=== PATIENT | female | born 2000 | race Caucasian/White ===

== ENCOUNTER 2020-01-26 16:39 | Inpatient (IN) | payer BC ==
[~2020-01-26] VITALS: Ht 165.1 cm; Wt 58.0 kg
[2020-01-26] MEDS ORDERED: HYDROmorphone 2 MG/ML VIAL IVP ONE (19:30)
[2020-01-26] MEDS ORDERED: IV NORMAL SALINE 1000ML BAG 1,000 ML IV ONE (19:30)
[2020-01-26] MEDS ORDERED: diphenhydrAMINE 50 MG/ML VIAL IVP ONE ×2 (19:30→21:45)
[2020-01-26] MEDS ORDERED: ONDANSETRON PF 4 MG/2 ML VIAL. IVP ONE ×2 (19:30→21:45)
--- NOTE | 2020-01-26 19:48 | RAD ---
CHEST AP ONLY History: Sepsis Comparison: None. Findings: Single view of the chest is submitted. There is left upper extremity PICC with the tip in the region of the mid aspect of the superior vena cava. No pneumothorax, pleural fluid, or infiltrate is identified. Heart size is within normal limits. Impression: 1. No convincing acute radiographic abnormality is identified. Electronically signed by: Costa Wylie MD (01/26/2020 7:45 PM) [facility]
--- NOTE | 2020-01-26 20:00 | PHYS DOC ---
Past Medical History Past Medical History: Asthma, Migraines Additional Past Medical Histor: VASCULAR BLEEDING DISORDER,SUPERIOR MESENTARIC ARTERY SYNDROME,POSTERIOR OR Past Surgical History: Other Additional Past Surgical Histo: SMALL BOWEL RESECTION,PICC LINE PLACEMENT,GJ FEEDING TUBE Smoking Status: Never Smoker Alcohol Use: None General Adult EDM: Chief Complaint: FEVER HPI: HPI: Patient is a 20-year-old female with a complicated past medical history who presents to the emergency room for admission. Patient is currently on TPN and IV antibiotics through a PICC line. She was admitted at the end of December where she was started on antibiotics at [facility]. She sees 1 of our GI physicians who told her to come here to be admitted as her infection is not improving on antibiotics. She does not take anything by mouth. She has been having nausea and vomiting. She continues to have fevers. Patient has a hi story of mesenteric ischemia as well as various bowel dysfunctions that she has had for the last 6 years. She is complaining of chronic diffuse abdominal pain. Review of Systems: Review of Systems: General: Reports fever, chills, sweats, fatigue Eyes: Denies drainage, blurred vision, eye redness HENT: Denies rhinorrhea, sore throat, earache Respiratory: Denies cough, shortness of breath, wheezing Cardiac: Denies edema, palpitations, chest pain GI: Reports abdominal pain, Nausea, vomiting MSK: Denies back pain, neck pain Skin: Denies rash, jaundice Neuro: Denies headache, dizziness Psychiatric: Denies SI/HI Heart Score: Risk Factors: Risk Factors: DM, Current or recent (<one month) smoker, HTN, HLP, family history of CAD, obesity. Risk Scores: Score 0 - 3: 2.5% MACE over next 6 weeks - Discharge Home Score 4 - 6: 20.3% MACE over next 6 weeks - Admit for Clinical Observation Score 7 - 10: 72.7% MACE over next 6 weeks - Early Invasive Strategies Current Medications: Current Medications Medications (Trade) Dose Ordered Sig/Aleida Start Time Stop Time Status Last Admin Dose Admin Diphenhydramine HCl (Benadryl) 25 mg 1X ONCE 01/26/20 19:30 01/26/20 19:31 DC 01/26/20 19:45 25 MG Hydromorphone HCl (Dilaudid) 2 mg 1X ONCE 01/26/20 19:30 01/26/20 19:31 DC 01/26/20 19:49 2 MG Ondansetron HCl (Zofran) 4 mg 1X ONCE 01/26/20 19:30 01/26/20 19:31 DC 01/26/20 19:43 4 MG Sodium Chloride 1,000 ml @ 1,000 mls/hr 1X ONCE 01/26/20 19:30 01/26/20 20:29 01/26/20 19:46 1,000 MLS/HR Allergies: Allergies: Allergies Coded Allergies Type Severity Reaction Last Updated Verified Penicillins Allergy Severe rash 01/26/20 Yes amitriptyline Allergy Severe shock 01/26/20 Yes ceftriaxone Allergy Severe rash 01/26/20 Yes eletriptan Allergy Severe migraines 01/26/20 Yes fat emulsions Allergy Severe anaphylaxis 01/26/20 Yes fish oil Allergy Severe anaphylaxis 01/26/20 Yes medium chain triglycerides Allergy Severe anaphylaxis 01/26/20 Yes meropenem Allergy Severe face swelling 01/26/20 Yes morphine Allergy Severe unknown 01/26/20 Yes olive oil Allergy Severe anaphylaxis 01/26/20 Yes rizatriptan Allergy Severe migraines 01/26/20 Yes soybean oil Allergy Severe anaphylaxis 01/26/20 Yes sumatriptan Allergy Severe migraines 01/26/20 Yes topiramate Allergy Severe shock 01/26/20 Yes trimethobenzamide Allergy Severe face swelling 01/26/20 Yes prochlorperazine Allergy Intermediate 01/26/20 Yes sodium ferric gluconate complex Allergy Intermediate 01/26/20 Yes sucrose Allergy Intermediate 01/26/20 Yes cyproheptadine Adverse Reaction Intermediate n/v 01/26/20 Yes erythromycin base Adverse Reaction Intermediate n/v 01/26/20 Yes gabapentin Adverse Reaction Intermediate n/v 01/26/20 Yes metoclopramide Adverse Reaction Intermediate n/v 01/26/20 Yes promethazine Adverse Reaction Intermediate n/v 01/26/20 Yes Physical Exam: PE: General: Awake, alert, NAD. Well Nourished, well hydrated. Cooperative HEENT: Atraumatic, EOMI, PERRL, airway patent, moist oral mucosa Neck: Supple, trachea midline Respiratory: CTA bilaterally, normal effort, no wheezing/crackles CV: Tachycardic, no murmur, cap refill <2 GI: Soft, nondistended, diffusely tender, no masses, G-tube in place MSK: No obvious deformities Skin: Warm, dry, intact Neuro: A&O x3, speech NL, sensory and motor grossly intact, no focal deficits Psych: Normal affect, normal mood, not suicidal or homicidal Current Patient Data: Vital Signs: Vital Signs Date Time Temp Pulse Resp B/P (MAP) Pulse Ox O2 Delivery O2 Flow Rate FiO2 01/26/20 18:37 99.5 122 16 127/94 (105) 99 Room Air 99.5 EKG: EKG: [] Radiology/Procedures: Radiology/Procedures: [] Course & Med Decision Making: Course & Med Decision Making Pertinent Labs and Imaging studies reviewed. (See chart for details) Patient is 20-year-old female presents to the emergency room with fever, abdominal pain. She has a known bacteremia and that is being treated with antibiotics through PICC line. Patient states that she was told to come here for admission as her infection is not improving. Patient will be given fluids and pain medicine here in the emergency room. Sepsis work-up was ordered including blood cultures and lactic. Patient will be admitted for GI evaluation. Dragon Disclaimer: Dragon Disclaimer: This electronic medical record was generated, in whole or in part, using a voice recognition dictation system. Departure Departure Impression: Primary Impression: Bacteremia Additional Impressions: Abdominal pain On total parenteral nutrition Disposition: ADMITTED INPATIENT Condition: STABLE Referrals: ROXANE KERN MD (PCP) LIN MONSON MD Jan 26, 2020 20:00
[2020-01-26 20:34] LABS: BILIRUBIN,URINE NEGATIVE (NEG); CLARITY,URINE CLEAR; COLOR,URINE YELLOW; NITRITE,URINE NEGATIVE (NEG); PROTEIN,URINE NEGATIVE (NEG-TRACE); UROBILINOGEN,URINE 0.2 mg/dL (0.2 mg/dL)
[2020-01-26 20:34] LABS: BASO % 1 % (0-3); EOS # 0.2 x10^3/uL (0.0-0.7); EOS % 5 % (0-3); HEMATOCRIT 27.7 % (36.0-47.0); HEMOGLOBIN 9.3 g/dL (12.0-15.5); LYMPH # 1.4 x10^3/uL (1.0-4.8); LYMPH % 31 % (24-48); MEAN CORPUSCULAR HEMOGLOBIN 29 pg (25-35); MEAN CORPUSCULAR HGB CONC 34 g/dL (31-37); MEAN CORPUSCULAR VOLUME 85 fL (79-100); MONO # 0.4 x10^3/uL (0.0-1.1); MONO % 8 % (0-9); NEUT # 2.5 x10^3/uL (1.8-7.7); NEUT % 55 % (31-73); PLATELET COUNT 212 x10^3/uL (140-400); RED BLOOD COUNT 3.27 x10^6/uL (3.50-5.40); RED CELL DISTRIBUTION WIDTH 14.6 % (11.5-14.5); WHITE BLOOD COUNT 4.6 x10^3/uL (4.0-11.0)
[2020-01-26 20:43] LABS: BACTERIA,URINE FEW /HPF (0-FEW); RBC,URINE 0 /HPF (0-2)
[2020-01-26 20:47] LABS: CALCIUM 8.8 mg/dL (8.5-10.1); CREATININE 0.8 mg/dL (0.6-1.0); GFR 91.4; POTASSIUM 4.1 mmol/L (3.5-5.1)
[2020-01-26 20:53] LABS: ALBUMIN 3.5 g/dL (3.4-5.0); ALBUMIN/GLOBULIN RATIO 0.9 (1.0-1.7); TOTAL BILIRUBIN 0.2 mg/dL (0.2-1.0); TOTAL PROTEIN 7.6 g/dL (6.4-8.2)
[2020-01-26 22:35] VITALS: BP 141/89
[2020-01-27] MEDS ORDERED: diphenhydrAMINE 50 MG/ML VIAL IVP PRN (00:30)
[2020-01-27] MEDS ORDERED: ALBUTEROL SULFATE 2.5 MG/3 ML NEBU. NEB PRN (00:30)
[2020-01-27] MEDS ORDERED: ACETAMINOPHEN 650 MG SUPP.RECT. PR PRN (00:30)
[2020-01-27] MEDS: IV DEXTROSE 5 %-0.45 % NACL 1,000 ML IV SCH ×2 (00:30→12:02)
[2020-01-27] MEDS: ONDANSETRON PF 4 MG/2 ML VIAL. IV PRN ×3 (00:49→12:01)
[2020-01-27] MEDS: diphenhydrAMINE 50 MG/ML VIAL IVP PRN ×3 (00:49→14:24)
[2020-01-27 03:10] VITALS: BP 94/54
[2020-01-27 07:00] VITALS: BP 115/60
[2020-01-27] MEDS ORDERED: SENN8.6T11 PO (07:15)
[2020-01-27] MEDS ORDERED: CEFE100B IV (07:17)
[2020-01-27] MEDS ORDERED: DAPT350V IV (07:18)
[2020-01-27] MEDS ORDERED: ACET325T21 PO (07:22)
[2020-01-27] MEDS ORDERED: DOCU100C28 PO (07:22)
[2020-01-27] MEDS ORDERED: DIPH25TA64 IVP (07:39)
[2020-01-27] MEDS ORDERED: SENN1TAB99 PO (07:39)
[2020-01-27] MEDS ORDERED: CETI10TA74 PO (07:39)
[2020-01-27] MEDS ORDERED: DIVA500T2 PO (07:39)
[2020-01-27] MEDS ORDERED: ALBU2.5V5 NEB (07:39)
[2020-01-27] MEDS ORDERED: DULO60CA6 PO (07:39)
[2020-01-27] MEDS ORDERED: HYDR4TAB IVP (07:44)
[2020-01-27] MEDS ORDERED: HYDR4TAB PO (07:44)
[2020-01-27] MEDS ORDERED: FENT1PAT19 TP (07:44)
[2020-01-27] MEDS ORDERED: LEVO25TA55 PO (07:46)
[2020-01-27] MEDS ORDERED: MEDR150V3 IM (07:51)
[2020-01-27] MEDS ORDERED: OLAN10TA3 PO (07:57)
[2020-01-27] MEDS ORDERED: PANT40TA77 PO (07:57)
[2020-01-27] MEDS ORDERED: FREM225S SQ (07:57)
[2020-01-27] MEDS ORDERED: LORA0.5T96 PO (07:57)
[2020-01-27] MEDS ORDERED: ONDA8TAB9 PO (07:57)
[2020-01-27] MEDS: HYDROmorphone 2 MG/ML VIAL IV PRN ×3 (08:07→15:09)
[2020-01-27] MEDS ORDERED: CEFEPIME HCL IV Push 1 GM VIAL. IVP SCH (09:00)
--- NOTE | 2020-01-27 09:08 | PDOC2 ---
GI CONSULT Date of Service: DATE: 01/27/20 TIME: 09:07 Reason For Consult: bacteremia HPI: HPI: 20 y/o female who sees Dr. Briggs. H/o SMA syndrome (says workup/diagnosis through [facility] and referred to Dr. Quintanilla once she "aged out"). S/p duodenal jejunostomy, SB endoscopy, takedown of ligament of treitz, and GJ tube placement @ [facility] by Dr. Quintanilla in 08/2019. Tube replaced on 01/14/20. Per discussion w/ Dr. Briggs yesterday, has been on antibiotics and TPN w/ fever, CT @ [facility] yesterday (for abd pain, n/v, diarrhea, h/o bacteremia on atbx per PICC) indicates GJ tube infection - needs admission and possible removal. Also discussed w/ Dr. Briggs this morning after I saw her - pt's mother called him today - hopeful for tube removal and DC today. She is alone in her room and not forthcoming with history this morning. Has fever (103 at home), abdominal pain (all over, maybe worst around tube), vomiting ("bile and blood"), and dark brown-red drainage from GJ tube. She "is allowed" to eat a couple bites of food sometimes - sometimes has vomiting, somet imes not - sometimes immediately after eating, sometimes later. Uses GJ tube for drainage - does not use J tube for nutrition due to increase in abdominal pain after use. Reports some constipation improved w/ docusate - last stooled yesterday. Stable weight. H/o GERD on PPI. Three EGDs @ [facility] this year (two in September and one in Dec) - all for hematemesis - all unrevealing for upper GI source, but blood noted in oral cavity once in September and chart lists h/o epistaxis. Records indicate previously normal bronchoscopy and evaluation through [facility]. Chronic anemia - last Hgb @ [facility] on 01/24 was 8. ?h/o SB AVMs per [facility] workup. Bleeding scan and SBS negative @ [facility] in Dec. Abd US for elevated LFTs showed hydropic GB, no cholelithiasis, and normal bile ducts. Contrast study through J tube showed no distal obstruction. Colonoscopy reportedly normal ~2 years ago @ [facility]. Tells me has been on IV atbx for "three infections in my blood" x 1.5 weeks (summary list shows Daptomycin and Cefepime). Has recurrence of symptoms whenever atbx stopped. Takes Dilaudid and Fentanyl patch for pain at home. Mild tachycardia here, Tmax 99.5. Nurse reports pt said vomited three times overnight - unwitnessed. PMH: PMH: per HPI and POTS, Ehler-Danlos, migraines (gets BOTOX), seizure, hypothyroidism, fungemia, pancytopenia, anxiety, depression Social History: Smoke: No ALCOHOL: none Drugs: None ROS: GEN: +fever HEENT: Denies blurred vision, sore throat CV: Denies chest pain RESP: Denies shortness of air, cough GI: Per HPI : Denies hematuria, dysuria ENDO: Denies weight changes NEURO: Denies confusion, dizziness MSK: Denies weakness, joint pain/swelling SKIN: Denies jaundice, pruritus Vitals: Vitals: Vital Signs Date Time Temp Pulse Resp B/P (MAP) Pulse Ox O2 Delivery O2 Flow Rate FiO2 01/27/20 08:07 16 Room Air 01/27/20 07:00 97.7 79 115/60 (78) 99 97.7 Labs: Labs: Laboratory Tests Test 01/26/20 20:15 01/26/20 20:21 Urine Collection Type Unknown Urine Color Yellow Urine Clarity Clear Urine pH 7.0 (<5.0-8.0) Urine Specific [place] 1.015 (1.000-1.030) Urine Protein Negative mg/dL (NEG-TRACE) Urine Glucose (UA) Negative mg/dL (NEG) Urine Ketones (Stick) Negative mg/dL (NEG) Urine Blood Negative (NEG) Urine Nitrite Negative (NEG) Urine Bilirubin Negative (NEG) Urine Urobilinogen Dipstick 0.2 mg/dL (0.2 mg/dL) Urine Leukocyte Esterase Negative (NEG) Urine RBC 0 /HPF (0-2) Urine WBC 1-4 /HPF (0-4) Urine Squamous Epithelial Cells Mod /LPF Urine Bacteria Few /HPF (0-FEW) Urine Mucus Slight /LPF White Blood Count 4.6 x10^3/uL (4.0-11.0) Red Blood Count 3.27 x10^6/uL (3.50-5.40) Hemoglobin 9.3 g/dL (12.0-15.5) Hematocrit 27.7 % (36.0-47.0) Mean Corpuscular Volume 85 fL (79-100) Mean Corpuscular Hemoglobin 29 pg (25-35) Mean Corpuscular Hemoglobin Concent 34 g/dL (31-37) Red Cell Distribution Width 14.6 % (11.5-14.5) Platelet Count 212 x10^3/uL (140-400) Neutrophils (%) (Auto) 55 % (31-73) Lymphocytes (%) (Auto) 31 % (24-48) Monocytes (%) (Auto) 8 % (0-9) Eosinophils (%) (Auto) 5 % (0-3) Basophils (%) (Auto) 1 % (0-3) Neutrophils # (Auto) 2.5 x10^3/uL (1.8-7.7) Lymphocytes # (Auto) 1.4 x10^3/uL (1.0-4.8) Monocytes # (Auto) 0.4 x10^3/uL (0.0-1.1) Eosinophils # (Auto) 0.2 x10^3/uL (0.0-0.7) Basophils # (Auto) 0.0 x10^3/uL (0.0-0.2) Sodium Level 138 mmol/L (136-145) Potassium Level 4.1 mmol/L (3.5-5.1) Chloride Level 104 mmol/L (98-107) Carbon Dioxide Level 26 mmol/L (21-32) Anion Gap 8 (6-14) Blood Urea Nitrogen 14 mg/dL (7-20) Creatinine 0.8 mg/dL (0.6-1.0) Estimated GFR (Cockcroft-Gault) 91.4 BUN/Creatinine Ratio 18 (6-20) Glucose Level 82 mg/dL (70-99) Lactic Acid Level 1.2 mmol/L (0.4-2.0) Calcium Level 8.8 mg/dL (8.5-10.1) Total Bilirubin 0.2 mg/dL (0.2-1.0) Aspartate Amino Transf (AST/SGOT) 17 U/L (15-37) Alanine Aminotransferase (ALT/SGPT) 13 U/L (14-59) Alkaline Phosphatase 66 U/L (46-116) Total Protein 7.6 g/dL (6.4-8.2) Albumin 3.5 g/dL (3.4-5.0) Albumin/Globulin Ratio 0.9 (1.0-1.7) Allergies: Coded Allergies: Penicillins (Verified Allergy, Severe, rash, 01/26/20) amitriptyline (Verified Allergy, Severe, shock, 01/26/20) ceftriaxone (Verified Allergy, Severe, rash, 01/26/20) eletriptan (Verified Allergy, Severe, migraines, 01/26/20) fat emulsions (Verified Allergy, Severe, anaphylaxis, 01/26/20) fish oil (Verified Allergy, Severe, anaphylaxis, 01/26/20) medium chain triglycerides (Verified Allergy, Severe, anaphylaxis, 01/26/20) meropenem (Verified Allergy, Severe, face swelling, 01/26/20) morphine (Verified Allergy, Severe, unknown, 01/26/20) olive oil (Verified Allergy, Severe, anaphylaxis, 01/26/20) rizatriptan (Verified Allergy, Severe, migraines, 01/26/20) soybean oil (Verified Allergy, Severe, anaphylaxis, 01/26/20) sumatriptan (Verified Allergy, Severe, migraines, 01/26/20) topiramate (Verified Allergy, Severe, shock, 01/26/20) trimethobenzamide (Verified Allergy, Severe, face swelling, 01/26/20) prochlorperazine (Verified Allergy, Intermediate, 01/26/20) sodium ferric gluconate complex (Verified Allergy, Intermediate, 01/26/20) sucrose (Verified Allergy, Intermediate, 01/26/20) pineapple (Verified Allergy, Unknown, 01/27/20) cyproheptadine (Verified Adverse Reaction, Intermediate, n/v, 01/26/20) erythromycin base (Verified Adverse Reaction, Intermediate, n/v, 01/26/20) gabapentin (Verified Adverse Reaction, Intermediate, n/v, 01/26/20) metoclopramide (Verified Adverse Reaction, Intermediate, n/v, 01/26/20) promethazine (Verified Adverse Reaction, Intermediate, n/v, 01/26/20) Medications: Current Medications Medications (Trade) Dose Ordered Sig/Aleida Route PRN Reason Start Time Stop Time Status Last Admin Dose Admin Hydromorphone HCl (Dilaudid) 2 mg 1X ONCE IVP 01/26/20 19:30 01/26/20 19:31 DC 01/26/20 19:49 Ondansetron HCl (Zofran) 4 mg 1X ONCE IVP 01/26/20 19:30 01/26/20 19:31 DC 01/26/20 19:43 Sodium Chloride 1,000 ml @ 1,000 mls/hr 1X ONCE IV 01/26/20 19:30 01/26/20 20:29 DC 01/26/20 19:46 Diphenhydramine HCl (Benadryl) 25 mg 1X ONCE IVP 01/26/20 19:30 01/26/20 19:31 DC 01/26/20 19:45 Ondansetron HCl (Zofran) 4 mg 1X ONCE IVP 01/26/20 21:45 01/26/20 21:46 DC 01/26/20 21:41 Diphenhydramine HCl (Benadryl) 25 mg 1X ONCE IVP 01/26/20 21:45 01/26/20 21:46 DC 01/26/20 21:41 Dextrose/Sodium Chloride 1,000 ml @ 100 mls/hr Q10H IV 01/27/20 00:30 01/27/20 00:30 Ondansetron HCl (Zofran) 4 mg PRN Q4HRS PRN IV NAUSEA/VOMITING 01/27/20 00:30 01/27/20 08:07 Hydromorphone HCl (Dilaudid) 1 mg PRN Q2HRS PRN IV SEVERE PAIN 7-10 01/27/20 00:30 01/27/20 08:07 Diphenhydramine HCl (Benadryl) 25 mg PRN Q6HRS PRN IVP ITCHING 01/27/20 00:30 01/27/20 08:07 Cefepime HCl (Maxipime) 1 gm Q12HR IVP 01/27/20 09:00 01/27/20 08:22 Micafungin Sodium 100 mg/Dextrose 100 ml @ 100 mls/hr Q24H IV 01/27/20 09:30 01/27/20 08:23 Imaging: Imaging: CXR 01/25 Impression: 1. No convincing acute radiographic abnormality is identified. PE: GEN: NAD HEENT: Atraumatic, PERRL LUNGS: CTAB HEART: RRR ABD: GJ tube left mid abdomen w/ dark brown-red contents, tender diffusely though worst in lower abdomen - suprapubic/LLQ/around tube - some firmness EXTREMITY: No edema SKIN: No rashes, no jaundice NEURO/PSYCH: A & O 3, flat A/P: A/P: H/o SMA syndrome s/p duodenal jejunostomy w/ GJ tube on TPN H/o bacteremia, fever - abnormal CT @ [facility] yesterday: "indwelling gastrojejunostomy tube is well-positioned, there is mild soft tissue fullness and thickening of the abdominal wall along the gastrostomy tract which may indicate localized inflammation and cellulitis which is increased since previous though no loculated fluid collection or abscess is seen" Chronic anemia - normal bleeding scan and SBS recently Chronic abd pain, recurrent vomiting - normal EGD x 3 (09/2019, 12/2019) - blood in oral cavity H/o GERD CRC screen - reportedly [facility] ~[facility] -- Per discussion w/ Dr. Briggs yesterday - ideally would have removal of GJ tube - previous imaging @ [facility]. D/w Dr. Briones who will see here here - ask for surgery opinion. Update given to Dr. Briggs - pt's mother in contact w/ him. ?ID - on Micafungin and Cefepime here. Okay to resume TPN, will add PPI. ?check G tube w/ contrast study Has Dilaudid and Ativan ordered. LIZETH LUDWIG Jan 27, 2020 09:08
[2020-01-27] MEDS ORDERED: MICAFUNGIN 100 MG in IV DEXTROSE 5% 100ML 100 ML IV SCH (09:30)
[2020-01-27] MEDS ORDERED: TPN PER PHARMACY MC PRN (10:00)
--- NOTE | 2020-01-27 10:07 | PDOC1 ---
History and Physical Date of Admission Date of Admission DATE: 01/27/20 TIME: 10:06 Identification/Chief Complaint Chief Complaint SEEN IN ER WITH BACTEREMIA, 20-year-old female with a complicated past medical history who presented to the emergency room for admission. currently on TPN and IV antibiotics through a PICC line. She was admitted at the end of December where she was started on antibiotics at [facility]. She sees GI physicians who told her to come here to be admitted as her infection is not improving on antibiotics. She does not take anything by mouth.// has been having nausea and vomiting. ,continues to have fevers. has a history of mesenteric ischemia as well as various bowel dysfunctions that she has had for the last 6 years Past Medical History Past Medical History Past Medical History Past Medical History: Asthma, Migraines Additional Past Medical Histor: VASCULAR BLEEDING DISORDER,SUPERIOR MESENTARIC ARTERY SYNDROME,POSTERIOR OR Past Surgical History: Other Additional Past Surgical Histo: SMALL BOWEL RESECTION,PICC LINE PLACEMENT,GJ FEEDING TUBE Smoking Status: Never Smoker Alcohol Use: None FHX HTN ENT: No pertinent hx Family History Family History: Hypertension Social History Smoke: No ALCOHOL: none Drugs: None Current Problem List Problem List Problems Medical Problems: (1) Abdominal pain Status: Acute (2) Bacteremia Status: Acute (3) On total parenteral nutrition Status: Acute Current Medications Current Medications Current Medications Hydromorphone HCl (Dilaudid) 2 mg 1X ONCE IVP Last administered on 01/26/20at 19:49; Start 01/26/20 at 19:30; Stop 01/26/20 at 19:31; Status DC Ondansetron HCl (Zofran) 4 mg 1X ONCE IVP Last administered on 01/26/20at 19:43; Start 01/26/20 at 19:30; Stop 01/26/20 at 19:31; Status DC Sodium Chloride 1,000 ml @ 1,000 mls/hr 1X ONCE IV Last administered on 01/26/20at 19:46; Start 01/26/20 at 19:30; Stop 01/26/20 at 20:29; Status DC Diphenhydramine HCl (Benadryl) 25 mg 1X ONCE IVP Last administered on 01/26/20at 19:45; Start 01/26/20 at 19:30; Stop 01/26/20 at 19:31; Status DC Ondansetron HCl (Zofran) 4 mg 1X ONCE IVP Last administered on 01/26/20at 21:41; Start 01/26/20 at 21:45; Stop 01/26/20 at 21:46; Status DC Diphenhydramine HCl (Benadryl) 25 mg 1X ONCE IVP Last administered on 01/26/20a t 21:41; Start 01/26/20 at 21:45; Stop 01/26/20 at 21:46; Status DC Dextrose/Sodium Chloride 1,000 ml @ 100 mls/hr Q10H IV Last administered on 01/27/20at 00:30; Start 01/27/20 at 00:30 Ondansetron HCl (Zofran) 4 mg PRN Q4HRS PRN IV NAUSEA/VOMITING Last administered on 01/27/20at 08:07; Start 01/27/20 at 00:30 Acetaminophen (Tylenol Supp) 650 mg PRN Q4HRS PRN NH TEMP OVER 100.4F OR MILD PAIN; Start 01/27/20 at 00:30 Albuterol Sulfate (Ventolin Neb Soln) 2.5 mg PRN Q4HRS PRN NEB SHORTNESS OF BREATH; Start 01/27/20 at 00:30 Lorazepam (Ativan Inj) 1 mg PRN Q4HRS PRN IV ANXIETY / AGITATION; Start 01/27/20 at 00:30 Hydromorphone HCl (Dilaudid) 1 mg PRN Q2HRS PRN IV SEVERE PAIN 7-10 Last administered on 01/27/20at 08:07; Start 01/27/20 at 00:30 Diphenhydramine HCl (Benadryl) 25 mg PRN Q8HRS PRN IVP itchiness; Start 01/27/20 at 00:30 Diphenhydramine HCl (Benadryl) 25 mg PRN Q6HRS PRN IVP ITCHING Last administered on 01/27/20at 08:07; Start 01/27/20 at 00:30 Cefepime HCl (Maxipime) 1 gm Q12HR IVP Last administered on 01/27/20at 08:22; Start 01/27/20 at 09:00 Micafungin Sodium 100 mg/Dextrose 100 ml @ 100 mls/hr Q24H IV Last administer ed on 01/27/20at 08:23; Start 01/27/20 at 09:30 Info (Tpn Per Pharmacy) 1 each PRN DAILY PRN MC SEE COMMENTS; Start 01/27/20 at 10:00 Active Scripts Active Reported Ajovy (Fremanezumab-Vfrm) 225 Mg/1.5 Ml Syringe 225 Mg SQ PRN DAILY PRN Zofran (Ondansetron Hcl) 8 Mg Tablet 8 Mg PO PRN Q4HRS PRN Pantoprazole Sodium (Pantoprazole Sodium) 40 Mg Tablet.dr 40 Mg PO DAILYAC Zyprexa (Olanzapine) 10 Mg Tablet 1 Tab PO QHS Ativan (Lorazepam) 0.5 Mg Tablet 0.5 Mg PO PRN Q6HRS PRN Medroxyprogesterone Acetate 150 Mg/1 Ml Vial 150 Mg IM EVERY 3 PRN Synthroid (Levothyroxine Sodium) 25 Mcg Tablet 1 Tab PO DAILY08 Hydromorphone Hcl 4 Mg Tablet 4 Mg IVP PRN Q4HRS PRN Hydromorphone Hcl 4 Mg Tablet 4 Mg PO PRN Q6HRS PRN FENTANYL 75mcg/hr (Fentanyl) 1 Each Patch.td72 1 Patch TP Q3DAYS Cymbalta (Duloxetine Hcl) 60 Mg Capsule. 1 Cap PO DAILY Senna-Docusate Sodium Tablet (Sennosides/Docusate Sodium) 1 Each Tablet 1 Tab PO HS PRN 20 Days Depakote (Divalproex Sodium) 500 Mg Tablet. 250 Tab PO BID Benadryl Allergy (Diphenhydramine Hcl) 25 Mg Tablet 50 Mg IVP PRN Q4HRS Zyrtec (Cetirizine Hcl) 10 Mg Tablet 10 Mg PO DAILY PRN Albuterol Sulfate Neb Soln (Albuterol Sulfate) 2.5 Mg/3 Ml Vial.neb 2.5 Mg NEB PRN Q6HRS PRN Acetaminophen 325 Mg Tablet 2 Tab PO PRN Q4-6HRS PRN 24 Days Docusate Sodium 100 Mg Capsule 2 Cap PO BID PRN 15 Days Daptomycin 350 Mg Vial 500 Mg IV DAILY Cefepime HCl 100 Gm Bulkbaginj 100 Gm IV BID Senna Laxative (Sennosides) 8.6 Mg Tablet 8.6 Mg PO QHS Allergies Allergies: Coded Allergies: Penicillins (Verified Allergy, Severe, rash, 01/26/20) amitriptyline (Verified Allergy, Severe, shock, 01/26/20) ceftriaxone (Verified Allergy, Severe, rash, 01/26/20) eletriptan (Verified Allergy, Severe, migraines, 01/26/20) fat emulsions (Verified Allergy, Severe, anaphylaxis, 01/26/20) fish oil (Verified Allergy, Severe, anaphylaxis, 01/26/20) medium chain triglycerides (Verified Allergy, Severe, anaphylaxis, 01/26/20) meropenem (Verified Allergy, Severe, face swelling, 01/26/20) morphine (Verified Allergy, Severe, unknown, 01/26/20) olive oil (Verified Allergy, Severe, anaphylaxis, 01/26/20) rizatriptan (Verified Allergy, Severe, migraines, 01/26/20) soybean oil (Verified Allergy, Severe, anaphylaxis, 01/26/20) sumatriptan (Verified Allergy, Severe, migraines, 01/26/20) topiramate (Verified Allergy, Severe, shock, 01/26/20) trimethobenzamide (Verified Allergy, Severe, face swelling, 01/26/20) prochlorperazine (Verified Allergy, Intermediate, 01/26/20) sodium ferric gluconate complex (Verified Allergy, Intermediate, 01/26/20) sucrose (Verified Allergy, Intermediate, 01/26/20) pineapple (Verified Allergy, Unknown, 01/27/20) cyproheptadine (Verified Adverse Reaction, Intermediate, n/v, 01/26/20) erythromycin base (Verified Adverse Reaction, Intermediate, n/v, 01/26/20) gabapentin (Verified Adverse Reaction, Intermediate, n/v, 01/26/20) metoclopramide (Verified Adverse Reaction, Intermediate, n/v, 01/26/20) promethazine (Verified Adverse Reaction, Intermediate, n/v, 01/26/20) ROS Review of System Review of Systems: General: Reports fever, chills, sweats, fatigue Eyes: Denies drainage, blurred vision, eye redness HENT: Denies rhinorrhea, sore throat, earache Respiratory: Denies cough, shortness of breath, wheezing Cardiac: Denies edema, palpitations, chest pain GI: Reports abdominal pain, Nausea, vomiting MSK: Denies back pain, neck pain Skin: Denies rash, jaundice Neuro: Denies headache, dizziness 14 PT ROS OTHERWISE NEG Physical Exam Physical Exam General: Awake, alert, NAD. Well Nourished, well hydrated. Cooperative HEENT: Atraumatic, EOMI, PERRL, airway patent, moist oral mucosa Neck: Supple, trachea midline Respiratory: CTA bilaterally, normal effort, no wheezing/crackles CV: Tachycardic, no murmur, cap refill <2 GI: Soft, nondistended, diffusely tender, no masses, G-tube in place MSK: No obvious deformities Skin: Warm, dry, intact Neuro: A&O x3, speech NL, sensory and motor grossly intact, no focal deficits Psych: Normal affect, normal mood, General: Alert, Oriented X3, Cooperative HEENT: Atraumatic Breasts: Not examined Abdomen: Soft Rectal Exam: not examined PELVIC: Examination not indicated Extremities: No cyanosis Neuro: Normal speech, Sensation intact, Cranial nerves 3-12 NL Psych/Mental Status: Mental status NL, Mood NL Vitals Vitals Vital Signs Date Time Temp Pulse Resp B/P (MAP) Pulse Ox O2 Delivery O2 Flow Rate FiO2 01/27/20 08:07 16 Room Air 01/27/20 07:00 97.7 79 115/60 (78) 99 97.7 Labs Labs Laboratory Tests Test 01/26/20 20:15 01/26/20 20:21 Urine Collection Type Unknown Urine Color Yellow Urine Clarity Clear Urine pH 7.0 (<5.0-8.0) Urine Specific [place] 1.015 (1.000-1.030) Urine Protein Negative mg/dL (NEG-TRACE) Urine Glucose (UA) Negative mg/dL (NEG) Urine Ketones (Stick) Negative mg/dL (NEG) Urine Blood Negative (NEG) Urine Nitrite Negative (NEG) Urine Bilirubin Negative (NEG) Urine Urobilinogen Dipstick 0.2 mg/dL (0.2 mg/dL) Urine Leukocyte Esterase Negative (NEG) Urine RBC 0 /HPF (0-2) Urine WBC 1-4 /HPF (0-4) Urine Squamous Epithelial Cells Mod /LPF Urine Bacteria Few /HPF (0-FEW) Urine Mucus Slight /LPF White Blood Count 4.6 x10^3/uL (4.0-11.0) Red Blood Count 3.27 x10^6/uL (3.50-5.40) Hemoglobin 9.3 g/dL (12.0-15.5) Hematocrit 27.7 % (36.0-47.0) Mean Corpuscular Volume 85 fL (79-100) Mean Corpuscular Hemoglobin 29 pg (25-35) Mean Corpuscular Hemoglobin Concent 34 g/dL (31-37) Red Cell Distribution Width 14.6 % (11.5-14.5) Platelet Count 212 x10^3/uL (140-400) Neutrophils (%) (Auto) 55 % (31-73) Lymphocytes (%) (Auto) 31 % (24-48) Monocytes (%) (Auto) 8 % (0-9) Eosinophils (%) (Auto) 5 % (0-3) Basophils (%) (Auto) 1 % (0-3) Neutrophils # (Auto) 2.5 x10^3/uL (1.8-7.7) Lymphocytes # (Auto) 1.4 x10^3/uL (1.0-4.8) Monocytes # (Auto) 0.4 x10^3/uL (0.0-1.1) Eosinophils # (Auto) 0.2 x10^3/uL (0.0-0.7) Basophils # (Auto) 0.0 x10^3/uL (0.0-0.2) Sodium Level 138 mmol/L (136-145) Potassium Level 4.1 mmol/L (3.5-5.1) Chloride Level 104 mmol/L (98-107) Carbon Dioxide Level 26 mmol/L (21-32) Anion Gap 8 (6-14) Blood Urea Nitrogen 14 mg/dL (7-20) Creatinine 0.8 mg/dL (0.6-1.0) Estimated GFR (Cockcroft-Gault) 91.4 BUN/Creatinine Ratio 18 (6-20) Glucose Level 82 mg/dL (70-99) Lactic Acid Level 1.2 mmol/L (0.4-2.0) Calcium Level 8.8 mg/dL (8.5-10.1) Total Bilirubin 0.2 mg/dL (0.2-1.0) Aspartate Amino Transf (AST/SGOT) 17 U/L (15-37) Alanine Aminotransferase (ALT/SGPT) 13 U/L (14-59) Alkaline Phosphatase 66 U/L (46-116) Total Protein 7.6 g/dL (6.4-8.2) Albumin 3.5 g/dL (3.4-5.0) Albumin/Globulin Ratio 0.9 (1.0-1.7) Laboratory Tests Test 01/26/20 20:15 01/26/20 20:21 Urine Collection Type Unknown Urine Color Yellow Urine Clarity Clear Urine pH 7.0 (<5.0-8.0) Urine Specific [place] 1.015 (1.000-1.030) Urine Protein Negative mg/dL (NEG-TRACE) Urine Glucose (UA) Negative mg/dL (NEG) Urine Ketones (Stick) Negative mg/dL (NEG) Urine Blood Negative (NEG) Urine Nitrite Negative (NEG) Urine Bilirubin Negative (NEG) Urine Urobilinogen Dipstick 0.2 mg/dL (0.2 mg/dL) Urine Leukocyte Esterase Negative (NEG) Urine RBC 0 /HPF (0-2) Urine WBC 1-4 /HPF (0-4) Urine Squamous Epithelial Cells Mod /LPF Urine Bacteria Few /HPF (0-FEW) Urine Mucus Slight /LPF White Blood Count 4.6 x10^3/uL (4.0-11.0) Red Blood Count 3.27 x10^6/uL (3.50-5.40) Hemoglobin 9.3 g/dL (12.0-15.5) Hematocrit 27.7 % (36.0-47.0) Mean Corpuscular Volume 85 fL (79-100) Mean Corpuscular Hemoglobin 29 pg (25-35) Mean Corpuscular Hemoglobin Concent 34 g/dL (31-37) Red Cell Distribution Width 14.6 % (11.5-14.5) Platelet Count 212 x10^3/uL (140-400) Neutrophils (%) (Auto) 55 % (31-73) Lymphocytes (%) (Auto) 31 % (24-48) Monocytes (%) (Auto) 8 % (0-9) Eosinophils (%) (Auto) 5 % (0-3) Basophils (%) (Auto) 1 % (0-3) Neutrophils # (Auto) 2.5 x10^3/uL (1.8-7.7) Lymphocytes # (Auto) 1.4 x10^3/uL (1.0-4.8) Monocytes # (Auto) 0.4 x10^3/uL (0.0-1.1) Eosinophils # (Auto) 0.2 x10^3/uL (0.0-0.7) Basophils # (Auto) 0.0 x10^3/uL (0.0-0.2) Sodium Level 138 mmol/L (136-145) Potassium Level 4.1 mmol/L (3.5-5.1) Chloride Level 104 mmol/L (98-107) Carbon Dioxide Level 26 mmol/L (21-32) Anion Gap 8 (6-14) Blood Urea Nitrogen 14 mg/dL (7-20) Creatinine 0.8 mg/dL (0.6-1.0) Estimated GFR (Cockcroft-Gault) 91.4 BUN/Creatinine Ratio 18 (6-20) Glucose Level 82 mg/dL (70-99) Lactic Acid Level 1.2 mmol/L (0.4-2.0) Calcium Level 8.8 mg/dL (8.5-10.1) Total Bilirubin 0.2 mg/dL (0.2-1.0) Aspartate Amino Transf (AST/SGOT) 17 U/L (15-37) Alanine Aminotransferase (ALT/SGPT) 13 U/L (14-59) Alkaline Phosphatase 66 U/L (46-116) Total Protein 7.6 g/dL (6.4-8.2) Albumin 3.5 g/dL (3.4-5.0) Albumin/Globulin Ratio 0.9 (1.0-1.7) Images Images History: Sepsis Comparison: None. Findings: Single view of the chest is submitted. There is left upper extremity PICC with the tip in the region of the mid aspect of the superior vena cava. No pneumothorax, pleural fluid, or infiltrate is identified. Heart size is within normal limits. Impression: 1. No convincing acute radiographic abnormality is identified. Electronically signed by: Esme Sandy MD (01/26/2020 7:45 PM) [facility] DICTATED and SIGNED BY: ESME SANDY MD VTE Prophylaxis Ordered VTE Prophylaxis Devices: Yes VTE Pharmacological Prophylaxi: Yes Assessment/Plan Assessment/Plan impression 1. bacteremia 2. sepsis 3. HX SMALL BOWEL RESECTION,PICC LINE PLACEMENT, 4. GJ FEEDING TUBE 5. NORMOCYTIC ANEMIA plan admit emperic iv antibiotics ID consult GI CONSULT consideration for removal of GJ tube w/ infection - previous imaging @ [facility] IV CEFIPIME, MICAFUNGIN. d/w mother in room Justifications for Admission Other Justification SALLIE HOWARD MD Jan 27, 2020 10:07
[2020-01-27 11:00] VITALS: BP 109/64
--- NOTE | 2020-01-27 12:29 | NUR ---
SS following for discharge planning. SS reviewed pt chart and discussed with pt RN. Pt is from home with family and is currently on room air. Pt had [facility], ; fax [phone]. Pt has IV infusion services at home through [facility], ; fax [phone]. SS received notification from [facility] that pt was on IV Micafungin 100 mg Q24, IV Cefepime 1G Q12, and IV Daptomycin 500mg Q24, and TPN at home. [facility] to fax documentation of dosages to unit. Pt will need new scripts for IV abx and TPN prior to discharge. Pt's mother requesting discharge to home today. SS will continue to follow for discharge planning.
--- NOTE | 2020-01-27 14:31 | PDOC2 ---
CONSULT Date of Consult Date of Consult DATE: 01/27/20 TIME: 14:26 Reason for Consult Reason for Consult: GJ infection Referring Physician Referring Physician: Dr. Briones and Dr. Briggs Identification/Chief Complaint Chief Complaint recurrent infections Source Source: Caregiver, Chart review, Patient History of Present Illness Reason for Visit: 20 yo F with bowel dysfunction. Has had recurrent issues with infection at GJ tube site. Pt, pt's family and GI requests removal. She has not been using tubes secondary to pain. Past Medical History Cardiovascular: Other (ehlose danlos) GI: Other (bowel dysfunction, Gi bleed, SMA syndrome) Infectious disease: Other (recurrent infections) ENT: No pertinent hx Past Surgical History Past Surgical History: Other (SMA surgery with placement of GJ tube.) Family History Family History: No Significant, Hypertension Social History No ALCOHOL: none Drugs: None Current Problem List Problem List Problems Medical Problems: (1) Abdominal pain Status: Acute (2) Bacteremia Status: Acute (3) On total parenteral nutrition Status: Acute Current Medications Current Medications Current Medications Hydromorphone HCl (Dilaudid) 2 mg 1X ONCE IVP Last administered on 01/26/20at 1 9:49; Start 01/26/20 at 19:30; Stop 01/26/20 at 19:31; Status DC Ondansetron HCl (Zofran) 4 mg 1X ONCE IVP Last administered on 01/26/20at 19:43; Start 01/26/20 at 19:30; Stop 01/26/20 at 19:31; Status DC Sodium Chloride 1,000 ml @ 1,000 mls/hr 1X ONCE IV Last administered on 01/26/20at 19:46; Start 01/26/20 at 19:30; Stop 01/26/20 at 20:29; Status DC Diphenhydramine HCl (Benadryl) 25 mg 1X ONCE IVP Last administered on 01/26/20at 19:45; Start 01/26/20 at 19:30; Stop 01/26/20 at 19:31; Status DC Ondansetron HCl (Zofran) 4 mg 1X ONCE IVP Last administered on 01/26/20at 21:41; Start 01/26/20 at 21:45; Stop 01/26/20 at 21:46; Status DC Diphenhydramine HCl (Benadryl) 25 mg 1X ONCE IVP Last administered on 01/26/20at 21:41; Start 01/26/20 at 21:45; Stop 01/26/20 at 21:46; Status DC Dextrose/Sodium Chloride 1,000 ml @ 100 mls/hr Q10H IV Last administered on 01/27/20at 12:02; Start 01/27/20 at 00:30 Ondansetron HCl (Zofran) 4 mg PRN Q4HRS PRN IV NAUSEA/VOMITING Last administered on 01/27/20at 12:01; Start 01/27/20 at 00:30 Acetaminophen (Tylenol Supp) 650 mg PRN Q4HRS PRN [place] TEMP OVER 100.4F OR MILD PAIN; Start 01/27/20 at 00:30 Albuterol Sulfate (Ventolin Neb Soln) 2.5 mg PRN Q4HRS PRN NEB SHORTNESS OF BREATH; Start 01/27/20 at 00:30 Lorazepam (Ativan Inj) 1 mg PRN Q4HRS PRN IV ANXIETY / AGITATION; Start 01/27/20 at 00:30 Hydromorphone HCl (Dilaudid) 1 mg PRN Q2HRS PRN IV SEVERE PAIN 7-10 Last administered on 01/27/20at 11:22; Start 01/27/20 at 00:30 Diphenhydramine HCl (Benadryl) 25 mg PRN Q8HRS PRN IVP itchiness; Start 01/27/20 at 00:30 Diphenhydramine HCl (Benadryl) 25 mg PRN Q6HRS PRN IVP ITCHING Last administered on 01/27/20at 14:24; Start 01/27/20 at 00:30 Cefepime HCl (Maxipime) 1 gm Q12HR IVP Last administered on 01/27/20at 08:22; Start 01/27/20 at 09:00 Micafungin Sodium 100 mg/Dextrose 100 ml @ 100 mls/hr Q24H IV Last administered on 01/27/20at 08:23; Start 01/27/20 at 09:30 Info (Tpn Per Pharmacy) 1 each PRN DAILY PRN [facility] SEE COMMENTS; Start 01/27/20 at 10:00 Pantoprazole Sodium (PROTONIX VIAL for IV PUSH) 40 mg DAILYAC IVP ; Start 01/28/20 at 07:30 Active Scripts Active Reported Ajovy (Fremanezumab-Vfrm) 225 Mg/1.5 Ml Syringe 225 Mg SQ PRN DAILY PRN Zofran (Ondansetron Hcl) 8 Mg Tablet 8 Mg PO PRN Q4HRS PRN Pantoprazole Sodium (Pantoprazole Sodium) 40 Mg Tablet. 40 Mg PO DAILYAC Zyprexa (Olanzapine) 10 Mg Tablet 1 Tab PO QHS Ativan (Lorazepam) 0.5 Mg Tablet 0.5 Mg PO PRN Q6HRS PRN Medroxyprogesterone Acetate 150 Mg/1 Ml Vial 150 Mg IM EVERY 3 PRN Synthroid (Levothyroxine Sodium) 25 Mcg Tablet 1 Tab PO DAILY08 Hydromorphone Hcl 4 Mg Tablet 4 Mg IVP PRN Q4HRS PRN Hydromorphone Hcl 4 Mg Tablet 4 Mg PO PRN Q6HRS PRN FENTANYL 75mcg/hr (Fentanyl) 1 Each Patch.td72 1 Patch TP Q3DAYS Cymbalta (Duloxetine Hcl) 60 Mg Capsule. 1 Cap PO DAILY Senna-Docusate Sodium Tablet (Sennosides/Docusate Sodium) 1 Each Tablet 1 Tab PO HS PRN 20 Days Depakote (Divalproex Sodium) 500 Mg Tablet. 250 Tab PO BID Benadryl Allergy (Diphenhydramine Hcl) 25 Mg Tablet 50 Mg IVP PRN Q4HRS Zyrtec (Cetirizine Hcl) 10 Mg Tablet 10 Mg PO DAILY PRN Albuterol Sulfate Neb Soln (Albuterol Sulfate) 2.5 Mg/3 Ml Vial.neb 2.5 Mg NEB PRN Q6HRS PRN Acetaminophen 325 Mg Tablet 2 Tab PO PRN Q4-6HRS PRN 24 Days Docusate Sodium 100 Mg Capsule 2 Cap PO BID PRN 15 Days Daptomycin 350 Mg Vial 500 Mg IV DAILY Cefepime HCl 100 Gm Bulkbaginj 100 Gm IV BID Senna Laxative (Sennosides) 8.6 Mg Tablet 8.6 Mg PO QHS Allergies Allergies: Coded Allergies: Penicillins (Verified Allergy, Severe, rash, 01/26/20) amitriptyline (Verified Allergy, Severe, shock, 01/26/20) ceftriaxone (Verified Allergy, Severe, rash, 01/26/20) eletriptan (Verified Allergy, Severe, migraines, 01/26/20) fat emulsions (Verified Allergy, Severe, anaphylaxis, 01/26/20) fish oil (Verified Allergy, Severe, anaphylaxis, 01/26/20) medium chain triglycerides (Verified Allergy, Severe, anaphylaxis, 01/26/20) meropenem (Verified Allergy, Severe, face swelling, 01/26/20) morphine (Verified Allergy, Severe, unknown, 01/26/20) olive oil (Verified Allergy, Severe, anaphylaxis, 01/26/20) rizatriptan (Verified Allergy, Severe, migraines, 01/26/20) soybean oil (Verified Allergy, Severe, anaphylaxis, 01/26/20) sumatriptan (Verified Allergy, Severe, migraines, 01/26/20) topiramate (Verified Allergy, Severe, shock, 01/26/20) trimethobenzamide (Verified Allergy, Severe, face swelling, 01/26/20) prochlorperazine (Verified Allergy, Intermediate, 01/26/20) sodium ferric gluconate complex (Verified Allergy, Intermediate, 01/26/20) sucrose (Verified Allergy, Intermediate, 01/26/20) pineapple (Verified Allergy, Unknown, 01/27/20) cyproheptadine (Verified Adverse Reaction, Intermediate, n/v, 01/26/20) erythromycin base (Verified Adverse Reaction, Intermediate, n/v, 01/26/20) gabapentin (Verified Adverse Reaction, Intermediate, n/v, 01/26/20) metoclopramide (Verified Adverse Reaction, Intermediate, n/v, 01/26/20) promethazine (Verified Adverse Reaction, Intermediate, n/v, 01/26/20) ROS General: YES: Malaise Gastrointestinal: Yes Nausea, Yes Abdominal Pain Physical Exam General: Alert, Oriented X3, Cooperative, No acute distress HEENT: Atraumatic Lungs: Normal air movement Abdomen: Soft, Other (GJ tube was removed without difficulty after discussing with pt and pt's mother.) Extremities: No clubbing, No cyanosis Skin: No rashes, No breakdown Neuro: Normal speech, Sensation intact Psych/Mental Status: Mental status NL, Mood NL Vitals VITALS Vital Signs Date Time Temp Pulse Resp B/P (MAP) Pulse Ox O2 Delivery O2 Flow Rate FiO2 01/27/20 11:00 98.5 85 20 109/64 (79) 98 Room Air 98.5 Labs Labs Laboratory Tests Test 01/26/20 20:15 01/26/20 20:21 01/27/20 12:20 Urine Collection Type Unknown Urine Color Yellow Urine Clarity Clear Urine pH 7.0 (<5.0-8.0) Urine Specific [place] 1.015 (1.000-1.030) Urine Protein Negative mg/dL (NEG-TRACE) Urine Glucose (UA) Negative mg/dL (NEG) Urine Ketones (Stick) Negative mg/dL (NEG) Urine Blood Negative (NEG) Urine Nitrite Negative (NEG) Urine Bilirubin Negative (NEG) Urine Urobilinogen Dipstick 0.2 mg/dL (0.2 mg/dL) Urine Leukocyte Esterase Negative (NEG) Urine RBC 0 /HPF (0-2) Urine WBC 1-4 /HPF (0-4) Urine Squamous Epithelial Cells Mod /LPF Urine Bacteria Few /HPF (0-FEW) Urine Mucus Slight /LPF White Blood Count 4.6 x10^3/uL (4.0-11.0) Red Blood Count 3.27 x10^6/uL (3.50-5.40) Hemoglobin 9.3 g/dL (12.0-15.5) Hematocrit 27.7 % (36.0-47.0) Mean Corpuscular Volume 85 fL (79-100) Mean Corpuscular Hemoglobin 29 pg (25-35) Mean Corpuscular Hemoglobin Concent 34 g/dL (31-37) Red Cell Distribution Width 14.6 % (11.5-14.5) Platelet Count 212 x10^3/uL (140-400) Neutrophils (%) (Auto) 55 % (31-73) Lymphocytes (%) (Auto) 31 % (24-48) Monocytes (%) (Auto) 8 % (0-9) Eosinophils (%) (Auto) 5 % (0-3) Basophils (%) (Auto) 1 % (0-3) Neutrophils # (Auto) 2.5 x10^3/uL (1.8-7.7) Lymphocytes # (Auto) 1.4 x10^3/uL (1.0-4.8) Monocytes # (Auto) 0.4 x10^3/uL (0.0-1.1) Eosinophils # (Auto) 0.2 x10^3/uL (0.0-0.7) Basophils # (Auto) 0.0 x10^3/uL (0.0-0.2) Sodium Level 138 mmol/L (136-145) Potassium Level 4.1 mmol/L (3.5-5.1) Chloride Level 104 mmol/L (98-107) Carbon Dioxide Level 26 mmol/L (21-32) Anion Gap 8 (6-14) Blood Urea Nitrogen 14 mg/dL (7-20) Creatinine 0.8 mg/dL (0.6-1.0) Estimated GFR (Cockcroft-Gault) 91.4 BUN/Creatinine Ratio 18 (6-20) Glucose Level 82 mg/dL (70-99) Lactic Acid Level 1.2 mmol/L (0.4-2.0) Calcium Level 8.8 mg/dL (8.5-10.1) Total Bilirubin 0.2 mg/dL (0.2-1.0) Aspartate Amino Transf (AST/SGOT) 17 U/L (15-37) Alanine Aminotransferase (ALT/SGPT) 13 U/L (14-59) Alkaline Phosphatase 66 U/L (46-116) Total Protein 7.6 g/dL (6.4-8.2) Albumin 3.5 g/dL (3.4-5.0) Albumin/Globulin Ratio 0.9 (1.0-1.7) SARS-CoV-2 Antigen (Rapid) Negative (NEGATIVE) Laboratory Tests Test 01/26/20 20:15 01/26/20 20:21 01/27/20 12:20 Urine Collection Type Unknown Urine Color Yellow Urine Clarity Clear Urine pH 7.0 (<5.0-8.0) Urine Specific [place] 1.015 (1.000-1.030) Urine Protein Negative mg/dL (NEG-TRACE) Urine Glucose (UA) Negative mg/dL (NEG) Urine Ketones (Stick) Negative mg/dL (NEG) Urine Blood Negative (NEG) Urine Nitrite Negative (NEG) Urine Bilirubin Negative (NEG) Urine Urobilinogen Dipstick 0.2 mg/dL (0.2 mg/dL) Urine Leukocyte Esterase Negative (NEG) Urine RBC 0 /HPF (0-2) Urine WBC 1-4 /HPF (0-4) Urine Squamous Epithelial Cells Mod /LPF Urine Bacteria Few /HPF (0-FEW) Urine Mucus Slight /LPF White Blood Count 4.6 x10^3/uL (4.0-11.0) Red Blood Count 3.27 x10^6/uL (3.50-5.40) Hemoglobin 9.3 g/dL (12.0-15.5) Hematocrit 27.7 % (36.0-47.0) Mean Corpuscular Volume 85 fL (79-100) Mean Corpuscular Hemoglobin 29 pg (25-35) Mean Corpuscular Hemoglobin Concent 34 g/dL (31-37) Red Cell Distribution Width 14.6 % (11.5-14.5) Platelet Count 212 x10^3/uL (140-400) Neutrophils (%) (Auto) 55 % (31-73) Lymphocytes (%) (Auto) 31 % (24-48) Monocytes (%) (Auto) 8 % (0-9) Eosinophils (%) (Auto) 5 % (0-3) Basophils (%) (Auto) 1 % (0-3) Neutrophils # (Auto) 2.5 x10^3/uL (1.8-7.7) Lymphocytes # (Auto) 1.4 x10^3/uL (1.0-4.8) Monocytes # (Auto) 0.4 x10^3/uL (0.0-1.1) Eosinophils # (Auto) 0.2 x10^3/uL (0.0-0.7) Basophils # (Auto) 0.0 x10^3/uL (0.0-0.2) Sodium Level 138 mmol/L (136-145) Potassium Level 4.1 mmol/L (3.5-5.1) Chloride Level 104 mmol/L (98-107) Carbon Dioxide Level 26 mmol/L (21-32) Anion Gap 8 (6-14) Blood Urea Nitrogen 14 mg/dL (7-20) Creatinine 0.8 mg/dL (0.6-1.0) Estimated GFR (Cockcroft-Gault) 91.4 BUN/Creatinine Ratio 18 (6-20) Glucose Level 82 mg/dL (70-99) Lactic Acid Level 1.2 mmol/L (0.4-2.0) Calcium Level 8.8 mg/dL (8.5-10.1) Total Bilirubin 0.2 mg/dL (0.2-1.0) Aspartate Amino Transf (AST/SGOT) 17 U/L (15-37) Alanine Aminotransferase (ALT/SGPT) 13 U/L (14-59) Alkaline Phosphatase 66 U/L (46-116) Total Protein 7.6 g/dL (6.4-8.2) Albumin 3.5 g/dL (3.4-5.0) Albumin/Globulin Ratio 0.9 (1.0-1.7) SARS-CoV-2 Antigen (Rapid) Negative (NEGATIVE) Assessment/Plan Assessment/Plan GJ tube dysfunction tube removed without difficulty at bedside. Encouraged f/u PRN OK to D/c. Thanks for consult! ELIAZAR EUGENE MD Jan 27, 2020 14:31
--- NOTE | 2020-01-27 14:34 | PDOC3 ---
Discharge Summary Date of Admission: Jan 26, 2020 Date of Discharge: Jan 27, 2020 Follow-Up: 3-5 days Admitting Diagnosis comment: DISCHARGE DX Assessment/Plan impression 1. bacteremia 2. sepsis 3. HX SMALL BOWEL RESECTION,PICC LINE PLACEMENT, 4. GJ FEEDING TUBE 5. NORMOCYTIC ANEMIA plan admit emperic iv antibiotics ID consult GI CONSULT consideration for removal of GJ tube w/ infection - previous imaging @ [facility] IV CEFIPIME, MICAFUNGIN. GJ tube dysfunction tube removed without difficulty at bedside. BY DR MELENDEZ Encouraged f/u PRN OK to D/c. PER SURGERY D/W RN d/w mother in room Identification/Chief Complaint Chief Complaint SEEN IN ER WITH BACTEREMIA, 20-year-old female with a complicated past medical history who presented to the emergency room for admission. currently on TPN and IV antibiotics through a PICC line. She was admitted at the end of December where she was started on antibiotics at [facility]. She sees GI physicians who told her to come here to be admitted as her infecti on is not improving on antibiotics. She does not take anything by mouth.// has been having nausea and vomiting. ,continues to have fevers. has a history of mesenteric ischemia as well as various bowel dysfunctions that she has had for the last 6 years Past Medical History Past Medical History Past Medical History Past Medical History: Asthma, Migraines Additional Past Medical Histor: VASCULAR BLEEDING DISORDER,SUPERIOR MESENTARIC ARTERY SYNDROME,POSTERIOR OR Past Surgical History: Other Additional Past Surgical Histo: SMALL BOWEL RESECTION,PICC LINE PLACEMENT,GJ FEEDING TUBE Smoking Status: Never Smoker Alcohol Use: None FHX HTN ENT: No pertinent hx Family History Family History: Hypertension Social History Smoke: No ALCOHOL: none Drugs: None Current Problem List Problem List Problems Medical Problems: (1) Abdominal pain Status: Acute (2) Bacteremia Status: Acute (3) On total parenteral nutrition Status: Acute FINAL DIAGNOSIS Problems Medical Problems: (1) Abdominal pain Status: Acute (2) Bacteremia Status: Acute (3) On total parenteral nutrition Status: Acute Brief Hospital Course Ms. Kinsey is a 20 old [sex] who presented with [ BACTEREMIA] CONDITION AT DISCHARGE: Improved Discharge Medications Current Medications Hydromorphone HCl (Dilaudid) 2 mg 1X ONCE IVP Last administered on 10/6/20at 19:49; Start 01/26/20 at 19:30; Stop 01/26/20 at 19:31; Status DC Ondansetron HCl (Zofran) 4 mg 1X ONCE IVP Last administered on 01/26/20at 19:43; Start 01/26/20 at 19:30; Stop 01/26/20 at 19:31; Status DC Sodium Chloride 1,000 ml @ 1,000 mls/hr 1X ONCE IV Last administered on 01/26/20at 19:46; Start 01/26/20 at 19:30; Stop 01/26/20 at 20:29; Status DC Diphenhydramine HCl (Benadryl) 25 mg 1X ONCE IVP Last administered on 01/26/20at 19:45; Start 01/26/20 at 19:30; Stop 01/26/20 at 19:31; Status DC Ondansetron HCl (Zofran) 4 mg 1X ONCE IVP Last administered on 01/26/20at 21:41; Start 01/26/20 at 21:45; Stop 01/26/20 at 21:46; Status DC Diphenhydramine HCl (Benadryl) 25 mg 1X ONCE IVP Last administered on 01/26/20at 21:41; Start 01/26/20 at 21:45; Stop 01/26/20 at 21:46; Status DC Dextrose/Sodium Chloride 1,000 ml @ 100 mls/hr Q10H IV Last administered on 01/27/20at 12:02; Start 01/27/20 at 00:30 Ondansetron HCl (Zofran) 4 mg PRN Q4HRS PRN IV NAUSEA/VOMITING Last administ ered on 01/27/20at 12:01; Start 01/27/20 at 00:30 Acetaminophen (Tylenol Supp) 650 mg PRN Q4HRS PRN [place] TEMP OVER 100.4F OR MILD PAIN; Start 01/27/20 at 00:30 Albuterol Sulfate (Ventolin Neb Soln) 2.5 mg PRN Q4HRS PRN NEB SHORTNESS OF BREATH; Start 01/27/20 at 00:30 Lorazepam (Ativan Inj) 1 mg PRN Q4HRS PRN IV ANXIETY / AGITATION; Start 01/27/20 at 00:30 Hydromorphone HCl (Dilaudid) 1 mg PRN Q2HRS PRN IV SEVERE PAIN 7-10 Last administered on 01/27/20at 11:22; Start 01/27/20 at 00:30 Diphenhydramine HCl (Benadryl) 25 mg PRN Q8HRS PRN IVP itchiness; Start 01/27/20 at 00:30 Diphenhydramine HCl (Benadryl) 25 mg PRN Q6HRS PRN IVP ITCHING Last administered on 01/27/20at 14:24; Start 01/27/20 at 00:30 Cefepime HCl (Maxipime) 1 gm Q12HR IVP Last administered on 01/27/20at 08:22; Start 01/27/20 at 09:00 Micafungin Sodium 100 mg/Dextrose 100 ml @ 100 mls/hr Q24H IV Last administered on 01/27/20at 08:23; Start 01/27/20 at 09:30 Info (Tpn Per Pharmacy) 1 each PRN DAILY PRN MC SEE COMMENTS; Start 01/27/20 at 10:00 Pantoprazole Sodium (PROTONIX VIAL for IV PUSH) 40 mg DAILYAC IVP ; Start 01/28/20 at 07:30 Active Scripts Active Reported Ajovy (Fremanezumab-Vfrm) 225 Mg/1.5 Ml Syringe 225 Mg SQ PRN DAILY PRN Zofran (Ondansetron Hcl) 8 Mg Tablet 8 Mg PO PRN Q4HRS PRN Pantoprazole Sodium (Pantoprazole Sodium) 40 Mg Tablet.dr 40 Mg PO DAILYAC Zyprexa (Olanzapine) 10 Mg Tablet 1 Tab PO QHS Ativan (Lorazepam) 0.5 Mg Tablet 0.5 Mg PO PRN Q6HRS PRN Medroxyprogesterone Acetate 150 Mg/1 Ml Vial 150 Mg IM EVERY 3 PRN Synthroid (Levothyroxine Sodium) 25 Mcg Tablet 1 Tab PO DAILY08 Hydromorphone Hcl 4 Mg Tablet 4 Mg IVP PRN Q4HRS PRN Hydromorphone Hcl 4 Mg Tablet 4 Mg PO PRN Q6HRS PRN FENTANYL 75mcg/hr (Fentanyl) 1 Each Patch.td72 1 Patch TP Q3DAYS Cymbalta (Duloxetine Hcl) 60 Mg Capsule. 1 Cap PO DAILY Senna-Docusate Sodium Tablet (Sennosides/Docusate Sodium) 1 Each Tablet 1 Tab PO HS PRN 20 Days Depakote (Divalproex Sodium) 500 Mg Tablet. 250 Tab PO BID Benadryl Allergy (Diphenhydramine Hcl) 25 Mg Tablet 50 Mg IVP PRN Q4HRS Zyrtec (Cetirizine Hcl) 10 Mg Tablet 10 Mg PO DAILY PRN Albuterol Sulfate Neb Soln (Albuterol Sulfate) 2.5 Mg/3 Ml Vial.neb 2.5 Mg NEB PRN Q6HRS PRN Acetaminophen 325 Mg Tablet 2 Tab PO PRN Q4-6HRS PRN 24 Days Docusate Sodium 100 Mg Capsule 2 Cap PO BID PRN 15 Days Daptomycin 350 Mg Vial 500 Mg IV DAILY Cefepime HCl 100 Gm Bulkbaginj 100 Gm IV BID Senna Laxative (Sennosides) 8.6 Mg Tablet 8.6 Mg PO QHS Vital Signs Vital Signs Date Time Temp Pulse Resp B/P (MAP) Pulse Ox O2 Delivery O2 Flow Rate FiO2 01/27/20 11:00 98.5 85 20 109/64 (79) 98 Room Air 98.5 Labs Laboratory Tests Test 01/26/20 20:15 01/26/20 20:21 01/27/20 12:20 Urine Collection Type Unknown Urine Color Yellow Urine Clarity Clear Urine pH 7.0 (<5.0-8.0) Urine Specific [place] 1.015 (1.000-1.030) Urine Protein Negative mg/dL (NEG-TRACE) Urine Glucose (UA) Negative mg/dL (NEG) Urine Ketones (Stick) Negative mg/dL (NEG) Urine Blood Negative (NEG) Urine Nitrite Negative (NEG) Urine Bilirubin Negative (NEG) Urine Urobilinogen Dipstick 0.2 mg/dL (0.2 mg/dL) Urine Leukocyte Esterase Negative (NEG) Urine RBC 0 /HPF (0-2) Urine WBC 1-4 /HPF (0-4) Urine Squamous Epithelial Cells Mod /LPF Urine Bacteria Few /HPF (0-FEW) Urine Mucus Slight /LPF White Blood Count 4.6 x10^3/uL (4.0-11.0) Red Blood Count 3.27 x10^6/uL (3.50-5.40) Hemoglobin 9.3 g/dL (12.0-15.5) Hematocrit 27.7 % (36.0-47.0) Mean Corpuscular Volume 85 fL (79-100) Mean Corpuscular Hemoglobin 29 pg (25-35) Mean Corpuscular Hemoglobin Concent 34 g/dL (31-37) Red Cell Distribution Width 14.6 % (11.5-14.5) Platelet Count 212 x10^3/uL (140-400) Neutrophils (%) (Auto) 55 % (31-73) Lymphocytes (%) (Auto) 31 % (24-48) Monocytes (%) (Auto) 8 % (0-9) Eosinophils (%) (Auto) 5 % (0-3) Basophils (%) (Auto) 1 % (0-3) Neutrophils # (Auto) 2.5 x10^3/uL (1.8-7.7) Lymphocytes # (Auto) 1.4 x10^3/uL (1.0-4.8) Monocytes # (Auto) 0.4 x10^3/uL (0.0-1.1) Eosinophils # (Auto) 0.2 x10^3/uL (0.0-0.7) Basophils # (Auto) 0.0 x10^3/uL (0.0-0.2) Sodium Level 138 mmol/L (136-145) Potassium Level 4.1 mmol/L (3.5-5.1) Chloride Level 104 mmol/L (98-107) Carbon Dioxide Level 26 mmol/L (21-32) Anion Gap 8 (6-14) Blood Urea Nitrogen 14 mg/dL (7-20) Creatinine 0.8 mg/dL (0.6-1.0) Estimated GFR (Cockcroft-Gault) 91.4 BUN/Creatinine Ratio 18 (6-20) Glucose Level 82 mg/dL (70-99) Lactic Acid Level 1.2 mmol/L (0.4-2.0) Calcium Level 8.8 mg/dL (8.5-10.1) Total Bilirubin 0.2 mg/dL (0.2-1.0) Aspartate Amino Transf (AST/SGOT) 17 U/L (15-37) Alanine Aminotransferase (ALT/SGPT) 13 U/L (14-59) Alkaline Phosphatase 66 U/L (46-116) Total Protein 7.6 g/dL (6.4-8.2) Albumin 3.5 g/dL (3.4-5.0) Albumin/Globulin Ratio 0.9 (1.0-1.7) SARS-CoV-2 Antigen (Rapid) Negative (NEGATIVE) Laboratory Tests Test 01/26/20 20:15 01/26/20 20:21 01/27/20 12:20 Urine Collection Type Unknown Urine Color Yellow Urine Clarity Clear Urine pH 7.0 (<5.0-8.0) Urine Specific [place] 1.015 (1.000-1.030) Urine Protein Negative mg/dL (NEG-TRACE) Urine Glucose (UA) Negative mg/dL (NEG) Urine Ketones (Stick) Negative mg/dL (NEG) Urine Blood Negative (NEG) Urine Nitrite Negative (NEG) Urine Bilirubin Negative (NEG) Urine Urobilinogen Dipstick 0.2 mg/dL (0.2 mg/dL) Urine Leukocyte Esterase Negative (NEG) Urine RBC 0 /HPF (0-2) Urine WBC 1-4 /HPF (0-4) Urine Squamous Epithelial Cells Mod /LPF Urine Bacteria Few /HPF (0-FEW) Urine Mucus Slight /LPF White Blood Count 4.6 x10^3/uL (4.0-11.0) Red Blood Count 3.27 x10^6/uL (3.50-5.40) Hemoglobin 9.3 g/dL (12.0-15.5) Hematocrit 27.7 % (36.0-47.0) Mean Corpuscular Volume 85 fL (79-100) Mean Corpuscular Hemoglobin 29 pg (25-35) Mean Corpuscular Hemoglobin Concent 34 g/dL (31-37) Red Cell Distribution Width 14.6 % (11.5-14.5) Platelet Count 212 x10^3/uL (140-400) Neutrophils (%) (Auto) 55 % (31-73) Lymphocytes (%) (Auto) 31 % (24-48) Monocytes (%) (Auto) 8 % (0-9) Eosinophils (%) (Auto) 5 % (0-3) Basophils (%) (Auto) 1 % (0-3) Neutrophils # (Auto) 2.5 x10^3/uL (1.8-7.7) Lymphocytes # (Auto) 1.4 x10^3/uL (1.0-4.8) Monocytes # (Auto) 0.4 x10^3/uL (0.0-1.1) Eosinophils # (Auto) 0.2 x10^3/uL (0.0-0.7) Basophils # (Auto) 0.0 x10^3/uL (0.0-0.2) Sodium Level 138 mmol/L (136-145) Potassium Level 4.1 mmol/L (3.5-5.1) Chloride Level 104 mmol/L (98-107) Carbon Dioxide Level 26 mmol/L (21-32) Anion Gap 8 (6-14) Blood Urea Nitrogen 14 mg/dL (7-20) Creatinine 0.8 mg/dL (0.6-1.0) Estimated GFR (Cockcroft-Gault) 91.4 BUN/Creatinine Ratio 18 (6-20) Glucose Level 82 mg/dL (70-99) Lactic Acid Level 1.2 mmol/L (0.4-2.0) Calcium Level 8.8 mg/dL (8.5-10.1) Total Bilirubin 0.2 mg/dL (0.2-1.0) Aspartate Amino Transf (AST/SGOT) 17 U/L (15-37) Alanine Aminotransferase (ALT/SGPT) 13 U/L (14-59) Alkaline Phosphatase 66 U/L (46-116) Total Protein 7.6 g/dL (6.4-8.2) Albumin 3.5 g/dL (3.4-5.0) Albumin/Globulin Ratio 0.9 (1.0-1.7) SARS-CoV-2 Antigen (Rapid) Negative (NEGATIVE) Allergies Allergies Coded Allergies Type Severity Reaction Last Updated Verified Penicillins Allergy Severe rash 01/26/20 Yes amitriptyline Allergy Severe shock 01/26/20 Yes ceftriaxone Allergy Severe rash 01/26/20 Yes eletriptan Allergy Severe migraines 01/26/20 Yes fat emulsions Allergy Severe anaphylaxis 01/26/20 Yes fish oil Allergy Severe anaphylaxis 01/26/20 Yes medium chain triglycerides Allergy Severe anaphylaxis 01/26/20 Yes meropenem Allergy Severe face swelling 01/26/20 Yes morphine Allergy Severe unknown 01/26/20 Yes olive oil Allergy Severe anaphylaxis 01/26/20 Yes rizatriptan Allergy Severe migraines 01/26/20 Yes soybean oil Allergy Severe anaphylaxis 01/26/20 Yes sumatriptan Allergy Severe migraines 01/26/20 Yes topiramate Allergy Severe shock 01/26/20 Yes trimethobenzamide Allergy Severe face swelling 01/26/20 Yes prochlorperazine Allergy Intermediate 01/26/20 Yes sodium ferric gluconate complex Allergy Intermediate 01/26/20 Yes sucrose Allergy Intermediate 01/26/20 Yes pineapple Allergy Unknown 01/27/20 Yes cyproheptadine Adverse Reaction Intermediate n/v 01/26/20 Yes erythromycin base Adverse Reaction Intermediate n/v 01/26/20 Yes gabapentin Adverse Reaction Intermediate n/v 01/26/20 Yes metoclopramide Adverse Reaction Intermediate n/v 01/26/20 Yes promethazine Adverse Reaction Intermediate n/v 01/26/20 Yes Disposition/Orders: D/C to Home Justicifation of Admission Dx: Justifications for Admission: Justification of Admission Dx: No Comments: SALLIE POLLACK MD Jan 27, 2020 14:34
--- NOTE | 2020-01-27 16:05 | NUR ---
SS following up with discharge planning. Pt's RN spoke with [facility] and gave verbal orders over the phone to resume all home medications provided by [facility]. [facility] reported no new orders needed since pt was not in the hospital for more than 24 hours. Discharge order on the chart.
--- NOTE | 2020-01-27 16:14 | NUR ---
Discharge instructions given to patient regarding follow up appointments. Education given over dressing, medications, and nausea/vomiting. Verbal orders to resume antibiotics and TPN called to [facility]. Their home health agency notified of discharge. Patient and mother verbalizes understanding.
[2020-01-28] MEDS ORDERED: PANTOPRAZOLE IV PUSH 40 MG VIAL. IVP SCH (07:30)
== END 2020-01-27 16:20 | disposition home or self-care (01) | DRG 872 ==
LOC: ER 16:39 → 2 SOUTH 21:45
PROVIDERS: ADMIT Internal Medicine; ATTEND Internal Medicine
DX: A41.9 Sepsis, unspecified organism (principal); G43.909 Migraine, unspecified, not intractable, without status migrainosus; J45.909 Unspecified asthma, uncomplicated; D64.9 Anemia, unspecified; E03.9 Hypothyroidism, unspecified; F41.9 Anxiety disorder, unspecified; F32.9 Major depressive disorder, single episode, unspecified; K21.9 Gastro-esophageal reflux disease without esophagitis; K94.20 Gastrostomy complication, unspecified; Y83.8 Other surgical procedures as the cause of abnormal reaction of the patient, or of later complication, without mention of misadventure at the time of the procedure; Z88.0 Allergy status to penicillin; Z88.2 Allergy status to sulfonamides; Z82.49 Family history of ischemic heart disease and other diseases of the circulatory system; Z91.018 Allergy to other foods; Z88.8 Allergy status to other drugs, medicaments and biological substances; Z91.048 Other nonmedicinal substance allergy status
CPT/HCPCS: 36415; 71045; 80053; 81001; 83605; 85025; 86140; 87040; 87426; J0692; J1170; J1200; J2248; J2405; J7030; J7042; J7060; G0378; U0003-CS

== ENCOUNTER 2020-07-24 01:20 | Observation (INO) | payer BC ==
[~2020-07-24] VITALS: Ht 165.1 cm; Wt 62.1 kg
[~2020-07-24 01:20] MED LIST: ACET325T21 PO; ALBU2.5V5 NEB; CEFE100B IV; CETI10TA74 PO; DAPT350V IV; DIPH25TA64 IVP; DIVA500T2 PO; DOCU100C28 PO; DULO60CA6 PO; FENT1PAT19 TP; FREM225S SQ; HYDR4TAB IVP; HYDR4TAB PO; LEVO25TA55 PO; LEVO500T8 PO; LORA0.5T96 PO; MEDR150V3 IM; NALO12.52 PO; OLAN10TA3 PO; ONDA8TAB9 PO; PANT40TA77 PO; SENN1TAB99 PO; SENN8.6T11 PO; SODI20VI2 IV; Tpn Per Pharmacy MC
[2020-07-24 02:15] LABS: BASO % 1 % (0-3); EOS # 0.2 x10^3/uL (0.0-0.7); EOS % 4 % (0-3); HEMATOCRIT 24.9 % (36.0-47.0); HEMOGLOBIN 8.2 g/dL (12.0-15.5); LYMPH # 1.7 x10^3/uL (1.0-4.8); LYMPH % 34 % (24-48); MEAN CORPUSCULAR HEMOGLOBIN 27 pg (25-35); MEAN CORPUSCULAR HGB CONC 33 g/dL (31-37); MEAN CORPUSCULAR VOLUME 82 fL (79-100); MONO # 0.7 x10^3/uL (0.0-1.1); MONO % 14 % (0-9); NEUT # 2.4 x10^3/uL (1.8-7.7); NEUT % 48 % (31-73); PLATELET COUNT 270 x10^3/uL (140-400); RED BLOOD COUNT 3.05 x10^6/uL (3.50-5.40); RED CELL DISTRIBUTION WIDTH 15.3 % (11.5-14.5); WHITE BLOOD COUNT 5.1 x10^3/uL (4.0-11.0)
[2020-07-24] MEDS ORDERED: IV NORMAL SALINE 1000ML BAG 1,000 ML IV ONE (02:15)
--- NOTE | 2020-07-24 02:16 | PHYS DOC ---
Past Medical History Past Medical History: Asthma, DVT, Migraines, Pneumonia Additional Past Medical Histor: VASCULAR BLEEDING DISORDER,SUPERIOR MESENTARIC ARTERY SYNDROME,POSTERIOR OR Past Surgical History: Other Additional Past Surgical Histo: SMALL BOWEL RESECTION,PICC LINE PLACEMENT,GJ FEEDING TUBE Smoking Status: Never Smoker Alcohol Use: None General Adult EDM: Chief Complaint: PAIN CONTROL HPI: HPI: Patient is a 20 year old female with complex medical history presents for evaluation of intractable pain. Patient has chronic abdominal pain-- which is currently present and in typical location. Patient complaints of new pain in chest that radiates around axilla to her left back. Patient was recently discharged with diagnosis of pneumonia and pleurisy. Patient states pleurisy pain was right chest-- current chest pain is new. Has been taking dilaudid 4mg q 5 hours with no relief of pain. Father states blood cultures positive for fungus--- has been on IV antifungal medications x 2-3 days. States she has chronic nausea and vomiting. Denies any urinary or stool issues. Father with patient at bedside. Patient with occasional moaning and crying out due to pain. Review of Systems: Review of Systems: Review of systems: Constitutional symptoms- No fever, no chills. Eyes- No Discharge, No Visual Loss Respiratory symptoms- No shortness of breath, No wheezing, No Dyspnea on Exertion Cardiovascular Systems; positive chest pain, No Palpitations, No syncope Gastrointestinal symptoms: Positive abdominal pain, positive nausea, positive vomiting no diarrhea. Genitourinary symptoms: No dysuria. Musculoskeletal symptoms: Positive back pain No extremity pain. NEUROLOGICAL Symptoms: No headache, no generalized weakness; No focal Weakness Heart Score: C/O Chest Pain: Yes HEART Score for Chest Pain: HEART Score for Chest Pain Response (Comments) Value History Slighlty/Non-Suspicious 0 ECG Normal 0 Age < 45 0 Risk Factors No Risk Factors 0 Troponin < Normal Limit 0 Total 0 Risk Factors: Risk Factors: DM, Current or recent (<one month) smoker, HTN, HLP, family history of CAD, obesity. Risk Scores: Score 0 - 3: 2.5% MACE over next 6 weeks - Discharge Home Score 4 - 6: 20.3% MACE over next 6 weeks - Admit for Clinical Observation Score 7 - 10: 72.7% MACE over next 6 weeks - Early Invasive Strategies Allergies: Allergies: Allergies Coded Allergies Type Severity Reaction Last Updated Verified Penicillins Allergy Severe rash 01/26/20 Yes amitriptyline Allergy Severe shock 01/26/20 Yes ceftriaxone Allergy Severe rash 01/26/20 Yes eletriptan Allergy Severe migraines 01/26/20 Yes fat emulsions Allergy Severe anaphylaxis 01/26/20 Yes fish oil Allergy Severe anaphylaxis 01/26/20 Yes medium chain triglycerides Allergy Severe anaphylaxis 01/26/20 Yes meropenem Allergy Severe face swelling 01/26/20 Yes morphine Allergy Severe unknown 01/26/20 Yes olive oil Allergy Severe anaphylaxis 01/26/20 Yes rizatriptan Allergy Severe migraines 01/26/20 Yes soybean oil Allergy Severe anaphylaxis 01/26/20 Yes sumatriptan Allergy Severe migraines 01/26/20 Yes topiramate Allergy Severe shock 01/26/20 Yes trimethobenzamide Allergy Severe face swelling 07/14/20 Yes pineapple Allergy Intermediate 06/30/20 Yes prochlorperazine Allergy Intermediate 01/26/20 Yes sodium ferric gluconate complex Allergy Intermediate 01/26/20 Yes sucrose Allergy Intermediate 01/26/20 Yes cyproheptadine Adverse Reaction Intermediate n/v 01/26/20 Yes erythromycin base Adverse Reaction Intermediate n/v 01/26/20 Yes gabapentin Adverse Reaction Intermediate n/v 01/26/20 Yes metoclopramide Adverse Reaction Intermediate n/v 01/26/20 Yes promethazine Adverse Reaction Intermediate n/v 01/26/20 Yes Physical Exam: PE: General: alert, mild acute distress. Skin: warm, dry and intact. Head:: Normocephalic, atraumatic. Neck: Trachea midline. Eyes: EOMI, Normal conjunctiva, No drainage CARDIOVASCULAR: Tachycardia RESPIRATORY: No respiratory distress Back: Full range of motion. MUSCULOSKELETAL: Full range of motion of bilateral upper and lower extremities. GASTROINTESTINAL: Abdomen soft NEUROLOGICAL: Alert and noted to person, place and time. No neurological defic its observed Psychiatric: Cooperative. Normal judgment Current Patient Data: Vital Signs: Vital Signs Date Time Temp Pulse Resp B/P (MAP) Pulse Ox O2 Delivery O2 Flow Rate FiO2 07/24/20 01:30 97.4 101 20 115/67 (83) 99 Room Air 97.4 EKG: EKG: EKG performed at 0248 heart rate [address] elevations no ST depressions no acute OH [] Radiology/Procedures: Radiology/Procedures: [] Impression: XR CHEST 1V History: Reason: pain / Spl. Instructions: / History: Comparison: June 27, 2020 Findings: Decreased right basilar consolidations. No pleural effusion. No pneumothorax. Stable right chest wall port. Unchanged heart size. Impression: 1. Decreased right basilar consolidations. Electronically signed by: Deni Berrios DO (07/24/2020 3:02 AM) [facility] Course & Med Decision Making: Course & Med Decision Making Pertinent Labs and Imaging studies reviewed. (See chart for details) [] Dragon Disclaimer: Dragon Disclaimer: This electronic medical record was generated, in whole or in part, using a voice recognition dictation system. Departure Departure Impression: Primary Impression: Intractable pain Disposition: ADMITTED INPT THIS HOSP Admitting Physician: HIMEz Condition: STABLE Referrals: ROXANE KERN MD (PCP) RUTH CARTER DO Jul 24, 2020 02:16
[2020-07-24 02:24] LABS: CALCIUM 8.3 mg/dL (8.5-10.1); GFR 70.7; POTASSIUM 3.5 mmol/L (3.5-5.1)
[2020-07-24 02:30] LABS: ALBUMIN 2.7 g/dL (3.4-5.0); ALBUMIN/GLOBULIN RATIO 0.6 (1.0-1.7); TOTAL BILIRUBIN 0.3 mg/dL (0.2-1.0); TOTAL PROTEIN 7.2 g/dL (6.4-8.2)
[2020-07-24] MEDS ORDERED: ONDANSETRON PF 4 MG/2 ML VIAL. IV PRN (02:30)
[2020-07-24] MEDS ORDERED: HYDROmorphone 2 MG/ML VIAL IVP ONE (02:30)
--- NOTE | 2020-07-24 03:05 | RAD ---
XR CHEST 1V History: Reason: pain / Spl. Instructions: / History: Comparison: June 27, 2020 Findings: Decreased right basilar consolidations. No pleural effusion. No pneumothorax. Stable right chest wall port. Unchanged heart size. Impression: 1. Decreased right basilar consolidations. Electronically signed by: Deni Berrios DO (07/24/2020 3:02 AM) [facility]
[2020-07-24 03:20] VITALS: BP 121/78
--- NOTE | 2020-07-24 03:35 | EKG ---
[facility] [address] [place] [address] Test Date: 2020-07-24 Test Time: 02:48:43 Pat Name: JIN ABBOTT Department: Room: Gender: F Calender Operator: : [id number] Requested By: RUTH CARTER Order Number: [id number] Reading MD: Measurements Intervals Moore Rate: 98 P: 45 NH: 124 QRS: 45 QRSD: 80 T: 31 QT: 378 QTc: 485 Interpretive Statements SINUS RHYTHM T ABNORMALITY IN ANTEROSEPTAL LEADS PROLONGED QT ABNORMAL ECG RI6.02 No previous ECG available for comparison
--- NOTE | 2020-07-24 05:31 | NUR ---
RN called to room regarding patient throwing up blood. Emesis with bright red blood present in bathroom. RN measured amount of blood in emesis, 275cc measured. MD notified of blood emesis. Received order to consult GI. RN will continue to monitor.
[2020-07-24 05:33] LABS: BILIRUBIN,URINE NEGATIVE (NEG); CLARITY,URINE CLEAR; COLOR,URINE AMBER; NITRITE,URINE NEGATIVE (NEG); PROTEIN,URINE 30 mg/dL (NEG-TRACE)
[2020-07-24 05:44] LABS: RBC,URINE TNTC /HPF (0-2)
[2020-07-24 05:45] LABS: BACTERIA,URINE FEW /HPF (0-FEW)
[2020-07-24] MEDS: HYDROmorphone 2 MG/ML VIAL IVP SCH ×4 (06:16→18:15)
[2020-07-24 07:18] VITALS: BP 88/49
[2020-07-24] MEDS ORDERED: LORazepam 0.5 MG TABLET PO PRN (08:30)
[2020-07-24] MEDS ORDERED: ACETAMINOPHEN 325 MG TABLET. PO PRN (08:30)
[2020-07-24] MEDS ORDERED: ALBUTEROL SULFATE 2.5 MG/3 ML NEBU. NEB PRN (08:30)
[2020-07-24] MEDS ORDERED: HYDROmorphone 4 MG TABLET PO PRN (08:30)
[2020-07-24] MEDS ORDERED: SENNOSIDES/DOCUSATE 8.6/50MG TABLET. PO PRN (08:30)
[2020-07-24] MEDS ORDERED: DOCUSATE SODIUM 100 MG CAPSULE. PO PRN (08:30)
[2020-07-24] MEDS ORDERED: CETIRIZINE HCL 10 MG TABLET. PO PRN (08:30)
--- NOTE | 2020-07-24 08:43 | PDOC1 ---
History and Physical Date of Admission Date of Admission DATE: 07/24/20 TIME: 08:39 Source Source: Chart review, Patient History of Present Illness History of Present Illness Paras is a 20-year-old female with long standing history of chronic illness and GI problems. 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 Briggs and Dr. Magallanes. she complains of hematemesis and nausea and pain, I reviewed her med list, and discussed trying to take less Benadryl, Past Medical History Past Medical History ian danlos, SMA syndrome, chronic abd pain Cardiovascular: Other GI: Other Infectious disease: Other Past Surgical History Past Surgical History: Other Family History Family History: No Significant, Hypertension Social History Smoke: No ALCOHOL: none Drugs: None Current Problem List Problem List Problems Medical Problems: (1) Intractable pain Status: Acute Current Medications Current Medications Current Medications Sodium Chloride 1,000 ml @ 1,000 mls/hr 1X ONCE IV Last administered on 07/24/20at 02:20; Start 07/24/20 at 02:15; Stop 07/24/20 at 03:14; Status DC Ondansetron HCl (Zofran) 4 mg PRN Q8HRS PRN IV NAUSEA/VOMITING Last administered on 07/24/20at 03:40; Start 07/24/20 at 02:30; Stop 07/25/20 at 02:29 Hydromorphone HCl (Dilaudid) 1 mg Q4HRS W/A IVP Last administered on 07/24/20at 06:16; Start 07/24/20 at 06:00 Hydromorphone HCl (Dilaudid) 1 mg 1X ONCE IVP Last administered on 07/24/20at 02:32; Start 07/24/20 at 02:30; Stop 07/24/20 at 02:31; Status DC Active Scripts Active Movantik (Naloxegol Oxalate) 12.5 Mg Tablet 12.5 Mg PO DAILY 30 Days [Tpn Per Pharmacy] 1 EACH Each 1 Each MC PRN DAILY PRN Reported Tpn Electrolytes Ii Iv Soln (Sodium/K+/Mag/Ca/Chlor/Acetate) 20 Ml Vial 20 Ml IV CONT PRN Ajovy (Fremanezumab-Vfrm) 225 Mg/1.5 Ml Syringe 225 Mg SQ PRN PRN Zofran (Ondansetron Hcl) 8 Mg Tablet 8 Mg PO PRN Q4HRS PRN Pantoprazole Sodium (Pantoprazole Sodium) 40 Mg Tablet. 40 Mg PO DAILYAC Zyprexa (Olanzapine) 10 Mg Tablet 1 Tab PO QHS Ativan (Lorazepam) 0.5 Mg Tablet 0.5 Mg PO PRN Q6HRS PRN Medroxyprogesterone Acetate 150 Mg/1 Ml Vial 150 Mg IM EVERY 3 PRN Synthroid (Levothyroxine Sodium) 25 Mcg Tablet 1 Tab PO DAILY08 Hydromorphone Hcl 4 Mg Tablet 4 Mg PO PRN Q6HRS PRN FENTANYL 75mcg/hr (Fentanyl) 1 Each Patch.td72 1 Patch TP Q3DAYS Cymbalta (Duloxetine Hcl) 60 Mg Capsule. 1 Cap PO BID Senna-Docusate Sodium Tablet (Sennosides/Docusate Sodium) 1 Each Tablet 1 Tab PO HS PRN 20 Days Depakote (Divalproex Sodium) 500 Mg Tablet. 250 Mg PO BID Benadryl Allergy (Diphenhydramine Hcl) 25 Mg Tablet 50 Mg IVP PRN Q4HRS Zyrtec (Cetirizine Hcl) 10 Mg Tablet 10 Mg PO DAILY PRN Albuterol Sulfate Neb Soln (Albuterol Sulfate) 2.5 Mg/3 Ml Vial.neb 2.5 Mg NEB PRN Q6HRS PRN Acetaminophen 325 Mg Tablet 2 Tab PO PRN Q4-6HRS PRN 24 Days Docusate Sodium 100 Mg Capsule 2 Cap PO BID PRN 15 Days Senna Laxative (Sennosides) 8.6 Mg Tablet 8.6 Mg PO QHS Allergies Allergies: Coded Allergies: Penicillins (Verified Allergy, Severe, rash, 01/26/20) amitriptyline (Verified Allergy, Severe, shock, 01/26/20) ceftriaxone (Verified Allergy, Severe, rash, 01/26/20) eletriptan (Verified Allergy, Severe, migraines, 01/26/20) fat emulsions (Verified Allergy, Severe, anaphylaxis, 01/26/20) fish oil (Verified Allergy, Severe, anaphylaxis, 01/26/20) medium chain triglycerides (Verified Allergy, Severe, anaphylaxis, 01/26/20) meropenem (Verified Allergy, Severe, face swelling, 01/26/20) morphine (Verified Allergy, Severe, unknown, 01/26/20) olive oil (Verified Allergy, Severe, anaphylaxis, 01/26/20) rizatriptan (Verified Allergy, Severe, migraines, 01/26/20) soybean oil (Verified Allergy, Severe, anaphylaxis, 01/26/20) sumatriptan (Verified Allergy, Severe, migraines, 01/26/20) topiramate (Verified Allergy, Severe, shock, 01/26/20) trimethobenzamide (Verified Allergy, Severe, face swelling, 07/14/20) Patient has tolerated diphenhydramine on previous admissions pineapple (Verified Allergy, Intermediate, 06/30/20) prochlorperazine (Verified Allergy, Intermediate, 01/26/20) sodium ferric gluconate complex (Verified Allergy, Intermediate, 01/26/20) sucrose (Verified Allergy, Intermediate, 01/26/20) cyproheptadine (Verified Adverse Reaction, Intermediate, n/v, 01/26/20) erythromycin base (Verified Adverse Reaction, Intermediate, n/v, 01/26/20) gabapentin (Verified Adverse Reaction, Intermediate, n/v, 01/26/20) metoclopramide (Verified Adverse Reaction, Intermediate, n/v, 01/26/20) promethazine (Verified Adverse Reaction, Intermediate, n/v, 01/26/20) ROS General: YES: Chills, Fatigue, Malaise PSYCHOLOGICAL ROS: YES: Irritablity, Sleep disturbances Eyes: No Blurry vision, No Decreased vision, No Double vision, No Dry eyes, No Excessive tearing, No Eye Pain, No Itchy Eyes, No Loss of vision, No Photophobia, No Scotomata, No Uses contacts, No Uses glasses, No Other HEENT: YES: Heacaches Respiratory: No: Cough, Hemoptysis, Orthopnea, Pleuritic Pain, Shortness of breath, SOB with excertion, Sputum Changes, Stridor, Tachypnea, Wheezing, Other Cardiovascular: No Chest Pain, No Palpitations, No Orthopnea, No Paroxysmal Noc. Dyspnea, No Edema, No Lt Headedness, No Other Gastrointestinal: Yes Nausea, Yes Abdominal Pain Musculoskeletal: Yes Joint Pain, Yes Joint Stiffness Neurological: Yes Gait Disturbance, Yes Headaches Skin: Yes Dry Skin, Yes Pruritus, Yes Skin Lesion Changes Physical Exam Physical Exam very pale General: Alert, Oriented X3, Cooperative, mild distress HEENT: Atraumatic, PERRLA, EOMI Lungs: Clear to auscultation Heart: S1S2, no gallops, no murmurs Abdomen: Normal bowel sounds Extremities: No clubbing, No edema, Normal pulses Skin: No breakdown, No significant lesion Neuro: Normal speech, Normal tone, Sensation intact Psych/Mental Status: Mental status NL, Mood NL Vitals Vitals Vital Signs Date Time Temp Pulse Resp B/P (MAP) Pulse Ox O2 Delivery O2 Flow Rate FiO2 07/24/20 07:18 98.3 95 18 88/49 (62) 97 Room Air 98.3 Labs Labs Laboratory Tests Test 07/24/20 01:35 07/24/20 05:15 07/24/20 06:30 White Blood Count 5.1 x10^3/uL (4.0-11.0) Red Blood Count 3.05 x10^6/uL (3.50-5.40) Hemoglobin 8.2 g/dL (12.0-15.5) Hematocrit 24.9 % (36.0-47.0) Mean Corpuscular Volume 82 fL (79-100) Mean Corpuscular Hemoglobin 27 pg (25-35) Mean Corpuscular Hemoglobin Concent 33 g/dL (31-37) Red Cell Distribution Width 15.3 % (11.5-14.5) Platelet Count 270 x10^3/uL (140-400) Neutrophils (%) (Auto) 48 % (31-73) Lymphocytes (%) (Auto) 34 % (24-48) Monocytes (%) (Auto) 14 % (0-9) Eosinophils (%) (Auto) 4 % (0-3) Basophils (%) (Auto) 1 % (0-3) Neutrophils # (Auto) 2.4 x10^3/uL (1.8-7.7) Lymphocytes # (Auto) 1.7 x10^3/uL (1.0-4.8) Monocytes # (Auto) 0.7 x10^3/uL (0.0-1.1) Eosinophils # (Auto) 0.2 x10^3/uL (0.0-0.7) Basophils # (Auto) 0.0 x10^3/uL (0.0-0.2) Sodium Level 140 mmol/L (136-145) Potassium Level 3.5 mmol/L (3.5-5.1) Chloride Level 104 mmol/L (98-107) Carbon Dioxide Level 24 mmol/L (21-32) Anion Gap 12 (6-14) Blood Urea Nitrogen 16 mg/dL (7-20) Creatinine 1.0 mg/dL (0.6-1.0) Estimated GFR (Cockcroft-Gault) 70.7 BUN/Creatinine Ratio 16 (6-20) Glucose Level 88 mg/dL (70-99) Calcium Level 8.3 mg/dL (8.5-10.1) Total Bilirubin 0.3 mg/dL (0.2-1.0) Aspartate Amino Transf (AST/SGOT) 14 U/L (15-37) Alanine Aminotransferase (ALT/SGPT) 21 U/L (14-59) Alkaline Phosphatase 83 U/L (46-116) Total Protein 7.2 g/dL (6.4-8.2) Albumin 2.7 g/dL (3.4-5.0) Albumin/Globulin Ratio 0.6 (1.0-1.7) Lipase 66 U/L (73-393) Urine Collection Type Unknown Urine Color [place] Urine Clarity Clear Urine pH 6.0 (<5.0-8.0) Urine Specific [place] 1.025 (1.000-1.030) Urine Protein 30 mg/dL (NEG-TRACE) Urine Glucose (UA) Negative mg/dL (NEG) Urine Ketones (Stick) Negative mg/dL (NEG) Urine Blood Large (NEG) Urine Nitrite Negative (NEG) Urine Bilirubin Negative (NEG) Urine Urobilinogen Dipstick 1.0 mg/dL (0.2 mg/dL) Urine Leukocyte Esterase Moderate (NEG) Urine RBC Tntc /HPF (0-2) Urine WBC 5-10 /HPF (0-4) Urine Squamous Epithelial Cells Many /LPF Urine Bacteria Few /HPF (0-FEW) Urine Mucus Mod /LPF Troponin I Quantitative < 0.017 ng/mL (0.000-0.055) Laboratory Tests Test 07/24/20 01:35 07/24/20 05:15 07/24/20 06:30 White Blood Count 5.1 x10^3/uL (4.0-11.0) Red Blood Count 3.05 x10^6/uL (3.50-5.40) Hemoglobin 8.2 g/dL (12.0-15.5) Hematocrit 24.9 % (36.0-47.0) Mean Corpuscular Volume 82 fL (79-100) Mean Corpuscular Hemoglobin 27 pg (25-35) Mean Corpuscular Hemoglobin Concent 33 g/dL (31-37) Red Cell Distribution Width 15.3 % (11.5-14.5) Platelet Count 270 x10^3/uL (140-400) Neutrophils (%) (Auto) 48 % (31-73) Lymphocytes (%) (Auto) 34 % (24-48) Monocytes (%) (Auto) 14 % (0-9) Eosinophils (%) (Auto) 4 % (0-3) Basophils (%) (Auto) 1 % (0-3) Neutrophils # (Auto) 2.4 x10^3/uL (1.8-7.7) Lymphocytes # (Auto) 1.7 x10^3/uL (1.0-4.8) Monocytes # (Auto) 0.7 x10^3/uL (0.0-1.1) Eosinophils # (Auto) 0.2 x10^3/uL (0.0-0.7) Basophils # (Auto) 0.0 x10^3/uL (0.0-0.2) Sodium Level 140 mmol/L (136-145) Potassium Level 3.5 mmol/L (3.5-5.1) Chloride Level 104 mmol/L (98-107) Carbon Dioxide Level 24 mmol/L (21-32) Anion Gap 12 (6-14) Blood Urea Nitrogen 16 mg/dL (7-20) Creatinine 1.0 mg/dL (0.6-1.0) Estimated GFR (Cockcroft-Gault) 70.7 BUN/Creatinine Ratio 16 (6-20) Glucose Level 88 mg/dL (70-99) Calcium Level 8.3 mg/dL (8.5-10.1) Total Bilirubin 0.3 mg/dL (0.2-1.0) Aspartate Amino Transf (AST/SGOT) 14 U/L (15-37) Alanine Aminotransferase (ALT/SGPT) 21 U/L (14-59) Alkaline Phosphatase 83 U/L (46-116) Total Protein 7.2 g/dL (6.4-8.2) Albumin 2.7 g/dL (3.4-5.0) Albumin/Globulin Ratio 0.6 (1.0-1.7) Lipase 66 U/L (73-393) Urine Collection Type Unknown Urine Color [place] Urine Clarity Clear Urine pH 6.0 (<5.0-8.0) Urine Specific [place] 1.025 (1.000-1.030) Urine Protein 30 mg/dL (NEG-TRACE) Urine Glucose (UA) Negative mg/dL (NEG) Urine Ketones (Stick) Negative mg/dL (NEG) Urine Blood Large (NEG) Urine Nitrite Negative (NEG) Urine Bilirubin Negative (NEG) Urine Urobilinogen Dipstick 1.0 mg/dL (0.2 mg/dL) Urine Leukocyte Esterase Moderate (NEG) Urine RBC Tntc /HPF (0-2) Urine WBC 5-10 /HPF (0-4) Urine Squamous Epithelial Cells Many /LPF Urine Bacteria Few /HPF (0-FEW) Urine Mucus Mod /LPF Troponin I Quantitative < 0.017 ng/mL (0.000-0.055) VTE Prophylaxis Ordered VTE Prophylaxis Devices: No VTE Pharmacological Prophylaxi: Yes Assessment/Plan Assessment/Plan FUNGEMIA from 3/3 bottles from blood culture from 07/21/20 fever at home, possible SIRS, not here, acute on chronic abdominal pain 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 prior J tube was removed, nausea and vomiting and diffuse abdominal pain, anemia, of chronic disease, severe malnutrition, serum albumin 2.7 Justifications for Admission Other Justification ANDRES HI MD Jul 24, 2020 08:43
--- NOTE | 2020-07-24 08:58 | PDOC ---
Infectious Disease Note Vital Sign Vital Signs Vital Signs Date Time Temp Pulse Resp B/P (MAP) Pulse Ox O2 Delivery O2 Flow Rate FiO2 07/24/20 07:18 98.3 95 18 88/49 (62) 97 Room Air 98.3 Labs Lab Laboratory Tests Test 07/24/20 01:35 07/24/20 05:15 07/24/20 06:30 White Blood Count 5.1 x10^3/uL (4.0-11.0) Red Blood Count 3.05 x10^6/uL (3.50-5.40) Hemoglobin 8.2 g/dL (12.0-15.5) Hematocrit 24.9 % (36.0-47.0) Mean Corpuscular Volume 82 fL (79-100) Mean Corpuscular Hemoglobin 27 pg (25-35) Mean Corpuscular Hemoglobin Concent 33 g/dL (31-37) Red Cell Distribution Width 15.3 % (11.5-14.5) Platelet Count 270 x10^3/uL (140-400) Neutrophils (%) (Auto) 48 % (31-73) Lymphocytes (%) (Auto) 34 % (24-48) Monocytes (%) (Auto) 14 % (0-9) Eosinophils (%) (Auto) 4 % (0-3) Basophils (%) (Auto) 1 % (0-3) Neutrophils # (Auto) 2.4 x10^3/uL (1.8-7.7) Lymphocytes # (Auto) 1.7 x10^3/uL (1.0-4.8) Monocytes # (Auto) 0.7 x10^3/uL (0.0-1.1) Eosinophils # (Auto) 0.2 x10^3/uL (0.0-0.7) Basophils # (Auto) 0.0 x10^3/uL (0.0-0.2) Sodium Level 140 mmol/L (136-145) Potassium Level 3.5 mmol/L (3.5-5.1) Chloride Level 104 mmol/L (98-107) Carbon Dioxide Level 24 mmol/L (21-32) Anion Gap 12 (6-14) Blood Urea Nitrogen 16 mg/dL (7-20) Creatinine 1.0 mg/dL (0.6-1.0) Estimated GFR (Cockcroft-Gault) 70.7 BUN/Creatinine Ratio 16 (6-20) Glucose Level 88 mg/dL (70-99) Calcium Level 8.3 mg/dL (8.5-10.1) Total Bilirubin 0.3 mg/dL (0.2-1.0) Aspartate Amino Transf (AST/SGOT) 14 U/L (15-37) Alanine Aminotransferase (ALT/SGPT) 21 U/L (14-59) Alkaline Phosphatase 83 U/L (46-116) Total Protein 7.2 g/dL (6.4-8.2) Albumin 2.7 g/dL (3.4-5.0) Albumin/Globulin Ratio 0.6 (1.0-1.7) Lipase 66 U/L (73-393) Urine Collection Type Unknown Urine Color [place] Urine Clarity Clear Urine pH 6.0 (<5.0-8.0) Urine Specific [place] 1.025 (1.000-1.030) Urine Protein 30 mg/dL (NEG-TRACE) Urine Glucose (UA) Negative mg/dL (NEG) Urine Ketones (Stick) Negative mg/dL (NEG) Urine Blood Large (NEG) Urine Nitrite Negative (NEG) Urine Bilirubin Negative (NEG) Urine Urobilinogen Dipstick 1.0 mg/dL (0.2 mg/dL) Urine Leukocyte Esterase Moderate (NEG) Urine RBC Tntc /HPF (0-2) Urine WBC 5-10 /HPF (0-4) Urine Squamous Epithelial Cells Many /LPF Urine Bacteria Few /HPF (0-FEW) Urine Mucus Mod /LPF Troponin I Quantitative < 0.017 ng/mL (0.000-0.055) Objective Assessment pt seen, consult dictated Plan Plan of Care // GILSON TEJEDA MD Jul 24, 2020 08:58
[2020-07-24] MEDS ORDERED: MICAFUNGIN 100 MG in IV DEXTROSE 5% 100ML 100 ML IV SCH (09:00)
[2020-07-24] MEDS ORDERED: LEVOTHYROXINE 25 MCG TABLET. PO SCH (09:00)
[2020-07-24] MEDS ORDERED: ONDANSETRON ODT 4 MG TAB.RAPDIS. PO PRN (09:00)
[2020-07-24] MEDS ORDERED: fentaNYL 75MCG/HR PATCH 1 PATCH PATCH.TD72 TD SCH ×2 (09:00→17:00)
[2020-07-24] MEDS ORDERED: ONDANSETRON PF 4 MG/2 ML VIAL. IVP PRN ×2 (09:00→17:30)
[2020-07-24] MEDS ORDERED: TPN PER PHARMACY MC PRN (09:00)
[2020-07-24] MEDS ORDERED: DIVALPROEX DELAYED RELEASE 500 MG TABLET.DR. PO SCH (09:00)
--- NOTE | 2020-07-24 10:25 | NUR ---
Patient called nursing station to notify she had thrown up blood. RN went to room, patient stated blood was in the basin that was in the bathroom. Throw up was bright red with signs of clotting measured 100mls. Patient stated that it had been in there for atleast a couple hours, forgot to let staff know. notified.
[2020-07-24 10:44] VITALS: BP 105/64
[2020-07-24] MEDS: diphenhydrAMINE 50 MG/ML VIAL IV PRN ×2 (11:28→16:13)
[2020-07-24] MEDS ORDERED: PANTOPRAZOLE 40 MG TABLET.DR. PO SCH (11:30)
--- NOTE | 2020-07-24 11:41 | NUR ---
Pharmacy TPN Dosing Note S: JIN ABBOTT is a 20 year old F Currently receiving Central Continuous TPN started B:Pertinent PMH: SMALL BOWEL RESECTION Height: 5 feet, 5 inches Weight: 62.1 kg Current diet: TPN LABS: Sodium: 140 Potassium: 3.5 Chloride: 104 Calcium: 8.3 Corrected Calcium: 9.34 Magnesium: CO2: SCr: 1.0 Glucose: 88 Albumin: 2.7 AST: 14 ALT: 21 TPN FORMULA: TPN TYPE: Central Continuous AMINO ACIDS: 76 gm DEXTROSE: 120 gm LIPIDS: 0 gm SODIUM CHLORIDE: 40 mEq SODIUM ACETATE: 42.5 mEq SODIUM PHOSPHATE: mmol POTASSIUM CHLORIDE: 50 mEq POTASSIUM ACETATE: mEq POTASSIUM PHOSPHATE: mmol MAGNESIUM: 15 mEq CALCIUM: 12.5 mEq INSULIN: units MULTIPLE VITAMIN: 5 ml TRACE ELEMENTS: 1 ml(s) TPN PLAN: CONT TPN PREVIOUS ADMISSION , NO LIPID/ ALLERGY TO FAT EMULSION. LAB W/ PHOSPHATE, MAG LEVEL IN AM. R: Continue TPN AT 50ML/HR Will monitor electrolytes, glucose, and tolerance to TPN. ELIN FLEMING [facility], 07/24/20 1149
--- NOTE | 2020-07-24 13:08 | PDOC2 ---
CONSULT Date of Consult Date of Consult DATE: 07/24/20 TIME: 12:50 History of Present Illness Reason for Visit: 20-year-old just discharged a few days ago but was readmitted due to blood cultures positive for fungus. Attempted outpatient management was not successful and she was admitted for treatment and management. This is a 20-year-old female who was admitted due to positive blood cultures drawn here before discharge several days ago. They showed fungemia. She has felt poorly even after discharge 2 days ago and her mother was very suspicious she may have a blood infection again since she has had them before. She states that sometimes they are not associated with fever and will get missed if cultures are not performed. As detailed below she has a complex medical history with prior GI surgeries for SMA syndrome. However the thing that stands out to me is a pulmonary lesion, recurrent bright red blood either hemoptysis or spi tting out of blood rather than hematemesis, and now a fungal infection. Extensive evaluations in the past from a GI perspective have not found a GI source for this bleeding and this makes sense since bright red blood from the GI tract in the absence of a Ling-Gr tear or esophageal lesion would be unusual. she follows w/ Dr. Briggs and who we have seen a couple times at [facility]. H/o SMA syndrome (workup/diagnosis through [facility] and Dr. Quintanilla). S/p duodenal jejunostomy, SB endoscopy, takedown of ligament of treitz, and GJ tube placement @ [facility] by Dr. Quintanilla in 08/2019, tube replaced on 12/2019, removed 01/2020 (@ [facility] w/ concern for infection). In 2019, three EGDs @ [facility] (two in September and one in Dec) - all for hematemesis - all unrevealing for upper GI source, but blood noted in oral cavity once in September and chart lists h/o epistaxis. EGD 06/29/20 w/ Dr. Briones at [facility] for hematemesis and anemia showed normal esophagus, normal stomach (difficult to distend), duodenostomy - no blood or lesions. CT that day unrevealing for retroperitoneal bleed. Records indicate previously normal bronchoscopy and evaluation through [facility]. Chronic anemia. ?h/o SB AVMs per [facility] workup. Bleeding scan and SBS negative @ [facility] in 12/2019. Previous abd US for elevated LFTs showed hydropic GB, no cholelithiasis, and normal bile ducts. Colonoscopy reportedly normal ~2 years ago @ [facility]. REcently admitted w/ SOA and abnormal chest imaging (pneumonia/PE) - anti- coagulation not recommended - repeat imaging recommended w/ pulm as outpt, also saw heme/onc while inpt. This time to ER w/ bleeding and pain. Vomiting red blood at home x 5 days - last occurred this morning - not witnessed by staff. On pantoprazole QD, h/o GERD. Chronic lower abd pain - worse x 5 days. Does not feel constipated, stools daily, takes Colace and Senna PRN. Last stooled last night. No hematochezia or melena. Eats an egg and toast before bed, usually throws it up the next morning. Stable weight on TPN. Recently on Levaquin for pneumonia, then on doxycycline for skin infection at past IV site per PCP. Feels better today. Past Medical History Cardiovascular: Other GI: Other Infectious disease: Other Past Surgical History Past Surgical History: Other Family History Family History: No Significant, Hypertension Social History No ALCOHOL: none Drugs: None Current Problem List Problem List Problems Medical Problems: (1) Intractable pain Status: Acute Current Medications Current Medications Current Medications Sodium Chloride 1,000 ml @ 1,000 mls/hr 1X ONCE IV Last administered on 07/24/20at 02:20; Start 07/24/20 at 02:15; Stop 07/24/20 at 03:14; Status DC Ondansetron HCl (Zofran) 4 mg PRN Q8HRS PRN IV NAUSEA/VOMITING Last administered on 07/24/20at 03:40; Start 07/24/20 at 02:30; Stop 07/25/20 at 02:29 Hydromorphone HCl (Dilaudid) 1 mg Q4HRS W/A IVP Last administered on 07/24/20at 10:35; Start 07/24/20 at 06:00 Hydromorphone HCl (Dilaudid) 1 mg 1X ONCE IVP Last administered on 07/24/20at 02:32; Start 07/24/20 at 02:30; Stop 07/24/20 at 02:31; Status DC Acetaminophen (Tylenol) 650 mg PRN Q8HRS PRN PO pain or fever; Start 07/24/20 at 08:30 Albuterol Sulfate (Ventolin Neb Soln) 2.5 mg PRN Q6HRS PRN NEB SHORTNESS OF BREATH; Start 07/24/20 at 08:30 Cetirizine HCl (ZyrTEC) 10 mg PRN DAILY PRN PO ALLERGIES; Start 07/24/20 at 08:30 Divalproex Sodium (Depakote) 250 mg BID PO Last administered on 07/24/20at 10:33; Start 07/24/20 at 09:00 Docusate Sodium (Colace) 200 mg PRN BID PRN PO CONSTIPATION; Start 07/24/20 at 08:30 Fentanyl (Duragesic 75mcg/ Hr Patch) 1 patch Q3DAYS TD ; Start 07/24/20 at 09:00; Stop 07/24/20 at 10:41; Status Cancel Hydromorphone HCl (Dilaudid) 4 mg PRN Q6HRS PRN PO SEVERE PAIN; Start 07/24/20 at 08:30 Levothyroxine Sodium (Synthroid) 25 mcg DAILY08 PO Last administered on 07/24/20at 10:32; Start 07/24/20 at 09:00 Lorazepam (Ativan) 0.5 mg PRN Q6HRS PRN PO ANXIETY / AGITATION; Start 07/24/20 at 08:30 Pantoprazole Sodium (Protonix) 40 mg DAILYAC PO Last administered on 07/24/20at 10:32; Start 07/24/20 at 11:30 Sennosides (Senna) 8.6 mg QHS PO ; Start 07/24/20 at 21:00 Senna/Docusate Sodium (Senna Plus) 1 tab PRN QHS PRN PO CONSTIPATION; Start 07/24/20 at 08:30 Diphenhydramine HCl (Benadryl) 50 mg PRN Q4HRS PRN IV ITCHING Last administered on 07/24/20at 11:28; Start 07/24/20 at 09:00 Micafungin Sodium 100 mg/Dextrose 100 ml @ 100 mls/hr Q24H IV Last administered on 07/24/20at 10:32; Start 07/24/20 at 09:00 Ondansetron HCl (Zofran) 8 mg PRN Q8HRS PRN IVP NAUSEA/VOMITING; Start 07/24/20 at 09:00 Ondansetron HCl (Zofran Odt) 8 mg PRN Q8HRS PRN PO NAUSEA/VOMITING; Start 07/24/20 at 09:00 Info (Tpn Per Pharmacy) 1 each PRN DAILY PRN MC SEE COMMENTS Last administered on 07/24/20at 11:39; Start 07/24/20 at 09:00 Fentanyl (Duragesic 75mcg/ Hr Patch) 1 patch Q3DAYS TD ; Start 07/24/20 at 17:00 Sodium Chloride 40 meq/Sodium Acetate 42.5 meq/ Potassium Chloride 50 meq/ Magnesium Sulfate 15 meq/Calcium Gluconate 12.5 meq/Multivitamins 5 ml/Zinc/Copper/ Manganese/ Selenium 1 ml/ Total Parenteral Nutrition/Amino Acids/Dextrose 1,200 ml @ 50 mls/hr TPN CONT IV ; Start 07/24/20 at 22:00; Stop 07/25/20 at 21:59 Sodium Chloride 40 meq/Sodium Acetate 42.5 meq/ Potassium Chloride 50 meq/ Magnesium Sulfate 15 meq/Calcium Gluconate 12.5 meq/Multivitamins 5 ml/Zinc/Copper/ Manganese/ Selenium 1 ml/ Total Parenteral Nutrition/Amino Acids/Dextrose 1,200 ml @ 50 mls/hr TPN CONT IV ; Start 07/24/20 at 22:00; Stop 07/25/20 at 21:59; Status Cancel Active Scripts Active Movantik (Naloxegol Oxalate) 12.5 Mg Tablet 12.5 Mg PO DAILY 30 Days [Tpn Per Pharmacy] 1 EACH Each 1 Each MC PRN DAILY PRN Reported Tpn Electrolytes Ii Iv Soln (Sodium/K+/Mag/Ca/Chlor/Acetate) 20 Ml Vial 20 Ml IV CONT PRN Ajovy (Fremanezumab-Vfrm) 225 Mg/1.5 Ml Syringe 225 Mg SQ PRN PRN Zofran (Ondansetron Hcl) 8 Mg Tablet 8 Mg PO PRN Q4HRS PRN Pantoprazole Sodium (Pantoprazole Sodium) 40 Mg Tablet.dr 40 Mg PO DAILYAC Zyprexa (Olanzapine) 10 Mg Tablet 1 Tab PO QHS Ativan (Lorazepam) 0.5 Mg Tablet 0.5 Mg PO PRN Q6HRS PRN Medroxyprogesterone Acetate 150 Mg/1 Ml Vial 150 Mg IM EVERY 3 PRN Synthroid (Levothyroxine Sodium) 25 Mcg Tablet 1 Tab PO DAILY08 Hydromorphone Hcl 4 Mg Tablet 4 Mg PO PRN Q6HRS PRN FENTANYL 75mcg/hr (Fentanyl) 1 Each Patch.td72 1 Patch TP Q3DAYS Cymbalta (Duloxetine Hcl) 60 Mg Capsule. 1 Cap PO BID Senna-Docusate Sodium Tablet (Sennosides/Docusate Sodium) 1 Each Tablet 1 Tab PO HS PRN 20 Days Depakote (Divalproex Sodium) 500 Mg Tablet. 250 Mg PO BID Benadryl Allergy (Diphenhydramine Hcl) 25 Mg Tablet 50 Mg IVP PRN Q4HRS Zyrtec (Cetirizine Hcl) 10 Mg Tablet 10 Mg PO DAILY PRN Albuterol Sulfate Neb Soln (Albuterol Sulfate) 2.5 Mg/3 Ml Vial.neb 2.5 Mg NEB PRN Q6HRS PRN Acetaminophen 325 Mg Tablet 2 Tab PO PRN Q4-6HRS PRN 24 Days Docusate Sodium 100 Mg Capsule 2 Cap PO BID PRN 15 Days Senna Laxative (Sennosides) 8.6 Mg Tablet 8.6 Mg PO QHS Allergies Allergies: Coded Allergies: Penicillins (Verified Allergy, Severe, rash, 01/26/20) amitriptyline (Verified Allergy, Severe, shock, 01/26/20) ceftriaxone (Verified Allergy, Severe, rash, 01/26/20) eletriptan (Verified Allergy, Severe, migraines, 01/26/20) fat emulsions (Verified Allergy, Severe, anaphylaxis, 01/26/20) fish oil (Verified Allergy, Severe, anaphylaxis, 01/26/20) medium chain triglycerides (Verified Allergy, Severe, anaphylaxis, 01/26/20) meropenem (Verified Allergy, Severe, face swelling, 01/26/20) morphine (Verified Allergy, Severe, unknown, 01/26/20) olive oil (Verified Allergy, Severe, anaphylaxis, 01/26/20) rizatriptan (Verified Allergy, Severe, migraines, 01/26/20) soybean oil (Verified Allergy, Severe, anaphylaxis, 01/26/20) sumatriptan (Verified Allergy, Severe, migraines, 01/26/20) topiramate (Verified Allergy, Severe, shock, 01/26/20) trimethobenzamide (Verified Allergy, Severe, face swelling, 07/14/20) Patient has tolerated diphenhydramine on previous admissions pineapple (Verified Allergy, Intermediate, 06/30/20) prochlorperazine (Verified Allergy, Intermediate, 01/26/20) sodium ferric gluconate complex (Verified Allergy, Intermediate, 01/26/20) sucrose (Verified Allergy, Intermediate, 01/26/20) cyproheptadine (Verified Adverse Reaction, Intermediate, n/v, 01/26/20) erythromycin base (Verified Adverse Reaction, Intermediate, n/v, 01/26/20) gabapentin (Verified Adverse Reaction, Intermediate, n/v, 01/26/20) metoclopramide (Verified Adverse Reaction, Intermediate, n/v, 01/26/20) promethazine (Verified Adverse Reaction, Intermediate, n/v, 01/26/20) Physical Exam General: Alert, Oriented X3, Cooperative HEENT: Atraumatic, PERRLA Lungs: Clear to auscultation Heart: Regular rate, Normal S1, Normal S2 Abdomen: Normal bowel sounds, Soft, No hepatosplenomegaly Extremities: No clubbing Skin: No rashes Psych/Mental Status: Mental status NL Vitals VITALS Vital Signs Date Time Temp Pulse Resp B/P (MAP) Pulse Ox O2 Delivery O2 Flow Rate FiO2 07/24/20 11:05 Room Air 07/24/20 10:44 98.2 104 18 105/64 (78) 97 98.2 Labs Labs Laboratory Tests Test 07/24/20 01:35 07/24/20 05:15 07/24/20 06:30 07/24/20 11:45 White Blood Count 5.1 x10^3/uL (4.0-11.0) Red Blood Count 3.05 x10^6/uL (3.50-5.40) Hemoglobin 8.2 g/dL (12.0-15.5) Hematocrit 24.9 % (36.0-47.0) Mean Corpuscular Volume 82 fL (79-100) Mean Corpuscular Hemoglobin 27 pg (25-35) Mean Corpuscular Hemoglobin Concent 33 g/dL (31-37) Red Cell Distribution Width 15.3 % (11.5-14.5) Platelet Count 270 x10^3/uL (140-400) Neutrophils (%) (Auto) 48 % (31-73) Lymphocytes (%) (Auto) 34 % (24-48) Monocytes (%) (Auto) 14 % (0-9) Eosinophils (%) (Auto) 4 % (0-3) Basophils (%) (Auto) 1 % (0-3) Neutrophils # (Auto) 2.4 x10^3/uL (1.8-7.7) Lymphocytes # (Auto) 1.7 x10^3/uL (1.0-4.8) Monocytes # (Auto) 0.7 x10^3/uL (0.0-1.1) Eosinophils # (Auto) 0.2 x10^3/uL (0.0-0.7) Basophils # (Auto) 0.0 x10^3/uL (0.0-0.2) Sodium Level 140 mmol/L (136-145) Potassium Level 3.5 mmol/L (3.5-5.1) Chloride Level 104 mmol/L (98-107) Carbon Dioxide Level 24 mmol/L (21-32) Anion Gap 12 (6-14) Blood Urea Nitrogen 16 mg/dL (7-20) Creatinine 1.0 mg/dL (0.6-1.0) Estimated GFR (Cockcroft-Gault) 70.7 BUN/Creatinine Ratio 16 (6-20) Glucose Level 88 mg/dL (70-99) Calcium Level 8.3 mg/dL (8.5-10.1) Total Bilirubin 0.3 mg/dL (0.2-1.0) Aspartate Amino Transf (AST/SGOT) 14 U/L (15-37) Alanine Aminotransferase (ALT/SGPT) 21 U/L (14-59) Alkaline Phosphatase 83 U/L (46-116) Total Protein 7.2 g/dL (6.4-8.2) Albumin 2.7 g/dL (3.4-5.0) Albumin/Globulin Ratio 0.6 (1.0-1.7) Lipase 66 U/L (73-393) Urine Collection Type Unknown Urine Color [place] Urine Clarity Clear Urine pH 6.0 (<5.0-8.0) Urine Specific [place] 1.025 (1.000-1.030) Urine Protein 30 mg/dL (NEG-TRACE) Urine Glucose (UA) Negative mg/dL (NEG) Urine Ketones (Stick) Negative mg/dL (NEG) Urine Blood Large (NEG) Urine Nitrite Negative (NEG) Urine Bilirubin Negative (NEG) Urine Urobilinogen Dipstick 1.0 mg/dL (0.2 mg/dL) Urine Leukocyte Esterase Moderate (NEG) Urine RBC Tntc /HPF (0-2) Urine WBC 5-10 /HPF (0-4) Urine Squamous Epithelial Cells Many /LPF Urine Bacteria Few /HPF (0-FEW) Urine Mucus Mod /LPF Troponin I Quantitative < 0.017 ng/mL (0.000-0.055) < 0.017 ng/mL (0.000-0.055) Laboratory Tests Test 07/24/20 01:35 07/24/20 05:15 07/24/20 06:30 07/24/20 11:45 White Blood Count 5.1 x10^3/uL (4.0-11.0) Red Blood Count 3.05 x10^6/uL (3.50-5.40) Hemoglobin 8.2 g/dL (12.0-15.5) Hematocrit 24.9 % (36.0-47.0) Mean Corpuscular Volume 82 fL (79-100) Mean Corpuscular Hemoglobin 27 pg (25-35) Mean Corpuscular Hemoglobin Concent 33 g/dL (31-37) Red Cell Distribution Width 15.3 % (11.5-14.5) Platelet Count 270 x10^3/uL (140-400) Neutrophils (%) (Auto) 48 % (31-73) Lymphocytes (%) (Auto) 34 % (24-48) Monocytes (%) (Auto) 14 % (0-9) Eosinophils (%) (Auto) 4 % (0-3) Basophils (%) (Auto) 1 % (0-3) Neutrophils # (Auto) 2.4 x10^3/uL (1.8-7.7) Lymphocytes # (Auto) 1.7 x10^3/uL (1.0-4.8) Monocytes # (Auto) 0.7 x10^3/uL (0.0-1.1) Eosinophils # (Auto) 0.2 x10^3/uL (0.0-0.7) Basophils # (Auto) 0.0 x10^3/uL (0.0-0.2) Sodium Level 140 mmol/L (136-145) Potassium Level 3.5 mmol/L (3.5-5.1) Chloride Level 104 mmol/L (98-107) Carbon Dioxide Level 24 mmol/L (21-32) Anion Gap 12 (6-14) Blood Urea Nitrogen 16 mg/dL (7-20) Creatinine 1.0 mg/dL (0.6-1.0) Estimated GFR (Cockcroft-Gault) 70.7 BUN/Creatinine Ratio 16 (6-20) Glucose Level 88 mg/dL (70-99) Calcium Level 8.3 mg/dL (8.5-10.1) Total Bilirubin 0.3 mg/dL (0.2-1.0) Aspartate Amino Transf (AST/SGOT) 14 U/L (15-37) Alanine Aminotransferase (ALT/SGPT) 21 U/L (14-59) Alkaline Phosphatase 83 U/L (46-116) Total Protein 7.2 g/dL (6.4-8.2) Albumin 2.7 g/dL (3.4-5.0) Albumin/Globulin Ratio 0.6 (1.0-1.7) Lipase 66 U/L (73-393) Urine Collection Type Unknown Urine Color [place] Urine Clarity Clear Urine pH 6.0 (<5.0-8.0) Urine Specific [place] 1.025 (1.000-1.030) Urine Protein 30 mg/dL (NEG-TRACE) Urine Glucose (UA) Negative mg/dL (NEG) Urine Ketones (Stick) Negative mg/dL (NEG) Urine Blood Large (NEG) Urine Nitrite Negative (NEG) Urine Bilirubin Negative (NEG) Urine Urobilinogen Dipstick 1.0 mg/dL (0.2 mg/dL) Urine Leukocyte Esterase Moderate (NEG) Urine RBC Tntc /HPF (0-2) Urine WBC 5-10 /HPF (0-4) Urine Squamous Epithelial Cells Many /LPF Urine Bacteria Few /HPF (0-FEW) Urine Mucus Mod /LPF Troponin I Quantitative < 0.017 ng/mL (0.000-0.055) < 0.017 ng/mL (0.000-0.055) Images Images CTA of the abdomen and pelvis compared to similar exam dated July 182020 for median arcuate ligament syndrome. TECHNIQUE: Contiguous axial CT images are obtained through the abdomen and pelvis in the arterial phase during inspiration. Sagittal, oblique and coronal MIPS are evaluated along with 3-D volume rendered images of the vasculature. Nonvascular findings: Right lower lobe peripheral area of masslike consolidation is likely sequela of prior pulmonary infection. Gallbladder is fluid distended but free of any segment or signs of acute cholecystitis. Liver, spleen, pancreas, bilateral adrenal glands, and bilateral kidneys are normal. No free or loculated fluid collections are seen within the abdomen or pelvis. Urinary bladder is fluid distended and grossly unremarkable. Pelvic organs are grossly unremarkable. No suspicious adenopathy is seen in any distribution. No suspicious osteolytic blastic or lytic bone lesions are evident. Vascular findings: Aorta is patent and nonaneurysmal. Celiac artery, superior gastric artery, inferior mesenteric artery, and bilateral renal arteries are also widely patent with no atherosclerosis. No mesenteric aneurysms. Iliac arteries are patent and normal in appearance as well. When compared to the expiratory images from the CTA dated July 18, 2020, there is no change in the overall patency of the celiac artery between inspiration and expiration. IMPRESSION: 1. Persistent masslike area of consolidation the right lower lobe likely sequelae of prior infection. 2. Distended gallbladder without CT evidence of acute cholecystitis. 3. No CT evidence of respiratory phase dependent celiac artery compression to suggest median arcuate ligament syndrome. Assessment/Plan Assessment/Plan Fungemia. Will defer to infectious disease but there are several clues that I can glean from her recent imaging and history. The recurrent bright red blood that she either spits out of her mouth or comes from some source is likely sinus, oral pharyngeal or pulmonary. Very unlikely to be GI tract. When you combine this with a persistent lesion in the lung seen on recent CT scan, this is suspicious nonetheless. She has a IV port that is been in place since February. At that time she had a J-tube but apparently was infected and had to be removed. I do not have all of those details available today. Unfortunately this IV port may be seeded with the fungus as well. Complex GI history with prior SMA syndrome requiring surgical intervention. She has had J-tubes and now a port for nutritional support. She has persistent nausea and malnutrition. Plan: No further GI tests are recommended at this time. We will defer to infectious disease regarding treatment and also evaluation of potential source for both her fungemia and the recurrent hemoptysis/spitting out of blood. This may include pulmonary or ENT evaluation Patient and her mother are frustrated but are very reasonable. I listened to their concerns and reviewed my thoughts with them LINCOLN CARDOSO MD Jul 24, 2020 13:08
[2020-07-24 14:52] VITALS: BP 101/63
[2020-07-24] MEDS ORDERED: MICA100V4 IV (18:17)
--- NOTE | 2020-07-24 18:20 | SNU/HH DC ---
DISCHARGE WITH HOME HEALTH DISCHARGE INFORMATION: Discharge Date: Jul 24, 2020 Final Diagnosis: Problems Medical Problems: (1) Intractable pain Status: Acute Condition on Discharge: Stable CODE STATUS: Code Status: Full HOME HEALTH: Face to Face: I certify this patient is under my care and that I, or a nurse practitioner or physician's educational assistant working with me, had a face to face encounter that meets the physician face to face encounter requirements with this patient on []. Medical Complications: Other (Gastroparesis, Fungemia) Senior Care For: Assess & Educate Safety, IV Infusion Therapy, Medication Management RN For Eval/Treatment: Yes Pt Meets Homebound Status: Extreme weakness w/ amb., Fatigue w/ amb., Limited distance walking POST DISCHARGE ORDERS: Activity Instructions for Disc: Activity as tolerated Weight Bearing Status after Di: As tolerated DIET AFTER DISCHARGE: Regular CHECKS AFTER DISCHARGE: Checks after discharge: Check your Temp as needed FOLLOW-UP: PCP to follow Home Health: Dr. Chester Savage Follow up with: Dr. Chester Savage DC TO SNF LABS: CBC, CMP Additional Instructions: TPN: TPN TYPE: Central Continuous AMINO ACIDS: 76 gm DEXTROSE: 120 gm LIPIDS: - gm SODIUM CHLORIDE: 40 mEq SODIUM ACETATE: 42.5 mEq SODIUM PHOSPHATE: - mmol POTASSIUM CHLORIDE: 50 mEq POTASSIUM ACETATE: - mEq POTASSIUM PHOSPHATE: - mmol MAGNESIUM: 15 mEq CALCIUM: 12.5 mEq INSULIN: - units MULTIPLE VITAMIN: 5 ml TRACE ELEMENTS: 1 ml ml(s) Can change to home formula when taking PO. TPN 120 g dextrose , 76 g AA providing 712 kcal, 76 g protein ( ~40% est kcal needs, ~ 117% est protein needs) TREATMENT/EQUIPMENT ORDERS: Adaptive Equipment Issued: None Infusion Equipment, home use: PortaCath CERTIFICATION STATEMENT: Certification Statement: Certification Statement: Based on the above finding, I certify that this patient is confined to the home and needs intermittent care home care, physical therapy and/or speech therapy, or continues to need occupational therapy.~ This patient is under my care, and I have initiated the establishment of the plan of care.~ This patient will be followed by myself or a community physician who will periodically review the plan of care. Home Meds Active Scripts Micafungin Sodium (Micafungin) 100 Mg Vial, 100 MG IV DAILY for Fungemia for 14 Days, #14 EACH Prov:TAJ LEONARD MD 07/24/20 Naloxegol Oxalate (Movantik) 12.5 Mg Tablet, 12.5 MG PO DAILY for Opioid induced constipation for 30 Days, #30 TAB 11 Refills Prov:TAJ LEONARD MD 07/21/20 [Tpn Per Pharmacy] 1 EACH EACH No Conflict Check, 1 EACH MC PRN DAILY PRN for SEE COMMENTS Prov:TAJ LEONARD MD 07/21/20 Reported Medications Sodium/K+/Mag/Ca/Chlor/Acetate (TPN ELECTROLYTES II IV SOLN) 20 Ml Vial, 20 ML IV CONT PRN for IF UNABLE TO TAKE PO, EACH 07/15/20 Fremanezumab-Vfrm (Ajovy) 225 Mg/1.5 Ml Syringe, 225 MG SQ PRN PRN for HEADACHE, SYR 01/27/20 Ondansetron Hcl (ZOFRAN) 8 Mg Tablet, 8 MG PO PRN Q4HRS PRN for INDIGESTION, TAB 01/27/20 Pantoprazole Sodium (PANTOPRAZOLE SODIUM ) 40 Mg Tablet.dr, 40 MG PO DAILYAC for GERD, TAB 01/27/20 Olanzapine (ZYPREXA) 10 Mg Tablet, 1 TAB PO QHS for DEPRESSION, #30 TAB 2 Refills 01/27/20 Lorazepam (ATIVAN) 0.5 Mg Tablet, 0.5 MG PO PRN Q6HRS PRN for ANXIETY / AGITATION, TAB 01/27/20 Medroxyprogesterone Acetate (MEDROXYPROGESTERONE ACETATE) 150 Mg/1 Ml Vial, 150 MG IM EVERY 3 PRN for SEE COMMENTS, EACH 01/27/20 Levothyroxine Sodium (SYNTHROID) 25 Mcg Tablet, 1 TAB PO DAILY08 for replacement, #30 TAB 5 Refills 01/27/20 Hydromorphone Hcl (HYDROMORPHONE HCL) 4 Mg Tablet, 4 MG PO PRN Q6HRS PRN for PAIN, TAB 01/27/20 Fentanyl (FENTANYL 75mcg/hr) 1 Each Patch.td72, 1 PATCH TP Q3DAYS for pain, #10 PATCH 01/27/20 Duloxetine Hcl (CYMBALTA) 60 Mg Capsule.dr, 1 CAP PO BID for depression, #90 CAP 3 Refills 01/27/20 Sennosides/Docusate Sodium (Senna-Docusate Sodium Tablet) 1 Each Tablet, 1 TAB PO HS PRN for CONSTIPATION for 20 Days, #20 TAB 0 Refills 01/27/20 Divalproex Sodium (DEPAKOTE) 500 Mg Tablet.dr, 250 MG PO BID for anxiety, #60 TAB 2 Refills 01/27/20 Diphenhydramine Hcl (BENADRYL ALLERGY) 25 Mg Tablet, 50 MG IVP PRN Q4HRS for allergies, TAB 01/27/20 Cetirizine Hcl (ZYRTEC) 10 Mg Tablet, 10 MG PO DAILY PRN for ALLERGIES, TAB 01/27/20 Albuterol Sulfate (ALBUTEROL SULFATE NEB SOLN) 2.5 Mg/3 Ml Vial.neb, 2.5 MG NEB PRN Q6HRS PRN for SHORTNESS OF BREATH, EACH 0 Refills 01/27/20 Acetaminophen (ACETAMINOPHEN) 325 Mg Tablet, 2 TAB PO PRN Q4-6HRS PRN for pain or fever for 24 Days, #100 TAB 0 Refills 01/27/20 Docusate Sodium (DOCUSATE SODIUM) 100 Mg Capsule, 2 CAP PO BID PRN for CONSTIPATION for 15 Days, #60 CAP 0 Refills 01/27/20 Sennosides (SENNA LAXATIVE) 8.6 Mg Tablet, 8.6 MG PO QHS for constipation, TAB 01/27/20 Discontinued Reported Medications Hydromorphone Hcl (HYDROMORPHONE HCL) 4 Mg Tablet, 4 MG IVP PRN Q4HRS PRN for PAIN, TAB 01/27/20 TAJ LEONARD MD Jul 24, 2020 18:20
--- NOTE | 2020-07-24 20:19 | NUR ---
Received orders for discharge to home with home health. RN reviewed discharge instructions with patient and mother. As RN went to de-access the patient's niki cath, both the patient and mother were very adamant that the niki cath access stay in place stating "I came in the ER with it accessed and it needs to stay in." RN placed call to MD and explained to MD that both the patient and mother state that the niki cath never gets de-accessed and she came in to the ER last night with it already accessed and couldn't understand why I was taking it out. Received order from MD to leave niki cath accessed. Patient belongings including clothing, shoes, cell phone, cell phone cutter machine, purse, and home medications returned to patient. Patient placed in wheelchair with mother at side and taken to car. Patient discharged from hospital at 2014.
[2020-07-24] MEDS ORDERED: SENNOSIDES 8.6 MG TABLET PO SCH (21:00)
[2020-07-24] MEDS ORDERED: TOTAL PARENTERAL NUTRITION IV SCH ×2 (22:00)
[2020-07-24] MEDS ORDERED: AMINO ACID IV SCH ×2 (22:00)
[2020-07-24] MEDS ORDERED: DEXTROSE 70% IV SCH ×2 (22:00)
[2020-07-24] MEDS ORDERED: [UNRECOGNIZED DRUG - OTHER] IV SCH ×2 (22:00)
--- NOTE | 2020-07-24 22:16 | CONS ---
DATE OF CONSULTATION: 07/24/2020 REQUESTING PHYSICIAN: Dr. Galicia. REASON FOR CONSULTATION: Fungemia. HISTORY OF PRESENT ILLNESS: This is a 20-year-old female, who has complex medical history, SMA syndrome, multiple surgeries done, chronic pain syndrome, and nausea and vomiting, who does have Port-A-Cath in place. Last admission, she was here and was discharged, looks like on . Blood culture turned positive with fungemia. Her GI doctor, Dr. Briggs, called me outpatient and I recommended to start micafungin and offered that I can see her in the office The patient meanwhile ended up in the hospital with nausea, vomiting and abdominal pain. The patient says she has had fever at home also. The patient is comfortable right now. Blood culture is done. The last blood culture positive is from 07/21/2020, which has yeast in it; identification of the yeast is pending. 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 The patient has had surgery done, had a J-tube or a GJ tube malfunction, removal, replacement and now eventually removal. SOCIAL HISTORY: Negative for smoking, alcohol or illicit drug use. ALLERGIES: SHE IS LISTED ALLERGIC TO PENICILLIN, CEFTRIAXONE, ERYTHROMYCIN. REVIEW OF SYSTEMS: As per HPI, all other systems reviewed are negative. PHYSICAL EXAMINATION: GENERAL: Alert, oriented female, not in distress. VITAL SIGNS: Stable. The patient is afebrile. HEENT: Both pupils are round and reacting. No conjunctival lesion. No lesion in the mouth. NECK: Supple. No JVP, no lymphadenopathy. LUNGS: Clear. HEART: S1, S2, regular. ABDOMEN: Soft, nontender. No organomegaly. EXTREMITIES: No edema or cyanosis. SKIN: Unremarkable. Does have Port-A-Cath in the right upper chest, which is not showing any obvious signs of infection. NEUROLOGICAL: The patient is alert, awake, appropriate. No focal neurologic deficit. LABORATORY DATA: White count is 5.1, platelets are normal. BUN and creatinine are normal. Her liver functions are normal. Blood culture, 3/3 bottles positive with yeast from 07/21/2020. IMPRESSION: 1. Fungemia from indwelling catheter, the central venous line, and is the most likely reason. 2. Superior mesenteric artery syndrome. 3. Chronic pain syndrome. 4. Chronic nausea and vomiting. 5. Ian-Danlos syndrome. RECOMMENDATIONS: Micafungin. I did discuss with her our recommendation is to remove the Port-A-Cath. She is not happy about that. Since today is Saturday, we are not going to be able to do it anyway. I want her to think about it and discuss with her parents and decide. Recurrence rate would be very high and complications would be very high if not done. This was discussed with her. Thank you very much, Dr. Galicia, for giving me the opportunity to participate in this patient's care. GILSON TEJEDA MD DR: GUADALUPE/darshan JOB#: [id number] / [id number]
== END 2020-07-24 20:15 | disposition home or self-care (01) ==
LOC: ER 01:20 → INTOOBSV 02:38 → OBSVTOIN 02:38 → 4 NORTH 02:38
PROVIDERS: ADMIT Family Medicine; ATTEND Family Medicine
DX: R10.30 Lower abdominal pain, unspecified (principal); B49 Unspecified mycosis; D63.8 Anemia in other chronic diseases classified elsewhere; E46 Unspecified protein-calorie malnutrition; G40.909 Epilepsy, unspecified, not intractable, without status epilepticus; J18.9 Pneumonia, unspecified organism; J45.909 Unspecified asthma, uncomplicated; K55.1 Chronic vascular disorders of intestine; G89.4 Chronic pain syndrome; K82.8 Other specified diseases of gallbladder; L08.9 Local infection of the skin and subcutaneous tissue, unspecified; K92.0 Hematemesis; K21.9 Gastro-esophageal reflux disease without esophagitis; Q79.60 Ehlers-Danlos syndrome, unspecified; G12.9 Spinal muscular atrophy, unspecified; G43.909 Migraine, unspecified, not intractable, without status migrainosus; Z86.718 Personal history of other venous thrombosis and embolism; Z98.890 Other specified postprocedural states
CPT/HCPCS: 36415; 71045; 80053; 81001; 83690; 84484; 85025; 87040; 87086; 87205; 93005; 96361; 96365; 96375; 96376; 99285; G0378; G0379; J1170; J1200; J2248; J2405; J7030; J7060; 96374

== ENCOUNTER 2020-08-02 08:13 | Outpatient (CLI) | payer BC ==
[~2020-08-02] VITALS: Ht 165.1 cm; Wt 59.0 kg
[~2020-08-02 08:13] MED LIST changes: +MICA100V4 IV
[2020-08-02] MEDS ORDERED: LIDOCAINE 2%/EPI 1:100,000 20 ML VIAL. ONE (08:47)
[2020-08-02 09:44] LABS: BASO % 1 % (0-3); EOS # 0.1 x10^3/uL (0.0-0.7); EOS % 2 % (0-3); HEMATOCRIT 26.7 % (36.0-47.0); HEMOGLOBIN 8.8 g/dL (12.0-15.5); LYMPH # 2.1 x10^3/uL (1.0-4.8); LYMPH % 33 % (24-48); MEAN CORPUSCULAR HEMOGLOBIN 26 pg (25-35); MEAN CORPUSCULAR HGB CONC 33 g/dL (31-37); MEAN CORPUSCULAR VOLUME 80 fL (79-100); MONO # 0.5 x10^3/uL (0.0-1.1); MONO % 8 % (0-9); NEUT # 3.7 x10^3/uL (1.8-7.7); NEUT % 57 % (31-73); PLATELET COUNT 522 x10^3/uL (140-400); RED BLOOD COUNT 3.35 x10^6/uL (3.50-5.40); RED CELL DISTRIBUTION WIDTH 15.4 % (11.5-14.5); WHITE BLOOD COUNT 6.4 x10^3/uL (4.0-11.0)
[2020-08-02] MEDS ORDERED: ORPH100T PO (09:48)
[2020-08-02 09:50] LABS: CALCIUM 8.4 mg/dL (8.5-10.1); GFR 70.7; POTASSIUM 4.1 mmol/L (3.5-5.1)
[2020-08-02] MEDS ORDERED: BOTOX INJ (09:52)
[2020-08-02 09:53] VITALS: BP 113/72
[2020-08-02 09:57] LABS: ALBUMIN 3.1 g/dL (3.4-5.0); ALBUMIN/GLOBULIN RATIO 0.7 (1.0-1.7); PROTHROMBIN TIME PATIENT 14.1 SEC (11.7-14.0); TOTAL BILIRUBIN 0.2 mg/dL (0.2-1.0); TOTAL PROTEIN 7.7 g/dL (6.4-8.2)
[2020-08-02] MEDS ORDERED: MIDAZOLAM HCL/PF 5 MG/5 ML VIAL. ONE (10:49)
[2020-08-02] MEDS ORDERED: fentaNYL PF VIAL 100 MCG/2 ML VIAL ONE (10:50)
[2020-08-02] MEDS ORDERED: IODIXANOL 320 MG/ML 50ML VIAL. ONE (11:29)
[2020-08-02] MEDS ORDERED: LIDOCAINE WITH 8.4% SOD BICARB 3 ML DISP.SYRIN. ONE ×2 (11:40→11:41)
[2020-08-02] MEDS: LIDOCAINE 2%/EPI 1:100,000 20 ML VIAL. IJ ONE (11:58)
[2020-08-02] MEDS: IODIXANOL 320 MG/ML 50ML VIAL. IV ONE (11:58)
[2020-08-02] MEDS: LIDOCAINE WITH 8.4% SOD BICARB 3 ML DISP.SYRIN. INJ ONE (11:58)
[2020-08-02 11:59] VITALS: BP 106/50
[2020-08-02] MEDS: MIDAZOLAM HCL/PF 5 MG/5 ML VIAL. IV ONE (11:59)
[2020-08-02] MEDS: fentaNYL PF VIAL 100 MCG/2 ML VIAL IV ONE (11:59)
[2020-08-02 12:05] VITALS: BP 86/50
[2020-08-02 12:40] VITALS: BP 166/73
[2020-08-02 12:50] VITALS: BP 95/41
--- NOTE | 2020-08-03 14:08 | RAD ---
08/03/2020 12:02 PM Removal of right internal jugular port placement of left upper shotty PICC line Indication: 1. Port infection 2. Multiple IV medications including TPN Discussion: The procedure was explained in its entirety to the patient or the patients designated pharmaceutical sales representative by a member of the treatment team, including a discussion of the risks, benefits and commonly accepted alternatives to the procedure, as well as the expected consequences of no therapy whatsoever. Discussion of the risks included, but was not limited to, those that are most frequent and those that are rare but possibly severe or life-threatening, as well as the possibility of unforeseen complications. All elements of maximal sterile barrier technique including the use of a cap, mask, sterile gown, sterile gloves, large sterile sheet, appropriate hand hygiene, and 2% chlorhexidine for cutaneous antisepsis (or acceptable alternative antiseptic per current guidelines) were followed for this procedure. The right neck and chest were prepped and draped using sterile barrier technique. 1% lidocaine was administered overlying the port reservoir. A small incision was made in the reservoir and catheter removed intact. This was confirmed under fluoroscopy. The wound was closed in layers using 4-0 Vicryl suture. The left upper extremity had been prepped and draped using sterile barrier technique as described above. Real-time ultrasound demonstrated a patent left basilic vein which was prepped and draped in usual sterile fashion. 1% lidocaine used for local anesthesia. Using real-time ultrasound guidance the access needle percutaneously punctured the selected right basilic vein. Reference ultrasound images were saved to the medical record. A guidewire was advanced through the needle to the cavoatrial junction, and a peel-away sheath placed. The catheter was cut to length and inserted through the peel-away sheath such that its tip is at the cavoatrial junction. The wire and sheath were removed, and the catheter secured in place, and a sterile dressing was applied. Catheter was found to flush and aspirate normally. No immediate complications are identified. FLUORO TIME: 3.4 minutes DOSE AREA PRODUCT: 5 Gycm2 The procedures performed under conscious sedation including continuous cardiopulmonary monitoring via dedicated sedation nurse. Tvie-cv-[id number] sedation time: 59 minutes Impression: 1. Removal of right internal jugular port 2. Placement of left upper extremity PICC line
== END 2020-08-02 13:04 | disposition home or self-care (01) ==
LOC: INTRAD 08:13
PROVIDERS: ATTEND Surgery
DX: Z45.2 Encounter for adjustment and management of vascular access device (principal); J45.909 Unspecified asthma, uncomplicated; K21.9 Gastro-esophageal reflux disease without esophagitis; E03.9 Hypothyroidism, unspecified; F41.9 Anxiety disorder, unspecified; F32.9 Major depressive disorder, single episode, unspecified; Z79.899 Other long term (current) drug therapy; Z98.890 Other specified postprocedural states; Z88.0 Allergy status to penicillin; Z88.1 Allergy status to other antibiotic agents; Z88.2 Allergy status to sulfonamides; Z88.8 Allergy status to other drugs, medicaments and biological substances; Z20.822 Contact with and (suspected) exposure to COVID-19
CPT/HCPCS: 36415; 36573; 36590; 80053; 84702; 85025; 85610; 87070; 87426; 99152; 99153; C1751; C1769; C1892; C9803; J2250; J3010; J3490; Q9967; U0003; U0005; 77001

== ENCOUNTER → 2021-06-12 | Day surgery (SDC) | payer BC ==
[~2021-06-12] VITALS: Ht 167.6 cm; Wt 66.0 kg
[~2021-06-12] MED LIST changes: +ALBUMIN HUMAN 5% 500 ML IV ONE; +BOTOX INJ; +DULO30CA2 PO; -DULO60CA6 PO; +DULO60CA7 PO; +FENT1PAT21 TP; +IOHEXOL 300 MG/ML 100ML VIAL. ONE; +IOHEXOL 300 MG/ML 50 ML VIAL. IV ONE; +IV RINGERS,LACTATED 1000ML 1,000 ML IV SCH; -LEVO500T8 PO; +LEVO500T9 PO; +MIRT-8 PO; +ONDA4TAB7 IVP; -ONDA8TAB9 PO; +ONDA8TAB9 SL; +ORPH100T PO; +PANT40VI IV; +PHENYLEPHRINE 10 MG/ML VIAL. ONE; +PROAIR RESPICL90 MCG IH; +SENN1TAB62 PO; +SUCCINYLCHOLINE 200 MG/10 ML VIAL. ONE; +botox SQ; +diphenhydramine IV; +fentaNYL PF VIAL 100 MCG/2 ML VIAL IVP PRN
--- NOTE | 2021-06-12 15:45 | PDOC4 ---
PROCEDURE Procedure EGD/clips, ERCP Indication: UGI bleeding, cause obscure. Meds: GETA per anesthesia. Findings: E--Normal G--Since I last scoped, now has gastroenterostomy off antrum. Rest of stomach normal. Some friability and slow "ooze" from anterior margin of the stoma w/o mando ulceration; placed 2 clips. D--afognak duodenum with anastomosis in bulb, otherwise normal into jejunum save the gastrojejunostomy. Changed 'scope for duodenoscope. Papilla small but otherwise normal. PD entered and distally appeared normal. Deep CBD cannulation; normal cholangiogram to above bifurcation. Rico. well. IMP: S/P gastroenterostomy with apparent bleeding site at margin of stoma, clipped. Normal ERCP REC: Resume home meds, diet as before. F/u with Dr. Briggs. REUBEN HADDAD MD Jun 12, 2021 15:45
--- NOTE | 2021-06-12 16:08 | RAD ---
EXAM: ERCP. HISTORY: Small bowel bleed. COMPARISON: CT angiogram dated 07/19/2020. FINDINGS: 9 fluoroscopic images were obtained during an ERCP. The images demonstrate contrast opacifi cation of the biliary tree. The downstream common bile duct and small bowel are not opacified. There is no filling defect within the visualized biliary ducts. The total fluoroscopy time is 1 minute and 59 seconds. IMPRESSION: ERCP demonstrating contrast passed patient of the biliary tree. The downstream common rob e duct and ampulla are not well opacified or evaluation. There is no filling defect within the remain daniela of the biliary tree. Electronically signed by: Catalina Rizo MD (06/12/2021 4:05 PM) [id number]
[2021-06-12 16:20] VITALS: BP 118/64
== END | disposition home or self-care (01) ==
LOC: SURG 13:50
PROVIDERS: ATTEND Internal Medicine Gastroenterology
DX: K92.2 Gastrointestinal hemorrhage, unspecified (principal); K31.89 Other diseases of stomach and duodenum; J45.909 Unspecified asthma, uncomplicated; K21.9 Gastro-esophageal reflux disease without esophagitis; E03.9 Hypothyroidism, unspecified; F41.9 Anxiety disorder, unspecified; F32.9 Major depressive disorder, single episode, unspecified; Z79.899 Other long term (current) drug therapy; Z90.49 Acquired absence of other specified parts of digestive tract; Z98.890 Other specified postprocedural states; Z88.0 Allergy status to penicillin; Z88.1 Allergy status to other antibiotic agents; Z88.6 Allergy status to analgesic agent; Z88.8 Allergy status to other drugs, medicaments and biological substances
CPT/HCPCS: 43255; 43260; 74330; 81025; C1769; J0330; J2370; P9045; Q9967

== ENCOUNTER 2021-06-13 15:48 | Inpatient (IN) | payer BC ==
[~2021-06-13] VITALS: Ht 165.1 cm; Wt 50.8 kg
[~2021-06-13 15:48] MED LIST changes: -ALBUMIN HUMAN 5% 500 ML IV ONE; -DULO30CA2 PO; -FENT1PAT21 TP; -IOHEXOL 300 MG/ML 100ML VIAL. ONE; -IOHEXOL 300 MG/ML 50 ML VIAL. IV ONE; -IV RINGERS,LACTATED 1000ML 1,000 ML IV SCH; -MIRT-8 PO; -PANT40VI IV; -PHENYLEPHRINE 10 MG/ML VIAL. ONE; -PROAIR RESPICL90 MCG IH; -SENN1TAB62 PO; -SUCCINYLCHOLINE 200 MG/10 ML VIAL. ONE; -botox SQ; -diphenhydramine IV; -fentaNYL PF VIAL 100 MCG/2 ML VIAL IVP PRN
[2021-06-13] MEDS ORDERED: diphenhydrAMINE 50 MG/ML VIAL IVP ONE (17:00)
[2021-06-13] MEDS ORDERED: HYDROmorphone 2 MG/ML INJ. IVP ONE (17:00)
[2021-06-13] MEDS ORDERED: ONDANSETRON PF 4 MG/2 ML VIAL. IVP ONE (17:00)
--- NOTE | 2021-06-13 17:06 | PHYS DOC ---
Past Medical History Past Medical History: Asthma, DVT, Migraines, Pneumonia Additional Past Medical Histor: VASCULAR BLEEDING DISORDER,SUPERIOR MESENTARIC ARTERY SYNDROME,POSTERIOR OR (JSOE HERBERT) Past Surgical History: Other Additional Past Surgical Histo: SMALL BOWEL RESECTION,PICC LINE PLACEMENT,GJ FEEDING TUBE (JOSE HERBERT) Smoking Status: Never Smoker Alcohol Use: None (JOSE HERBERT) General Adult EDM: Chief Complaint: GI PROBLEM HPI: HPI: Patient is a 21 year old female with past medical history significant for many abdominal surgeries and prior blood transfusions who presents with reported anemia. Patient was seen at [facility] GI specialist yesterday for an EGD where a slow bleed was clipped. Home health today reports that her hemoglobin was 5.0. Patient was presented to me by SOLIS Chang who works in the gastroenterology office prior to patient arrival. Patient reports associated nausea and abdominal pain, both of which are chronic in nature. (JOSE HERBERT) Review of Systems: Review of Systems: ROS negative or noncontributory except as mentioned in HPI. (JOSE HERBERT) Heart Score: C/O Chest Pain: No (JOSE HERBERT) Current Medications: Current Medications Medications (Trade) Dose Ordered Sig/Aleida Route PRN Reason Start Time Stop Time Status Last Admin Dose Admin Hydromorphone HCl (Dilaudid) 1 mg 1X ONCE IVP 06/13/21 17:00 06/13/21 17:01 DC 06/13/21 17:20 Ondansetron HCl (Zofran) 4 mg 1X ONCE IVP 06/13/21 17:00 06/13/21 17:01 DC 06/13/21 17:21 Diphenhydramine HCl (Benadryl) 25 mg 1X ONCE IVP 06/13/21 17:00 06/13/21 17:01 DC 06/13/21 17:21 (JOSE HERBERT) Allergies: Allergies: Allergies Coded Allergies Type Severity Reaction Last Updated Verified Penicillins Allergy Severe rash 06/12/21 Yes amitriptyline Allergy Severe shock 06/12/21 Yes ceftriaxone Allergy Severe rash 06/12/21 Yes eletriptan Allergy Severe migraines 06/12/21 Yes fat emulsions Allergy Severe anaphylaxis 06/12/21 Yes fish oil Allergy Severe anaphylaxis 06/12/21 Yes medium chain triglycerides Allergy Severe anaphylaxis 06/12/21 Yes meropenem Allergy Severe face swelling 06/12/21 Yes morphine Allergy Severe unknown 06/12/21 Yes olive oil Allergy Severe anaphylaxis 06/12/21 Yes rizatriptan Allergy Severe migraines 06/12/21 Yes soybean oil Allergy Severe anaphylaxis 06/12/21 Yes sumatriptan Allergy Severe migraines 06/12/21 Yes topiramate Allergy Severe shock 06/12/21 Yes trimethobenzamide Allergy Severe face swelling 06/12/21 Yes pineapple Allergy Intermediate 06/12/21 Yes prochlorperazine Allergy Intermediate 06/12/21 Yes sodium ferric gluconate complex Allergy Intermediate 06/12/21 Yes sucrose Allergy Intermediate 06/12/21 Yes cyproheptadine Adverse Reaction Intermediate n/v 06/12/21 Yes erythromycin base Adverse Reaction Intermediate n/v 06/12/21 Yes gabapentin Adverse Reaction Intermediate n/v 06/12/21 Yes metoclopramide Adverse Reaction Intermediate n/v 06/12/21 Yes promethazine Adverse Reaction Intermediate n/v 06/12/21 Yes (JOSE HERBERT) Physical Exam: PE: Constitutional: Thin, chronically ill-appearing, no acute distress. HENT: Normocephalic, atraumatic, bilateral external ears normal, nose normal. Eyes: EOMI, conjunctival pallor, no discharge. Neck: Normal range of motion, no stridor. Skin: Palmar pallor, nailbed pallor appreciated. Skin otherwise warm, dry, no erythema, no rash. Extremities: No tenderness, no cyanosis, no clubbing, ROM intact, no edema. Neurologic: Alert and oriented x4, no focal deficits noted. (JOSE HERBERT) Current Patient Data: Labs: Laboratory Tests Test 06/13/21 16:02 06/13/21 17:07 06/13/21 18:45 Urine Collection Type Unknown Urine Color Yellow Urine Clarity Clear Urine pH 7.5 (<5.0-8.0) Urine Specific Preemption 1.010 (1.000-1.030) Urine Protein Negative mg/dL (NEG-TRACE) Urine Glucose (UA) Negative mg/dL (NEG) Urine Ketones (Stick) Negative mg/dL (NEG) Urine Blood Negative (NEG) Urine Nitrite Negative (NEG) Urine Bilirubin Negative (NEG) Urine Urobilinogen Dipstick 1.0 mg/dL (0.2 mg/dL) Urine Leukocyte Esterase Negative (NEG) Urine RBC 0 /HPF (0-2) Urine WBC Occ /HPF (0-4) Urine Squamous Epithelial Cells Few /LPF Urine Bacteria Few /HPF (0-FEW) White Blood Count 2.4 x10^3/uL (4.0-11.0) Red Blood Count 1.83 x10^6/uL (3.50-5.40) Hemoglobin 4.9 g/dL (12.0-15.5) Hematocrit 14.8 % (36.0-47.0) Mean Corpuscular Volume 81 fL (79-100) Mean Corpuscular Hemoglobin 27 pg (25-35) Mean Corpuscular Hemoglobin Concent 33 g/dL (31-37) Red Cell Distribution Width 18.3 % (11.5-14.5) Platelet Count 235 x10^3/uL (140-400) Neutrophils (%) (Auto) 41 % (31-73) Lymphocytes (%) (Auto) 49 % (24-48) Monocytes (%) (Auto) 7 % (0-9) Eosinophils (%) (Auto) 2 % (0-3) Basophils (%) (Auto) 1 % (0-3) Neutrophils # (Auto) 1.0 x10^3/uL (1.8-7.7) Lymphocytes # (Auto) 1.2 x10^3/uL (1.0-4.8) Monocytes # (Auto) 0.2 x10^3/uL (0.0-1.1) Eosinophils # (Auto) 0.0 x10^3/uL (0.0-0.7) Basophils # (Auto) 0.0 x10^3/uL (0.0-0.2) Sodium Level 138 mmol/L (136-145) Potassium Level 3.8 mmol/L (3.5-5.1) Chloride Level 106 mmol/L (98-107) Carbon Dioxide Level 26 mmol/L (21-32) Anion Gap 6 (6-14) Blood Urea Nitrogen 6 mg/dL (7-20) Creatinine 0.7 mg/dL (0.6-1.0) Estimated GFR (Cockcroft-Gault) 105.6 BUN/Creatinine Ratio 9 (6-20) Glucose Level 88 mg/dL (70-99) Calcium Level 7.5 mg/dL (8.5-10.1) Total Bilirubin 0.3 mg/dL (0.2-1.0) Aspartate Amino Transf (AST/SGOT) 234 U/L (15-37) Alanine Aminotransferase (ALT/SGPT) 167 U/L (14-59) Alkaline Phosphatase 581 U/L (46-116) Total Protein 5.0 g/dL (6.4-8.2) Albumin 2.3 g/dL (3.4-5.0) Albumin/Globulin Ratio 0.9 (1.0-1.7) SARS-CoV-2 Antigen (Rapid) Negative (NEGATIVE) Vital Signs: Vital Signs Date Time Temp Pulse Resp B/P (MAP) Pulse Ox O2 Delivery O2 Flow Rate FiO2 06/13/21 19:32 98.7 105 16 91/60 98.7 06/13/21 19:27 101 96/54 (68) 99 Room Air 06/13/21 19:15 99.0 103 16 99/54 99.0 06/13/21 19:13 101 99/54 (69) 99 Room Air 06/13/21 18:57 102 96/54 (68) 99 Room Air 06/13/21 18:44 101 91/50 (64) 99 Room Air 06/13/21 17:57 100 100/56 (71) 99 Room Air 06/13/21 17:20 16 97 Room Air 06/13/21 16:21 98.6 100 16 99/58 (72) 100 Room Air 98.6 (JOSE HERBERT) Course & Med Decision Making: Course & Med Decision Making Pertinent Labs and Imaging studies reviewed. (See chart for details) Patient is a 21-year-old chronically ill female who presents to the emergency department for reported hemoglobin of 5.0. Patient is recommended to have blood transfusion and be admitted for further evaluation of possible GI bleeding. ESTEFANY Chang with gastroenterology service requests patient be admitted to hospitalist service for severe anemia and bleeding scan to be performed. Patient gladly accepted by Dr. Pedro, hospitalist, for admission. Blood transfusion initiated prior to transportation to the floor. (JOSE HERBERT) Eriberto Disclaimer: Eriberto Disclaimer: This electronic medical record was generated, in whole or in part, using a voice recognition dictation system. (JOSE HERBERT) Departure Departure Impression: Primary Impression: Severe anemia Additional Impression: GI bleeding Qualified Codes: K92.2 - Gastrointestinal hemorrhage, unspecified Disposition: ADMITTED INPATIENT Admitting Physician: MARCI Nuñez) (JOSE HERBERT) Condition: GUARDED Referrals: ANGELES ABRRIGA MD (PCP) Attending Signature Attending Signature I have reviewed the PA/WOOL HAT FORMING MACHINE TENDER's note and plan of care. I was available for consultation as needed during the patient's visit in the emergency department. I agree with the clinical impression, plan, and disposition. (REUBEN BHAKTA DO) JOSE HERBERT Jun 13, 2021 17:06 REUBEN BHAKTA DO Jun 14, 2021 09:20
[2021-06-13 17:17] LABS: BASO % 1 % (0-3); EOS % 2 % (0-3); HEMATOCRIT 14.8 % (36.0-47.0); LYMPH # 1.2 x10^3/uL (1.0-4.8); LYMPH % 49 % (24-48); MEAN CORPUSCULAR HEMOGLOBIN 27 pg (25-35); MEAN CORPUSCULAR HGB CONC 33 g/dL (31-37); MEAN CORPUSCULAR VOLUME 81 fL (79-100); MONO # 0.2 x10^3/uL (0.0-1.1); MONO % 7 % (0-9); NEUT % 41 % (31-73); PLATELET COUNT 235 x10^3/uL (140-400); RED BLOOD COUNT 1.83 x10^6/uL (3.50-5.40); RED CELL DISTRIBUTION WIDTH 18.3 % (11.5-14.5); WHITE BLOOD COUNT 2.4 x10^3/uL (4.0-11.0)
--- NOTE | 2021-06-13 17:17 | PDOC2 ---
GI CONSULT Date of Service: DATE: 06/13/21 TIME: 16:51 Reason For Consult: GI bleeding, anemia HPI: HPI: 21 y/o female who we've seen in the past, follows w/ Dr. Briggs - discussed earlier today with him. Sent to ER for Hgb 5 per home health check yesterday. Vomiting dark red blood daily - a chronic issue but worse (more frequent/more volume) along w/ worsening chronic/diffuse abdominal pain for a few weeks. Has required frequent blood transfusions recently. EGD/ERCP by Dr. Briones as outpt yesterday for UGI bleeding: normal esophagus, gastroenterostomy w/ apparently bleeding site (some friability and slow ooze without mando ulceration) at margin of stoma (clipped), normal ERCP. No change in bleeding, etc. since procedure. H/o SMA syndrome, Ian-Danlos, nutcracker anatomy. S/p duodenal jejunostomy, SB endoscopy, GJ tube placement 08/2019 (Dr. Quintanilla, [facility]). Tube removed 01/2020. S/p laparotomy w/ ELENA, cholecystectomy, appendectomy, ?and GJ tube (pt and father say not) 09/2020. On TPN, takes a little PO (not much). Past iron infusions - not recently w/ frequent blood transfusions. H/o GERD and OIC on pantoprazole QD and Movantik PRN. Normal stool today. Many past EGDs. Colonoscopy reportedly normal @ [facility] in 2019. ?h/o SB AVMs there. Records reviewed in past - suggest [facility] eval included normal bronchoscopy. Has also been to and it has been recommended to seek another opinion at [facility], [facility], or [facility] - pt/parents hesitant to pursue. Past specialist consults include: GI, surgery, ID, IR, hematology, rheumatology, pain management. Says hospitalized @ [facility] x 2 recently for COVID and sepsis (?also bleeding/anemia). Was on cefepime, daptomycin, and steroids. For pain and nausea, on Zofran, Benadryl, Dilaudid, and Fentanyl patch. Supportive father present today. PMH: PMH: see HPI POTS, hypothyroidism, migraines, seizure, fungemia, pancytopenia, anxiety, depre ssion FH: Family History: No pertinent hx Social History: ALCOHOL: none Drugs: None ROS: GEN: +disoriented HEENT: Denies blurred vision, sore throat CV: +chest pain RESP: +SOA GI: Per HPI : Denies hematuria, dysuria ENDO: Denies weight changes NEURO: Denies confusion, dizziness MSK: +weakness SKIN: Denies jaundice, pruritus Vitals: Vitals: Vital Signs Date Time Temp Pulse Resp B/P (MAP) Pulse Ox O2 Delivery O2 Flow Rate FiO2 06/13/21 16:21 98.6 100 16 99/58 (72) 100 Room Air 98.6 Allergies: Coded Allergies: Penicillins (Verified Allergy, Severe, rash, 06/12/21) amitriptyline (Verified Allergy, Severe, shock, 06/12/21) ceftriaxone (Verified Allergy, Severe, rash, 06/12/21) eletriptan (Verified Allergy, Severe, migraines, 06/12/21) fat emulsions (Verified Allergy, Severe, anaphylaxis, 06/12/21) fish oil (Verified Allergy, Severe, anaphylaxis, 06/12/21) medium chain triglycerides (Verified Allergy, Severe, anaphylaxis, 06/12/21) meropenem (Verified Allergy, Severe, face swelling, 06/12/21) morphine (Verified Allergy, Severe, unknown, 06/12/21) olive oil (Verified Allergy, Severe, anaphylaxis, 06/12/21) rizatriptan (Verified Allergy, Severe, migraines, 06/12/21) soybean oil (Verified Allergy, Severe, anaphylaxis, 06/12/21) sumatriptan (Verified Allergy, Severe, migraines, 06/12/21) topiramate (Verified Allergy, Severe, shock, 06/12/21) trimethobenzamide (Verified Allergy, Severe, face swelling, 06/12/21) Patient has tolerated diphenhydramine on previous admissions pineapple (Verified Allergy, Intermediate, 06/12/21) prochlorperazine (Verified Allergy, Intermediate, 06/12/21) sodium ferric gluconate complex (Verified Allergy, Intermediate, 06/12/21) sucrose (Verified Allergy, Intermediate, 06/12/21) cyproheptadine (Verified Adverse Reaction, Intermediate, n/v, 06/12/21) erythromycin base (Verified Adverse Reaction, Intermediate, n/v, 06/12/21) gabapentin (Verified Adverse Reaction, Intermediate, n/v, 06/12/21) metoclopramide (Verified Adverse Reaction, Intermediate, n/v, 06/12/21) promethazine (Verified Adverse Reaction, Intermediate, n/v, 06/12/21) PE: GEN: NAD HEENT: Atraumatic, PERRL LUNGS: CTAB HEART: borderline tachycardic, port right chest ABD: NABS, S/ND, diffuse mild discomfort EXTREMITY: No edema SKIN: pale NEURO/PSYCH: A & O 3, flat affect A/P: A/P: UGI bleeding - EGD/ERCP yesterday as above w/ clip Chronic anemia - below baseline/requiring transfusions Chronic abd pain, nausea, GERD, constipation, narcotic dependency Multiple abdominal surgeries - now s/p gastroenterostomy H/o COVID -- Chronic issue, extensive past workup. Agree w/ plans for transfusion. Per discussion w/ Dr. Briggs, will proceed w/ bleeding scan - d/w pt and father who are agreeable. Will ask to resume TPN - may have clears tonight. IV PPI. Defer home meds/pain control to hospitalist. LIZETH LUDWIG Jun 13, 2021 17:17
[2021-06-13 17:22] LABS: CALCIUM 7.5 mg/dL (8.5-10.1); CREATININE 0.7 mg/dL (0.6-1.0); GFR 105.6; POTASSIUM 3.8 mmol/L (3.5-5.1)
[2021-06-13 17:28] LABS: ALBUMIN 2.3 g/dL (3.4-5.0); ALBUMIN/GLOBULIN RATIO 0.9 (1.0-1.7); TOTAL BILIRUBIN 0.3 mg/dL (0.2-1.0)
[2021-06-13 17:32] LABS: HEMOGLOBIN 4.9 g/dL (12.0-15.5)
[2021-06-13 18:13] LABS: BILIRUBIN,URINE NEGATIVE (NEG); CLARITY,URINE CLEAR; COLOR,URINE YELLOW; NITRITE,URINE NEGATIVE (NEG); PH,URINE 7.5 (<5.0-8.0); PROTEIN,URINE NEGATIVE (NEG-TRACE)
[2021-06-13 18:33] LABS: BACTERIA,URINE FEW /HPF (0-FEW); RBC,URINE 0 /HPF (0-2); WBC,URINE OCC /HPF (0-4)
[2021-06-13] MEDS ORDERED: DEXAMETHASONE SOD PHOS 4 MG/ML VIAL IVP ONE (18:45)
[2021-06-13 19:15] VITALS: BP 99/54
[2021-06-13 19:32] VITALS: BP 91/60
[2021-06-13 21:15] VITALS: BP 113/59
[2021-06-13] MEDS: HYDROmorphone 2 MG/ML INJ. IVP PRN (21:55)
[2021-06-13] MEDS: ONDANSETRON PF 4 MG/2 ML VIAL. IVP PRN (21:56)
[2021-06-13 23:00] VITALS: BP 113/69
--- NOTE | 2021-06-13 23:28 | HP ---
DATE OF SERVICE: 06/13/2021 ADMIT DATE: 06/13/2021 CHIEF COMPLAINT: Anemia. HISTORY OF PRESENT ILLNESS: The patient is a pleasant 21-year-old female well known to my service. She has chronic anemia. She apparently had an endoscopy today, in which they clipped an AV malformation. Today, she has been having some blood in her emesis. We checked her hemoglobin is 5. I discussed the case with ER physician. We are going to transfuse the patient and consult GI. PAST MEDICAL HISTORY: Mesenteric artery syndrome, chronic vascular bleeding, asthma, DVT, migraines, pneumonia, small bowel resection, PICC line placement, previous J tube has been removed. ALLERGIES: PENICILLIN, AMITRIPTYLINE, CEFTRIAXONE, ERYTHROMYCIN, FISH OIL, GABAPENTIN, MEROPENEM, METOCLOPRAMIDE, MORPHINE, OLIVE OIL, PINEAPPLE, PROMETHAZINE AND MANY OTHERS. PLEASE REFER TO THE CHART. FAMILY HISTORY: Diabetes. SOCIAL HISTORY: She does not drink, smoke or take drugs. MEDICATIONS: Reviewed. Please refer to the MRAD. REVIEW OF SYSTEMS: GENERAL: No history of weight change, weakness or fevers. SKIN: No bruising, hair changes or rashes. EYES: No blurred, double or loss of vision. NOSE AND THROAT: No history of nosebleeds, hoarseness or sore throat. HEART: No history of palpitations, chest pain or shortness of breath on exertion. LUNGS: Denies cough, hemoptysis, wheezing or shortness of breath. GASTROINTESTINAL: Denies changes in appetite, nausea, vomiting, diarrhea or constipation. GENITOURINARY: No history of frequency, urgency, hesitancy or nocturia. NEUROLOGIC: Denies history of numbness, tingling, tremor or weakness. PSYCHIATRIC: No history of panic, anxiety or depression. ENDOCRINE: No history of heat or cold intolerance, polyuria or polydipsia. EXTREMITIES: Denies muscle weakness, joint pain, pain on walking or stiffness. PHYSICAL EXAMINATION: VITALS: Within normal limits and are stable. GENERAL: No apparent distress. Alert and oriented. HEENT: Normal cephalic atraumatic, external auditory canals are patent EYES: Extraocular muscles are intact, pupils are equally round and reactive to light and accommodation MUSCULOSKELETAL: Well developed, well nourished, good range of motion ENDOCRINE: No thyromegaly was palpated LYMPHATICS: No cervical chain or axillary nodes were noted HEMATOPOIETIC: No bruising NECK: Supple, no JVD, no thyromegaly was noted. LUNGS: Clear to auscultation in all lung carpenter without rhonchi or wheezing. HEART: RRR, S1, S2 present. Peripheral pulses intact, no obvious murmurs were noted. ABDOMEN: Soft, nontender. Positive bowel sounds no organomegaly, normal bowel sounds. EXTREMITIES: Without any cyanosis, clubbing, or edema. Pedal pulses intact, Homans sign is negative. NEUROLOGIC: Normal speech, normal tone. A and O x 3, moves all extremities, no obvious focal deficits. PSYCHIATRIC: Normal affect, normal mood. Stable. SKIN: No ulcerations or rashes, good skin turgor, no jaundice. VASCULAR: Good capillary refill, neurovascular bundle appears to be intact. LABORATORY DATA: Hemoglobin is 5. ASSESSMENT AND PLAN: Acute on chronic anemia with severe GI blood loss, suspect recurrent vascular bleed. The patient has been admitted. We will consult GI. IV proton pump inhibitors. Continue home meds. We transfused a couple of units of blood. Deep venous thrombosis prophylaxis. Full code. Trend hemoglobin. MARYAM/JOSE/LORETTA DR: MARYAM/darshan TID: [id number]
[2021-06-13] MEDS ORDERED: PANT40VI IV (23:43)
[2021-06-13] MEDS ORDERED: DULO30CA2 PO (23:43)
[2021-06-13] MEDS ORDERED: FENT1PAT21 TP (23:43)
[2021-06-13 23:45] VITALS: BP 105/66
[2021-06-14] VITALS (7 sets, daily range): BP systolic 94–116; BP diastolic 51–82
[2021-06-14] MEDS ORDERED: SENNOSIDES/DOCUSATE 8.6/50MG TABLET. PO PRN
[2021-06-14] MEDS ORDERED: ACETAMINOPHEN 325 MG TABLET. PO PRN
[2021-06-14] MEDS ORDERED: LORazepam 0.5 MG TABLET PO PRN
[2021-06-14] MEDS ORDERED: SENN1TAB62 PO (00:11)
[2021-06-14] MEDS ORDERED: MIRT-8 PO (00:11)
[2021-06-14] MEDS ORDERED: diphenhydramine IV (00:11)
[2021-06-14] MEDS ORDERED: botox SQ (00:11)
[2021-06-14] MEDS ORDERED: PROAIR RESPICL90 MCG IH (00:14)
[2021-06-14] MEDS ORDERED: ACET325T21 PO (00:14)
[2021-06-14] MEDS ORDERED: ALBUTEROL SULFATE 2.5 MG/3 ML NEBU. NEB PRN (00:45)
[2021-06-14] MEDS: diphenhydrAMINE 50 MG/ML VIAL IV PRN ×3 (02:19→11:44)
[2021-06-14] MEDS: ONDANSETRON ODT 4 MG TAB.RAPDIS. PO PRN ×2 (02:19→06:21)
[2021-06-14] MEDS: HYDROmorphone 2 MG/ML INJ. IVP PRN ×6 (02:19→22:12)
[2021-06-14] MEDS: PANTOPRAZOLE IV PUSH 40 MG VIAL. IVP SCH ×2 (07:23→07:59)
[2021-06-14] MEDS: CETIRIZINE HCL 10 MG TABLET. PO SCH (08:00)
[2021-06-14] MEDS: DIVALPROEX DELAYED RELEASE 250 MG TABLET.DR. PO SCH ×2 (08:00→21:32)
[2021-06-14] MEDS: DULoxetine HCL 30 MG CAPSULE.DR PO SCH (08:00)
[2021-06-14] MEDS: LEVOTHYROXINE 25 MCG TABLET. PO SCH (08:00)
[2021-06-14 08:03] LABS: BASO % 1 % (0-3); EOS % 2 % (0-3); HEMATOCRIT 29.6 % (36.0-47.0); LYMPH # 0.8 x10^3/uL (1.0-4.8); LYMPH % 35 % (24-48); MEAN CORPUSCULAR HEMOGLOBIN 27 pg (25-35); MEAN CORPUSCULAR HGB CONC 33 g/dL (31-37); MEAN CORPUSCULAR VOLUME 81 fL (79-100); MONO % 1 % (0-9); NEUT # 1.4 x10^3/uL (1.8-7.7); NEUT % 61 % (31-73); PLATELET COUNT 311 x10^3/uL (140-400); RED BLOOD COUNT 3.65 x10^6/uL (3.50-5.40); RED CELL DISTRIBUTION WIDTH 17.7 % (11.5-14.5); WHITE BLOOD COUNT 2.3 x10^3/uL (4.0-11.0)
[2021-06-14 08:17] LABS: HEMOGLOBIN 9.7 g/dL (12.0-15.5)
[2021-06-14] MEDS ORDERED: fentaNYL 100MCG/HR PATCH 1 PATCH PATCH TD SCH (09:00)
--- NOTE | 2021-06-14 09:41 | PDOC ---
[employer] PROGRESS NOTE Date of Service DOS: DATE: 06/14/21 TIME: 09:39 Chief Complaint Chief Complaint Acute on chronic anemia with severe GI blood loss, suspect recurrent vascular bleed. The patient has been admitted. We will consult GI. IV proton pump inhibitors. Continue home meds. We transfused a couple of units of blood. Deep venous thrombosis prophylaxis. Full code. Trend hemoglobin. Pain control Nuclear scan for today History of Present Illness History of Present Illness 06/14 Patient evaluated examined at bedside. She was sitting up in bed very upset and crying. Says she is in so much pain that her usual home pain meds are not taking care of it. Reports she also had more bloody emesis last night. Will increase frequency of Dilaudid. One-time dose of fentanyl. Nuclear scan planned for noon today. Continue to monitor hemoglobin. GI following. Vitals/I&O Vitals/I&O: Vital Signs Date Time Temp Pulse Resp B/P (MAP) Pulse Ox O2 Delivery O2 Flow Rate FiO2 06/14/21 08:00 Room Air 06/14/21 07:00 98.2 108 17 116/82 (93) 100 98.2 I & O 06/13/21 06/13/21 06/14/21 15:00 23:00 07:00 Intake Total 420 ml 100 ml Balance 420 ml 100 ml Physical Exam General: Alert, Oriented X3, Cooperative, severe distress Heart: Regular rate Lungs: Clear, Crackles Abdomen: Other (tender throughout) Extremities: No edema, Normal pulses Skin: No significant lesion Labs Labs: Laboratory Tests Test 06/13/21 16:02 06/13/21 17:07 06/13/21 18:45 06/14/21 07:40 Urine Collection Type Unknown Urine Color Yellow Urine Clarity Clear Urine pH 7.5 (<5.0-8.0) Urine Specific [place] 1.010 (1.000-1.030) Urine Protein Negative mg/dL (NEG-TRACE) Urine Glucose (UA) Negative mg/dL (NEG) Urine Ketones (Stick) Negative mg/dL (NEG) Urine Blood Negative (NEG) Urine Nitrite Negative (NEG) Urine Bilirubin Negative (NEG) Urine Urobilinogen Dipstick 1.0 mg/dL (0.2 mg/dL) Urine Leukocyte Esterase Negative (NEG) Urine RBC 0 /HPF (0-2) Urine WBC Occ /HPF (0-4) Urine Squamous Epithelial Cells Few /LPF Urine Bacteria Few /HPF (0-FEW) White Blood Count 2.4 x10^3/uL (4.0-11.0) 2.3 x10^3/uL (4.0-11.0) Red Blood Count 1.83 x10^6/uL (3.50-5.40) 3.65 x10^6/uL (3.50-5.40) Hemoglobin 4.9 g/dL (12.0-15.5) 9.7 g/dL (12.0-15.5) Hematocrit 14.8 % (36.0-47.0) 29.6 % (36.0-47.0) Mean Corpuscular Volume 81 fL (79-100) 81 fL (79-100) Mean Corpuscular Hemoglobin 27 pg (25-35) 27 pg (25-35) Mean Corpuscular Hemoglobin Concent 33 g/dL (31-37) 33 g/dL (31-37) Red Cell Distribution Width 18.3 % (11.5-14.5) 17.7 % (11.5-14.5) Platelet Count 235 x10^3/uL (140-400) 311 x10^3/uL (140-400) Neutrophils (%) (Auto) 41 % (31-73) 61 % (31-73) Lymphocytes (%) (Auto) 49 % (24-48) 35 % (24-48) Monocytes (%) (Auto) 7 % (0-9) 1 % (0-9) Eosinophils (%) (Auto) 2 % (0-3) 2 % (0-3) Basophils (%) (Auto) 1 % (0-3) 1 % (0-3) Neutrophils # (Auto) 1.0 x10^3/uL (1.8-7.7) 1.4 x10^3/uL (1.8-7.7) Lymphocytes # (Auto) 1.2 x10^3/uL (1.0-4.8) 0.8 x10^3/uL (1.0-4.8) Monocytes # (Auto) 0.2 x10^3/uL (0.0-1.1) 0.0 x10^3/uL (0.0-1.1) Eosinophils # (Auto) 0.0 x10^3/uL (0.0-0.7) 0.0 x10^3/uL (0.0-0.7) Basophils # (Auto) 0.0 x10^3/uL (0.0-0.2) 0.0 x10^3/uL (0.0-0.2) Sodium Level 138 mmol/L (136-145) Potassium Level 3.8 mmol/L (3.5-5.1) Chloride Level 106 mmol/L (98-107) Carbon Dioxide Level 26 mmol/L (21-32) Anion Gap 6 (6-14) Blood Urea Nitrogen 6 mg/dL (7-20) Creatinine 0.7 mg/dL (0.6-1.0) Estimated GFR (Cockcroft-Gault) 105.6 BUN/Creatinine Ratio 9 (6-20) Glucose Level 88 mg/dL (70-99) Calcium Level 7.5 mg/dL (8.5-10.1) Total Bilirubin 0.3 mg/dL (0.2-1.0) Aspartate Amino Transf (AST/SGOT) 234 U/L (15-37) Alanine Aminotransferase (ALT/SGPT) 167 U/L (14-59) Alkaline Phosphatase 581 U/L (46-116) Total Protein 5.0 g/dL (6.4-8.2) Albumin 2.3 g/dL (3.4-5.0) Albumin/Globulin Ratio 0.9 (1.0-1.7) Coronavirus (COVID-19)(PCR) Not detected (NOT DETECTD) SARS-CoV-2 Antigen (Rapid) Negative (NEGATIVE) Assessment and Plan Assessmemt and Plan Problems Medical Problems: (1) GI bleeding Status: Acute (2) Severe anemia Status: Acute Comment Review of Relevant I have reviewed the following items shellie (where applicable) has been applied. Medications: Current Medications Medications (Trade) Dose Ordered Sig/Aleida Route PRN Reason Start Time Stop Time Status Last Admin Dose Admin Hydromorphone HCl (Dilaudid) 1 mg 1X ONCE IVP 06/13/21 17:00 06/13/21 17:01 DC 06/13/21 17:20 Ondansetron HCl (Zofran) 4 mg 1X ONCE IVP 06/13/21 17:00 06/13/21 17:01 DC 06/13/21 17:21 Diphenhydramine HCl (Benadryl) 25 mg 1X ONCE IVP 06/13/21 17:00 06/13/21 17:01 DC 06/13/21 17:21 Ondansetron HCl (Zofran) 4 mg PRN Q8HRS PRN IVP NAUSEA/VOMITING 06/13/21 17:15 06/14/21 17:14 06/13/21 21:56 Pantoprazole Sodium (PROTONIX VIAL for IV PUSH) 40 mg DAILY IVP 06/14/21 07:30 06/14/21 07:59 Dexamethasone Sodium Phosphate (Decadron) 8 mg 1X ONCE IVP 06/13/21 18:45 06/13/21 18:46 DC 06/13/21 18:45 Hydromorphone HCl (Dilaudid) 2 mg PRN Q4HRS PRN IVP SEVERE PAIN 06/13/21 19:45 06/14/21 06:22 Cetirizine HCl (ZyrTEC) 10 mg DAILY PO 06/14/21 09:00 06/14/21 08:00 Divalproex Sodium (Depakote) 250 mg BID PO 06/14/21 09:00 06/14/21 08:00 Duloxetine HCl (Cymbalta) 90 mg DAILY PO 06/14/21 09:00 06/14/21 08:00 Fentanyl (Duragesic 100mcg/Hr Patch) 1 patch Q3DAYS TD 06/14/21 09:00 06/14/21 08:00 Levothyroxine Sodium (Synthroid) 25 mcg DAILY08 PO 06/14/21 08:00 06/14/21 08:00 Ondansetron HCl (Zofran Odt) 8 mg PRN Q4HRS PRN PO NAUSEA/VOMITING 06/14/21 00:45 06/14/21 06:21 Diphenhydramine HCl (Benadryl) 25 mg PRN Q4HRS PRN IV ITCHING 06/14/21 00:45 06/14/21 06:22 Justifications for Admission Other Justification TAJ SMITH MD Jun 14, 2021 09:41
[2021-06-14] MEDS ORDERED: fentaNYL PF VIAL 100 MCG/2 ML VIAL IVP ONE (09:45)
[2021-06-14] MEDS ORDERED: HYDROmorphone 2 MG/ML INJ. IVP PRN (09:45)
--- NOTE | 2021-06-14 09:53 | PDOC ---
G I PROGRESS NOTE Subjective Reticent as usual. Says vomited blood last night. Has not been down to nuclear medicine yet. Physical Exam Lungs clear anteriorly. RRR Abdomen soft--winces with exam. Review of Relevant I have reviewed the following items shellie (where applicable) has been applied. Labs Laboratory Tests Test 06/13/21 16:02 06/13/21 17:07 06/13/21 18:45 06/14/21 07:40 Urine Collection Type Unknown Urine Color Yellow Urine Clarity Clear Urine pH 7.5 (<5.0-8.0) Urine Specific [place] 1.010 (1.000-1.030) Urine Protein Negative mg/dL (NEG-TRACE) Urine Glucose (UA) Negative mg/dL (NEG) Urine Ketones (Stick) Negative mg/dL (NEG) Urine Blood Negative (NEG) Urine Nitrite Negative (NEG) Urine Bilirubin Negative (NEG) Urine Urobilinogen Dipstick 1.0 mg/dL (0.2 mg/dL) Urine Leukocyte Esterase Negative (NEG) Urine RBC 0 /HPF (0-2) Urine WBC Occ /HPF (0-4) Urine Squamous Epithelial Cells Few /LPF Urine Bacteria Few /HPF (0-FEW) White Blood Count 2.4 x10^3/uL (4.0-11.0) 2.3 x10^3/uL (4.0-11.0) Red Blood Count 1.83 x10^6/uL (3.50-5.40) 3.65 x10^6/uL (3.50-5.40) Hemoglobin 4.9 g/dL (12.0-15.5) 9.7 g/dL (12.0-15.5) Hematocrit 14.8 % (36.0-47.0) 29.6 % (36.0-47.0) Mean Corpuscular Volume 81 fL (79-100) 81 fL (79-100) Mean Corpuscular Hemoglobin 27 pg (25-35) 27 pg (25-35) Mean Corpuscular Hemoglobin Concent 33 g/dL (31-37) 33 g/dL (31-37) Red Cell Distribution Width 18.3 % (11.5-14.5) 17.7 % (11.5-14.5) Platelet Count 235 x10^3/uL (140-400) 311 x10^3/uL (140-400) Neutrophils (%) (Auto) 41 % (31-73) 61 % (31-73) Lymphocytes (%) (Auto) 49 % (24-48) 35 % (24-48) Monocytes (%) (Auto) 7 % (0-9) 1 % (0-9) Eosinophils (%) (Auto) 2 % (0-3) 2 % (0-3) Basophils (%) (Auto) 1 % (0-3) 1 % (0-3) Neutrophils # (Auto) 1.0 x10^3/uL (1.8-7.7) 1.4 x10^3/uL (1.8-7.7) Lymphocytes # (Auto) 1.2 x10^3/uL (1.0-4.8) 0.8 x10^3/uL (1.0-4.8) Monocytes # (Auto) 0.2 x10^3/uL (0.0-1.1) 0.0 x10^3/uL (0.0-1.1) Eosinophils # (Auto) 0.0 x10^3/uL (0.0-0.7) 0.0 x10^3/uL (0.0-0.7) Basophils # (Auto) 0.0 x10^3/uL (0.0-0.2) 0.0 x10^3/uL (0.0-0.2) Sodium Level 138 mmol/L (136-145) Potassium Level 3.8 mmol/L (3.5-5.1) Chloride Level 106 mmol/L (98-107) Carbon Dioxide Level 26 mmol/L (21-32) Anion Gap 6 (6-14) Blood Urea Nitrogen 6 mg/dL (7-20) Creatinine 0.7 mg/dL (0.6-1.0) Estimated GFR (Cockcroft-Gault) 105.6 BUN/Creatinine Ratio 9 (6-20) Glucose Level 88 mg/dL (70-99) Calcium Level 7.5 mg/dL (8.5-10.1) Total Bilirubin 0.3 mg/dL (0.2-1.0) Aspartate Amino Transf (AST/SGOT) 234 U/L (15-37) Alanine Aminotransferase (ALT/SGPT) 167 U/L (14-59) Alkaline Phosphatase 581 U/L (46-116) Total Protein 5.0 g/dL (6.4-8.2) Albumin 2.3 g/dL (3.4-5.0) Albumin/Globulin Ratio 0.9 (1.0-1.7) Coronavirus (COVID-19)(PCR) Not detected (NOT DETECTD) SARS-CoV-2 Antigen (Rapid) Negative (NEGATIVE) Laboratory Tests Test 06/13/21 16:02 06/13/21 17:07 06/13/21 18:45 06/14/21 07:40 Urine Collection Type Unknown Urine Color Yellow Urine Clarity Clear Urine pH 7.5 (<5.0-8.0) Urine Specific [place] 1.010 (1.000-1.030) Urine Protein Negative mg/dL (NEG-TRACE) Urine Glucose (UA) Negative mg/dL (NEG) Urine Ketones (Stick) Negative mg/dL (NEG) Urine Blood Negative (NEG) Urine Nitrite Negative (NEG) Urine Bilirubin Negative (NEG) Urine Urobilinogen Dipstick 1.0 mg/dL (0.2 mg/dL) Urine Leukocyte Esterase Negative (NEG) Urine RBC 0 /HPF (0-2) Urine WBC Occ /HPF (0-4) Urine Squamous Epithelial Cells Few /LPF Urine Bacteria Few /HPF (0-FEW) White Blood Count 2.4 x10^3/uL (4.0-11.0) 2.3 x10^3/uL (4.0-11.0) Red Blood Count 1.83 x10^6/uL (3.50-5.40) 3.65 x10^6/uL (3.50-5.40) Hemoglobin 4.9 g/dL (12.0-15.5) 9.7 g/dL (12.0-15.5) Hematocrit 14.8 % (36.0-47.0) 29.6 % (36.0-47.0) Mean Corpuscular Volume 81 fL (79-100) 81 fL (79-100) Mean Corpuscular Hemoglobin 27 pg (25-35) 27 pg (25-35) Mean Corpuscular Hemoglobin Concent 33 g/dL (31-37) 33 g/dL (31-37) Red Cell Distribution Width 18.3 % (11.5-14.5) 17.7 % (11.5-14.5) Platelet Count 235 x10^3/uL (140-400) 311 x10^3/uL (140-400) Neutrophils (%) (Auto) 41 % (31-73) 61 % (31-73) Lymphocytes (%) (Auto) 49 % (24-48) 35 % (24-48) Monocytes (%) (Auto) 7 % (0-9) 1 % (0-9) Eosinophils (%) (Auto) 2 % (0-3) 2 % (0-3) Basophils (%) (Auto) 1 % (0-3) 1 % (0-3) Neutrophils # (Auto) 1.0 x10^3/uL (1.8-7.7) 1.4 x10^3/uL (1.8-7.7) Lymphocytes # (Auto) 1.2 x10^3/uL (1.0-4.8) 0.8 x10^3/uL (1.0-4.8) Monocytes # (Auto) 0.2 x10^3/uL (0.0-1.1) 0.0 x10^3/uL (0.0-1.1) Eosinophils # (Auto) 0.0 x10^3/uL (0.0-0.7) 0.0 x10^3/uL (0.0-0.7) Basophils # (Auto) 0.0 x10^3/uL (0.0-0.2) 0.0 x10^3/uL (0.0-0.2) Sodium Level 138 mmol/L (136-145) Potassium Level 3.8 mmol/L (3.5-5.1) Chloride Level 106 mmol/L (98-107) Carbon Dioxide Level 26 mmol/L (21-32) Anion Gap 6 (6-14) Blood Urea Nitrogen 6 mg/dL (7-20) Creatinine 0.7 mg/dL (0.6-1.0) Estimated GFR (Cockcroft-Gault) 105.6 BUN/Creatinine Ratio 9 (6-20) Glucose Level 88 mg/dL (70-99) Calcium Level 7.5 mg/dL (8.5-10.1) Total Bilirubin 0.3 mg/dL (0.2-1.0) Aspartate Amino Transf (AST/SGOT) 234 U/L (15-37) Alanine Aminotransferase (ALT/SGPT) 167 U/L (14-59) Alkaline Phosphatase 581 U/L (46-116) Total Protein 5.0 g/dL (6.4-8.2) Albumin 2.3 g/dL (3.4-5.0) Albumin/Globulin Ratio 0.9 (1.0-1.7) Coronavirus (COVID-19)(PCR) Not detected (NOT DETECTD) SARS-CoV-2 Antigen (Rapid) Negative (NEGATIVE) Note LFT's--have been blamed on TPN in the past. Vitals/I & O Vital Sign - Last 24 Hours 06/13/21 06/13/21 06/13/21 06/13/21 16:21 17:20 17:57 18:44 Temp 98.6 98.6 Pulse 100 100 101 Resp 16 16 B/P (MAP) 99/58 (72) 100/56 (71) 91/50 (64) Pulse Ox 100 97 99 99 O2 Delivery Room Air Room Air Room Air Room Air 06/13/21 06/13/21 06/13/21 06/13/21 18:57 19:13 19:15 19:27 Temp 99.0 99.0 Pulse 102 101 103 101 Resp 16 B/P (MAP) 96/54 (68) 99/54 (69) 99/54 96/54 (68) Pulse Ox 99 99 99 O2 Delivery Room Air Room Air Room Air 06/13/21 06/13/21 06/13/21 06/13/21 19:32 20:27 21:15 21:15 Temp 98.7 98.6 98.6 98.7 98.6 98.6 Pulse 105 100 108 108 Resp 16 18 18 B/P (MAP) 91/60 99/56 (70) 113/59 (77) 113/59 (77) Pulse Ox 99 96 96 O2 Delivery Room Air Room Air Room Air 06/13/21 06/13/21 06/13/21 06/13/21 21:53 22:00 23:00 23:45 Temp 98.3 99.2 98.3 99.2 Pulse 94 94 Resp 18 18 B/P (MAP) 113/69 (84) 105/66 (79) Pulse Ox 96 98 99 O2 Delivery Room Air Room Air Room Air 06/14/21 06/14/21 06/14/21 06/14/21 01:28 03:50 07:00 07:24 Temp 98.8 98.4 98.2 98.8 98.4 98.2 Pulse 95 86 108 Resp 18 18 17 B/P (MAP) 106/66 (79) 103/63 (76) 116/82 (93) Pulse Ox 97 97 100 O2 Delivery Room Air Room Air Room Air Room Air 06/14/21 06/14/21 08:00 08:00 O2 Delivery Room Air Room Air Intake and Output 06/13/21 06/13/21 06/14/21 15:00 23:00 07:00 Intake Total 420 ml 100 ml Balance 420 ml 100 ml Problem List Problems Medical Problems: (1) GI bleeding Status: Acute (2) Severe anemia Status: Acute Assessment Continued anemia and historical hematemesis though no one has seen meaningful blood on EGD's even soon after her complaints. Cause of anemia remains unclear. Has had negative colonoscopy in the past. Elevated LFT's; suspect some metabolic issue. Plan of Care Note Continue as now. Monitor hemoglobin. Await nuclear scan. Justicifation of Admission Dx: Justifications for Admission: Justification of Admission Dx: REUBEN Phillips MD Jun 14, 2021 09:53
[2021-06-14] MEDS: ONDANSETRON PF 4 MG/2 ML VIAL. IVP PRN (10:14)
[2021-06-14] MEDS: TPN PER PHARMACY MC PRN (12:03)
--- NOTE | 2021-06-14 12:15 | NUR ---
Pharmacy TPN Dosing Note S: JIN ABBOTT is a 21 year old F Currently receiving Central Continuous TPN started 06/14/21 B:Pertinent PMH: On chronic TPN as outpatient. Height: 5 feet, 5 inches Weight: 50.8 kg Current diet: Clear liquid diet LABS: Sodium: 138 Potassium: 3.8 Chloride: 106 Calcium: 7.5 Corrected Calcium: 8.86 Magnesium: CO2: 26 SCr: 0.7 Glucose: 88 Albumin: 2.3 AST: 234 ALT: 167 TPN FORMULA: TPN TYPE: Central Continuous AMINO ACIDS: 76 gm DEXTROSE: 320 gm SODIUM CHLORIDE: 148 mEq SODIUM ACETATE: 20 mEq POTASSIUM CHLORIDE: 29 mEq POTASSIUM PHOSPHATE: 21 mmol MAGNESIUM: 16 mEq CALCIUM: 10 mEq MULTIPLE VITAMIN: 10 ml TRACE ELEMENTS: 1ml ml(s) TPN PLAN: Continue TPN formula patient was receiving as outpatient. Formula faxed from [facility]. [phone]. All electrolytes WNL. CMP, Mag and Phos ordered for AM. No lipids as patient is allergic. R: Continue TPN Will monitor electrolytes, glucose, and tolerance to TPN. Pb Dubois [facility], 06/14/21 [id number]
[2021-06-14] MEDS ORDERED: HEPARIN for NUC MED 500 UNIT/5 ML DISP.SYRIN. IV ONE (12:30)
--- NOTE | 2021-06-14 14:03 | NUR ---
SW following. Discussed with RN, pt from home with family, room air, clear liquid diet. Pt does home TPN with [facility] and home health through [facility]. COVID-19 negative. GI following. SW will continue to follow.
--- NOTE | 2021-06-14 15:21 | RAD ---
Targeted blood cell scan 06/14/2021 INDICATION: Severe anemia. History of possible gastrointestinal hemorrhage. COMPARISON STUDY: CT angiography of the abdomen and pelvis July 19, 2020. Discussion: Imaging over the abdomen was performed following the administration of the patient's own red blood c ells labeled with 25 mCi of technetium 99. No abnormal cannulation of radiotracer suggestive of activ e gastrointestinal hemorrhage is identified. IMPRESSION: No scintigraphic evidence of active gastrointestinal hemorrhage Electronically signed by: Karl Morales MD (06/14/2021 3:19 PM) [id number]
[2021-06-14] MEDS: diphenhydrAMINE 50 MG/ML VIAL IVP SCH ×2 (16:19→19:56)
[2021-06-14] MEDS: ONDANSETRON PF 4 MG/2 ML VIAL. IVP SCH ×2 (16:19→20:17)
[2021-06-14] MEDS ORDERED: MIRTAZAPINE 15 MG TABLET PO SCH (21:00)
[2021-06-14] MEDS ORDERED: [UNRECOGNIZED DRUG - OTHER] IV SCH (22:00)
[2021-06-14] MEDS ORDERED: AMINO ACID IV SCH (22:00)
[2021-06-14] MEDS ORDERED: TOTAL PARENTERAL NUTRITION IV SCH (22:00)
[2021-06-14] MEDS ORDERED: DEXTROSE 70% IV SCH (22:00)
[2021-06-15] MEDS: diphenhydrAMINE 50 MG/ML VIAL IVP SCH ×4 (00:10→12:24)
[2021-06-15] MEDS: ONDANSETRON PF 4 MG/2 ML VIAL. IVP SCH ×4 (00:10→12:24)
[2021-06-15] MEDS: HYDROmorphone 2 MG/ML INJ. IVP PRN ×7 (00:16→12:46)
--- NOTE | 2021-06-15 01:49 | NUR ---
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 Patient was sitting up in bed crying with emesis basin in front of her. Large amount of bright red blood observed in emesis basin. Patients IV meds given. Will continue to monitor closely.
[2021-06-15 03:32] VITALS: BP 110/69
[2021-06-15 04:40] LABS: HEMATOCRIT 28.9 % (36.0-47.0); HEMOGLOBIN 9.5 g/dL (12.0-15.5); RED BLOOD COUNT 3.57 x10^6/uL (3.50-5.40); RED CELL DISTRIBUTION WIDTH 17.9 % (11.5-14.5); WHITE BLOOD COUNT 3.2 x10^3/uL (4.0-11.0)
[2021-06-15 04:59] LABS: ALBUMIN 2.7 g/dL (3.4-5.0); ALBUMIN/GLOBULIN RATIO 0.8 (1.0-1.7); CALCIUM 8.2 mg/dL (8.5-10.1); CREATININE 0.8 mg/dL (0.6-1.0); GFR 90.5; MAGNESIUM 2.4 mg/dL (1.8-2.4); PHOSPHORUS 5.6 mg/dL (2.6-4.7); POTASSIUM 3.7 mmol/L (3.5-5.1); TOTAL BILIRUBIN 0.5 mg/dL (0.2-1.0); TOTAL PROTEIN 5.9 g/dL (6.4-8.2)
[2021-06-15 07:00] VITALS: BP 105/66
[2021-06-15] MEDS: LEVOTHYROXINE 25 MCG TABLET. PO SCH (07:57)
[2021-06-15] MEDS: PANTOPRAZOLE IV PUSH 40 MG VIAL. IVP SCH (07:57)
[2021-06-15] MEDS: DIVALPROEX DELAYED RELEASE 250 MG TABLET.DR. PO SCH (07:58)
[2021-06-15] MEDS: CETIRIZINE HCL 10 MG TABLET. PO SCH (07:58)
[2021-06-15] MEDS: DULoxetine HCL 30 MG CAPSULE.DR PO SCH (07:58)
[2021-06-15 10:53] VITALS: BP 103/61
[2021-06-15] MEDS: TPN PER PHARMACY MC PRN (12:14)
--- NOTE | 2021-06-15 12:47 | SNU/HH DC ---
DISCHARGE WITH HOME HEALTH DISCHARGE INFORMATION: Discharge Date: Jun 15, 2021 Final Diagnosis: Problems Medical Problems: (1) GI bleeding Status: Acute (2) Severe anemia Status: Acute Condition on Discharge: Stable CODE STATUS: Code Status: Full HOME HEALTH: Face to Face: I certify this patient is under my care and that I, or a nurse practitioner or physician's banking assistant working with me, had a face to face encounter that meets the physician face to face encounter requirements with this patient on []. RN For Eval/Treatment: Yes Physical Therapy For: Evalulation/Treatment Occupational Therapy For: Evaluation/Treatment Pt Meets Homebound Status: Poor coordination w/ amb., Extreme weakness w/ amb., Limited distance walking POST DISCHARGE ORDERS: Activity Instructions for Disc: Activity as tolerated Weight Bearing Status after Di: As tolerated DIET AFTER DISCHARGE: Regular CHECKS AFTER DISCHARGE: Checks after discharge: Check your Temp as needed FOLLOW-UP: DC TO SNF LABS: CBC, CMP Additional Instructions: Resume home TPN TREATMENT/EQUIPMENT ORDERS: Adaptive Equipment Issued: None CERTIFICATION STATEMENT: Certification Statement: Certification Statement: Based on the above finding, I certify that this patient is confined to the home and needs intermittent mcfp care, physical therapy and/or speech therapy, or continues to need occupational therapy.~ This patient is under my care, and I have initiated the establishment of the plan of care.~ This patient will be followed by myself or a community physician who will periodically review the plan of care. 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 06/14/21 Mirtazapine (MIRTAZAPINE) 30 Mg Tablet, 1 TAB PO QHS for sleep, #30 TAB 1 Refill 06/14/21 [diphenhydramine] No Conflict Check, 50 MG IV Q4HRS 06/14/21 Pantoprazole Sodium (PROTONIX IV) 40 Mg Vial, 40 MG IV DAILY for gerd, EACH 06/13/21 Fentanyl (FENTANYL 100mcg/hr) 1 Each Patch.td72, 1 PATCH TP Q3DAYS for pain, #10 PATCH 06/13/21 Duloxetine Hcl (CYMBALTA) 30 Mg Capsule.dr, 90 MG PO DAILY for depression, #30 CAP 5 Refills 06/13/21 Ondansetron Hcl (ZOFRAN) 8 Mg Tablet, 8 MG SL PRN Q4HRS PRN for NAUSEA, TAB 01/27/20 Lorazepam (ATIVAN) 0.5 Mg Tablet, 0.5 MG PO QIDPRN PRN for ANXIETY / AGITATION, TAB 01/27/20 Levothyroxine Sodium (SYNTHROID) 25 Mcg Tablet, 1 TAB PO DAILY08 for replacement, #30 TAB 5 Refills 01/27/20 Hydromorphone Hcl (HYDROMORPHONE HCL) 4 Mg Tablet, 4 MG PO PRN Q4HRS PRN for PAIN, TAB 01/27/20 Divalproex Sodium (DEPAKOTE) 500 Mg Tablet.dr, 250 MG PO BID for anxiety, #60 TAB 2 Refills 01/27/20 Cetirizine Hcl (ZYRTEC) 10 Mg Tablet, 10 MG PO DAILY for allergies, TAB 01/27/20 Discontinued Reported Medications [Botox] No Conflict Check, 200 INJ UD 08/02/20 Ondansetron Hcl (ZOFRAN) 4 Mg Tablet, 4 MG IVP Q4HRS for , TAB 04/20/21 Orphenadrine Citrate (ORPHENADRINE CITRATE) 100 Mg Tablet.er, 100 MG PO BID for MUSCLE SPASMS, TAB.SR 08/02/20 Medroxyprogesterone Acetate (MEDROXYPROGESTERONE ACETATE) 150 Mg/1 Ml Vial, 150 MG IM EVERY 3 PRN for SEE COMMENTS, EACH 01/27/20 Duloxetine Hcl (CYMBALTA) 60 Mg Capsule.dr, 1 CAP PO BID for depression, #90 CAP 3 Refills 01/27/20 Sennosides/Docusate Sodium (Senna-Docusate Sodium Tablet) 1 Each Tablet, 1 TAB PO HS PRN for CONSTIPATION for 20 Days, #20 TAB 0 Refills 01/27/20 Diphenhydramine Hcl (BENADRYL ALLERGY) 25 Mg Tablet, 50 MG IVP PRN Q4HRS for allergies, TAB 01/27/20 Albuterol Sulfate (ALBUTEROL SULFATE NEB SOLN) 2.5 Mg/3 Ml Vial.neb, 2.5 MG NEB PRN Q6HRS PRN for SHORTNESS OF BREATH, EACH 0 Refills 01/27/20 TAJ SMITH MD Jun 15, 2021 12:47
--- NOTE | 2021-06-15 12:49 | PDOC3 ---
[facility]-Discharge Summary Date of Admission: Date of Admission: Jun 13, 2021 Date of Discharge: Date of Discharge: Jun 15, 2021 Admission Diagnosis: Problems: (1) Severe anemia (2) GI bleeding Consults: Consults: GI Hospital Course: Hospital Course: Chief Complaint Acute on chronic anemia with severe GI blood loss, suspect recurrent vascular bleed. The patient has been admitted. We will consult GI. IV proton pump inhibitors. Continue home meds. We transfused a couple of units of blood. Deep venous thrombosis prophylaxis. Full code. Trend hemoglobin. Pain control Nuclear scan for today History of Present Illness History of Present Illness 06/14 Patient evaluated examined at bedside. She was sitting up in bed very upset and crying. Says she is in so much pain that her usual home pain meds are not taking care of it. Reports she also had more bloody emesis last night. Will increase frequency of Dilaudid. One-time dose of fentanyl. Nuclear scan planned for noon today. Continue to monitor hemoglobin. GI following. 06/15 Eval examined at bedside. No evidence of bleeding on nuclear scan. Pain improved. Okay to discharge home today. GI follow-up outpatient. Discussed with bedside RN. Greater than 30 minutes spent in discharge Disposition: Disposition/Orders: D/C to Home Activity: Activity: Resume previous activity Diet: Diet: Regular Medications: Home Meds Reported Medications Albuterol Sulfate (Proair Respiclick) 90 Mcg Aer.pow.ba, 2 PUFF IH PRN Q6HRS PRN for shortness of breath, #1 INHALER 0 Refills 06/14/21 Acetaminophen (ACETAMINOPHEN) 325 Mg Tablet, 2 TAB PO PRN Q4HRS PRN for pain or fever for 30 Days, #30 TAB 0 Refills 06/14/21 Sennosides/Docusate Sodium (SENNA PLUS TABLET) 1 Each Tablet, 1 TAB PO PRN DAILY PRN for CONSTIPATION for 20 Days, TAB 0 Refills 06/14/21 [botox] No Conflict Check, 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 06/14/21 Mirtazapine (MIRTAZAPINE) 30 Mg Tablet, 1 TAB PO QHS for sleep, #30 TAB 1 Refill 06/14/21 [diphenhydramine] No Conflict Check, 50 MG IV Q4HRS 06/14/21 Pantoprazole Sodium (PROTONIX IV) 40 Mg Vial, 40 MG IV DAILY for gerd, EACH 06/13/21 Fentanyl (FENTANYL 100mcg/hr) 1 Each Patch.td72, 1 PATCH TP Q3DAYS for pain, #10 PATCH 06/13/21 Duloxetine Hcl (CYMBALTA) 30 Mg Capsule.dr, 90 MG PO DAILY for depression, #30 CAP 5 Refills 06/13/21 Ondansetron Hcl (ZOFRAN) 8 Mg Tablet, 8 MG SL PRN Q4HRS PRN for NAUSEA, TAB 01/27/20 Lorazepam (ATIVAN) 0.5 Mg Tablet, 0.5 MG PO QIDPRN PRN for ANXIETY / AGITATION, TAB 01/27/20 Levothyroxine Sodium (SYNTHROID) 25 Mcg Tablet, 1 TAB PO DAILY08 for replacement, #30 TAB 5 Refills 01/27/20 Hydromorphone Hcl (HYDROMORPHONE HCL) 4 Mg Tablet, 4 MG PO PRN Q4HRS PRN for PAIN, TAB 01/27/20 Divalproex Sodium (DEPAKOTE) 500 Mg Tablet.dr, 250 MG PO BID for anxiety, #60 TAB 2 Refills 01/27/20 Cetirizine Hcl (ZYRTEC) 10 Mg Tablet, 10 MG PO DAILY for allergies, TAB 01/27/20 Discontinued Reported Medications [Botox] No Conflict Check, 200 INJ UD 08/02/20 Ondansetron Hcl (ZOFRAN) 4 Mg Tablet, 4 MG IVP Q4HRS for , TAB 04/20/21 Orphenadrine Citrate (ORPHENADRINE CITRATE) 100 Mg Tablet.er, 100 MG PO BID for MUSCLE SPASMS, TAB.SR 08/02/20 Medroxyprogesterone Acetate (MEDROXYPROGESTERONE ACETATE) 150 Mg/1 Ml Vial, 150 MG IM EVERY 3 PRN for SEE COMMENTS, EACH 01/27/20 Duloxetine Hcl (CYMBALTA) 60 Mg Capsule.dr, 1 CAP PO BID for depression, #90 CAP 3 Refills 01/27/20 Sennosides/Docusate Sodium (Senna-Docusate Sodium Tablet) 1 Each Tablet, 1 TAB PO HS PRN for CONSTIPATION for 20 Days, #20 TAB 0 Refills 01/27/20 Diphenhydramine Hcl (BENADRYL ALLERGY) 25 Mg Tablet, 50 MG IVP PRN Q4HRS for allergies, TAB 01/27/20 Albuterol Sulfate (ALBUTEROL SULFATE NEB SOLN) 2.5 Mg/3 Ml Vial.neb, 2.5 MG NEB PRN Q6HRS PRN for SHORTNESS OF BREATH, EACH 0 Refills 01/27/20 Scheduled Cetirizine Hcl (Zyrtec), 10 MG PO DAILY, (Reported) Divalproex Sodium (Depakote), 250 MG PO BID, (Reported) Duloxetine Hcl (Cymbalta), 90 MG PO DAILY, (Reported) Fentanyl (FENTANYL 100mcg/hr), 1 PATCH TP Q3DAYS, (Reported) Levothyroxine Sodium (Synthroid), 1 TAB PO DAILY08, (Reported) Mirtazapine (Mirtazapine), 1 TAB PO QHS, (Reported) Pantoprazole Sodium (Protonix Iv), 40 MG IV DAILY, (Reported) [botox], 200 UNITS SQ [id number], (Reported) [diphenhydramine], 50 MG IV Q4HRS, (Reported) Scheduled PRN Acetaminophen (Acetaminophen), 2 TAB PO PRN Q4HRS PRN for pain or fever, (Reported) Albuterol Sulfate (Proair Respiclick), 2 PUFF IH PRN Q6HRS PRN for shortness of breath, (Reported) Hydromorphone Hcl (Hydromorphone Hcl), 4 MG PO PRN Q4HRS PRN for PAIN, (Reported) Lorazepam (Ativan), 0.5 MG PO QIDPRN PRN for ANXIETY / AGITATION, (Reported) Ondansetron Hcl (Zofran), 8 MG SL PRN Q4HRS PRN for NAUSEA, (Reported) Sennosides/Docusate Sodium (Senna Plus Tablet), 1 TAB PO PRN DAILY PRN for CONSTIPATION, (Reported) Discontinued Medications Albuterol Sulfate (Albuterol Sulfate Neb Soln), 2.5 MG NEB PRN Q6HRS PRN for SH ORTNESS OF BREATH, (Reported) Diphenhydramine Hcl (Benadryl Allergy), 50 MG IVP PRN Q4HRS, (Reported) Duloxetine Hcl (Cymbalta), 1 CAP PO BID, (Reported) Discontinued Reason: Prescription changed Medroxyprogesterone Acetate (Medroxyprogesterone Acetate), 150 MG IM EVERY 3 PRN for SEE COMMENTS, (Reported) Ondansetron Hcl (Zofran), 4 MG IVP Q4HRS, (Reported) Orphenadrine Citrate (Orphenadrine Citrate), 100 MG PO BID, (Reported) Sennosides/Docusate Sodium (Senna-Docusate Sodium Tablet), 1 TAB PO HS PRN for CONSTIPATION, (Reported) [Botox], 200 INJ UD, (Reported) Justicifation of Admission Dx: Justifications for Admission: Justification of Admission Dx: TAJ Garay MD Jun 15, 2021 12:49
--- NOTE | 2021-06-15 13:38 | PDOC ---
Date of Service: DATE: 06/15/21 TIME: 13:35 Subjective: Subjective: Vomited blood overnight but feels better. Supportive father present - wonders if SBCE next step? Objective: Objective: D/w Dr. Spicer. Vital Signs: Vital Signs Date Time Temp Pulse Resp B/P (MAP) Pulse Ox O2 Delivery O2 Flow Rate FiO2 06/15/21 13:22 Room Air 06/15/21 10:53 98.4 98 16 103/61 (75) 100 98.4 Labs: Laboratory Tests Test 06/15/21 03:00 White Blood Count 3.2 x10^3/uL Red Blood Count 3.57 x10^6/uL Hemoglobin 9.5 g/dL Hematocrit 28.9 % Mean Corpuscular Volume 81 fL Mean Corpuscular Hemoglobin 27 pg Mean Corpuscular Hemoglobin Concent 33 g/dL Red Cell Distribution Width 17.9 % Platelet Count 325 x10^3/uL Sodium Level 141 mmol/L Potassium Level 3.7 mmol/L Chloride Level 104 mmol/L Carbon Dioxide Level 29 mmol/L Anion Gap 8 Blood Urea Nitrogen 8 mg/dL Creatinine 0.8 mg/dL Estimated GFR (Cockcroft-Gault) 90.5 BUN/Creatinine Ratio 10 Glucose Level 81 mg/dL Calcium Level 8.2 mg/dL Phosphorus Level 5.6 mg/dL Magnesium Level 2.4 mg/dL Total Bilirubin 0.5 mg/dL Aspartate Amino Transf (AST/SGOT) 209 U/L Alanine Aminotransferase (ALT/SGPT) 222 U/L Alkaline Phosphatase 912 U/L Total Protein 5.9 g/dL Albumin 2.7 g/dL Albumin/Globulin Ratio 0.8 Imaging: PROCEDURE: GI BLEED ADDENDUM ADDENDUM #1 Addendum: Delayed imaging of the abdomen was performed. No abnormal accumulation of radiotracer suggestive of gastrointestinal hemorrhage is identified. Electronically signed by: Karl Amor MD (06/15/2021 9:33 AM) [id number] ORIGINAL REPORT Targeted blood cell scan 06/14/2021 INDICATION: Severe anemia. History of possible gastrointestinal hemorrhage. COMPARISON STUDY: CT angiography of the abdomen and pelvis July 19, 2020. Discussion: Imaging over the abdomen was performed following the administration of the patient's own red blood cells labeled with 25 mCi of technetium 99. No abnormal cannulation of radiotracer suggestive of active gastrointestinal hemorrhage is identified. IMPRESSION: No scintigraphic evidence of active gastrointestinal hemorrhage Electronically signed by: Karl Amor MD (06/14/2021 3:19 PM) [id number] DICTATED AND SIGNED BY: KARL AMOR MD DATE: 06/15/21 0933 CC: LIZETH LUDWIG; CAROLYN BAKER III, DO; ANGELES BARRIGA MD; REUBEN HADDAD MD ~ Targeted blood cell scan 06/14/2021 INDICATION: Severe anemia. History of possible gastrointestinal hemorrhage. COMPARISON STUDY: CT angiography of the abdomen and pelvis July 19, 2020. Discussion: Imaging over the abdomen was performed following the administration of the patient's own red blood cells labeled with 25 mCi of technetium 99. No abnormal cannulation of radiotracer suggestive of active gastrointestinal hemorrhage is identified. IMPRESSION: No scintigraphic evidence of active gastrointestinal hemorrhage PE: GEN: NAD LUNGS: CTAB HEART: RRR ABD: soft, non-distended NEURO/PSYCH: A & O 3 A/P: Recurrent bleeding, chronic anemia -- Bleeding scan and second look negative, Hgb improved/stable. Okay to DC per GI - follow-up in clinic for next steps. Justicifation of Admission Dx: Justifications for Admission: Justification of Admission Dx: No LIZETH LUDWIG Jun 15, 2021 13:38
--- NOTE | 2021-06-15 13:46 | NUR ---
SW following. Discussed with RN, clinicals and discharge orders faxed to [facility]. RN notified.
--- NOTE | 2021-06-15 14:54 | NUR ---
Discharge Note: PT DISCHARGED HOME WITH HOME HEALTH. PT LEFT FACILITY VIA PRIVATE VEHICLE WITH DAD AT 1455. PT STABLE AND ALERT UPON DISCHARGE. PT HAD CENTRAL LINE IN PLACE TO R CHEST THAT SHE DISCHARGED WITH. DRESSING WAS C/D/I, FLUSHED, AND CAPPED PRIOR TO DISCHARGE, NO ISSUES WITH FLUSHING. PT EDUCATED ABOUT DISCHARGE INSTRUCTIONS, DISCHARGE MEDICATIONS, AND FOLLOW-UP INSTRUCTIONS. NO CONCERNS VOICED AT THIS TIME. PT LEFT WITH ALL PERSONAL BELONGINGS PRIOR TO DISCHARGE. JIN ABBOTT Discharge instructions and discharge home medications reviewed with Patient and a copy given. All questions have been answered and understanding verbalized.
[2021-06-15] MEDS ORDERED: TOTAL PARENTERAL NUTRITION IV SCH (22:00)
[2021-06-15] MEDS ORDERED: DEXTROSE 70% IV SCH (22:00)
[2021-06-15] MEDS ORDERED: AMINO ACID IV SCH (22:00)
[2021-06-15] MEDS ORDERED: [UNRECOGNIZED DRUG - OTHER] IV SCH (22:00)
== END 2021-06-15 14:59 | disposition home health service (06) | DRG 377 ==
LOC: ER 15:48 → 5 NORTH 17:09
PROVIDERS: ADMIT Internal Medicine; ATTEND Internal Medicine
PROC: 30233N1 Transfusion of Nonautologous Red Blood Cells into Peripheral Vein, Percutaneous Approach (ICD-10-PCS; principal; 2021-06-13)
DX: K92.2 Gastrointestinal hemorrhage, unspecified (principal); E43 Unspecified severe protein-calorie malnutrition; Q79.60 Ehlers-Danlos syndrome, unspecified; Z68.1 Body mass index [BMI] 19.9 or less, adult; D62 Acute posthemorrhagic anemia; K92.0 Hematemesis; E03.9 Hypothyroidism, unspecified; F32.A Depression, unspecified; F41.9 Anxiety disorder, unspecified; G43.909 Migraine, unspecified, not intractable, without status migrainosus; J45.909 Unspecified asthma, uncomplicated; K21.9 Gastro-esophageal reflux disease without esophagitis; Z20.822 Contact with and (suspected) exposure to COVID-19; Z83.3 Family history of diabetes mellitus; Z86.718 Personal history of other venous thrombosis and embolism; Z87.01 Personal history of pneumonia (recurrent); Z88.1 Allergy status to other antibiotic agents; Z88.0 Allergy status to penicillin; Z88.8 Allergy status to other drugs, medicaments and biological substances; Z91.018 Allergy to other foods; Z90.49 Acquired absence of other specified parts of digestive tract; Z86.16 Personal history of COVID-19
CPT/HCPCS: 36415; 36430; 78278; 80053; 81001; 83735; 84100; 85025; 85027; 86850; 86900; 86901; 86920; 87426; 96374; 96375; A9560; C9113; J0610; J1100; J1170; J1200; J2405; J3010; J3475; J3480; J3490; P9016; U0003; 99285-25; G0378

== ENCOUNTER 2021-06-21 15:32 | Inpatient (IN) | payer BC ==
[~2021-06-21] VITALS: Ht 165.1 cm; Wt 55.5 kg
[~2021-06-21 15:32] MED LIST changes: +DULO30CA2 PO; +FENT1PAT21 TP; +MIRT-8 PO; +PANT40VI IV; +PROAIR RESPICL90 MCG IH; +SENN1TAB62 PO; +botox SQ; +diphenhydramine IV
--- NOTE | 2021-06-21 16:08 | PHYS DOC ---
Past Medical History Past Medical History: Asthma, DVT, Migraines, Pneumonia Additional Past Medical Histor: VASCULAR BLEEDING DISORDER,SUPERIOR MESENTARIC ARTERY SYNDROME,POSTERIOR OR Past Surgical History: Other Additional Past Surgical Histo: SMALL BOWEL RESECTION,PICC LINE PLACEMENT,GJ FEEDING TUBE Smoking Status: Never Smoker Alcohol Use: None Drug Use: None General Adult EDM: Chief Complaint: HEMATEMESIS/VOMITING BLOOD HPI: HPI: Patient is a 21 year old female who presents here with report of vomiting blood, diffuse chest and abdominal pain. She denies shortness of breath. She has had multiple hospitalizations for the same symptoms. She has seen GI multiple times. She has seen specialists at [facility] as well as [facility]. No specific underlying etiology is found. She was admitted within the last week here for the same symptoms. She has a history of a vascular bleeding disorder, chronic abdominal pain, chronic nausea and vomiting and recurrent hematemesis. She was supposed to undergo bleeding scan if first hematemesis symptoms returned. She has been in contact with her GI physician. On her last endoscopy, a small ulcer was found, but no specific other source of bleeding has been specifically pinpointed. She is not taking any anticoagulant medications. She takes scheduled Dilaudid and Benadryl and Zofran at home. She has not had a dose of any of these medications since this morning. She has home health services. On her last hospitalization, her anemia was severe enough that she required blood transfusion. Review of Systems: Review of Systems: Constitutional: Denies fever or chills. Generalized malaise and fatigue. Eyes: Denies change in visual acuity. [] HENT: Denies nasal congestion or sore throat. [] Respiratory: Denies cough or shortness of breath. [] Cardiovascular: Denies chest pain or edema. [] GI: Denies abdominal pain, nausea, vomiting, hematemesis. She reports chronically loose and yellow stools, unchanged. No melena hematochezia reported : Denies urinary symptoms Musculoskeletal: Denies back pain or joint pain. [] Integument: Denies rash. [] Neurologic: Denies headache, focal weakness or sensory changes. Psychiatric: Chronic anxiety and depression secondary to chronic clinical conditions Heart Score: C/O Chest Pain: No Risk Factors: Risk Factors: DM, Current or recent (<one month) smoker, HTN, HLP, family history of CAD, obesity. Risk Scores: Score 0 - 3: 2.5% MACE over next 6 weeks - Discharge Home Score 4 - 6: 20.3% MACE over next 6 weeks - Admit for Clinical Observation Score 7 - 10: 72.7% MACE over next 6 weeks - Early Invasive Strategies Allergies: Allergies: Allergies Coded Allergies Type Severity Reaction Last Updated Verified Penicillins Allergy Severe rash 06/12/21 Yes amitriptyline Allergy Severe shock 06/12/21 Yes ceftriaxone Allergy Severe rash 06/12/21 Yes eletriptan Allergy Severe migraines 06/12/21 Yes fat emulsions Allergy Severe anaphylaxis 06/12/21 Yes fish oil Allergy Severe anaphylaxis 06/12/21 Yes medium chain triglycerides Allergy Severe anaphylaxis 06/12/21 Yes meropenem Allergy Severe face swelling 06/12/21 Yes morphine Allergy Severe unknown 06/12/21 Yes olive oil Allergy Severe anaphylaxis 06/12/21 Yes rizatriptan Allergy Severe migraines 06/12/21 Yes soybean oil Allergy Severe anaphylaxis 06/12/21 Yes sumatriptan Allergy Severe migraines 06/12/21 Yes topiramate Allergy Severe shock 06/12/21 Yes trimethobenzamide Allergy Severe face swelling 06/12/21 Yes pineapple Allergy Intermediate 06/12/21 Yes prochlorperazine Allergy Intermediate 06/12/21 Yes sodium ferric gluconate complex Allergy Intermediate 06/12/21 Yes sucrose Allergy Intermediate 06/12/21 Yes cyproheptadine Adverse Reaction Intermediate n/v 06/12/21 Yes erythromycin base Adverse Reaction Intermediate n/v 06/12/21 Yes gabapentin Adverse Reaction Intermediate n/v 06/12/21 Yes metoclopramide Adverse Reaction Intermediate n/v 06/12/21 Yes promethazine Adverse Reaction Intermediate n/v 06/12/21 Yes Physical Exam: PE: Constitutional: She is frail, chronically ill-appearing, appears uncomfortable HENT: Normocephalic, atraumatic, oropharynx is patent and clear, mucous m embranes tacky Eyes: Conjunctive are pale. No scleral icterus Neck: Achy midline, no meningismus Cardiovascular:Heart rate regular rhythm, +2 dorsalis pedis and +2 radial pulses Lungs & Thorax: Bilateral breath sounds clear to auscultation [] Abdomen: Soft, nondistended, epigastric tenderness, no guarding, no rebound. Skin: Warm, dry, no erythema, no rash. Diffuse pallor. Back: No tenderness, no CVA tenderness. [] Extremities: No tenderness, no cyanosis, no clubbing, ROM intact, no edema. No calf tenderness Neurologic: Alert and oriented X 3, normal motor function, normal sensory function, no focal deficits noted. [] Psychologic: Affect flat and tearful Current Patient Data: Vital Signs: Vital Signs Date Time Temp Pulse Resp B/P (MAP) Pulse Ox O2 Delivery O2 Flow Rate FiO2 06/21/21 15:53 98.8 104 18 96/53 (67) 97 Room Air 98.8 EKG: EKG: [] Radiology/Procedures: Radiology/Procedures: [] Course & Med Decision Making: Course & Med Decision Making Pertinent Labs and Imaging studies reviewed. (See chart for details) IV fluid boluses ordered. IV Zofran, IV Benadryl and IV Dilaudid ordered. The patient had an episode of hematemesis here. I ordered IV Protonix. The patient was unsure if she wanted to be admitted initially, as she does not like being in the hospital and feels more comfortable at home. After deliberation, she has decided she wants to be admitted to the hospital. She will be admitted to Dr. Marie. Gastroenterology will be consulted. She will be kept n.p.o. Dragon Disclaimer: Eriberto Disclaimer: This electronic medical record was generated, in whole or in part, using a voice recognition dictation system. Departure Departure Impression: Primary Impression: Hematemesis Qualified Codes: K92.0 - Hematemesis Additional Impressions: Chronic anemia Chronic abdominal pain Gastrointestinal bleeding Qualified Codes: K92.2 - Gastrointestinal hemorrhage, unspecified Disposition: ADMITTED INPATIENT Admitting Physician: MARCI (Dr. Marie) Condition: GUARDED Referrals: ANGELES BARRIGA MD (PCP) EMERITA VALLADARES DO Jun 21, 2021 16:08
[2021-06-21] MEDS ORDERED: IV NORMAL SALINE 1000ML BAG 1,000 ML IV ONE ×2 (16:15→19:15)
[2021-06-21] MEDS ORDERED: diphenhydrAMINE 50 MG/ML VIAL IVP ONE ×3 (16:30→23:45)
[2021-06-21] MEDS ORDERED: HYDROmorphone 2 MG/ML INJ. IVP ONE ×2 (16:30→19:00)
[2021-06-21] MEDS ORDERED: ONDANSETRON PF 4 MG/2 ML VIAL. IVP ONE ×3 (16:30→23:00)
[2021-06-21 16:32] LABS: BASO % 1 % (0-3); EOS % 0 % (0-3); HEMATOCRIT 21.8 % (36.0-47.0); HEMOGLOBIN 7.3 g/dL (12.0-15.5); LYMPH % 27 % (24-48); MEAN CORPUSCULAR HEMOGLOBIN 26 pg (25-35); MEAN CORPUSCULAR HGB CONC 34 g/dL (31-37); MEAN CORPUSCULAR VOLUME 77 fL (79-100); MONO # 0.3 x10^3/uL (0.0-1.1); MONO % 9 % (0-9); NEUT # 2.3 x10^3/uL (1.8-7.7); NEUT % 64 % (31-73); PLATELET COUNT 228 x10^3/uL (140-400); RED BLOOD COUNT 2.84 x10^6/uL (3.50-5.40); RED CELL DISTRIBUTION WIDTH 17.8 % (11.5-14.5); WHITE BLOOD COUNT 3.7 x10^3/uL (4.0-11.0)
[2021-06-21 16:42] LABS: CALCIUM 7.8 mg/dL (8.5-10.1); POTASSIUM 4.2 mmol/L (3.5-5.1)
[2021-06-21 16:46] LABS: PROTHROMBIN TIME PATIENT 14.8 SEC (11.7-14.0)
[2021-06-21 16:49] LABS: ALBUMIN 2.5 g/dL (3.4-5.0); ALBUMIN/GLOBULIN RATIO 0.7 (1.0-1.7); MAGNESIUM 1.7 mg/dL (1.8-2.4); TOTAL BILIRUBIN 0.4 mg/dL (0.2-1.0); TOTAL PROTEIN 5.9 g/dL (6.4-8.2)
[2021-06-21 16:51] LABS: PREG TEST PT QUAL NEGATIVE (NEG)
[2021-06-21 19:24] LABS: BILIRUBIN,URINE NEGATIVE (NEG); CLARITY,URINE CLEAR; COLOR,URINE YELLOW; NITRITE,URINE NEGATIVE (NEG); PH,URINE 6.5 (<5.0-8.0); PROTEIN,URINE NEGATIVE (NEG-TRACE); UROBILINOGEN,URINE 0.2 mg/dL (0.2 mg/dL)
[2021-06-21 19:25] LABS: BACTERIA,URINE 0 /HPF (0-FEW); RBC,URINE OCC /HPF (0-2); WBC,URINE OCC /HPF (0-4)
[2021-06-21 19:28] LABS: BARBITURATES NEG (NEG); BENZODIAZEPINES NEG (NEG); CANNABINOIDS POS (NEG); COCAINE NEG (NEG); METHADONE NEG (NEG); OPIATES POS (NEG); PHENCYCLIDINE NEG (NEG)
[2021-06-21 19:29] LABS: AMPHETAMINE/METHAMPHETAMINE NEG (NEG)
[2021-06-21] MEDS ORDERED: DICYCLOMINE 20 MG/2 ML VIAL. IM PRN (19:45)
[2021-06-21] MEDS ORDERED: ACETAMINOPHEN 325 MG TABLET. PO PRN (19:45)
[2021-06-21] MEDS ORDERED: diphenhydrAMINE HCL 25 MG CAPSULE PO PRN ×2 (19:45)
[2021-06-21] MEDS ORDERED: ZOLPIDEM 5 MG TABLET. PO PRN (19:45)
[2021-06-21] MEDS ORDERED: SENNOSIDES 8.6 MG TABLET PO PRN (19:45)
[2021-06-21] MEDS ORDERED: DEXTROSE 50% 25 GM / 50ML DISP.SYRIN. IV PRN (19:45)
[2021-06-21] MEDS ORDERED: DOCUSATE SODIUM 100 MG CAPSULE. PO PRN (19:45)
[2021-06-21] MEDS ORDERED: LORazepam 0.5 MG TABLET PO PRN ×2 (19:45→21:30)
[2021-06-21] MEDS ORDERED: PROCHLORPERAZINE 10 MG/2 ML VIAL. IV PRN (19:45)
[2021-06-21] MEDS ORDERED: diphenhydrAMINE 50 MG/ML VIAL IVP PRN (19:45)
--- NOTE | 2021-06-21 19:51 | PDOC1 ---
History and Physical Date of Service: DOS: DATE: 06/21/21 TIME: 19:47 Chief Complaint: Chief Complain: Vomiting blood History of Present Illness: HPI: 21-year-old female who is here to 3 weeks ago who had a nuclear medicine bleeding scan that was done that was essentially normal. Well-known by the GI service comes in with hematemesis, diffuse chest and abdominal pain. Has had multiple hospitalizations for the same symptoms. Still on TPN and eating very minimally. Patient states she had a reported fever 103.5 last night. She has been in contact with her GI physician. On her last endoscopy, a small ulcer was found, but no specific other source of bleeding has been specifically pinpointed Past Medical/Surgical History: PMH/PSH: Past Medical History: Asthma, DVT, Migraines, Pneumonia, VASCULAR BLEEDING DISORDER,SUPERIOR MESENTARIC ARTERY SYNDROME,POSTERIOR OR Past Surgical History: SMALL BOWEL RESECTION,PICC LINE PLACEMENT,GJ FEEDING TUBE Allergies: Allergies: Coded Allergies: Penicillins (Verified Allergy, Severe, rash, 06/12/21) amitriptyline (Verified Allergy, Severe, shock, 06/12/21) ceftriaxone (Verified Allergy, Severe, rash, 06/12/21) eletriptan (Verified Allergy, Severe, migraines, 06/12/21) fat emulsions (Verified Allergy, Severe, anaphylaxis, 06/12/21) fish oil (Verified Allergy, Severe, anaphylaxis, 06/12/21) medium chain triglycerides (Verified Allergy, Severe, anaphylaxis, 06/12/21) meropenem (Verified Allergy, Severe, face swelling, 06/12/21) morphine (Verified Allergy, Severe, unknown, 06/12/21) olive oil (Verified Allergy, Severe, anaphylaxis, 06/12/21) rizatriptan (Verified Allergy, Severe, migraines, 06/12/21) soybean oil (Verified Allergy, Severe, anaphylaxis, 06/12/21) sumatriptan (Verified Allergy, Severe, migraines, 06/12/21) topiramate (Verified Allergy, Severe, shock, 06/12/21) trimethobenzamide (Verified Allergy, Severe, face swelling, 06/12/21) Patient has tolerated diphenhydramine on previous admissions pineapple (Verified Allergy, Intermediate, 06/12/21) prochlorperazine (Verified Allergy, Intermediate, 06/12/21) sodium ferric gluconate complex (Verified Allergy, Intermediate, 06/12/21) sucrose (Verified Allergy, Intermediate, 06/12/21) cyproheptadine (Verified Adverse Reaction, Intermediate, n/v, 06/12/21) erythromycin base (Verified Adverse Reaction, Intermediate, n/v, 06/12/21) gabapentin (Verified Adverse Reaction, Intermediate, n/v, 06/12/21) metoclopramide (Verified Adverse Reaction, Intermediate, n/v, 06/12/21) promethazine (Verified Adverse Reaction, Intermediate, n/v, 06/12/21) Family History: Family History: Reviewed with no relative findings in the chart Social History: Social History: Smoking Status: Never Smoker Alcohol Use: None Current Medications: Current Medications Current Medications Sodium Chloride 1,000 ml @ 1,000 mls/hr 1X ONCE IV Last administered on 06/21/21 17:12; Start 06/21/21 at 16:15; Stop 06/21/21 at 17:14; Status DC Ondansetron HCl (Zofran) 4 mg 1X ONCE IVP Last administered on 06/21/21at 17:10; Start 06/21/21 at 16:30; Stop 06/21/21 at 16:31; Status DC Diphenhydramine HCl (Benadryl) 25 mg 1X ONCE IVP Last administered on 06/21/21at 17:12; Start 06/21/21 at 16:30; Stop 06/21/21 at 16:31; Status DC Hydromorphone HCl (Dilaudid) 2 mg 1X ONCE IVP Last administered on 06/21/21at 17:14; Start 06/21/21 at 16:30; Stop 06/21/21 at 16:31; Status DC Hydromorphone HCl (Dilaudid) 2 mg 1X ONCE IVP Last administered on 06/21/21at 19:14; Start 06/21/21 at 19:00; Stop 06/21/21 at 19:02; Status DC Diphenhydramine HCl (Benadryl) 25 mg 1X ONCE IVP Last administered on 06/21/21at 19:13; Start 06/21/21 at 19:00; Stop 06/21/21 at 19:02; Status DC Ondansetron HCl (Zofran) 4 mg 1X ONCE IVP Last administered on 06/21/21at 19:13; Start 06/21/21 at 19:00; Stop 06/21/21 at 19:02; Status DC Sodium Chloride 1,000 ml @ 1,000 mls/hr 1X ONCE IV Last administered on 06/21/21at 19:14; Start 06/21/21 at 19:15; Stop 06/21/21 at 20:14 Dicyclomine HCl (Bentyl) 10 mg Q6HRS PRN IM NAUSEA/VOMITING; Start 06/21/21 at 19:45; Status UNV Sennosides (Senna) 17.2 mg PRN BID PRN PO CONSTIPATION; Start 06/21/21 at 19:45; Status UNV Docusate Sodium (Colace) 100 mg PRN DAILY PRN PO HARD STOOLS; Start 06/21/21 at 19:45; Status UNV Ondansetron HCl (Zofran) 4 mg PRN Q6HRS PRN IVP NAUSEA/VOMITING, 1st CHOICE; Start 06/21/21 at 19:45; Status UNV Dextrose (Dextrose 50%-Water Syringe) 12.5 gm PRN Q15MIN PRN IV SEE COMMENTS; Start 06/21/21 at 19:45; Status UNV Sodium Chloride 1,000 ml @ 100 mls/hr Q10H IV ; Start 06/21/21 at 19:45; Status UNV Acetaminophen (Tylenol) 650 mg PRN Q4HRS PRN PO TEMP OVER 100.4F OR MILD PAIN; Start 06/21/21 at 19:45; Status UNV Lorazepam (Ativan) 0.5 mg PRN Q6HRS PRN PO ANXIETY / AGITATION; Start 06/21/21 at 19:45; Status UNV Lorazepam (Ativan Inj) 0.25 mg PRN Q4HRS PRN IV ANXIETY / AGITATION; Start 06/21/21 at 19:45; Status UNV Pantoprazole Sodium (PROTONIX VIAL for IV PUSH) 40 mg DAILYAC IVP ; Start 06/22/21 at 07:30; Status UNV Prochlorperazine Edisylate (Compazine) 10 mg PRN Q6HRS PRN IV NAUSEA/VOMITING, 2nd CHOICE; Start 06/21/21 at 19:45; Status UNV Diphenhydramine HCl (Benadryl) 25 mg PRN Q6HRS PRN IVP ITCHING; Start 06/21/21 at 19:45; Status UNV Diphenhydramine HCl (Benadryl) 25 mg PRN Q6HRS PRN PO ITCHING; Start 06/21/21 at 19:45; Status UNV Diphenhydramine HCl (Benadryl) 25 mg PRN QHS PRN PO INSOMNIA, 1st CHOICE; Start 06/21/21 at 19:45; Status UNV Zolpidem Tartrate (Ambien) 2.5 mg PRN QHS PRN PO INSOMNIA, 2nd CHOICE; Start 06/21/21 at 19:45; Status UNV Active Scripts Active Reported Proair Respiclick (Albuterol Sulfate) 90 Mcg Aer.pow.ba 2 Puff IH PRN Q6HRS PRN Acetaminophen 325 Mg Tablet 2 Tab PO PRN Q4HRS PRN 30 Days Senna Plus Tablet (Sennosides/Docusate Sodium) 1 Each Tablet 1 Tab PO PRN DAILY PRN 20 Days [botox] 200 Units SQ [id number] Mirtazapine 30 Mg Tablet 1 Tab PO QHS [diphenhydramine] 50 Mg IV Q4HRS Protonix Iv (Pantoprazole Sodium) 40 Mg Vial 40 Mg IV DAILY FENTANYL 100mcg/hr (Fentanyl) 1 Each Patch.td72 1 Patch TP Q3DAYS Cymbalta (Duloxetine Hcl) 30 Mg Capsule. 90 Mg PO DAILY Zofran (Ondansetron Hcl) 8 Mg Tablet 8 Mg SL PRN Q4HRS PRN Ativan (Lorazepam) 0.5 Mg Tablet 0.5 Mg PO QIDPRN PRN Synthroid (Levothyroxine Sodium) 25 Mcg Tablet 1 Tab PO DAILY08 Hydromorphone Hcl 4 Mg Tablet 4 Mg PO PRN Q4HRS PRN Depakote (Divalproex Sodium) 500 Mg Tablet.dr 250 Mg PO BID Zyrtec (Cetirizine Hcl) 10 Mg Tablet 10 Mg PO DAILY ROS: Review of Systems Review of System REVIEW OF SYSTEMS: GENERAL: Denies weakness SKIN: No bruising, hair changes or rashes. EYES: No blurred, double or loss of vision. NOSE AND THROAT: No history of nosebleeds, hoarseness or sore throat. HEART: No history of palpitations, chest pain or shortness of breath on exertion. LUNGS: Denies cough, hemoptysis, wheezing or shortness of breath. GASTROINTESTINAL: Denies changes in appetite, nausea, vomiting, diarrhea or constipation. GENITOURINARY: No history of frequency, urgency, hesitancy or nocturia. NEUROLOGIC: Denies history of numbness, tingling, or tremor. PSYCHIATRIC: No history of panic, anxiety or depression. ENDOCRINE: No history of heat or cold intolerance, polyuria or polydipsia. EXTREMITIES: Denies joint pain, pain on walking or stiffness. Physical Exam: Vital Signs: Vital Signs Date Time Temp Pulse Resp B/P (MAP) Pulse Ox O2 Delivery O2 Flow Rate FiO2 06/21/21 19:14 16 06/21/21 18:05 102 99/59 (72) 99 Room Air 06/21/21 15:53 98.8 98.8 Physcial Exam: GEN: No apparent distress. Alert and oriented HEENT: Normal cephalic, atraumatic, external auditory canals are patent EYES: Extraocular muscles are intact, pupil are equally round and reactive to light and accommodation MUSCULOSKELETAL: Well developed , well nourished, good range of motion ENDOCRINE: No thyromegaly was palpated LYMPHATICS: No cervical chain or axillary nodes were noted HEMATOPOIETIC: No bruising NECK: Supple, no JVD, no thyromegaly was noted LUNGS: Clear to auscultation in all lung carpenter without rhonchi or wheezing HEART: RRR, S!, S2 present. Peripheral pulses intact, no obvious murmurs noted ABDOMEN: Soft, nontender. Positive bowel sounds, no organomegaly, normal bowel sounds EXTREMITIES: Without clubbing, cyanosis, or edema. Pedal pulses intact. Negative Homans sign NEUROLOGIC: Normal speech and tone. A&O x 3, moves all extremities, no obvious focal deficits PSYCHIATRIC: Normal affect, normal mood. Stable SKIN: No ulcerations or rashes, good skin turgor, no jaundice VASCULAR: Good capillary refill, neurovascular bundle appears to be intact Labs: Labs: Laboratory Tests Test 06/21/21 16:17 06/21/21 19:10 White Blood Count 3.7 x10^3/uL (4.0-11.0) Red Blood Count 2.84 x10^6/uL (3.50-5.40) Hemoglobin 7.3 g/dL (12.0-15.5) Hematocrit 21.8 % (36.0-47.0) Mean Corpuscular Volume 77 fL (79-100) Mean Corpuscular Hemoglobin 26 pg (25-35) Mean Corpuscular Hemoglobin Concent 34 g/dL (31-37) Red Cell Distribution Width 17.8 % (11.5-14.5) Platelet Count 228 x10^3/uL (140-400) Neutrophils (%) (Auto) 64 % (31-73) Lymphocytes (%) (Auto) 27 % (24-48) Monocytes (%) (Auto) 9 % (0-9) Eosinophils (%) (Auto) 0 % (0-3) Basophils (%) (Auto) 1 % (0-3) Neutrophils # (Auto) 2.3 x10^3/uL (1.8-7.7) Lymphocytes # (Auto) 1.0 x10^3/uL (1.0-4.8) Monocytes # (Auto) 0.3 x10^3/uL (0.0-1.1) Eosinophils # (Auto) 0.0 x10^3/uL (0.0-0.7) Basophils # (Auto) 0.0 x10^3/uL (0.0-0.2) Prothrombin Time 14.8 SEC (11.7-14.0) Prothromb Time International Ratio 1.2 (0.8-1.1) Activated Partial Thromboplast Time 29 SEC (24-38) Sodium Level 137 mmol/L (136-145) Potassium Level 4.2 mmol/L (3.5-5.1) Chloride Level 102 mmol/L (98-107) Carbon Dioxide Level 25 mmol/L (21-32) Anion Gap 10 (6-14) Blood Urea Nitrogen 17 mg/dL (7-20) Creatinine 1.0 mg/dL (0.6-1.0) Estimated GFR (Cockcroft-Gault) 70.0 BUN/Creatinine Ratio 17 (6-20) Glucose Level 89 mg/dL (70-99) Lactic Acid Level 1.2 mmol/L (0.4-2.0) Calcium Level 7.8 mg/dL (8.5-10.1) Magnesium Level 1.7 mg/dL (1.8-2.4) Total Bilirubin 0.4 mg/dL (0.2-1.0) Aspartate Amino Transf (AST/SGOT) 20 U/L (15-37) Alanine Aminotransferase (ALT/SGPT) 35 U/L (14-59) Alkaline Phosphatase 295 U/L (46-116) Total Protein 5.9 g/dL (6.4-8.2) Albumin 2.5 g/dL (3.4-5.0) Albumin/Globulin Ratio 0.7 (1.0-1.7) Lipase 60 U/L (73-393) Serum Test, Qualitative Negative (NEG) Urine Collection Type Unknown Urine Color Yellow Urine Clarity Clear Urine pH 6.5 (<5.0-8.0) Urine Specific [place] 1.015 (1.000-1.030) Urine Protein Negative mg/dL (NEG-TRACE) Urine Glucose (UA) Negative mg/dL (NEG) Urine Ketones (Stick) Negative mg/dL (NEG) Urine Blood Large (NEG) Urine Nitrite Negative (NEG) Urine Bilirubin Negative (NEG) Urine Urobilinogen Dipstick 0.2 mg/dL (0.2 mg/dL) Urine Leukocyte Esterase Negative (NEG) Urine RBC Occ /HPF (0-2) Urine WBC Occ /HPF (0-4) Urine Squamous Epithelial Cells Few /LPF Urine Bacteria 0 /HPF (0-FEW) Urine Mucus Slight /LPF Urine Opiates Screen Pos (NEG) Urine Methadone Screen Neg (NEG) Urine Barbiturates Neg (NEG) Urine Phencyclidine Screen Neg (NEG) Urine Amphetamine/Methamphetamine Neg (NEG) Urine Benzodiazepines Screen Neg (NEG) Urine Cocaine Screen Neg (NEG) Urine Cannabinoids Screen Pos (NEG) Urine Ethyl Alcohol Neg (NEG) Laboratory Tests Test 06/21/21 16:17 06/21/21 19:10 White Blood Count 3.7 x10^3/uL (4.0-11.0) Red Blood Count 2.84 x10^6/uL (3.50-5.40) Hemoglobin 7.3 g/dL (12.0-15.5) Hematocrit 21.8 % (36.0-47.0) Mean Corpuscular Volume 77 fL (79-100) Mean Corpuscular Hemoglobin 26 pg (25-35) Mean Corpuscular Hemoglobin Concent 34 g/dL (31-37) Red Cell Distribution Width 17.8 % (11.5-14.5) Platelet Count 228 x10^3/uL (140-400) Neutrophils (%) (Auto) 64 % (31-73) Lymphocytes (%) (Auto) 27 % (24-48) Monocytes (%) (Auto) 9 % (0-9) Eosinophils (%) (Auto) 0 % (0-3) Basophils (%) (Auto) 1 % (0-3) Neutrophils # (Auto) 2.3 x10^3/uL (1.8-7.7) Lymphocytes # (Auto) 1.0 x10^3/uL (1.0-4.8) Monocytes # (Auto) 0.3 x10^3/uL (0.0-1.1) Eosinophils # (Auto) 0.0 x10^3/uL (0.0-0.7) Basophils # (Auto) 0.0 x10^3/uL (0.0-0.2) Prothrombin Time 14.8 SEC (11.7-14.0) Prothromb Time International Ratio 1.2 (0.8-1.1) Activated Partial Thromboplast Time 29 SEC (24-38) Sodium Level 137 mmol/L (136-145) Potassium Level 4.2 mmol/L (3.5-5.1) Chloride Level 102 mmol/L (98-107) Carbon Dioxide Level 25 mmol/L (21-32) Anion Gap 10 (6-14) Blood Urea Nitrogen 17 mg/dL (7-20) Creatinine 1.0 mg/dL (0.6-1.0) Estimated GFR (Cockcroft-Gault) 70.0 BUN/Creatinine Ratio 17 (6-20) Glucose Level 89 mg/dL (70-99) Lactic Acid Level 1.2 mmol/L (0.4-2.0) Calcium Level 7.8 mg/dL (8.5-10.1) Magnesium Level 1.7 mg/dL (1.8-2.4) Total Bilirubin 0.4 mg/dL (0.2-1.0) Aspartate Amino Transf (AST/SGOT) 20 U/L (15-37) Alanine Aminotransferase (ALT/SGPT) 35 U/L (14-59) Alkaline Phosphatase 295 U/L (46-116) Total Protein 5.9 g/dL (6.4-8.2) Albumin 2.5 g/dL (3.4-5.0) Albumin/Globulin Ratio 0.7 (1.0-1.7) Lipase 60 U/L (73-393) Serum Test, Qualitative Negative (NEG) Urine Collection Type Unknown Urine Color Yellow Urine Clarity Clear Urine pH 6.5 (<5.0-8.0) Urine Specific [place] 1.015 (1.000-1.030) Urine Protein Negative mg/dL (NEG-TRACE) Urine Glucose (UA) Negative mg/dL (NEG) Urine Ketones (Stick) Negative mg/dL (NEG) Urine Blood Large (NEG) Urine Nitrite Negative (NEG) Urine Bilirubin Negative (NEG) Urine Urobilinogen Dipstick 0.2 mg/dL (0.2 mg/dL) Urine Leukocyte Esterase Negative (NEG) Urine RBC Occ /HPF (0-2) Urine WBC Occ /HPF (0-4) Urine Squamous Epithelial Cells Few /LPF Urine Bacteria 0 /HPF (0-FEW) Urine Mucus Slight /LPF Urine Opiates Screen Pos (NEG) Urine Methadone Screen Neg (NEG) Urine Barbiturates Neg (NEG) Urine Phencyclidine Screen Neg (NEG) Urine Amphetamine/Methamphetamine Neg (NEG) Urine Benzodiazepines Screen Neg (NEG) Urine Cocaine Screen Neg (NEG) Urine Cannabinoids Screen Pos (NEG) Urine Ethyl Alcohol Neg (NEG) Images: Images PROCEDURE: GI BLEED ADDENDUM ADDENDUM #1 Addendum: Delayed imaging of the abdomen was performed. No abnormal accumulation of radiotracer suggestive of gastrointestinal hemorrhage is identified. Electronically signed by: Karl Amor MD (06/15/2021 9:33 AM) [id number] ORIGINAL REPORT Targeted blood cell scan 06/14/2021 INDICATION: Severe anemia. History of possible gastrointestinal hemorrhage. COMPARISON STUDY: CT angiography of the abdomen and pelvis July 19, 2020. Discussion: Imaging over the abdomen was performed following the administration of the patient's own red blood cells labeled with 25 mCi of technetium 99. No abnormal cannulation of radiotracer suggestive of active gastrointestinal hemorrhage is identified. IMPRESSION: No scintigraphic evidence of active gastrointestinal hemorrhage Electronically signed by: Karl Amor MD (06/14/2021 3:19 PM) [id number] DICTATED AND SIGNED BY: KARL AOMR MD DATE: 06/15/21 0933 CC: LIZETH LUDWIG; CAROLYN BAKER III, DO; ANGELES BARRIGA MD; REUBEN HADDAD MD ~ Targeted blood cell scan 06/14/2021 INDICATION: Severe anemia. History of possible gastrointestinal hemorrhage. COMPARISON STUDY: CT angiography of the abdomen and pelvis July 19, 2020. Discussion: Imaging over the abdomen was performed following the administration of the patient's own red blood cells labeled with 25 mCi of technetium 99. No abnormal cannulation of radiotracer suggestive of active gastrointestinal hemorrhage is identified. IMPRESSION: No scintigraphic evidence of active gastrointestinal hemorrhage Assessment/Plan Assessment/Plan Hematemesis Anemia secondary to acute blood loss, hemoglobin 9.3 1-month ago Cannabinoid positivity Hypomagnesemia Severe protein malnutrition H/o SMA syndrome, Ian-Danlos, nutcracker anatomy. S/p duodenal jejunostomy, SB endoscopy, GJ tube placement 08/2019 (Dr. Quintanilla, [facility]). Tube removed 01/2020. S/p laparotomy w/ ELENA, cholecystectomy, appendectomy, ?and GJ tube (pt and father say not) 09/2020. On TPN, takes a little PO (not much). Past iron infusions H/o GERD and OIC on pantoprazole QD and Movantik PRN Many past EGDs. Colonoscopy reportedly normal @ [facility] in 2019. ?h/o SB AVMs there. Records reviewed in past - suggest [facility] eval included normal bronchoscopy. Has also been to and it has been recommended to seek another opinion at [facility], [facility], or [facility] - pt/parents hesitant to pursue. Admit to hospitalist service for further management GI consult Trend hemoglobin Continue IV fluids PO and IV pain management Dilaudid LIME TRIMMER Contraindicated for DVT prophylaxis Protonix GI prophylaxis Sips of clear liquid diet CODE STATUS full code Discussed with RN and SW Disposition inpatient management as above DPOA: Parents Justifications for Admission Other Justification GI bleed MAYURI DUBON MD Jun 21, 2021 19:51
[2021-06-21] MEDS ORDERED: HYDROmorphone 2 MG/ML INJ. IVP PRN (20:15)
[2021-06-21] MEDS ORDERED: ONDANSETRON PF 4 MG/2 ML VIAL. IVP PRN (20:15)
[2021-06-21 20:16] LABS: % ATYL 6 % (0-0); % BANDS 11 % (0-9); % LYMPHS 36 % (24-48); % METAS 1 % (0-0); % MONOS 2 % (0-10); % SEGS 44 % (35-66)
[2021-06-21 20:21] LABS: PLT ESTIMATE ADEQUATE (ADEQUATE); TOXIC GRANULATION SLIGHT
[2021-06-21 20:22] LABS: POLYCHROMASIA SLIGHT; TEAR DROP CELLS FEW
[2021-06-21] MEDS ORDERED: IV DEXTROSE 5 %-0.45 % NACL 1,000 ML IV ONE (20:30)
[2021-06-21] MEDS: PANTOPRAZOLE IV PUSH 40 MG VIAL. IVP SCH (20:39)
[2021-06-21] MEDS: IV NORMAL SALINE 1000ML BAG 1,000 ML IV SCH ×2 (21:00→22:00)
[2021-06-21] MEDS: MIRTAZAPINE 15 MG TABLET PO SCH (21:00)
[2021-06-21] MEDS: DIVALPROEX DELAYED RELEASE 250 MG TABLET.DR. PO SCH (21:00)
[2021-06-21] MEDS ORDERED: NALOXONE 0.4 MG/ML VIAL. IV PRN (21:30)
[2021-06-21 22:00] VITALS: BP 107/60
[2021-06-21] MEDS: HYDROmorphone 12mg/30ml PCA 30 ML IV PRN (22:36)
[2021-06-21 23:00] VITALS: BP 90/61
[2021-06-21] MEDS ORDERED: ACETAMINOPHEN 650 MG SUPP.RECT. PR PRN (23:00)
[2021-06-22] VITALS (15 sets, daily range): BP systolic 90–113; BP diastolic 43–69
[2021-06-22] MEDS ORDERED: diphenhydrAMINE 50 MG/ML VIAL IVP SCH
[2021-06-22] MEDS: methylPREDNISolone SOD SUCC PF 40 MG/ML VIAL. IV PRN ×2 (00:01→04:01)
[2021-06-22] MEDS: HYDROmorphone 2 MG/ML INJ. IVP PRN ×4 (00:02→07:01)
--- NOTE | 2021-06-22 02:42 | NUR ---
Dr Marie was paged for temp 100.0. On going blood transfusion stopped. No other complaints.
--- NOTE | 2021-06-22 02:52 | NUR ---
Informed Dr Marie of pt's temp. OK to continue and monitor pt.
[2021-06-22] MEDS: diphenhydrAMINE 50 MG/ML VIAL IV PRN ×4 (04:02→20:13)
[2021-06-22] MEDS: ONDANSETRON PF 4 MG/2 ML VIAL. IVP PRN ×4 (04:12→23:12)
[2021-06-22] MEDS: LEVOTHYROXINE 25 MCG TABLET. PO SCH (06:00)
[2021-06-22] MEDS: PANTOPRAZOLE IV PUSH 40 MG VIAL. IVP SCH (06:47)
[2021-06-22] MEDS: IV NORMAL SALINE 1000ML BAG 1,000 ML IV SCH ×3 (07:00→22:04)
--- NOTE | 2021-06-22 07:07 | PDOC ---
[employer] PROGRESS NOTE Date of Service DOS: DATE: 06/22/21 TIME: 07:05 Chief Complaint Chief Complaint Hematemesis - unclear source. GI following Blood culture positive - will check fungal culture off PICC as well. Consult ID. 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 She denies shortness of breath. She has had multiple hospitalizations for the same symptoms. She has seen GI multiple times. She has seen specialists at [facility] as well as [facility]. No specific underlying etiology is found. She was admitted within the last week here for the same symptoms. She has a history of a vascular bleeding disorder, chronic abdominal pain, chronic nausea and vomiting and recurrent hematemesis. She was supposed to undergo bleeding scan if first hematemesis symptoms returned. She has been in contact with her GI physician. On her last endoscopy, a small ulcer was found, but no specific other source of bleeding has been specifically pinpointed. She is not taking any anticoagulant medications. She takes scheduled Dilaudid and Benadryl and Zofran at home. She has not had a dose of any of these medications since this morning. She has home health services. On her last hospitalization, her anemia was severe enough that she required blood transfusion. Still on TPN and eating very minimally. Patient states she had a reported fever 103.5 night prior to admit. She has been in contact with her GI physician. Previously with EGD 06/29/20 w/ Dr. Briones at [facility] for hematemesis and anemia showed normal esophagus, normal stomach (difficult to distend), duodenostomy - no blood or lesions. CT that day unrevealing for retroperitoneal bleed. Had admission and negative bleeding scan 06/13-06/15/202106/22: Blood cultures positive 2 out of 3 bottles gram-positive cocci. She and her father note she has had at least 17 line exchanges previously and had fungemia and bacteremia treated at [facility]. Notes her nausea is severe asking for Benadryl 50 mg every 6 hours and Zofran 8 mg every 4 hours. Vitals/I&O Vitals/I&O: Vital Signs Date Time Temp Pulse Resp B/P (MAP) Pulse Ox O2 Delivery O2 Flow Rate FiO2 06/22/21 07:01 18 98 Nasal Cannula 1.0 06/22/21 06:54 97.7 85 91/55 97.7 I & O 06/21/21 06/21/21 06/22/21 14:59 22:59 06:59 Intake Total 0 ml Output Total 1400 ml Balance -1400 ml Physical Exam Lungs: Clear, Crackles Labs Labs: Laboratory Tests Test 06/21/21 16:17 06/21/21 19:10 06/21/21 22:10 White Blood Count 3.7 x10^3/uL (4.0-11.0) Red Blood Count 2.84 x10^6/uL (3.50-5.40) Hemoglobin 7.3 g/dL (12.0-15.5) 6.0 g/dL (12.0-15.5) Hematocrit 21.8 % (36.0-47.0) Mean Corpuscular Volume 77 fL (79-100) Mean Corpuscular Hemoglobin 26 pg (25-35) Mean Corpuscular Hemoglobin Concent 34 g/dL (31-37) Red Cell Distribution Width 17.8 % (11.5-14.5) Platelet Count 228 x10^3/uL (140-400) Neutrophils (%) (Auto) 64 % (31-73) Lymphocytes (%) (Auto) 27 % (24-48) Monocytes (%) (Auto) 9 % (0-9) Eosinophils (%) (Auto) 0 % (0-3) Basophils (%) (Auto) 1 % (0-3) Neutrophils # (Auto) 2.3 x10^3/uL (1.8-7.7) Lymphocytes # (Auto) 1.0 x10^3/uL (1.0-4.8) Monocytes # (Auto) 0.3 x10^3/uL (0.0-1.1) Eosinophils # (Auto) 0.0 x10^3/uL (0.0-0.7) Basophils # (Auto) 0.0 x10^3/uL (0.0-0.2) Segmented Neutrophils % 44 % (35-66) Band Neutrophils % 11 % (0-9) Lymphocytes % 36 % (24-48) Atypical Lymphocytes % (Manual) 6 % (0-0) Monocytes % 2 % (0-10) Metamyelocytes % 1 % (0-0) Toxic Granulation Slight Platelet Estimate Adequate (ADEQUATE) Polychromasia Slight Tear Drop Cells Few Prothrombin Time 14.8 SEC (11.7-14.0) Prothromb Time International Ratio 1.2 (0.8-1.1) Activated Partial Thromboplast Time 29 SEC (24-38) Sodium Level 137 mmol/L (136-145) Potassium Level 4.2 mmol/L (3.5-5.1) Chloride Level 102 mmol/L (98-107) Carbon Dioxide Level 25 mmol/L (21-32) Anion Gap 10 (6-14) Blood Urea Nitrogen 17 mg/dL (7-20) Creatinine 1.0 mg/dL (0.6-1.0) Estimated GFR (Cockcroft-Gault) 70.0 BUN/Creatinine Ratio 17 (6-20) Glucose Level 89 mg/dL (70-99) Lactic Acid Level 1.2 mmol/L (0.4-2.0) Calcium Level 7.8 mg/dL (8.5-10.1) Magnesium Level 1.7 mg/dL (1.8-2.4) Total Bilirubin 0.4 mg/dL (0.2-1.0) Aspartate Amino Transf (AST/SGOT) 20 U/L (15-37) Alanine Aminotransferase (ALT/SGPT) 35 U/L (14-59) Alkaline Phosphatase 295 U/L (46-116) Total Protein 5.9 g/dL (6.4-8.2) Albumin 2.5 g/dL (3.4-5.0) Albumin/Globulin Ratio 0.7 (1.0-1.7) Lipase 60 U/L (73-393) Serum Test, Qualitative Negative (NEG) Urine Collection Type Unknown Urine Color Yellow Urine Clarity Clear Urine pH 6.5 (<5.0-8.0) Urine Specific [place] 1.015 (1.000-1.030) Urine Protein Negative mg/dL (NEG-TRACE) Urine Glucose (UA) Negative mg/dL (NEG) Urine Ketones (Stick) Negative mg/dL (NEG) Urine Blood Large (NEG) Urine Nitrite Negative (NEG) Urine Bilirubin Negative (NEG) Urine Urobilinogen Dipstick 0.2 mg/dL (0.2 mg/dL) Urine Leukocyte Esterase Negative (NEG) Urine RBC Occ /HPF (0-2) Urine WBC Occ /HPF (0-4) Urine Squamous Epithelial Cells Few /LPF Urine Bacteria 0 /HPF (0-FEW) Urine Mucus Slight /LPF Urine Opiates Screen Pos (NEG) Urine Methadone Screen Neg (NEG) Urine Barbiturates Neg (NEG) Urine Phencyclidine Screen Neg (NEG) Urine Amphetamine/Methamphetamine Neg (NEG) Urine Benzodiazepines Screen Neg (NEG) Urine Cocaine Screen Neg (NEG) Urine Cannabinoids Screen Pos (NEG) Urine Ethyl Alcohol Neg (NEG) Assessment and Plan Assessmemt and Plan Problems Medical Problems: (1) Chronic abdominal pain Status: Acute (2) Chronic anemia Status: Acute (3) Gastrointestinal bleeding Status: Acute (4) Hematemesis Status: Acute Comment Review of Relevant I have reviewed the following items shellie (where applicable) has been applied. Medications: Current Medications Medications (Trade) Dose Ordered Sig/Aleida Route PRN Reason Start Time Stop Time Status Last Admin Dose Admin Sodium Chloride 1,000 ml @ 1,000 mls/hr 1X ONCE IV 06/21/21 16:15 06/21/21 17:14 DC 06/21/21 17:12 Ondansetron HCl (Zofran) 4 mg 1X ONCE IVP 06/21/21 16:30 06/21/21 16:31 DC 06/21/21 17:10 Diphenhydramine HCl (Benadryl) 25 mg 1X ONCE IVP 06/21/21 16:30 06/21/21 16:31 DC 06/21/21 17:12 Hydromorphone HCl (Dilaudid) 2 mg 1X ONCE IVP 06/21/21 16:30 06/21/21 16:31 DC 06/21/21 17:14 Hydromorphone HCl (Dilaudid) 2 mg 1X ONCE IVP 06/21/21 19:00 06/21/21 19:02 DC 06/21/21 19:14 Diphenhydramine HCl (Benadryl) 25 mg 1X ONCE IVP 06/21/21 19:00 06/21/21 19:02 DC 06/21/21 19:13 Ondansetron HCl (Zofran) 4 mg 1X ONCE IVP 06/21/21 19:00 06/21/21 19:02 DC 06/21/21 19:13 Sodium Chloride 1,000 ml @ 1,000 mls/hr 1X ONCE IV 06/21/21 19:15 06/21/21 20:14 DC 06/21/21 19:14 Ondansetron HCl (Zofran) 4 mg PRN Q6HRS PRN IVP NAUSEA/VOMITING, 1st CHOICE 06/21/21 19:45 06/22/21 04:12 Pantoprazole Sodium (PROTONIX VIAL for IV PUSH) 40 mg DAILYAC IVP 06/21/21 20:00 06/22/21 06:47 Dextrose/Sodium Chloride 1,000 ml @ 100 mls/hr 1X ONCE IV 06/21/21 20:30 06/22/21 06:29 DC 06/21/21 22:37 Diphenhydramine HCl (Benadryl) 50 mg PRN Q4HRS PRN IV ITCHING 06/21/21 21:45 06/22/21 04:02 Hydromorphone HCl 30 ml @ 0 mls/hr CONT PRN PRN IV PER PROTOCOL 06/21/21 22:00 06/21/21 22:36 Ondansetron HCl (Zofran) 4 mg 1X ONCE IVP 06/21/21 23:00 06/21/21 23:09 DC 06/21/21 23:06 Acetaminophen (Tylenol Supp) 650 mg PRN Q6HRS PRN MT MILD PAIN / TEMP > 100.3'F 06/21/21 23:00 06/21/21 23:20 Hydromorphone HCl (Dilaudid) 2 mg PRN Q1HR PRN IVP PAIN 06/21/21 23:00 06/22/21 07:01 Methylprednisolone Sodium Succinate (SOLU-Medrol 40MG VIAL) 40 mg 1X PRN IV SEE COMMENTS 06/21/21 23:45 06/22/21 04:01 Diphenhydramine HCl (Benadryl) 50 mg 1X ONCE IVP 06/21/21 23:45 06/21/21 23:46 DC 06/22/21 00:01 Justifications for Admission Other Justification GI bleed TAJ LEONARD MD Jun 22, 2021 07:07
--- NOTE | 2021-06-22 07:42 | EKG ---
[facility] [address] [place] [address] Test Date: 2021-06-21 Test Time: 17:31:49 Pat Name: JIN ABBOTT Department: Room: 200 1 Gender: F [employer] Finishing Hand: Skinny : 2000 Requested By: EMERITA VALLADARES Order Number: [id number] Reading MD: Umang Calderón MD Measurements Intervals [place] Rate: 98 P: 34 [place]: 112 QRS: 28 QRSD: 68 T: 47 QT: 354 QTc: 454 Interpretive Statements SINUS RHYTHM Electronically Signed On 06-26-2021 11:16:58 ORTHOPAEDIC SURGEON by Umang Calderón MD
[2021-06-22] MEDS: DULoxetine HCL 30 MG CAPSULE.DR PO SCH (08:30)
[2021-06-22] MEDS: DIVALPROEX DELAYED RELEASE 250 MG TABLET.DR. PO SCH ×2 (08:30→21:00)
--- NOTE | 2021-06-22 08:48 | PDOC ---
Date of Service: DATE: 06/22/21 TIME: 08:47 Subjective: Subjective: Please see GI consult from 06/13/21 and following progress notes through 06/15 - bleeding scan negative x 2 then, discharged w/ stable Hgb after transfusions, plans to follow-up in clinic to discuss next steps (possible SBCE). Back to ER last night w/ ongoing hematemesis and anemia. Tells me this morning she/family spoke w/ Dr. Briggs who recommended admission for bleeding scan. Chronic pain - asks for same regimen to be ordered as last time. Objective: Objective: D/w Dr. Myles. Vital Signs: Vital Signs Date Time Temp Pulse Resp B/P (MAP) Pulse Ox O2 Delivery O2 Flow Rate FiO2 06/22/21 07:01 18 98 Nasal Cannula 1.0 06/22/21 07:00 97.7 85 91/55 (67) 97.7 Labs: Laboratory Tests Test 06/21/21 16:17 06/21/21 19:10 06/21/21 22:10 06/22/21 08:40 White Blood Count 3.7 x10^3/uL 3.2 x10^3/uL Red Blood Count 2.84 x10^6/uL 3.31 x10^6/uL Hemoglobin 7.3 g/dL 6.0 g/dL 8.8 g/dL Hematocrit 21.8 % 27.6 % Mean Corpuscular Volume 77 fL 83 fL Mean Corpuscular Hemoglobin 26 pg 27 pg Mean Corpuscular Hemoglobin Concent 34 g/dL 32 g/dL Red Cell Distribution Width 17.8 % 17.0 % Platelet Count 228 x10^3/uL 215 x10^3/uL Neutrophils (%) (Auto) 64 % 73 % Lymphocytes (%) (Auto) 27 % 25 % Monocytes (%) (Auto) 9 % 2 % Eosinophils (%) (Auto) 0 % 0 % Basophils (%) (Auto) 1 % 0 % Neutrophils # (Auto) 2.3 x10^3/uL 2.3 x10^3/uL Lymphocytes # (Auto) 1.0 x10^3/uL 0.8 x10^3/uL Monocytes # (Auto) 0.3 x10^3/uL 0.1 x10^3/uL Eosinophils # (Auto) 0.0 x10^3/uL 0.0 x10^3/uL Basophils # (Auto) 0.0 x10^3/uL 0.0 x10^3/uL Segmented Neutrophils % 44 % Band Neutrophils % 11 % Lymphocytes % 36 % Atypical Lymphocytes % (Manual) 6 % Monocytes % 2 % Metamyelocytes % 1 % Toxic Granulation Slight Platelet Estimate Adequate Polychromasia Slight Tear Drop Cells Few Prothrombin Time 14.8 SEC Prothromb Time International Ratio 1.2 Activated Partial Thromboplast Time 29 SEC Sodium Level 137 mmol/L 140 mmol/L Potassium Level 4.2 mmol/L 3.8 mmol/L Chloride Level 102 mmol/L 109 mmol/L Carbon Dioxide Level 25 mmol/L 21 mmol/L Anion Gap 10 10 Blood Urea Nitrogen 17 mg/dL 9 mg/dL Creatinine 1.0 mg/dL 0.6 mg/dL Estimated GFR (Cockcroft-Gault) 70.0 126.2 BUN/Creatinine Ratio 17 Glucose Level 89 mg/dL 122 mg/dL Lactic Acid Level 1.2 mmol/L Calcium Level 7.8 mg/dL 6.9 mg/dL Magnesium Level 1.7 mg/dL 1.7 mg/dL Total Bilirubin 0.4 mg/dL Aspartate Amino Transf (AST/SGOT) 20 U/L Alanine Aminotransferase (ALT/SGPT) 35 U/L Alkaline Phosphatase 295 U/L Total Protein 5.9 g/dL Albumin 2.5 g/dL Albumin/Globulin Ratio 0.7 Lipase 60 U/L Serum Test, Qualitative Negative Urine Collection Type Unknown Urine Color Yellow Urine Clarity Clear Urine pH 6.5 Urine Specific [place] 1.015 Urine Protein Negative mg/dL Urine Glucose (UA) Negative mg/dL Urine Ketones (Stick) Negative mg/dL Urine Blood Large Urine Nitrite Negative Urine Bilirubin Negative Urine Urobilinogen Dipstick 0.2 mg/dL Urine Leukocyte Esterase Negative Urine RBC Occ /HPF Urine WBC Occ /HPF Urine Squamous Epithelial Cells Few /LPF Urine Bacteria 0 /HPF Urine Mucus Slight /LPF Urine Opiates Screen Pos Urine Methadone Screen Neg Urine Barbiturates Neg Urine Phencyclidine Screen Neg Urine Amphetamine/Methamphetamine Neg Urine Benzodiazepines Screen Neg Urine Cocaine Screen Neg Urine Cannabinoids Screen Pos Urine Ethyl Alcohol Neg Phosphorus Level 3.5 mg/dL Imaging: EGD/ERCP 06/12/21 E--Normal G--Since I last scoped, now has gastroenterostomy off antrum. Rest of stomach normal. Some friability and slow "ooze" from anterior margin of the stoma w/o mando ulceration; placed 2 clips. D--[place] duodenum with anastomosis in bulb, otherwise normal into jejunum save the gastrojejunostomy. Changed 'scope for duodenoscope. Papilla small but otherwise normal. PD entered and distally appeared normal. Deep CBD cannulation; normal cholangiogram to above bifurcation. Rico. well. IMP: S/P gastroenterostomy with apparent bleeding site at margin of stoma, clipped. Normal ERCP REC: Resume home meds, diet as before. F/u with Dr. Briggs. Bleeding Scan 06/14- IMPRESSION: No scintigraphic evidence of active gastrointestinal hemorrhage. Addendum: Delayed imaging of the abdomen was performed. No abnormal accumulation of radiotracer suggestive of gastrointestinal hemorrhage is identified. PE: GEN: NAD LUNGS: clear, 1L NC HEART: RRR, port ABD: soft, diffusely tender (stable compared to past) SKIN: pale NEURO/PSYCH: A & O 3, flat A/P: Recurrent bleeding, chronic anemia, chronic abdominal pain - extensive workup per past notes including EGD/ERCP and bleeding scan(s) last week -- Recurrent bleeding - cause unclear. Hgb improved w/ transfusion. Her current concern is pain control. D/w Dr. Briones - can proceed with bleeding scan, will follow-up later w/ results. Justicifation of Admission Dx: Justifications for Admission: Justification of Admission Dx: No LIZETH LUDWIG Jun 22, 2021 08:48
--- NOTE | 2021-06-22 08:50 | NUR ---
SW following. Discussed with RN, pt from home with family, room air, NPO. Pt does home TPN with [facility] and has home health through [facility]. Pt not discharging today. SW will continue to follow.
[2021-06-22 08:53] LABS: BASO % 0 % (0-3); EOS % 0 % (0-3); HEMATOCRIT 27.6 % (36.0-47.0); LYMPH # 0.8 x10^3/uL (1.0-4.8); LYMPH % 25 % (24-48); MEAN CORPUSCULAR HEMOGLOBIN 27 pg (25-35); MEAN CORPUSCULAR HGB CONC 32 g/dL (31-37); MEAN CORPUSCULAR VOLUME 83 fL (79-100); MONO # 0.1 x10^3/uL (0.0-1.1); MONO % 2 % (0-9); NEUT # 2.3 x10^3/uL (1.8-7.7); NEUT % 73 % (31-73); PLATELET COUNT 215 x10^3/uL (140-400); RED BLOOD COUNT 3.31 x10^6/uL (3.50-5.40); WHITE BLOOD COUNT 3.2 x10^3/uL (4.0-11.0)
[2021-06-22 08:55] LABS: HEMOGLOBIN 8.8 g/dL (12.0-15.5)
[2021-06-22] MEDS ORDERED: ALTEPLASE 1MG SYRINGE. INT CAT ONE (09:00)
[2021-06-22 09:21] LABS: CALCIUM 6.9 mg/dL (8.5-10.1); CREATININE 0.6 mg/dL (0.6-1.0); GFR 126.2; MAGNESIUM 1.7 mg/dL (1.8-2.4); PHOSPHORUS 3.5 mg/dL (2.6-4.7); POTASSIUM 3.8 mmol/L (3.5-5.1)
[2021-06-22] MEDS: VALPROIC ACID (AS SODIUM SALT) 250 MG in IV DEXTROSE 5% 50 ML IV SCH ×2 (10:40→22:18)
--- NOTE | 2021-06-22 11:13 | RAD ---
PROCEDURE: GI bleeding nuclear scan Technique: After the intravenous administration of 25 mCi of technetium 99m tagged red blood cells in travenously, images are obtained over the abdomen and pelvis for 1 hour. Indication: GI bleeding. 21 years Female Reason: recurrent hematemesis FINDINGS: There is physiologic blood pool activity with vascular, liver, spleen and bladder activity seen. There is no radiotracer activity seen with appropriate change in shape and movement to suggest GI ble eding IMPRESSION: No scintigraphic evidence of GI bleeding. Electronically signed by: Baron Edouard MD (06/22/2021 11:11 AM) [id number]
[2021-06-22] MEDS: DOXYCYCLINE HYCLATE 100 MG in IV DEXTROSE 5% 100ML 100 ML IV SCH ×2 (12:01→21:14)
[2021-06-22] MEDS: TPN PER PHARMACY MC PRN (13:53)
--- NOTE | 2021-06-22 13:53 | NUR ---
Pharmacy TPN Dosing Note S: JIN ABBOTT R is a 21 year old F Currently receiving Central Cyclic TPN started 06/22/21 B:Pertinent PMH: Height: 5 feet, 5 inches Weight: 55.5 kg Current diet: LABS: Sodium: 140 Potassium: 3.8 Chloride: 109 Calcium: 6.9 Corrected Calcium: 8.10 Magnesium: 1.7 CO2: 21 SCr: 0.6 Glucose: 122 Albumin: 2.5 AST: 20 ALT: 35 TPN FORMULA: TPN TYPE: Central Cyclic AMINO ACIDS: 76 gm DEXTROSE: 320 gm LIPIDS: gm SODIUM CHLORIDE: 148 mEq SODIUM ACETATE: 20 mEq SODIUM PHOSPHATE: mmol POTASSIUM CHLORIDE: 29 mEq POTASSIUM ACETATE: mEq POTASSIUM PHOSPHATE: 21 mmol MAGNESIUM: 16 mEq CALCIUM: 10 mEq INSULIN: units MULTIPLE VITAMIN: 10 ml TRACE ELEMENTS: 1ml ml(s) TPN PLAN: Continue home formula tpn from [facility] R: Begin TPN as directed Will monitor electrolytes, glucose, and tolerance to TPN. MARIAN SORIA, [facility], 06/22/21 [id number]
[2021-06-22] MEDS ORDERED: ONDANSETRON PF 4 MG/2 ML VIAL. IVP PRN (14:00)
[2021-06-22] MEDS: HYDROmorphone 12mg/30ml PCA 30 ML IV PRN (15:37)
[2021-06-22] MEDS ORDERED: ONDANSETRON ODT 4 MG TAB.RAPDIS. PO PRN (17:00)
--- NOTE | 2021-06-22 19:16 | NUR ---
Patient was in bathroom for over an hour on the toilet. This RN checked frequently on patient. Her HR had increased during this time. Visually checked her twice while she was in the bathroom. At shift change, patient pulled the bathroom cord. Went to check on patient. Patient was in front of the toile, as if she had vomited. Blood smears on the seat. Small droplets of blood on one corner of the seat closest to the sink. Upon entering the bathroom patient flushed the toilet. Wash cloth was wet and all the blood on washcloth and toilet seat was bright red blood. This RN asked the patient what was going on she stated " I got off the toilet and felt sick." Informed patient not to flush it next time, in fact we have to measure and see her vomit. So we can inform the doctors, to solve the problem. Skin on bottom of forearms appear to have what appears as scabs, unsure, as this RN didn't get a good look, nor would the patient allow me to turn on the light. Patient wanted assistance from the bathroom to bed. Patient ambulated fine, however her arms were moderately shaking.
[2021-06-22] MEDS: MIRTAZAPINE 15 MG TABLET PO SCH (21:00)
[2021-06-22] MEDS ORDERED: DEXTROSE 70% IV SCH (22:00)
[2021-06-22] MEDS ORDERED: [UNRECOGNIZED DRUG - OTHER] IV SCH (22:00)
[2021-06-22] MEDS ORDERED: TOTAL PARENTERAL NUTRITION IV SCH (22:00)
[2021-06-22] MEDS ORDERED: AMINO ACID IV SCH (22:00)
--- NOTE | 2021-06-22 23:44 | NUR ---
At around 2300, pt called and claimed she's still vomiting blood. Noted 250 cc dark red blood. see v/s. Pt's bleeding scan today was (-) and she'll have one again tomorrow morning. Dr. Alcaraz was paged via [employer]. Will continue to monitor.
[2021-06-23] VITALS (7 sets, daily range): BP systolic 98–158; BP diastolic 52–93
[2021-06-23] MEDS: HYDROmorphone 12mg/30ml PCA 30 ML IV PRN ×3 (00:02→20:58)
--- NOTE | 2021-06-23 00:18 | NUR ---
Dr. Alcaraz notified of pt's hematemesis, vital signs and plan to do another bleeding scan tomorrow: continue to monitor pt.
[2021-06-23] MEDS: diphenhydrAMINE 50 MG/ML VIAL IV PRN ×4 (02:10→21:12)
[2021-06-23] MEDS: IV NORMAL SALINE 1000ML BAG 1,000 ML IV SCH ×4 (03:00→21:10)
[2021-06-23] MEDS: ONDANSETRON PF 4 MG/2 ML VIAL. IVP PRN ×4 (03:14→21:12)
[2021-06-23] MEDS: LEVOTHYROXINE 25 MCG TABLET. PO SCH (06:00)
[2021-06-23 07:00] LABS: CALCIUM 7.3 mg/dL (8.5-10.1); CREATININE 0.8 mg/dL (0.6-1.0); GFR 90.5; MAGNESIUM 1.9 mg/dL (1.8-2.4)
[2021-06-23 07:01] LABS: BASO % 0 % (0-3); EOS % 0 % (0-3); HEMATOCRIT 25.5 % (36.0-47.0); HEMOGLOBIN 8.3 g/dL (12.0-15.5); LYMPH # 0.9 x10^3/uL (1.0-4.8); LYMPH % 23 % (24-48); MEAN CORPUSCULAR HEMOGLOBIN 26 pg (25-35); MEAN CORPUSCULAR HGB CONC 32 g/dL (31-37); MEAN CORPUSCULAR VOLUME 81 fL (79-100); MONO # 0.2 x10^3/uL (0.0-1.1); MONO % 6 % (0-9); NEUT # 2.6 x10^3/uL (1.8-7.7); NEUT % 70 % (31-73); PLATELET COUNT 202 x10^3/uL (140-400); RED BLOOD COUNT 3.14 x10^6/uL (3.50-5.40); RED CELL DISTRIBUTION WIDTH 17.4 % (11.5-14.5); WHITE BLOOD COUNT 3.7 x10^3/uL (4.0-11.0)
[2021-06-23] MEDS: PANTOPRAZOLE IV PUSH 40 MG VIAL. IVP SCH (07:21)
[2021-06-23] MEDS: DIVALPROEX DELAYED RELEASE 250 MG TABLET.DR. PO SCH ×2 (08:10→20:59)
[2021-06-23] MEDS: DULoxetine HCL 30 MG CAPSULE.DR PO SCH (08:10)
[2021-06-23] MEDS: VALPROIC ACID (AS SODIUM SALT) 250 MG in IV DEXTROSE 5% 50 ML IV SCH ×2 (08:33→21:09)
--- NOTE | 2021-06-23 10:18 | PDOC ---
Date of Service: DATE: 06/23/21 TIME: 10:10 Subjective: Subjective: Vomited blood overnight. Stooled also - no blood. Objective: Objective: D/w nurse, reviewed nursing notes: Patient was in bathroom for over an hour on the toilet. This RN checked frequently on patient. Her HR had increased during this time. Visually checked her twice while she was in the bathroom. At shift change, patient pulled the bathroom cord. Went to check on patient. Patient was in front of the toile, as if she had vomited. Blood smears on the seat. Small droplets of blood on one corner of the seat closest to the sink. Upon entering the bathroom patient flushed the toilet. Wash cloth was wet and all the blood on washcloth and toilet seat was bright red blood. This RN asked the patient what was going on she state d " I got off the toilet and felt sick." Informed patient not to flush it next time, in fact we have to measure and see her vomit. So we can inform the doctors, to solve the problem. Skin on bottom of forearms appear to have what appears as scabs, unsure, as this RN didn't get a good look, nor would the patient allow me to turn on the light. Patient wanted assistance from the bathr oom to bed. Patient ambulated fine, however her arms were moderately shaking. At around 2300, pt called and claimed she's still vomiting blood. Noted 250 cc dark red blood. Vital Signs: Vital Signs Date Time Temp Pulse Resp B/P (MAP) Pulse Ox O2 Delivery O2 Flow Rate FiO2 06/23/21 08:00 Room Air 06/23/21 07:00 100.1 118 22 103/54 (70) 98 100.1 06/23/21 00:32 1.0 Labs: Laboratory Tests Test 06/23/21 06:25 White Blood Count 3.7 x10^3/uL Red Blood Count 3.14 x10^6/uL Hemoglobin 8.3 g/dL Hematocrit 25.5 % Mean Corpuscular Volume 81 fL Mean Corpuscular Hemoglobin 26 pg Mean Corpuscular Hemoglobin Concent 32 g/dL Red Cell Distribution Width 17.4 % Platelet Count 202 x10^3/uL Neutrophils (%) (Auto) 70 % Lymphocytes (%) (Auto) 23 % Monocytes (%) (Auto) 6 % Eosinophils (%) (Auto) 0 % Basophils (%) (Auto) 0 % Neutrophils # (Auto) 2.6 x10^3/uL Lymphocytes # (Auto) 0.9 x10^3/uL Monocytes # (Auto) 0.2 x10^3/uL Eosinophils # (Auto) 0.0 x10^3/uL Basophils # (Auto) 0.0 x10^3/uL Sodium Level 137 mmol/L Potassium Level 4.0 mmol/L Chloride Level 103 mmol/L Carbon Dioxide Level 25 mmol/L Anion Gap 9 Blood Urea Nitrogen 11 mg/dL Creatinine 0.8 mg/dL Estimated GFR (Cockcroft-Gault) 90.5 Glucose Level 130 mg/dL Calcium Level 7.3 mg/dL Magnesium Level 1.9 mg/dL Imaging: Bleeding Scan ADDENDUM #1 Delayed imaging are obtained at 24 hours There is accumulation of the radiotracer in the lower abdomen above the urinary bladder level perhaps within the sigmoid colon. The source however is a most likely more proximal. In light of this accumulation, an upper to mid abdomen area of activity thought to be possibly artifactual could represent a proximal small bowel bleed. IMPRESSION: Positive GI bleeding scan confirmed on delayed imaging. The source is probably in the proximal small bowel in the upper to mid abdomen area. PE: GEN: NAD LUNGS: CTAB HEART: tachycardic ABD: soft, mild diffuse tenderness as in past NEURO/PSYCH: A & O 3 A/P: Recurrent bleeding, chronic anemia, chronic abdominal pain - delayed imaging now positive as above GPC bacteremia -- D/w Dr. Briones - recommends SBCE (as discussed in past) - not available as inpt but can arrange as outpt (previously d/w father during last admission) - observe for now from GI standpoint. ID asked to see. Justicifation of Admission Dx: Justifications for Admission: Justification of Admission Dx: Charisse SOLARES-LIZETH DUTTA Jun 23, 2021 10:18
[2021-06-23] MEDS: DOXYCYCLINE HYCLATE 100 MG in IV DEXTROSE 5% 100ML 100 ML IV SCH (10:41)
--- NOTE | 2021-06-23 11:03 | NUR ---
SW following. Discussed with RN, pt from home with family, room air, clear liquid diet. [facility] and [facility] for TPN. GI following. PT not ready for discharge. SW will continue to follow.
[2021-06-23] MEDS: TPN PER PHARMACY MC PRN (12:28)
--- NOTE | 2021-06-23 12:35 | NUR ---
Pharmacy TPN Dosing Note S: JIN ABBOTT R is a 21 year old F Currently receiving Central Cyclic TPN started 06/22/21 B:Pertinent PMH: baggage handler TPN Height: 5 feet, 5 inches Weight: 55.5 kg Current diet: LABS: Sodium: 137 Potassium: 4 Chloride: 103 Calcium: 7.3 Corrected Calcium: 8.50 Magnesium: 1.9 CO2: 25 SCr: 0.8 Glucose: 130 Albumin: 2.5 AST: 20 ALT: 35 TPN FORMULA: TPN TYPE: Central Cyclic AMINO ACIDS: 76 gm DEXTROSE: 320 gm SODIUM CHLORIDE: 148 mEq SODIUM ACETATE: 20 mEq POTASSIUM CHLORIDE: 29 mEq POTASSIUM PHOSPHATE: 21 mmol MAGNESIUM: 16 mEq MULTIPLE VITAMIN: 10 ml TRACE ELEMENTS: 1ml ml(s) TPN PLAN: Calcium removed d/t shortage of calcium at compounding pharmacy. Patient will be given IVPB supplementation of calcium as needed per labs. R: Change TPN per plan and ordered formula Will monitor electrolytes, glucose, and tolerance to TPN. Janessa Rudd [facility], 06/23/21 [id number]
[2021-06-23] MEDS ORDERED: DEXTROSE 70% IV SCH ×2 (12:45→22:00)
[2021-06-23] MEDS ORDERED: AMINO ACID IV SCH ×2 (12:45→22:00)
[2021-06-23] MEDS ORDERED: [UNRECOGNIZED DRUG - OTHER] IV SCH ×2 (12:45→22:00)
[2021-06-23] MEDS ORDERED: TOTAL PARENTERAL NUTRITION IV SCH ×2 (12:45→22:00)
[2021-06-23] MEDS: CEFEPIME HCL IV Push 1 GM VIAL. IVP SCH ×2 (13:42→21:09)
[2021-06-23] MEDS: DAPTOmycin (GENERIC) IVPB 330 MG in IV NORMAL SALINE 50ML 50 ML IV SCH (14:41)
[2021-06-23 17:35] LABS: GASTRIC OB PAT POSITIVE (NEG)
--- NOTE | 2021-06-23 20:35 | CONS ---
DATE OF CONSULTATION: 06/23/2021 REQUESTING PHYSICIAN: Yon Marie MD REASON FOR CONSULTATION: Blood culture positive. HISTORY OF PRESENT ILLNESS: This is a 21-year-old female who is known to us. The patient came in with nausea, vomiting and vomiting blood apparently. The patient had fever. The patient's blood cultures are positive with E. coli and Enterococcus, hence consultation. The patient is on doxycycline right now. Right now, the patient had fever up to 103.5. The patient denies any other complaints or any new complaints other than chronic abdominal pain, chronic nausea, vomiting and chronic vomiting blood. Fever is, of course, new in this admission and it started a day before her admission, she says. PAST MEDICAL HISTORY: Positive for migraines, asthma, small bowel resection, superior mesenteric artery syndrome. The patient has had feeding tubes in the past. The patient is on TPN and has multiple lines change done with the infections. CURRENT MEDICATIONS: Reviewed. ALLERGIES: SHE IS LISTED ALLERGIC TO PENICILLIN, ERYTHROMYCIN, MEROPENEM. MOST OF THEM THAT CAUSING NAUSEA, VOMITING. APPARENTLY, PENICILLIN ANAPHYLAXIS. REVIEW OF SYSTEMS: As in HPI. All other systems reviewed and are negative. PHYSICAL EXAMINATION: GENERAL: Alert, oriented female, not in distress. VITAL SIGNS: Stable. Temperature 99 with a T-max 100.1, pulse 100, respirations 14, blood pressure 103/60. HEENT: NAD. Both pupils are round and reacting. No conjunctival lesion, no lesion in the mouth. NECK: Supple, no JVP, no lymphadenopathy. LUNGS: Clear. HEART: S1, S2, regular. ABDOMEN: Soft, nontender, no organomegaly. EXTREMITIES: No edema, cyanosis. SKIN: Unremarkable. NEUROLOGIC: The patient is alert, awake, and appropriate. No focal neurologic deficit. LABORATORY DATA: White count is 3.7, hemoglobin 8.3, platelets are normal. BUN and creatinine is normal. Urinalysis unremarkable. Her blood culture is positive with E. coli and Enterococcus. IMPRESSION: Blood culture positive line related. I did discuss with the patient and father, who is at the bedside, recommend changing the line. Since she has gone through some line changes, she is going to run out of options. They requested can be tried to save it and we are with the understanding that it may fail and she would have a recurrence of infection and sepsis. They still wanted to try to save. We are going to try to save it, treat through and see how she does. Change doxycycline to daptomycin and cefepime. Supportive care. We will follow the cultures and adjust. Supportive care and again discussed with the patient and the patient's father at the bedside. Thank you very much, Dr. Marie, for giving me opportunity to participate in this patient's care. MAI DR: Faisal TID: [id number]
[2021-06-23] MEDS: MIRTAZAPINE 15 MG TABLET PO SCH (20:59)
--- NOTE | 2021-06-23 23:40 | NUR ---
Pt called out and stated she was vomiting blood. Upon assessment, pt sitting on side of bed with emesis bag with 600mL bright red emesis. Pt tearful, given ice chips and cool washcloth and medication. Will monitor.
[2021-06-24] VITALS (7 sets, daily range): BP systolic 85–102; BP diastolic 48–65
[2021-06-24] MEDS: ONDANSETRON PF 4 MG/2 ML VIAL. IVP PRN ×7 (01:59→22:31)
[2021-06-24] MEDS: diphenhydrAMINE 50 MG/ML VIAL IV PRN ×4 (03:19→22:32)
[2021-06-24] MEDS: HYDROmorphone 12mg/30ml PCA 30 ML IV PRN ×2 (06:24→16:32)
[2021-06-24 06:45] LABS: BASO % 1 % (0-3); EOS # 0.1 x10^3/uL (0.0-0.7); EOS % 2 % (0-3); HEMATOCRIT 22.3 % (36.0-47.0); HEMOGLOBIN 7.2 g/dL (12.0-15.5); LYMPH # 1.1 x10^3/uL (1.0-4.8); LYMPH % 32 % (24-48); MEAN CORPUSCULAR HEMOGLOBIN 26 pg (25-35); MEAN CORPUSCULAR HGB CONC 32 g/dL (31-37); MEAN CORPUSCULAR VOLUME 81 fL (79-100); MONO # 0.3 x10^3/uL (0.0-1.1); MONO % 8 % (0-9); NEUT % 58 % (31-73); PLATELET COUNT 218 x10^3/uL (140-400); RED BLOOD COUNT 2.75 x10^6/uL (3.50-5.40); RED CELL DISTRIBUTION WIDTH 17.4 % (11.5-14.5); WHITE BLOOD COUNT 3.5 x10^3/uL (4.0-11.0)
[2021-06-24 07:03] LABS: CALCIUM 7.1 mg/dL (8.5-10.1); CREATININE 0.6 mg/dL (0.6-1.0); GFR 126.2; MAGNESIUM 1.9 mg/dL (1.8-2.4); PHOSPHORUS 4.5 mg/dL (2.6-4.7); POTASSIUM 4.6 mmol/L (3.5-5.1)
[2021-06-24] MEDS: CEFEPIME HCL IV Push 1 GM VIAL. IVP SCH ×2 (08:23→21:08)
[2021-06-24] MEDS: PANTOPRAZOLE IV PUSH 40 MG VIAL. IVP SCH (08:23)
[2021-06-24] MEDS: IV NORMAL SALINE 1000ML BAG 1,000 ML IV SCH ×3 (08:29→22:00)
[2021-06-24] MEDS: DIVALPROEX DELAYED RELEASE 250 MG TABLET.DR. PO SCH ×2 (08:32→20:54)
[2021-06-24] MEDS: DULoxetine HCL 30 MG CAPSULE.DR PO SCH (08:32)
[2021-06-24] MEDS: VALPROIC ACID (AS SODIUM SALT) 250 MG in IV DEXTROSE 5% 50 ML IV SCH ×2 (08:35→21:07)
[2021-06-24] MEDS: fentaNYL 100MCG/HR PATCH 1 PATCH PATCH TD SCH (08:41)
[2021-06-24] MEDS: TPN PER PHARMACY MC PRN (09:15)
[2021-06-24] MEDS ORDERED: DEXTROSE 70% IV SCH ×2 (09:30→15:45)
[2021-06-24] MEDS ORDERED: [UNRECOGNIZED DRUG - OTHER] IV SCH ×2 (09:30→15:45)
[2021-06-24] MEDS ORDERED: TOTAL PARENTERAL NUTRITION IV SCH ×2 (09:30→15:45)
[2021-06-24] MEDS ORDERED: AMINO ACID IV SCH ×2 (09:30→15:45)
--- NOTE | 2021-06-24 13:53 | PDOC ---
GENERAL General: Patient examined chart reviewed today is hospital day 4 for this young woman with chronic severe GI issues stemming from multiple surgeries for superior mesenteric artery syndrome. She has been TPN dependent for about 18 months she tells me. She follows with Dr. Briggs and Dr. Quintanilla. She was admitted with weakness, malaise, and continued bleeding. Her hemoglobin today is down at 7.2 and she is transfuse to keep her hemoglobin up over 7. She is unaccompanied at bedside. She has no specific complaints. We appreciate GI and ID input. 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 She and her family would like to salvage this line which is why she is on broad-spectrum high-level antibiotics directed by infectious diseases. She denies any bleeding today last episode was last night. All other systems reviewed and negative. Time spent today is 30 minutes with greater than 50% in counseling and coordination of care most of which in discussion with patient regarding care plan and progress. Problems: (1) Cachexia (2) Superior mesenteric artery syndrome (3) On total parenteral nutrition (TPN) (4) Hematemesis (5) Gastrointestinal bleeding (6) Chronic abdominal pain (7) Chronic anemia VITAL SIGNS Vital Signs/I&O: Vital Signs Date Time Temp Pulse Resp B/P (MAP) Pulse Ox O2 Delivery O2 Flow Rate FiO2 06/24/21 10:50 97.8 100 20 99/54 (69) 97 Room Air 97.8 06/23/21 19:00 1.0 I & O 06/23/21 06/23/21 06/24/21 15:00 23:00 07:00 Intake Total 2825 ml 1445.5 ml 230 ml Output Total 1250 ml 1150 ml 1700 ml Balance 1575 ml 295.5 ml -1470 ml Patient is resting comfortably quiet a bit withdrawn but alert and oriented x3 no acute distress HEENT exam is unremarkable for acute abnormality Neck is soft and supple no adenopathy or thyromegaly noted Chest is clear to auscultation. Port dressing is clean dry and intact there is no tenderness or skin changes noted around the port Heart S1-S2 normal regular rate and rhythm no murmurs or gallops are noted Abdomen is scaphoid soft nontender nondistended no masses organomegaly noted Extremity exam is unremarkable for acute abnormality ALLERGIES Allergies: Allergies Coded Allergies Type Severity Reaction Last Updated Verified Penicillins Allergy Severe rash 06/12/21 Yes amitriptyline Allergy Severe shock 06/12/21 Yes ceftriaxone Allergy Severe rash 06/12/21 Yes eletriptan Allergy Severe migraines 06/12/21 Yes fat emulsions Allergy Severe anaphylaxis 06/12/21 Yes fish oil Allergy Severe anaphylaxis 06/12/21 Yes medium chain triglycerides Allergy Severe anaphylaxis 06/12/21 Yes meropenem Allergy Severe face swelling 06/12/21 Yes morphine Allergy Severe unknown 06/12/21 Yes olive oil Allergy Severe anaphylaxis 06/12/21 Yes rizatriptan Allergy Severe migraines 06/12/21 Yes soybean oil Allergy Severe anaphylaxis 06/12/21 Yes sumatriptan Allergy Severe migraines 06/12/21 Yes topiramate Allergy Severe shock 06/12/21 Yes trimethobenzamide Allergy Severe face swelling 06/12/21 Yes pineapple Allergy Intermediate 06/12/21 Yes prochlorperazine Allergy Intermediate 06/12/21 Yes sodium ferric gluconate complex Allergy Intermediate 06/12/21 Yes sucrose Allergy Intermediate 06/12/21 Yes cyproheptadine Adverse Reaction Intermediate n/v 06/12/21 Yes erythromycin base Adverse Reaction Intermediate n/v 06/12/21 Yes gabapentin Adverse Reaction Intermediate n/v 06/12/21 Yes metoclopramide Adverse Reaction Intermediate n/v 06/12/21 Yes promethazine Adverse Reaction Intermediate n/v 06/12/21 Yes MEDS Medications: Current Medications Medications (Trade) Dose Ordered Sig/Aleida Start Time Stop Time Status Last Admin Dose Admin Acetaminophen (Tylenol Supp) 650 mg PRN Q6HRS PRN 06/21/21 23:00 06/21/21 23:20 Acetaminophen (Tylenol) 650 mg PRN Q4HRS PRN 06/21/21 19:45 Alteplase, Recombinant (Cathflo For Central Catheter Clearance) 1 mg 1X ONCE 06/22/21 09:00 06/22/21 09:01 DC 06/22/21 09:10 Cefepime HCl (Maxipime) 1 gm Q12HR 06/23/21 13:30 06/24/21 08:23 Daptomycin 330 mg/ Sodium Chloride 50 ml @ 100 mls/hr Q24H 06/23/21 15:00 06/23/21 14:41 Dextrose (Dextrose 50%-Water Syringe) 12.5 gm PRN Q15MIN PRN 06/21/21 19:45 Dextrose/Sodium Chloride 1,000 ml @ 100 mls/hr 1X ONCE 06/21/21 20:30 06/22/21 06:29 DC 06/21/21 22:37 Dicyclomine HCl (Bentyl) 10 mg Q6HRS PRN 06/21/21 19:45 Diphenhydramine HCl (Benadryl) 50 mg PRN Q6HRS PRN 06/22/21 17:00 06/24/21 09:55 Divalproex Sodium (Depakote) 250 mg BID 06/21/21 21:00 Docusate Sodium (Colace) 100 mg PRN DAILY PRN 06/21/21 19:45 Doxycycline Hyclate 100 mg/ Dextrose 100 ml @ 50 mls/hr Q12HR 06/22/21 10:00 06/23/21 12:46 DC 06/23/21 10:41 Duloxetine HCl (Cymbalta) 90 mg DAILY 06/22/21 09:00 Fentanyl (Duragesic 100mcg/Hr Patch) 1 patch Q3DAYS 06/24/21 09:00 06/24/21 08:41 Hydromorphone HCl (Dilaudid) 2 mg PRN Q1HR PRN 06/21/21 23:00 06/22/21 07:01 Info (Tpn Per Pharmacy) 1 each PRN DAILY PRN 06/22/21 10:45 06/24/21 09:15 Levothyroxine Sodium (Synthroid) 25 mcg DAILY06 06/22/21 06:00 06/23/21 12:06 DC Levothyroxine Sodium 12.5 mcg/ Sodium Chloride 5 ml @ 100 mls/hr Q3D 06/25/21 09:00 Lorazepam (Ativan Inj) 0.25 mg PRN Q4HRS PRN 06/21/21 19:45 06/23/21 23:37 Lorazepam (Ativan) 0.5 mg QIDPRN PRN 06/21/21 21:30 Cancel Methylprednisolone Sodium Succinate (SOLU-Medrol 40MG VIAL) 40 mg 1X PRN 06/21/21 23:45 06/22/21 04:01 Mirtazapine (Remeron) 30 mg QHS 06/21/21 21:00 Naloxone HCl (Narcan) 0.4 mg PRN Q2MIN PRN 06/21/21 21:30 Ondansetron HCl (Zofran Odt) 4 mg PRN Q4HRS PRN 06/22/21 17:00 Ondansetron HCl (Zofran) 8 mg PRN Q4HRS PRN 06/22/21 17:00 06/24/21 10:01 Pantoprazole Sodium (PROTONIX VIAL for IV PUSH) 40 mg DAILYAC 06/21/21 20:00 06/24/21 08:23 Prochlorperazine Edisylate (Compazine) 10 mg PRN Q6HRS PRN 06/21/21 19:45 06/21/21 23:02 DC Sennosides (Senna) 17.2 mg PRN BID PRN 06/21/21 19:45 Sodium Chloride 120 meq/Sodium Acetate 40 meq/ Potassium Chloride 29 meq/ Potassium Phosphate 18 mmol/ Magnesium Sulfate 16 meq/ Multivitamins 10 ml/Zinc/Copper/ Manganese/ Selenium 1 ml/ Total Parenteral Nutrition/Amino Acids/Dextrose 1,800 ml @ 150 mls/hr Q24H 06/24/21 09:30 06/24/21 21:29 Sodium Chloride 148 meq/Sodium Acetate 20 meq/ Potassium Chloride 29 meq/ Potassium Phosphate 21 mmol/ Magnesium Sulfate 16 meq/ Multivitamins 10 ml/Zinc/Copper/ Manganese/ Selenium 1 ml/ Total Parenteral Nutrition/Amino Acids/Dextrose 1,800 ml @ 150 mls/hr Q24H 06/23/21 22:00 06/24/21 09:59 DC 06/23/21 21:04 Sodium Chloride 148 meq/Sodium Acetate 20 meq/ Potassium Chloride 29 meq/ Potassium Phosphate 21 mmol/ Magnesium Sulfate 16 meq/Calcium Gluconate 10 meq/ Multivitamins 10 ml/Zinc/Copper/ Manganese/ Selenium 1 ml/ Total Parenteral Nutrition/Amino Acids/Dextrose 1,800 ml @ 150 mls/hr Q24H 06/22/21 22:00 06/23/21 09:59 DC 06/22/21 22:03 Valproic Acid 250 mg/Dextrose 52.5 ml @ 55 mls/hr Q12HR 06/22/21 09:00 06/24/21 08:35 Zolpidem Tartrate (Ambien) 2.5 mg PRN QHS PRN 06/21/21 19:45 Current Medications Medications (Trade) Dose Ordered Sig/Aleida Route PRN Reason Start Time Stop Time Status Last Admin Dose Admin Fentanyl (Duragesic 100mcg/Hr Patch) 1 patch Q3DAYS TD 06/24/21 09:00 06/24/21 08:41 Daptomycin 330 mg/ Sodium Chloride 50 ml @ 100 mls/hr Q24H IV 06/23/21 15:00 06/23/21 14:41 Sodium Chloride 148 meq/Sodium Acetate 20 meq/ Potassium Chloride 29 meq/ Potassium Phosphate 21 mmol/ Magnesium Sulfate 16 meq/ Multivitamins 10 ml/Zinc/Copper/ Manganese/ Selenium 1 ml/ Total Parenteral Nutrition/Amino Acids/Dextrose 1,800 ml @ 150 mls/hr Q24H IV 06/23/21 22:00 06/24/21 09:59 DC 06/23/21 21:04 LAB Lab: Laboratory Tests Test 06/23/21 14:50 06/24/21 06:30 Gastric Fluid Occult Blood Positive (NEG) White Blood Count 3.5 x10^3/uL (4.0-11.0) L Red Blood Count 2.75 x10^6/uL (3.50-5.40) L Hemoglobin 7.2 g/dL (12.0-15.5) L Hematocrit 22.3 % (36.0-47.0) L Mean Corpuscular Volume 81 fL (79-100) Mean Corpuscular Hemoglobin 26 pg (25-35) Mean Corpuscular Hemoglobin Concent 32 g/dL (31-37) Red Cell Distribution Width 17.4 % (11.5-14.5) H Platelet Count 218 x10^3/uL (140-400) Neutrophils (%) (Auto) 58 % (31-73) Lymphocytes (%) (Auto) 32 % (24-48) Monocytes (%) (Auto) 8 % (0-9) Eosinophils (%) (Auto) 2 % (0-3) Basophils (%) (Auto) 1 % (0-3) Neutrophils # (Auto) 2.0 x10^3/uL (1.8-7.7) Lymphocytes # (Auto) 1.1 x10^3/uL (1.0-4.8) Monocytes # (Auto) 0.3 x10^3/uL (0.0-1.1) Eosinophils # (Auto) 0.1 x10^3/uL (0.0-0.7) Basophils # (Auto) 0.0 x10^3/uL (0.0-0.2) Sodium Level 140 mmol/L (136-145) Potassium Level 4.6 mmol/L (3.5-5.1) Chloride Level 108 mmol/L (98-107) H Carbon Dioxide Level 27 mmol/L (21-32) Anion Gap 5 (6-14) L Blood Urea Nitrogen 11 mg/dL (7-20) Creatinine 0.6 mg/dL (0.6-1.0) Estimated GFR (Cockcroft-Gault) 126.2 Glucose Level 116 mg/dL (70-99) H Calcium Level 7.1 mg/dL (8.5-10.1) L Ionized Calcium 1.15 mmol/L (1.13-1.32) Phosphorus Level 4.5 mg/dL (2.6-4.7) Magnesium Level 1.9 mg/dL (1.8-2.4) Creatine Kinase 11 U/L (26-192) L Laboratory Tests 06/24/21 06:30 Laboratory Tests 06/24/21 06:30 ASSESSMENT & PLAN A&P Plan as noted above This note was created using [employer] and may have omissions and/or errors due to the nature of real-time voice boat designer. Justifications for Admission Other Justification GI bleed Nutrition Consultation Dietary Evaluation: Recommendations by RD: Dietary education by RD, PPN/TPN Comments: rec continue home TPN diet per GI Expected Outcomes/Goals: wt maintainance Interpretation of weight loss: >5% in 1 month Malnutrition Findings: Food and Nutrition Intake (Sev: <50% est energy req 5days Weight Status: Appropriate Problem Qualifiers (1) Hematemesis: Nausea presence: with nausea Qualified Codes: K92.0 - Hematemesis (2) Gastrointestinal bleeding: GI bleed type/associated pathology: unspecified gastrointestinal hemorrhage type Qualified Codes: K92.2 - Gastrointestinal hemorrhage, unspecified VIRGEN RAGLAND MD Jun 24, 2021 13:53
--- NOTE | 2021-06-24 14:02 | PDOC ---
Infectious Disease Note Subjective Subjective Patient is feeling okay no new complaint ROS ROS No nausea vomiting diarrhea low-grade fever yesterday Vital Sign Vital Signs Vital Signs Date Time Temp Pulse Resp B/P (MAP) Pulse Ox O2 Delivery O2 Flow Rate FiO2 06/24/21 10:50 97.8 100 20 99/54 (69) 97 Room Air 97.8 06/23/21 19:00 1.0 Physical Exam PHYSICAL EXAM GENERAL: Alert, oriented female, not in distress. VITAL SIGNS: Stable. Temperature 99 with a T-max 100.1, pulse 100, respirations 14, blood pressure 103/60. HEENT: NAD. Both pupils are round and reacting. No conjunctival lesion, no lesion in the mouth. NECK: Supple, no JVP, no lymphadenopathy. LUNGS: Clear. HEART: S1, S2, regular. ABDOMEN: Soft, nontender, no organomegaly. EXTREMITIES: No edema, cyanosis. SKIN: Unremarkable. NEUROLOGIC: The patient is alert, awake, and appropriate. No focal neurologic deficit. Labs Lab Laboratory Tests Test 06/23/21 14:50 06/24/21 06:30 Gastric Fluid Occult Blood Positive (NEG) White Blood Count 3.5 x10^3/uL (4.0-11.0) Red Blood Count 2.75 x10^6/uL (3.50-5.40) Hemoglobin 7.2 g/dL (12.0-15.5) Hematocrit 22.3 % (36.0-47.0) Mean Corpuscular Volume 81 fL (79-100) Mean Corpuscular Hemoglobin 26 pg (25-35) Mean Corpuscular Hemoglobin Concent 32 g/dL (31-37) Red Cell Distribution Width 17.4 % (11.5-14.5) Platelet Count 218 x10^3/uL (140-400) Neutrophils (%) (Auto) 58 % (31-73) Lymphocytes (%) (Auto) 32 % (24-48) Monocytes (%) (Auto) 8 % (0-9) Eosinophils (%) (Auto) 2 % (0-3) Basophils (%) (Auto) 1 % (0-3) Neutrophils # (Auto) 2.0 x10^3/uL (1.8-7.7) Lymphocytes # (Auto) 1.1 x10^3/uL (1.0-4.8) Monocytes # (Auto) 0.3 x10^3/uL (0.0-1.1) Eosinophils # (Auto) 0.1 x10^3/uL (0.0-0.7) Basophils # (Auto) 0.0 x10^3/uL (0.0-0.2) Sodium Level 140 mmol/L (136-145) Potassium Level 4.6 mmol/L (3.5-5.1) Chloride Level 108 mmol/L (98-107) Carbon Dioxide Level 27 mmol/L (21-32) Anion Gap 5 (6-14) Blood Urea Nitrogen 11 mg/dL (7-20) Creatinine 0.6 mg/dL (0.6-1.0) Estimated GFR (Cockcroft-Gault) 126.2 Glucose Level 116 mg/dL (70-99) Calcium Level 7.1 mg/dL (8.5-10.1) Ionized Calcium 1.15 mmol/L (1.13-1.32) Phosphorus Level 4.5 mg/dL (2.6-4.7) Magnesium Level 1.9 mg/dL (1.8-2.4) Creatine Kinase 11 U/L (26-192) Micro E. coli and Enterococcus pansensitive Objective Assessment IMPRESSION: Blood culture positive line related. I did discuss with the patient and father, who is at the bedside, recommend changing the line. Since she has gone through multiple line changes, she is going to run out of options. They requested can be try to save it and we, with the understanding that it may fail and she would have a recurrence of infection and sepsis. They still wanted to try to save. We are going to try to save it, treat through and see how she does. Plan Plan of Care Supportive care and again discussed Continue cefepime and daptomycin GILSON TEJEDA MD Jun 24, 2021 14:02
[2021-06-24] MEDS: DAPTOmycin (GENERIC) IVPB 330 MG in IV NORMAL SALINE 50ML 50 ML IV SCH (15:44)
[2021-06-24 17:38] LABS: BASO % 1 % (0-3); EOS # 0.1 x10^3/uL (0.0-0.7); EOS % 3 % (0-3); HEMATOCRIT 22.5 % (36.0-47.0); HEMOGLOBIN 7.7 g/dL (12.0-15.5); LYMPH # 1.6 x10^3/uL (1.0-4.8); LYMPH % 36 % (24-48); MEAN CORPUSCULAR HEMOGLOBIN 27 pg (25-35); MEAN CORPUSCULAR HGB CONC 34 g/dL (31-37); MEAN CORPUSCULAR VOLUME 79 fL (79-100); MONO # 0.4 x10^3/uL (0.0-1.1); MONO % 9 % (0-9); NEUT # 2.4 x10^3/uL (1.8-7.7); NEUT % 53 % (31-73); PLATELET COUNT 258 x10^3/uL (140-400); RED BLOOD COUNT 2.86 x10^6/uL (3.50-5.40); RED CELL DISTRIBUTION WIDTH 17.8 % (11.5-14.5); WHITE BLOOD COUNT 4.5 x10^3/uL (4.0-11.0)
--- NOTE | 2021-06-24 19:06 | NUR ---
Nurse's note: The patient had 1 episode of hematemesis this afternoon about 100 cc of bright red blood. She complained of being lightheaded; was assisted to the bed and 2 ice packs given. SBP in the 90S hr 147; HR decreased to 90s-110s after [address] Marie, new order received; will continue to monitor.
[2021-06-24] MEDS: MIRTAZAPINE 15 MG TABLET PO SCH (20:54)
[2021-06-24] MEDS ORDERED: DEXTROSE 70% IV ONE (22:00)
[2021-06-24] MEDS ORDERED: [UNRECOGNIZED DRUG - OTHER] IV ONE (22:00)
[2021-06-24] MEDS ORDERED: TOTAL PARENTERAL NUTRITION IV ONE (22:00)
[2021-06-24] MEDS ORDERED: AMINO ACID IV ONE (22:00)
[2021-06-25] VITALS (10 sets, daily range): BP systolic 98–118; BP diastolic 45–70
[2021-06-25] MEDS: HYDROmorphone 12mg/30ml PCA 30 ML IV PRN ×2 (00:53→22:04)
[2021-06-25 00:54] LABS: HEMOGLOBIN 7.1 g/dL (12.0-15.5); RED BLOOD COUNT 2.69 x10^6/uL (3.50-5.40); RED CELL DISTRIBUTION WIDTH 17.5 % (11.5-14.5); WHITE BLOOD COUNT 4.9 x10^3/uL (4.0-11.0)
[2021-06-25] MEDS: ONDANSETRON PF 4 MG/2 ML VIAL. IVP PRN ×4 (04:12→20:02)
[2021-06-25] MEDS: diphenhydrAMINE 50 MG/ML VIAL IV PRN ×3 (04:39→20:41)
[2021-06-25] MEDS: IV NORMAL SALINE 1000ML BAG 1,000 ML IV SCH ×2 (05:00→08:46)
[2021-06-25 05:39] LABS: BASO % 1 % (0-3); EOS # 0.1 x10^3/uL (0.0-0.7); EOS % 3 % (0-3); HEMATOCRIT 16.1 % (36.0-47.0); LYMPH # 1.1 x10^3/uL (1.0-4.8); LYMPH % 41 % (24-48); MEAN CORPUSCULAR HEMOGLOBIN 27 pg (25-35); MEAN CORPUSCULAR HGB CONC 34 g/dL (31-37); MEAN CORPUSCULAR VOLUME 80 fL (79-100); MONO # 0.2 x10^3/uL (0.0-1.1); MONO % 9 % (0-9); NEUT # 1.2 x10^3/uL (1.8-7.7); NEUT % 46 % (31-73); PLATELET COUNT 217 x10^3/uL (140-400); RED BLOOD COUNT 2.02 x10^6/uL (3.50-5.40); RED CELL DISTRIBUTION WIDTH 17.6 % (11.5-14.5); WHITE BLOOD COUNT 2.7 x10^3/uL (4.0-11.0)
[2021-06-25 05:42] LABS: HEMOGLOBIN 5.5 g/dL (12.0-15.5)
[2021-06-25 05:57] LABS: ALBUMIN 1.4 g/dL (3.4-5.0); ALBUMIN/GLOBULIN RATIO 0.5 (1.0-1.7); CALCIUM 6.7 mg/dL (8.5-10.1); CREATININE 0.6 mg/dL (0.6-1.0); GFR 126.2; POTASSIUM 4.6 mmol/L (3.5-5.1); TOTAL BILIRUBIN 0.1 mg/dL (0.2-1.0); TOTAL PROTEIN 4.1 g/dL (6.4-8.2)
[2021-06-25] MEDS ORDERED: diphenhydrAMINE 50 MG/ML VIAL IVP ONE (06:30)
[2021-06-25] MEDS: PANTOPRAZOLE IV PUSH 40 MG VIAL. IVP SCH (06:46)
[2021-06-25] MEDS: CEFEPIME HCL IV Push 1 GM VIAL. IVP SCH ×2 (08:50→21:53)
[2021-06-25] MEDS: DIVALPROEX DELAYED RELEASE 250 MG TABLET.DR. PO SCH (09:00)
[2021-06-25] MEDS: DULoxetine HCL 30 MG CAPSULE.DR PO SCH (09:00)
[2021-06-25] MEDS: VALPROIC ACID (AS SODIUM SALT) 250 MG in IV DEXTROSE 5% 50 ML IV SCH ×2 (09:16→21:53)
[2021-06-25] MEDS: LEVOTHYROXINE SODIUM IVP SCH (09:17)
[2021-06-25] MEDS: NORMAL SALINE IVP SCH (09:17)
[2021-06-25] MEDS: methylPREDNISolone SOD SUCC PF 40 MG/ML VIAL. IV PRN (10:40)
[2021-06-25] MEDS: HYDROmorphone 2 MG/ML INJ. IVP PRN ×5 (11:09→16:32)
--- NOTE | 2021-06-25 11:59 | PDOC ---
GENERAL General: Patient examined chart reviewed lengthy discussion with patient and her mother at bedside this morning. Unfortunately she had another large episode of hematemesis in the middle of the night with clots and significant bleeding. Hemoglobin this morning is 5.5 she is currently getting transfused and 2 units are ordered. She and her family here very frustrated by her ongoing situation and they continue to search for answers to her ordeal. Mother tells me that her last hematology consult was at [facility] several years back and was unremarkable. There is no bleeding dyscrasia in the family though one cousin does have von Willebrand disease. Patient tells me that when she first had her menses they were very heavy and long she was on control for a couple of years and stopped that at age 16. She has not had a menses since that time despite having a body weight over 130 until recently. She has not had endocrinology assessment for secondary amenorrhea though does agree that her chronic extensive disease may be factoring in. Certainly having more blood loss per month would be a challenge. Mother tells me that she sent her records over to a program in [place] specializing in hereditary hemorrhagic telangiectasias and they did not feel that she met criteria for that disease. We will consult her general surgeon who knows her well Dr. Quintanilla as well as Dr. Briggs. We will ask for hematology consult in the morning and appreciate subspecialty support. Patient has had severe bleeding for quite some time and has needed at least 2 units of blood transfusion weekly. She is not sure how long she will be able to keep up with this arduous schedule. All other systems reviewed and negative. Time spent today is 30 minutes with greater than 50% in counseling and coordination of care most of which in discussion with patient regarding care plan and progress. Problems: (1) Cachexia (2) Superior mesenteric artery syndrome (3) On total parenteral nutrition (TPN) (4) Hematemesis (5) Gastrointestinal bleeding (6) Chronic abdominal pain (7) Chronic anemia VITAL SIGNS Vital Signs/I&O: Vital Signs Date Time Temp Pulse Resp B/P (MAP) Pulse Ox O2 Delivery O2 Flow Rate FiO2 06/25/21 11:09 18 93 Room Air 06/25/21 11:00 97.6 113 99/54 (69) 97.6 I & O 06/24/21 06/24/21 06/25/21 15:00 23:00 07:00 Intake Total 100 ml 100 ml 0 ml Output Total 500 ml 1500 ml 200 ml Balance -400 ml -1400 ml -200 ml In general patient is resting comfortably in bed more interactive this afternoon in no acute distress HEENT exam is unremarkable for acute abnormality Neck is soft and supple no adenopathy or thyromegaly noted Chest is clear to auscultation Heart S1-S2 normal regular rate and rhythm no murmurs or gallops are noted Abdomen scaphoid, soft nontender nondistended no masses organomegaly noted Extremity exam is unremarkable for acute abnormality ALLERGIES Allergies: Allergies Coded Allergies Type Severity Reaction Last Updated Verified Penicillins Allergy Severe rash 06/12/21 Yes amitriptyline Allergy Severe shock 06/12/21 Yes ceftriaxone Allergy Severe rash 06/12/21 Yes eletriptan Allergy Severe migraines 06/12/21 Yes fat emulsions Allergy Severe anaphylaxis 06/12/21 Yes fish oil Allergy Severe anaphylaxis 06/12/21 Yes medium chain triglycerides Allergy Severe anaphylaxis 06/12/21 Yes meropenem Allergy Severe face swelling 06/12/21 Yes morphine Allergy Severe unknown 06/12/21 Yes olive oil Allergy Severe anaphylaxis 06/12/21 Yes rizatriptan Allergy Severe migraines 06/12/21 Yes soybean oil Allergy Severe anaphylaxis 06/12/21 Yes sumatriptan Allergy Severe migraines 06/12/21 Yes topiramate Allergy Severe shock 06/12/21 Yes trimethobenzamide Allergy Severe face swelling 06/12/21 Yes pineapple Allergy Intermediate 06/12/21 Yes prochlorperazine Allergy Intermediate 06/12/21 Yes sodium ferric gluconate complex Allergy Intermediate 06/12/21 Yes sucrose Allergy Intermediate 06/12/21 Yes cyproheptadine Adverse Reaction Intermediate n/v 06/12/21 Yes erythromycin base Adverse Reaction Intermediate n/v 06/12/21 Yes gabapentin Adverse Reaction Intermediate n/v 06/12/21 Yes metoclopramide Adverse Reaction Intermediate n/v 06/12/21 Yes promethazine Adverse Reaction Intermediate n/v 06/12/21 Yes MEDS Medications: Current Medications Medications (Trade) Dose Ordered Sig/Aleida Start Time Stop Time Status Last Admin Dose Admin Acetaminophen (Tylenol Supp) 650 mg PRN Q6HRS PRN 06/21/21 23:00 06/21/21 23:20 Acetaminophen (Tylenol) 650 mg PRN Q4HRS PRN 06/21/21 19:45 Alteplase, Recombinant (Cathflo For Central Catheter Clearance) 1 mg 1X ONCE 06/22/21 09:00 06/22/21 09:01 DC 06/22/21 09:10 Cefepime HCl (Maxipime) 1 gm Q12HR 06/23/21 13:30 06/25/21 08:50 Daptomycin 330 mg/ Sodium Chloride 50 ml @ 100 mls/hr Q24H 06/23/21 15:00 06/24/21 15:44 Dextrose (Dextrose 50%-Water Syringe) 12.5 gm PRN Q15MIN PRN 06/21/21 19:45 Dextrose/Sodium Chloride 1,000 ml @ 100 mls/hr 1X ONCE 06/21/21 20:30 06/22/21 06:29 DC 06/21/21 22:37 Dicyclomine HCl (Bentyl) 10 mg Q6HRS PRN 06/21/21 19:45 Diphenhydramine HCl (Benadryl) 50 mg 1X ONCE 06/25/21 06:30 06/25/21 06:31 DC 06/25/21 10:40 Divalproex Sodium (Depakote) 250 mg BID 06/21/21 21:00 Docusate Sodium (Colace) 100 mg PRN DAILY PRN 06/21/21 19:45 Doxycycline Hyclate 100 mg/ Dextrose 100 ml @ 50 mls/hr Q12HR 06/22/21 10:00 06/23/21 12:46 DC 06/23/21 10:41 Duloxetine HCl (Cymbalta) 90 mg DAILY 06/22/21 09:00 Fentanyl (Duragesic 100mcg/Hr Patch) 1 patch Q3DAYS 06/24/21 09:00 06/24/21 08:41 Hydromorphone HCl (Dilaudid) 2 mg PRN Q1HR PRN 06/21/21 23:00 06/25/21 11:09 Info (Tpn Per Pharmacy) 1 each PRN DAILY PRN 06/22/21 10:45 06/24/21 09:15 Levothyroxine Sodium (Synthroid) 25 mcg DAILY06 06/22/21 06:00 06/23/21 12:06 DC Levothyroxine Sodium 12.5 mcg/ Sodium Chloride 5 ml @ 100 mls/hr Q3D 06/25/21 09:00 06/25/21 09:17 Lorazepam (Ativan Inj) 0.25 mg PRN Q4HRS PRN 06/21/21 19:45 06/25/21 10:12 Lorazepam (Ativan) 0.5 mg QIDPRN PRN 06/21/21 21:30 Cancel Methylprednisolone Sodium Succinate (SOLU-Medrol 40MG VIAL) 40 mg 1X PRN 06/21/21 23:45 06/25/21 10:40 Mirtazapine (Remeron) 30 mg QHS 06/21/21 21:00 Naloxone HCl (Narcan) 0.4 mg PRN Q2MIN PRN 06/21/21 21:30 Ondansetron HCl (Zofran Odt) 4 mg PRN Q4HRS PRN 06/22/21 17:00 Ondansetron HCl (Zofran) 8 mg PRN Q4HRS PRN 06/22/21 17:00 06/25/21 10:41 Pantoprazole Sodium (PROTONIX VIAL for IV PUSH) 40 mg DAILYAC 06/21/21 20:00 06/25/21 06:46 Prochlorperazine Edisylate (Compazine) 10 mg PRN Q6HRS PRN 06/21/21 19:45 06/21/21 23:02 DC Sennosides (Senna) 17.2 mg PRN BID PRN 06/21/21 19:45 Sodium Chloride 120 meq/Sodium Acetate 40 meq/ Potassium Chloride 29 meq/ Potassium Phosphate 18 mmol/ Magnesium Sulfate 16 meq/ Multivitamins 10 ml/Zinc/Copper/ Manganese/ Selenium 1 ml/ Total Parenteral Nutrition/Amino Acids/Dextrose 1,800 ml @ 150 mls/hr Q24H ONCE 06/24/21 22:00 06/25/21 09:59 DC 06/24/21 21:46 Sodium Chloride 148 meq/Sodium Acetate 20 meq/ Potassium Chloride 29 meq/ Potassium Phosphate 21 mmol/ Magnesium Sulfate 16 meq/ Multivitamins 10 ml/Zinc/Copper/ Manganese/ Selenium 1 ml/ Total Parenteral Nutrition/Amino Acids/Dextrose 1,800 ml @ 150 mls/hr Q24H 06/23/21 22:00 06/24/21 09:59 DC 06/23/21 21:04 Sodium Chloride 148 meq/Sodium Acetate 20 meq/ Potassium Chloride 29 meq/ Potassium Phosphate 21 mmol/ Magnesium Sulfate 16 meq/Calcium Gluconate 10 meq/ Multivitamins 10 ml/Zinc/Copper/ Manganese/ Selenium 1 ml/ Total Parenteral Nutrition/Amino Acids/Dextrose 1,800 ml @ 150 mls/hr Q24H 06/22/21 22:00 06/23/21 09:59 DC 06/22/21 22:03 Valproic Acid 250 mg/Dextrose 52.5 ml @ 55 mls/hr Q12HR 06/22/21 09:00 06/25/21 09:16 Zolpidem Tartrate (Ambien) 2.5 mg PRN QHS PRN 06/21/21 19:45 Current Medications Medications (Trade) Dose Ordered Sig/Aleida Route PRN Reason Start Time Stop Time Status Last Admin Dose Admin Levothyroxine Sodium 12.5 mcg/ Sodium Chloride 5 ml @ 100 mls/hr Q3D IVP 06/25/21 09:00 06/25/21 09:17 Sodium Chloride 120 meq/Sodium Acetate 40 meq/ Potassium Chloride 29 meq/ Potassium Phosphate 18 mmol/ Magnesium Sulfate 16 meq/ Multivitamins 10 ml/Zinc/Copper/ Manganese/ Selenium 1 ml/ Total Parenteral Nutrition/Amino Acids/Dextrose 1,800 ml @ 150 mls/hr Q24H ONCE IV 06/24/21 22:00 06/25/21 09:59 DC 06/24/21 21:46 Diphenhydramine HCl (Benadryl) 50 mg 1X ONCE IVP 06/25/21 06:30 06/25/21 06:31 DC 06/25/21 10:40 LAB Lab: Laboratory Tests Test 06/24/21 17:30 06/25/21 00:42 06/25/21 05:25 White Blood Count 4.5 x10^3/uL (4.0-11.0) 4.9 x10^3/uL (4.0-11.0) 2.7 x10^3/uL (4.0-11.0) L Red Blood Count 2.86 x10^6/uL (3.50-5.40) L 2.69 x10^6/uL (3.50-5.40) L 2.02 x10^6/uL (3.50-5.40) L Hemoglobin 7.7 g/dL (12.0-15.5) L 7.1 g/dL (12.0-15.5) L 5.5 g/dL (12.0-15.5) *L Hematocrit 22.5 % (36.0-47.0) L 22.0 % (36.0-47.0) L 16.1 % (36.0-47.0) L Mean Corpuscular Volume 79 fL (79-100) 82 fL (79-100) 80 fL (79-100) Mean Corpuscular Hemoglobin 27 pg (25-35) 26 pg (25-35) 27 pg (25-35) Mean Corpuscular Hemoglobin Concent 34 g/dL (31-37) 32 g/dL (31-37) 34 g/dL (31-37) Red Cell Distribution Width 17.8 % (11.5-14.5) H 17.5 % (11.5-14.5) H 17.6 % (11.5-14.5) H Platelet Count 258 x10^3/uL (140-400) 287 x10^3/uL (140-400) 217 x10^3/uL (140-400) Neutrophils (%) (Auto) 53 % (31-73) 46 % (31-73) Lymphocytes (%) (Auto) 36 % (24-48) 41 % (24-48) Monocytes (%) (Auto) 9 % (0-9) 9 % (0-9) Eosinophils (%) (Auto) 3 % (0-3) 3 % (0-3) Basophils (%) (Auto) 1 % (0-3) 1 % (0-3) Neutrophils # (Auto) 2.4 x10^3/uL (1.8-7.7) 1.2 x10^3/uL (1.8-7.7) L Lymphocytes # (Auto) 1.6 x10^3/uL (1.0-4.8) 1.1 x10^3/uL (1.0-4.8) Monocytes # (Auto) 0.4 x10^3/uL (0.0-1.1) 0.2 x10^3/uL (0.0-1.1) Eosinophils # (Auto) 0.1 x10^3/uL (0.0-0.7) 0.1 x10^3/uL (0.0-0.7) Basophils # (Auto) 0.0 x10^3/uL (0.0-0.2) 0.0 x10^3/uL (0.0-0.2) Sodium Level 140 mmol/L (136-145) Potassium Level 4.6 mmol/L (3.5-5.1) Chloride Level 107 mmol/L (98-107) Carbon Dioxide Level 26 mmol/L (21-32) Anion Gap 7 (6-14) Blood Urea Nitrogen 15 mg/dL (7-20) Creatinine 0.6 mg/dL (0.6-1.0) Estimated GFR (Cockcroft-Gault) 126.2 BUN/Creatinine Ratio 25 (6-20) H Glucose Level 136 mg/dL (70-99) H Calcium Level 6.7 mg/dL (8.5-10.1) L Phosphorus Level 4.4 mg/dL (2.6-4.7) Total Bilirubin 0.1 mg/dL (0.2-1.0) L Aspartate Amino Transferase (AST) 19 U/L (15-37) Alanine Aminotransferase (ALT) 16 U/L (14-59) Alkaline Phosphatase 121 U/L (46-116) H Total Protein 4.1 g/dL (6.4-8.2) L Albumin 1.4 g/dL (3.4-5.0) L Albumin/Globulin Ratio 0.5 (1.0-1.7) L Laboratory Tests 06/24/21 17:30 06/25/21 00:42 06/25/21 05:25 Laboratory Tests 06/25/21 05:25 ASSESSMENT & PLAN A&P Plan as noted above This note was created using [employer] and may have omissions and/or errors due to the nature of real-time voice elementary art teacher. Justifications for Admission Other Justification GI bleed Nutrition Consultation Dietary Evaluation: Recommendations by RD: Dietary education by RD, PPN/TPN Comments: rec continue home TPN diet per GI Expected Outcomes/Goals: wt maintainance Interpretation of weight loss: >5% in 1 month Malnutrition Findings: Food and Nutrition Intake (Sev: <50% est energy req 5days Weight Status: Appropriate Problem Qualifiers (1) Hematemesis: Nausea presence: with nausea Qualified Codes: K92.0 - Hematemesis (2) Gastrointestinal bleeding: GI bleed type/associated pathology: unspecified gastrointestinal hemorrhage type Qualified Codes: K92.2 - Gastrointestinal hemorrhage, unspecified VIRGEN RAGLAND MD Jun 25, 2021 11:59
--- NOTE | 2021-06-25 13:20 | PDOC ---
Date of Service: DATE: 06/25/21 TIME: 13:19 Subjective: Subjective: hematemasis overnight with Hgb 5.5 Objective: Vital Signs: Vital Signs Date Time Temp Pulse Resp B/P (MAP) Pulse Ox O2 Delivery O2 Flow Rate FiO2 06/25/21 12:26 18 93 Room Air 06/25/21 11:54 98.6 113 118/61 98.6 Labs: Laboratory Tests Test 06/24/21 17:30 06/25/21 00:42 06/25/21 05:25 White Blood Count 4.5 x10^3/uL (4.0-11.0) 4.9 x10^3/uL (4.0-11.0) 2.7 x10^3/uL (4.0-11.0) Red Blood Count 2.86 x10^6/uL (3.50-5.40) 2.69 x10^6/uL (3.50-5.40) 2.02 x10^6/uL (3.50-5.40) Hemoglobin 7.7 g/dL (12.0-15.5) 7.1 g/dL (12.0-15.5) 5.5 g/dL (12.0-15.5) Hematocrit 22.5 % (36.0-47.0) 22.0 % (36.0-47.0) 16.1 % (36.0-47.0) Mean Corpuscular Volume 79 fL (79-100) 82 fL (79-100) 80 fL (79-100) Mean Corpuscular Hemoglobin 27 pg (25-35) 26 pg (25-35) 27 pg (25-35) Mean Corpuscular Hemoglobin Concent 34 g/dL (31-37) 32 g/dL (31-37) 34 g/dL (31-37) Red Cell Distribution Width 17.8 % (11.5-14.5) 17.5 % (11.5-14.5) 17.6 % (11.5-14.5) Platelet Count 258 x10^3/uL (140-400) 287 x10^3/uL (140-400) 217 x10^3/uL (140-400) Neutrophils (%) (Auto) 53 % (31-73) 46 % (31-73) Lymphocytes (%) (Auto) 36 % (24-48) 41 % (24-48) Monocytes (%) (Auto) 9 % (0-9) 9 % (0-9) Eosinophils (%) (Auto) 3 % (0-3) 3 % (0-3) Basophils (%) (Auto) 1 % (0-3) 1 % (0-3) Neutrophils # (Auto) 2.4 x10^3/uL (1.8-7.7) 1.2 x10^3/uL (1.8-7.7) Lymphocytes # (Auto) 1.6 x10^3/uL (1.0-4.8) 1.1 x10^3/uL (1.0-4.8) Monocytes # (Auto) 0.4 x10^3/uL (0.0-1.1) 0.2 x10^3/uL (0.0-1.1) Eosinophils # (Auto) 0.1 x10^3/uL (0.0-0.7) 0.1 x10^3/uL (0.0-0.7) Basophils # (Auto) 0.0 x10^3/uL (0.0-0.2) 0.0 x10^3/uL (0.0-0.2) Sodium Level 140 mmol/L (136-145) Potassium Level 4.6 mmol/L (3.5-5.1) Chloride Level 107 mmol/L (98-107) Carbon Dioxide Level 26 mmol/L (21-32) Anion Gap 7 (6-14) Blood Urea Nitrogen 15 mg/dL (7-20) Creatinine 0.6 mg/dL (0.6-1.0) Estimated GFR (Cockcroft-Gault) 126.2 BUN/Creatinine Ratio 25 (6-20) Glucose Level 136 mg/dL (70-99) Calcium Level 6.7 mg/dL (8.5-10.1) Phosphorus Level 4.4 mg/dL (2.6-4.7) Total Bilirubin 0.1 mg/dL (0.2-1.0) Aspartate Amino Transf (AST/SGOT) 19 U/L (15-37) Alanine Aminotransferase (ALT/SGPT) 16 U/L (14-59) Alkaline Phosphatase 121 U/L (46-116) Total Protein 4.1 g/dL (6.4-8.2) Albumin 1.4 g/dL (3.4-5.0) Albumin/Globulin Ratio 0.5 (1.0-1.7) Physical Exam: Physical Exam: GEN: NAD LUNGS: CTAB HEART: tachycardic ABD: soft, mild diffuse tenderness as in past NEURO/PSYCH: A & O 3 Assessment & Plan: Assessment : A/P: Recurrent bleeding, chronic anemia, chronic abdominal pain -positive bleeding scan GPC bacteremia x 3 Plan: Will consult IR for positive bleding scan PRBCs being given Justicifation of Admission Dx: Justifications for Admission: Justification of Admission Dx: No ELIDA JACKSON MD Jun 25, 2021 13:20
--- NOTE | 2021-06-25 14:01 | PDOC ---
Infectious Disease Note Subjective: Subjective Patient had hematemesis overnight with hemoglobin of 5.5 Undergoing blood transfusion Afebrile Discussed with RN Mother at bedside Vital Signs: Vital Signs Vital Signs Date Time Temp Pulse Resp B/P (MAP) Pulse Ox O2 Delivery O2 Flow Rate FiO2 06/25/21 12:26 18 93 Room Air 06/25/21 11:54 98.6 113 118/61 98.6 Physical Exam: PHYSICAL EXAM GENERAL: Alert, oriented female, not in distress. Listening to music. Appears nontoxic HEENT: NAD. Both pupils are round and reacting. No conjunctival lesion, no lesion in the mouth. NECK: Supple, no JVP, no lymphadenopathy. LUNGS: Clear. HEART: S1, S2, regular. ABDOMEN: Soft, nontender, no organomegaly. EXTREMITIES: Trace edema, no cyanosis SKIN: Chronic skin irritation present mainly over both upper extremities from underlying chronic autoimmune disease, open wounds NEUROLOGIC: The patient is alert, awake, and appropriate. No focal neurologic deficit. Port-A-Cath right chest (placed at [facility] April 2021) without complications Medications: Inpatient Meds: Medications reviewed. Labs: Lab Laboratory Tests Test 06/24/21 17:30 06/25/21 00:42 06/25/21 05:25 White Blood Count 4.5 x10^3/uL (4.0-11.0) 4.9 x10^3/uL (4.0-11.0) 2.7 x10^3/uL (4.0-11.0) Red Blood Count 2.86 x10^6/uL (3.50-5.40) 2.69 x10^6/uL (3.50-5.40) 2.02 x10^6/uL (3.50-5.40) Hemoglobin 7.7 g/dL (12.0-15.5) 7.1 g/dL (12.0-15.5) 5.5 g/dL (12.0-15.5) Hematocrit 22.5 % (36.0-47.0) 22.0 % (36.0-47.0) 16.1 % (36.0-47.0) Mean Corpuscular Volume 79 fL (79-100) 82 fL (79-100) 80 fL (79-100) Mean Corpuscular Hemoglobin 27 pg (25-35) 26 pg (25-35) 27 pg (25-35) Mean Corpuscular Hemoglobin Concent 34 g/dL (31-37) 32 g/dL (31-37) 34 g/dL (31-37) Red Cell Distribution Width 17.8 % (11.5-14.5) 17.5 % (11.5-14.5) 17.6 % (11.5-14.5) Platelet Count 258 x10^3/uL (140-400) 287 x10^3/uL (140-400) 217 x10^3/uL (140-400) Neutrophils (%) (Auto) 53 % (31-73) 46 % (31-73) Lymphocytes (%) (Auto) 36 % (24-48) 41 % (24-48) Monocytes (%) (Auto) 9 % (0-9) 9 % (0-9) Eosinophils (%) (Auto) 3 % (0-3) 3 % (0-3) Basophils (%) (Auto) 1 % (0-3) 1 % (0-3) Neutrophils # (Auto) 2.4 x10^3/uL (1.8-7.7) 1.2 x10^3/uL (1.8-7.7) Lymphocytes # (Auto) 1.6 x10^3/uL (1.0-4.8) 1.1 x10^3/uL (1.0-4.8) Monocytes # (Auto) 0.4 x10^3/uL (0.0-1.1) 0.2 x10^3/uL (0.0-1.1) Eosinophils # (Auto) 0.1 x10^3/uL (0.0-0.7) 0.1 x10^3/uL (0.0-0.7) Basophils # (Auto) 0.0 x10^3/uL (0.0-0.2) 0.0 x10^3/uL (0.0-0.2) Sodium Level 140 mmol/L (136-145) Potassium Level 4.6 mmol/L (3.5-5.1) Chloride Level 107 mmol/L (98-107) Carbon Dioxide Level 26 mmol/L (21-32) Anion Gap 7 (6-14) Blood Urea Nitrogen 15 mg/dL (7-20) Creatinine 0.6 mg/dL (0.6-1.0) Estimated GFR (Cockcroft-Gault) 126.2 BUN/Creatinine Ratio 25 (6-20) Glucose Level 136 mg/dL (70-99) Calcium Level 6.7 mg/dL (8.5-10.1) Phosphorus Level 4.4 mg/dL (2.6-4.7) Total Bilirubin 0.1 mg/dL (0.2-1.0) Aspartate Amino Transf (AST/SGOT) 19 U/L (15-37) Alanine Aminotransferase (ALT/SGPT) 16 U/L (14-59) Alkaline Phosphatase 121 U/L (46-116) Total Protein 4.1 g/dL (6.4-8.2) Albumin 1.4 g/dL (3.4-5.0) Albumin/Globulin Ratio 0.5 (1.0-1.7) Objective: Assessment: E. coli and Enterococcus pansensitive bacteremia Blood culture positive line related. Line will need to be removed. Anemia Hematemesis Chronic abdominal pain Recurrent bleeding Multiple CLABSIs ,[facility]ly was at [facility] H/O Noncomplaince Plan: Plan of Care Patient is receiving blood transfusion currently. Continue cefepime and daptomycin Line should be removed ,but patient is refusing for line removal at this time as she has had multiple Port-A-Cath removal, recently at [facility] during last hospitalization. Patient and family have requested to try to save it with the understanding that it may fail and she would have a recurrence of infection and sepsis. They still want to salvage it. Pros and cons discussed at length They verbalized understanding. Continue supportive care Discussed with mother at bedside JILL TEJEDA MD Jun 25, 2021 14:01
[2021-06-25] MEDS: DAPTOmycin (GENERIC) IVPB 330 MG in IV NORMAL SALINE 50ML 50 ML IV SCH (15:09)
--- NOTE | 2021-06-25 19:14 | NUR ---
Nurse's note: The patient had blood transfusion of 1 unit rbc, premedicated prior to procedure. No untoward reactions noted.
[2021-06-25] MEDS: MIRTAZAPINE 15 MG TABLET PO SCH (21:00)
[2021-06-25] MEDS ORDERED: IOHEXOL 300 MG/ML 100ML VIAL. IV ONE (23:30)
[2021-06-25] MEDS ORDERED: CONTRAST GIVEN. MC PRN (23:30)
[2021-06-26] VITALS (15 sets, daily range): BP systolic 96–130; BP diastolic 50–80
[2021-06-26] MEDS: IV NORMAL SALINE 1000ML BAG 1,000 ML IV SCH ×4 (00:16→21:29)
[2021-06-26] MEDS: ONDANSETRON PF 4 MG/2 ML VIAL. IVP PRN ×5 (00:44→21:49)
[2021-06-26] MEDS: diphenhydrAMINE 50 MG/ML VIAL IV PRN ×2 (02:46→18:19)
[2021-06-26 06:12] LABS: BASO % 0 % (0-3); EOS # 0.1 x10^3/uL (0.0-0.7); EOS % 2 % (0-3); HEMATOCRIT 17.1 % (36.0-47.0); LYMPH # 1.7 x10^3/uL (1.0-4.8); LYMPH % 55 % (24-48); MEAN CORPUSCULAR HEMOGLOBIN 27 pg (25-35); MEAN CORPUSCULAR HGB CONC 32 g/dL (31-37); MEAN CORPUSCULAR VOLUME 83 fL (79-100); MONO # 0.2 x10^3/uL (0.0-1.1); MONO % 8 % (0-9); NEUT % 34 % (31-73); PLATELET COUNT 255 x10^3/uL (140-400); RED BLOOD COUNT 2.06 x10^6/uL (3.50-5.40); RED CELL DISTRIBUTION WIDTH 16.4 % (11.5-14.5)
[2021-06-26 06:16] LABS: HEMOGLOBIN 5.5 g/dL (12.0-15.5)
[2021-06-26] MEDS: PANTOPRAZOLE IV PUSH 40 MG VIAL. IVP SCH (06:24)
--- NOTE | 2021-06-26 06:27 | RAD ---
EXAMINATION: CTA abdomen and pelvis with IV contrast. INDICATION:21 years, Female, anemia and hematemesis. TECHNIQUE: Axial CTA images of the abdomen and pelvis were obtained. MIP Coronal and sagittal reforma tted performed. COMPARISON: 07/19/2020. Exposure: One or more of the following individualized dose reduction techniques were utilized for thi s examination: 1. Automated exposure control 2. Adjustment of the mA and/or kV according to patient size 3. Use of iterative reconstruction technique. FINDINGS: LOWER CHEST: Few right lower lobe nodular opacities ABDOMEN/PELVIS: No contrast extravasation in the bowel on single arterial phase exam to suggest active bleeding. Plac ement of endoscopic clips and suture line in the gastric body. No bowel dilation. Appendectomy change s. Normal caliber abdominal aorta. Mesenteric arteries and portal veins are patent. Patent bilateral renal arteries. Liver, spleen, pancreas, adrenal glands and kidneys are unremarkable. Cholecystectomy. No biliary chelsy arvind dilation. No lymphadenopathy. No pneumoperitoneum or ascites. Underdistended urinary bladder whic h limits evaluation. Unremarkable uterus. No suspicious pelvic masses. MUSCULOSKELETAL STRUCTURES: No acute osseous process. IMPRESSION: 1. No contrast extravasation on single arterial phase exam to suggest active GI bleeding. 2. Few right lower lobe nodular opacities, may relate to infectious/inflammatory process. Electronically signed by: Eli Whalen MD (06/26/2021 6:24 AM) [id number]
[2021-06-26 06:31] LABS: ALBUMIN 1.7 g/dL (3.4-5.0); ALBUMIN/GLOBULIN RATIO 0.7 (1.0-1.7); CALCIUM 7.1 mg/dL (8.5-10.1); CREATININE 0.7 mg/dL (0.6-1.0); GFR 105.6; POTASSIUM 3.9 mmol/L (3.5-5.1); TOTAL BILIRUBIN 0.1 mg/dL (0.2-1.0); TOTAL PROTEIN 4.2 g/dL (6.4-8.2)
[2021-06-26] MEDS ORDERED: diphenhydrAMINE 50 MG/ML VIAL IVP PRN (06:45)
[2021-06-26] MEDS: HYDROmorphone 12mg/30ml PCA 30 ML IV PRN ×2 (08:25→18:22)
[2021-06-26] MEDS: VALPROIC ACID (AS SODIUM SALT) 250 MG in IV DEXTROSE 5% 50 ML IV SCH ×2 (08:41→20:23)
[2021-06-26] MEDS: DULoxetine HCL 30 MG CAPSULE.DR PO SCH (09:00)
[2021-06-26] MEDS: methylPREDNISolone SOD SUCC PF 40 MG/ML VIAL. IV PRN (09:46)
--- NOTE | 2021-06-26 10:00 | NUR ---
Premedicated prior to blood transfusion with solumedrol and benadryl.
--- NOTE | 2021-06-26 10:29 | NUR ---
[facility] following. Discussed with RN, pt from home with family, getting blood today. Pt not ready for discharge at this time. [facility] will continue to follow. Addendum: 06/26/21 at 1437 by JAS NAVARRETE [facility] transfer initiated. Addendum: 06/26/21 at 1602 by JAS NAVARRETE [facility] denied due to capacity but advised [facility] could try again tomorrow. CHAVA and Charlene BONILLA APRN) notified. MAY notified Dr. Spicer. [facility] will continue to follow.
[2021-06-26] MEDS ORDERED: TOTAL PARENTERAL NUTRITION IV ONE ×2 (11:00→22:00)
[2021-06-26] MEDS ORDERED: AMINO ACID IV ONE ×2 (11:00→22:00)
[2021-06-26] MEDS ORDERED: DEXTROSE 70% IV ONE ×2 (11:00→22:00)
[2021-06-26] MEDS ORDERED: [UNRECOGNIZED DRUG - OTHER] IV ONE ×2 (11:00→22:00)
[2021-06-26] MEDS: TPN PER PHARMACY MC PRN (11:02)
--- NOTE | 2021-06-26 11:02 | NUR ---
Pharmacy TPN Dosing Note S: JIN ABBOTT R is a 21 year old F Currently receiving Central Cyclic TPN started 06/22/21 B:Pertinent PMH: chronic TPN Height: 5 feet, 5 inches Weight: 55.5 kg Current diet: CLD LABS: Sodium: 143 Potassium: 3.9 Chloride: 111 Calcium: 7.1 Corrected Calcium: 8.94 Magnesium: 1.9 CO2: 25 SCr: 0.7 Glucose: 111 Albumin: 1.7 AST: 19 ALT: 15 TPN FORMULA: TPN TYPE: Central Cyclic AMINO ACIDS: 76 gm DEXTROSE: 320 gm LIPIDS: 0 gm SODIUM CHLORIDE: 120 mEq SODIUM ACETATE: 40 mEq POTASSIUM ACETATE: 29 mEq POTASSIUM PHOSPHATE: 18 mmol MAGNESIUM: 16 mEq MULTIPLE VITAMIN: 10 ml TRACE ELEMENTS: 1ml TPN PLAN: -Adj KCl to KAC. Otherwise continue same TPN. -BMP, mag, phos tomorrow. R: Continue cyclic TPN with above formula. Will monitor electrolytes, glucose, and tolerance to TPN. EMERITA CHAMPAGNE [facility], 06/26/21 [id number]
--- NOTE | 2021-06-26 11:11 | PDOC ---
Date of Service: DATE: 06/26/21 TIME: 11:00 Subjective: Subjective: More bleeding overnight. Objective: Objective: Events over weekend reviewed - more bleeding, CTA neg, pt says unable to tolerate contrast for enterography. D/w nurse - reports of more bleeding overnight, emesis bag remains in restroom. Transfusion ordered for today, asking for Benadryl but seems drowsy. PMH and extensive past GI workup/surgical history per GI consult note 06/13/21, also recent EGD/ERCP. Have discussed SBCE as next step. Vital Signs: Vital Signs Date Time Temp Pulse Resp B/P (MAP) Pulse Ox O2 Delivery O2 Flow Rate FiO2 06/26/21 10:10 97.8 97 16 114/65 97.8 06/26/21 08:25 Room Air 06/26/21 07:00 92 06/25/21 22:34 1.0 Labs: Laboratory Tests Test 06/25/21 16:21 06/26/21 06:00 Hemoglobin 8.7 g/dL 5.5 g/dL White Blood Count 3.0 x10^3/uL Red Blood Count 2.06 x10^6/uL Hematocrit 17.1 % Mean Corpuscular Volume 83 fL Mean Corpuscular Hemoglobin 27 pg Mean Corpuscular Hemoglobin Concent 32 g/dL Red Cell Distribution Width 16.4 % Platelet Count 255 x10^3/uL Neutrophils (%) (Auto) 34 % Lymphocytes (%) (Auto) 55 % Monocytes (%) (Auto) 8 % Eosinophils (%) (Auto) 2 % Basophils (%) (Auto) 0 % Neutrophils # (Auto) 1.0 x10^3/uL Lymphocytes # (Auto) 1.7 x10^3/uL Monocytes # (Auto) 0.2 x10^3/uL Eosinophils # (Auto) 0.1 x10^3/uL Basophils # (Auto) 0.0 x10^3/uL Sodium Level 143 mmol/L Potassium Level 3.9 mmol/L Chloride Level 111 mmol/L Carbon Dioxide Level 25 mmol/L Anion Gap 7 Blood Urea Nitrogen 7 mg/dL Creatinine 0.7 mg/dL Estimated GFR (Cockcroft-Gault) 105.6 BUN/Creatinine Ratio 10 Glucose Level 111 mg/dL Calcium Level 7.1 mg/dL Total Bilirubin 0.1 mg/dL Aspartate Amino Transf (AST/SGOT) 19 U/L Alanine Aminotransferase (ALT/SGPT) 15 U/L Alkaline Phosphatase 109 U/L Total Protein 4.2 g/dL Albumin 1.7 g/dL Albumin/Globulin Ratio 0.7 BLOOD CULTURE Final GRAM POSITIVE COCCI FINAL ID= ENTEROCOCCUS FAECALIS AND GRAM NEGATIVE RODS FINAL ID= ESCHERICHIA COLI Imaging: CTA A/P IMPRESSION: 1. No contrast extravasation on single arterial phase exam to suggest active GI bleeding. 2. Few right lower lobe nodular opacities, may relate to infectious/inflammatory process. PE: GEN: NAD LUNGS: CTAB HEART: RRR ABD: soft, stable chronic tenderness NEURO/PSYCH: A & O 3, drowsy A/P: Recurrent hematemesis, chronic anemia requiring transfusions E coli bacteremia Chronic pain -- Bleeding - unclear source - difficult situation, not sure what else to offer as inpatient - transfusions ongoing. Justicifation of Admission Dx: Justifications for Admission: Justification of Admission Dx: No BECK-LIZETH DUTTA Jun 26, 2021 11:11
--- NOTE | 2021-06-26 12:14 | NUR ---
Transferred to room #521 by bed. Father at bedside. Pt upset and crying. Pt thought she would go home today.
--- NOTE | 2021-06-26 13:14 | NUR ---
Pt arrived on unit at approx 1225 by bed. Pt accompanied by father. Pt crying, rates pain at 9/10 in the abdomen. On dilaudid ECONOMIC DEVELOPMENT SPECIALIST. Blood transfusing. Pt's father requesting to speak with doctor in regards to pain medication regimen. Dr. Spicer pagedoe. Will await call back. Addendum: 06/26/21 at 1837 by LITTLE BOLAÑOS RN Add to previous: This RN spoke with Dr. Spicer by telephone in regards to pt's current pain medication regimen. Dr. Spicer stated he would talk to pharmacy and potentially add orders for a basal rate on pt's ECONOMIC DEVELOPMENT SPECIALIST. Will await these orders. Father updated of situation.
--- NOTE | 2021-06-26 13:38 | NUR ---
IV fluids nonadministered by this RN. New bag hanging upon transfer.
--- NOTE | 2021-06-26 13:40 | PDOC ---
Infectious Disease Note Subjective: Subjective Patient c/o nausea and vomiting, hematemesis ,hemoglobin again at 5.5 s/p blood transfusion yesterday and hemoglobin went up to 8.7 but is back down to 5.5 this morning Receiving blood transfusion No other complaints Afebrile Discussed with RN at bedside Discussed with father at bedside Vital Signs: Vital Signs Vital Signs Date Time Temp Pulse Resp B/P (MAP) Pulse Ox O2 Delivery O2 Flow Rate FiO2 06/26/21 13:21 98.0 121 16 123/58 98.0 06/26/21 11:00 95 Room Air 06/25/21 22:34 1.0 Physical Exam: PHYSICAL EXAM GENERAL: Alert, oriented female, not in distress. Listening to music. Appears nontoxic HEENT: NAD. Both pupils are round and reacting. No conjunctival lesion, no lesion in the mouth. NECK: Supple, no JVP, no lymphadenopathy. LUNGS: Clear. HEART: S1, S2, regular. ABDOMEN: Soft, nontender, no organomegaly. EXTREMITIES: Trace edema, no cyanosis SKIN: Chronic skin irritation present mainly over both upper extremities from underlying chronic autoimmune disease, open wounds NEUROLOGIC: The patient is alert, awake, and appropriate. No focal neurologic deficit. Port-A-Cath right chest (placed at [facility] April 2021) without complications Medications: Inpatient Meds: Medications reviewed. Labs: Lab Laboratory Tests Test 06/25/21 16:21 06/26/21 06:00 Hemoglobin 8.7 g/dL (12.0-15.5) 5.5 g/dL (12.0-15.5) White Blood Count 3.0 x10^3/uL (4.0-11.0) Red Blood Count 2.06 x10^6/uL (3.50-5.40) Hematocrit 17.1 % (36.0-47.0) Mean Corpuscular Volume 83 fL (79-100) Mean Corpuscular Hemoglobin 27 pg (25-35) Mean Corpuscular Hemoglobin Concent 32 g/dL (31-37) Red Cell Distribution Width 16.4 % (11.5-14.5) Platelet Count 255 x10^3/uL (140-400) Neutrophils (%) (Auto) 34 % (31-73) Lymphocytes (%) (Auto) 55 % (24-48) Monocytes (%) (Auto) 8 % (0-9) Eosinophils (%) (Auto) 2 % (0-3) Basophils (%) (Auto) 0 % (0-3) Neutrophils # (Auto) 1.0 x10^3/uL (1.8-7.7) Lymphocytes # (Auto) 1.7 x10^3/uL (1.0-4.8) Monocytes # (Auto) 0.2 x10^3/uL (0.0-1.1) Eosinophils # (Auto) 0.1 x10^3/uL (0.0-0.7) Basophils # (Auto) 0.0 x10^3/uL (0.0-0.2) Sodium Level 143 mmol/L (136-145) Potassium Level 3.9 mmol/L (3.5-5.1) Chloride Level 111 mmol/L (98-107) Carbon Dioxide Level 25 mmol/L (21-32) Anion Gap 7 (6-14) Blood Urea Nitrogen 7 mg/dL (7-20) Creatinine 0.7 mg/dL (0.6-1.0) Estimated GFR (Cockcroft-Gault) 105.6 BUN/Creatinine Ratio 10 (6-20) Glucose Level 111 mg/dL (70-99) Calcium Level 7.1 mg/dL (8.5-10.1) Total Bilirubin 0.1 mg/dL (0.2-1.0) Aspartate Amino Transf (AST/SGOT) 19 U/L (15-37) Alanine Aminotransferase (ALT/SGPT) 15 U/L (14-59) Alkaline Phosphatase 109 U/L (46-116) Total Protein 4.2 g/dL (6.4-8.2) Albumin 1.7 g/dL (3.4-5.0) Albumin/Globulin Ratio 0.7 (1.0-1.7) Objective: Assessment: E. coli and Enterococcus pansensitive bacteremia 3/2 Blood culture positive line related. Line will need to be removed. Patient and father at bedside are absolutely refusing again Anemia status post blood transfusion Nausea vomiting and hematemesis Chronic abdominal pain Recurrent bleeding Multiple CLABSIs ,recently was at [facility] H/O Noncomplaince Plan: Plan of Care Continue cefepime and daptomycin Monitor CK Line should be removed ,but patient is refusing for line removal at this time as she has had multiple Port-A-Cath removal due to CLABSIs in the past, recently at [facility] during last hospitalization. They are also concerned about losing potential IV access Patient and father have requested to try to save it with the understanding that it may fail and she would have a recurrence of infection and sepsis. Pros and cons discussed at length They verbalized understanding. Continue supportive care D/W father at bedside D/W JILL MEDEIROS MD Jun 26, 2021 13:40
[2021-06-26] MEDS: CEFEPIME HCL IV Push 1 GM VIAL. IVP SCH ×2 (13:54→20:25)
--- NOTE | 2021-06-26 14:08 | NUR ---
Pt reports to this RN episode of vomiting blood, episode not witnessed. This RN visualized bright red blood in toilet with clots.
[2021-06-26] MEDS: DAPTOmycin (GENERIC) IVPB 330 MG in IV NORMAL SALINE 50ML 50 ML IV SCH (15:33)
--- NOTE | 2021-06-26 16:12 | PDOC ---
[employer]GRESS NOTE Date of Service DOS: DATE: 06/26/21 TIME: 16:09 Chief Complaint Chief Complaint Hematemesis - unclear source. GI following Blood culture positive - will check fungal culture off PICC as well. Consult ID. 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 She denies shortness of breath. She has had multiple hospitalizations for the same symptoms. She has seen GI multiple times. She has seen specialists at [facility] as well as [facility]. No specific underlying etiology is found. She was admitted within the last week here for the same symptoms. She has a history of a vascular bleeding disorder, chronic abdominal pain, chronic nausea and vomiting and recurrent hematemesis. She was supposed to undergo bleeding scan if first hematemesis symptoms returned. She has been in contact with her GI physician. On her last endoscopy, a small ulcer was found, but no specific other source of bleeding has been specifically pinpointed. She is not taking any anticoagulant medications. She takes scheduled Dilaudid and Benadryl and Zofran at home. She has not had a dose of any of these medications since this morning. She has home health services. On her last hospitalization, her anemia was severe enough that she required blood transfusion. Still on TPN and eating very minimally. Patient states she had a reported fever 103.5 night prior to admit. She has been in contact with her GI physician. Previously with EGD 06/29/20 w/ Dr. Briones at [facility] for hematemesis and anemia showed normal esophagus, normal stomach (difficult to distend), duodenostomy - no blood or lesions. CT that day unrevealing for retroperitoneal bleed. Had admission and negative bleeding scan 06/13-06/15/202106/22: Blood cultures positive 2 out of 3 bottles gram-positive cocci. She and her father note she has had at least 17 line exchanges previously and had fungemia and bacteremia treated at [facility]. Notes her nausea is severe asking for Benadryl 50 mg every 6 hours and Zofran 8 mg every 4 hours. 06/26 Patient evaluated examined at bedside. Resting in bed very distanced in terms of not wanting to talk about her condition and given the history I cannot blame her. Discussed with GI here hoping for transfer to the [facility]; I discussed with their nurse practitioner on the phone 2 times and they eventually denied her due to bed capacity. Needs facility with capabilities of small bowel endoscopy. Discussed with bedside RN Vitals/I&O Vitals/I&O: Vital Signs Date Time Temp Pulse Resp B/P (MAP) Pulse Ox O2 Delivery O2 Flow Rate FiO2 06/26/21 14:00 97.7 117 20 125/58 (80) 97 Room Air 97.7 06/25/21 22:34 1.0 I & O 06/25/21 06/25/21 06/26/21 15:00 23:00 07:00 Intake Total 450 ml 172.5 ml 1000 ml Output Total 350 ml 1000 ml 300 ml Balance 100 ml -827.5 ml 700 ml Physical Exam Physical Exam: GENERAL: Alert, oriented female, not in distress. Listening to music. Appears nontoxic HEENT: NAD. Both pupils are round and reacting. No conjunctival lesion, no lesion in the mouth. NECK: Supple, no JVP, no lymphadenopathy. LUNGS: Clear. HEART: S1, S2, regular. ABDOMEN: Soft, nontender, no organomegaly. EXTREMITIES: Trace edema, no cyanosis SKIN: Chronic skin irritation present mainly over both upper extremities from un derlying chronic autoimmune disease, open wounds NEUROLOGIC: The patient is alert, awake, and appropriate. No focal neurologic deficit. Port-A-Cath right chest (placed at [facility] April 2021) without complications Lungs: Clear, Crackles Labs Labs: Laboratory Tests Test 06/25/21 16:21 06/26/21 06:00 Hemoglobin 8.7 g/dL (12.0-15.5) 5.5 g/dL (12.0-15.5) White Blood Count 3.0 x10^3/uL (4.0-11.0) Red Blood Count 2.06 x10^6/uL (3.50-5.40) Hematocrit 17.1 % (36.0-47.0) Mean Corpuscular Volume 83 fL (79-100) Mean Corpuscular Hemoglobin 27 pg (25-35) Mean Corpuscular Hemoglobin Concent 32 g/dL (31-37) Red Cell Distribution Width 16.4 % (11.5-14.5) Platelet Count 255 x10^3/uL (140-400) Neutrophils (%) (Auto) 34 % (31-73) Lymphocytes (%) (Auto) 55 % (24-48) Monocytes (%) (Auto) 8 % (0-9) Eosinophils (%) (Auto) 2 % (0-3) Basophils (%) (Auto) 0 % (0-3) Neutrophils # (Auto) 1.0 x10^3/uL (1.8-7.7) Lymphocytes # (Auto) 1.7 x10^3/uL (1.0-4.8) Monocytes # (Auto) 0.2 x10^3/uL (0.0-1.1) Eosinophils # (Auto) 0.1 x10^3/uL (0.0-0.7) Basophils # (Auto) 0.0 x10^3/uL (0.0-0.2) Sodium Level 143 mmol/L (136-145) Potassium Level 3.9 mmol/L (3.5-5.1) Chloride Level 111 mmol/L (98-107) Carbon Dioxide Level 25 mmol/L (21-32) Anion Gap 7 (6-14) Blood Urea Nitrogen 7 mg/dL (7-20) Creatinine 0.7 mg/dL (0.6-1.0) Estimated GFR (Cockcroft-Gault) 105.6 BUN/Creatinine Ratio 10 (6-20) Glucose Level 111 mg/dL (70-99) Calcium Level 7.1 mg/dL (8.5-10.1) Total Bilirubin 0.1 mg/dL (0.2-1.0) Aspartate Amino Transf (AST/SGOT) 19 U/L (15-37) Alanine Aminotransferase (ALT/SGPT) 15 U/L (14-59) Alkaline Phosphatase 109 U/L (46-116) Total Protein 4.2 g/dL (6.4-8.2) Albumin 1.7 g/dL (3.4-5.0) Albumin/Globulin Ratio 0.7 (1.0-1.7) Assessment and Plan Assessmemt and Plan Problems Medical Problems: (1) Chronic abdominal pain Status: Acute (2) Chronic anemia Status: Acute (3) Gastrointestinal bleeding Status: Acute (4) Hematemesis Status: Acute Comment Review of Relevant I have reviewed the following items shellie (where applicable) has been applied. Medications: Current Medications Medications (Trade) Dose Ordered Sig/Aleida Route PRN Reason Start Time Stop Time Status Last Admin Dose Admin Iohexol (Omnipaque 300 Mg/ml) 90 ml 1X ONCE IV 06/25/21 23:30 06/25/21 23:31 DC 06/25/21 23:30 Info (Tpn Per Pharmacy) 1 each PRN DAILY PRN MC SEE COMMENTS 06/26/21 05:45 06/26/21 11:02 Diphenhydramine HCl (Benadryl) 50 mg 1X PRN IVP COMMENT 06/26/21 06:45 06/26/21 09:47 Justifications for Admission Other Justification GI bleed TAJ SMITH MD Jun 26, 2021 16:12
[2021-06-26] MEDS: SENNOSIDES/DOCUSATE 8.6/50MG TABLET. PO SCH (20:26)
[2021-06-26] MEDS: MIRTAZAPINE 15 MG TABLET PO SCH (20:26)
--- NOTE | 2021-06-26 21:23 | NUR ---
Patient refuses to wear telemonitor
[2021-06-26] MEDS ORDERED: HALOPERIDOL LACTATE 5 MG/ML VIAL. IVP PRN (23:00)
[2021-06-27] MEDS: diphenhydrAMINE 50 MG/ML VIAL IV PRN ×2 (00:20→13:18)
[2021-06-27] MEDS: PANTOPRAZOLE IV PUSH 40 MG VIAL. IVP SCH (04:38)
[2021-06-27] MEDS: IV NORMAL SALINE 1000ML BAG 1,000 ML IV SCH ×2 (04:38→17:57)
[2021-06-27 06:55] LABS: HEMATOCRIT 22.8 % (36.0-47.0); HEMOGLOBIN 7.7 g/dL (12.0-15.5)
[2021-06-27 07:16] LABS: CALCIUM 7.7 mg/dL (8.5-10.1); CREATININE 0.6 mg/dL (0.6-1.0); GFR 126.2; MAGNESIUM 2.2 mg/dL (1.8-2.4); PHOSPHORUS 4.7 mg/dL (2.6-4.7); POTASSIUM 3.9 mmol/L (3.5-5.1)
[2021-06-27] MEDS: DULoxetine HCL 30 MG CAPSULE.DR PO SCH (09:00)
[2021-06-27] MEDS: SENNOSIDES/DOCUSATE 8.6/50MG TABLET. PO SCH ×2 (09:00→21:00)
--- NOTE | 2021-06-27 09:49 | PDOC ---
Date of Service: DATE: 06/27/21 TIME: 09:42 Objective: Objective: D/w nurse who received in report from warehouse shift supervisor that pt was found in restroom "messing with" blood transfusion bag, blood noted in toilet. Reviewed meds - ?received Haldol Vital Signs: Vital Signs Date Time Temp Pulse Resp B/P (MAP) Pulse Ox O2 Delivery O2 Flow Rate FiO2 06/26/21 23:32 98.5 74 18 120/72 98.5 06/26/21 23:16 99 Room Air Labs: Laboratory Tests Test 06/27/21 06:00 Hemoglobin 7.7 g/dL Hematocrit 22.8 % Mean Corpuscular Hemoglobin Concent 34 g/dL Sodium Level 143 mmol/L Potassium Level 3.9 mmol/L Chloride Level 109 mmol/L Carbon Dioxide Level 28 mmol/L Anion Gap 6 Blood Urea Nitrogen 9 mg/dL Creatinine 0.6 mg/dL Estimated GFR (Cockcroft-Gault) 126.2 Glucose Level 71 mg/dL Calcium Level 7.7 mg/dL Phosphorus Level 4.7 mg/dL Magnesium Level 2.2 mg/dL PE: GEN: NAD, alone in room NEURO/PSYCH: sleeping - did not awaken A/P: Recurrent hematemesis, chronic anemia requiring transfusions E coli bacteremia w/ port-a-cath - ID recommends line removal, pt declines Chronic pain, narcotic dependent and on TPN -- Time spent yesterday - trying for transfer to for [facility] endoscopy - no beds yesterday - have discussed with Dr. Briggs, social work, hospitalist, nursing, pt, and her father - pt somewhat reluctant (but did not decline) due to extensive workup in past w/ ongoing/chronic issues, father more hopeful. Will return later w/ Dr. Briones. Update from - denied [facility] transfer x 2 - no available beds. Transfer center says they d/w GI there who recommended outpt SB endoscopy regardless of transfer or not. Justicifation of Admission Dx: Justifications for Admission: Justification of Admission Dx: No BECK-LIZETH DUTTA Jun 27, 2021 09:49
[2021-06-27] MEDS: CEFEPIME HCL IV Push 1 GM VIAL. IVP SCH ×2 (09:56→21:13)
--- NOTE | 2021-06-27 09:56 | NUR ---
[facility] following. Discussed with Dr. Galicia, initiated inpatient transfer to again this morning. Awaiting acceptance decision. [facility] will continue to follow. Addendum: 06/27/21 at 1133 by JAS NAVARRETE is at capacity. Transfer team did speak with GI department - they advised they would not do the small bowel endoscopy as an inpatient, instead the patient needs to schedule with the GI physician she follows with to do this as an outpatient. Charlene (GI MANAGER POST) and Dr. Galicia notified.
[2021-06-27] MEDS: VALPROIC ACID (AS SODIUM SALT) 250 MG in IV DEXTROSE 5% 50 ML IV SCH ×2 (09:57→21:13)
[2021-06-27 11:00] VITALS: BP 118/68
[2021-06-27] MEDS: TPN PER PHARMACY MC PRN ×2 (11:58→12:04)
--- NOTE | 2021-06-27 12:02 | NUR ---
Pharmacy TPN Dosing Note S: JIN ABBOTT is a 21 year old F Currently receiving Central Cyclic TPN started 06/22/21 B:Pertinent PMH: chronic TPN Height: 5 feet, 5 inches Weight: 55.5 kg Current diet: CLD LABS: Sodium: 143 Potassium: 3.9 Chloride: 109 Calcium: 7.7 Corrected Calcium: 9.54 Magnesium: 2.2 CO2: 28 SCr: 0.6 Glucose: 71 Albumin: 1.7 AST: 19 ALT: 15 TPN FORMULA: TPN TYPE: Central Cyclic AMINO ACIDS: 76 gm DEXTROSE: 320 gm SODIUM CHLORIDE: 120 mEq SODIUM ACETATE: 50 mEq POTASSIUM ACETATE: 29 mEq POTASSIUM PHOSPHATE: 10 mmol MAGNESIUM: 16 mEq MULTIPLE VITAMIN: 10 ml TRACE ELEMENTS: 1ml ml(s) TPN PLAN: Kphos reduced to 10 mmol d/t lab at upper limit of normal K acetate increased to 50 to account for loss of K+ from Kphos. R: Change TPN per plan and ordered formula Will monitor electrolytes, glucose, and tolerance to TPN. Janessa Rudd RPH, 06/27/21 1203 Addendum: 06/27/21 at 1205 by Janessa Rudd RPH PHA Error made in note sodium acetate should say 40mEq and potassium acetate should also say 40 mEq
--- NOTE | 2021-06-27 12:26 | PDOC ---
Infectious Disease Note Subjective: Subjective Patient c/o nausea and vomiting, hematemesis , D/W RN who received in report from hourly shift manager that pt was found in restroom "messing with" blood transfusion bag, blood noted in toilet. received Haldol Afebrile Vital Signs: Vital Signs Vital Signs Date Time Temp Pulse Resp B/P (MAP) Pulse Ox O2 Delivery O2 Flow Rate FiO2 06/27/21 11:00 98.3 114 18 118/68 (85) 98 Room Air 98.3 Physical Exam: PHYSICAL EXAM GENERAL: Alert, oriented female, not in distress. Appears nontoxic, comfortable in no acute distress HEENT: NAD. Both pupils are round and reacting. No conjunctival lesion, no lesion in the mouth. NECK: Supple, no JVP, no lymphadenopathy. LUNGS: Clear. HEART: S1, S2, regular. ABDOMEN: Soft, nontender, no organomegaly. EXTREMITIES: Trace edema, no cyanosis SKIN: Chronic skin irritation present mainly over both upper extremities from underlying chronic autoimmune disease, open wounds NEUROLOGIC: The patient is alert, awake, and appropriate. No focal neurologic deficit. Port-A-Cath right chest (placed at [facility] April 2021) without complications Medications: Inpatient Meds: Medications reviewed. Labs: Lab Laboratory Tests Test 06/27/21 06:00 Hemoglobin 7.7 g/dL (12.0-15.5) Hematocrit 22.8 % (36.0-47.0) Mean Corpuscular Hemoglobin Concent 34 g/dL (31-37) Sodium Level 143 mmol/L (136-145) Potassium Level 3.9 mmol/L (3.5-5.1) Chloride Level 109 mmol/L (98-107) Carbon Dioxide Level 28 mmol/L (21-32) Anion Gap 6 (6-14) Blood Urea Nitrogen 9 mg/dL (7-20) Creatinine 0.6 mg/dL (0.6-1.0) Estimated GFR (Cockcroft-Gault) 126.2 Glucose Level 71 mg/dL (70-99) Calcium Level 7.7 mg/dL (8.5-10.1) Phosphorus Level 4.7 mg/dL (2.6-4.7) Magnesium Level 2.2 mg/dL (1.8-2.4) Objective: Assessment: E. coli and Enterococcus pansensitive bacteremia 3/2 Blood culture positive line related. Line will need to be removed. Patient and father at bedside are absolutely refusing again Anemia status post blood transfusions Leucopenia has had it before in the past at [facility] Nausea vomiting and hematemesis Chronic abdominal pain Recurrent bleeding Multiple CLABSIs ,recently was at [facility] H/O Noncomplaince Plan: Plan of Care Continue cefepime and daptomycin Repeat BC neg from 06/26 Monitor CK Line should be removed ,but patient is refusing for line removal at this time as she has had multiple Port-A-Cath removal due to CLABSIs in the past, recently last one was at [facility] during her recent hospitalization. They are also concerned about losing potential IV access Patient and father have requested to try to save it with the understanding that it may fail and she could have a recurrence of infection ,sepsis and other infection related complications Port-A-Cath maintenance, Continue supportive care D/W father at bedside D/W JILL MEDEIROS MD Jun 27, 2021 12:26
--- NOTE | 2021-06-27 13:42 | PDOC ---
[employer] PROGRESS NOTE Date of Service DOS: DATE: 06/27/21 TIME: 13:39 Chief Complaint Chief Complaint Hematemesis . GI following Blood culture positive - will check fungal culture off PICC as well. Consult ID. 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 She denies shortness of breath. She has had multiple hospitalizations for the same symptoms. She has seen GI multiple times. She has seen specialists at [facility] as well as [facility]. No specific underlying etiology is found. She was admitted within the last week here for the same symptoms. She has a history of a vascular bleeding disorder, chronic abdominal pain, chronic nausea and vomiting and recurrent hematemesis. She was supposed to undergo bleeding scan if first hematemesis symptoms returned. She has been in contact with her GI physician. On her last endoscopy, a small ulcer was found, but no specific other source of bleeding has been specifically pinpointed. She is not taking any anticoagulant medications. She takes scheduled Dilaudid and Benadryl and Zofran at home. She has not had a dose of any of these medications since this morning. She has home health services. On her last hospitalization, her anemia was severe enough that she required blood transfusion. Still on TPN and eating very minimally. Patient states she had a reported fever 103.5 night prior to admit. She has been in contact with her GI physician. Previously with EGD 06/29/20 w/ Dr. Briones at [facility] for hematemesis and anemia showed normal esophagus, normal stomach (difficult to distend), duodenostomy - no blood or lesions. CT that day unrevealing for retroperitoneal bleed. Had admission and negative bleeding scan 06/13-06/15/202106/22: Blood cultures positive 2 out of 3 bottles gram-positive cocci. She and her father note she has had at least 17 line exchanges previously and had fungemia and bacteremia treated at [facility]. Notes her nausea is severe asking for Benadryl 50 mg every 6 hours and Zofran 8 mg every 4 hours. 06/26 Patient evaluated examined at bedside. Resting in bed very distanced in terms of not wanting to talk about her condition and given the history I cannot blame her. Discussed with GI here hoping for transfer to the [facility]; I discussed with their nurse practitioner on the phone 2 times and they eventually denied her due to bed capacity. Needs facility with capabilities of small bowel endoscopy. Discussed with bedside RN Vitals/I&O Vitals/I&O: Vital Signs Date Time Temp Pulse Resp B/P (MAP) Pulse Ox O2 Delivery O2 Flow Rate FiO2 06/27/21 11:00 98.3 114 18 118/68 (85) 98 Room Air 98.3 I & O 06/26/21 06/26/21 06/27/21 15:00 23:00 07:00 Intake Total 300 ml 785 ml 240 ml Balance 300 ml 785 ml 240 ml Physical Exam Physical Exam: GENERAL: Alert, oriented female, not in distress. Listening to music. Appears nontoxic HEENT: NAD. Both pupils are round and reacting. No conjunctival lesion, no lesion in the mouth. NECK: Supple, no JVP, no lymphadenopathy. LUNGS: Clear. HEART: S1, S2, regular. ABDOMEN: Soft, nontender, no organomegaly. EXTREMITIES: Trace edema, no cyanosis SKIN: Chronic skin irritation present mainly over both upper extremities from underlying chronic autoimmune disease, open wounds NEUROLOGIC: The patient is alert, awake, and appropriate. No focal neurologic deficit. Port-A-Cath right chest (placed at [facility] April 2021) without complications Lungs: Clear, Crackles Labs Labs: Laboratory Tests Test 06/27/21 06:00 Hemoglobin 7.7 g/dL (12.0-15.5) Hematocrit 22.8 % (36.0-47.0) Mean Corpuscular Hemoglobin Concent 34 g/dL (31-37) Sodium Level 143 mmol/L (136-145) Potassium Level 3.9 mmol/L (3.5-5.1) Chloride Level 109 mmol/L (98-107) Carbon Dioxide Level 28 mmol/L (21-32) Anion Gap 6 (6-14) Blood Urea Nitrogen 9 mg/dL (7-20) Creatinine 0.6 mg/dL (0.6-1.0) Estimated GFR (Cockcroft-Gault) 126.2 Glucose Level 71 mg/dL (70-99) Calcium Level 7.7 mg/dL (8.5-10.1) Phosphorus Level 4.7 mg/dL (2.6-4.7) Magnesium Level 2.2 mg/dL (1.8-2.4) Assessment and Plan Assessmemt and Plan Problems Medical Problems: (1) Chronic abdominal pain Status: Acute (2) Chronic anemia Status: Acute (3) Gastrointestinal bleeding Status: Acute (4) Hematemesis Status: Acute Comment Review of Relevant I have reviewed the following items shellie (where applicable) has been applied. Medications: Current Medications Medications (Trade) Dose Ordered Sig/Aleida Route PRN Reason Start Time Stop Time Status Last Admin Dose Admin Sodium Chloride 120 meq/Sodium Acetate 40 meq/ Potassium Acetate 29 meq/Potassium Phosphate 18 mmol/ Magnesium Sulfate 16 meq/ Multivitamins 10 ml/Zinc/Copper/ Manganese/ Selenium 1 ml/ Total Parenteral Nutrition/Amino Acids/Dextrose 1,800 ml @ 150 mls/hr Q24H ONCE IV 06/26/21 22:00 06/27/21 09:59 DC 06/26/21 21:29 Haloperidol Lactate (Haldol Inj) 5 mg PRN Q4HRS PRN IVP AGITATION 06/26/21 23:00 06/27/21 00:20 Justifications for Admission Other Justification GI bleed ANDRES HI MD Jun 27, 2021 13:42
[2021-06-27] MEDS: HYDROmorphone 2 MG/ML INJ. IVP PRN ×3 (14:00→22:04)
[2021-06-27] MEDS ORDERED: HYDROmorphone 2 MG/ML INJ. IVP ONE (14:30)
[2021-06-27 15:00] VITALS: BP 107/60
[2021-06-27] MEDS: DAPTOmycin (GENERIC) IVPB 330 MG in IV NORMAL SALINE 50ML 50 ML IV SCH (15:38)
--- NOTE | 2021-06-27 16:35 | PDOC2 ---
CONSULT Date of Consult Date of Consult DATE: 06/27/21 TIME: 16:32 Reason for Consult Reason for Consult: hemetemesis Referring Physician Referring Physician: Dr. Galicia Identification/Chief Complaint Chief Complaint hemetemesis Source Source: Chart review, Patient History of Present Illness Reason for Visit: 21 yo F with long standing issues with GI dysmotility and remains on TPN. Pt with multiple previous episodes of hemetemesis, but without obvious etiology, despite multiple previous evaluations. Currently pt is comfortable. Past Medical History Cardiovascular: Other GI: Other Infectious disease: Other Past Surgical History Past Surgical History: Cholecystectomy, Other Family History Family History: No Significant, Hypertension Social History ALCOHOL: none Drugs: None Current Problem List Problem List Problems Medical Problems: (1) Chronic abdominal pain Status: Acute (2) Chronic anemia Status: Acute (3) Gastrointestinal bleeding Status: Acute (4) Hematemesis Status: Acute Current Medications Current Medications Current Medications Sodium Chloride 1,000 ml @ 1,000 mls/hr 1X ONCE IV Last administered on 06/21/21 17:12; Start 06/21/21 at 16:15; Stop 06/21/21 at 17:14; Status DC Ondansetron HCl (Zofran) 4 mg 1X ONCE IVP Last administered on 06/21/21at 17:10; Start 06/21/21 at 16:30; Stop 06/21/21 at 16:31; Status DC Diphenhydramine HCl (Benadryl) 25 mg 1X ONCE IVP Last administered on 06/21/21at 17:12; Start 06/21/21 at 16:30; Stop 06/21/21 at 16:31; Status DC Hydromorphone HCl (Dilaudid) 2 mg 1X ONCE IVP Last administered on 06/21/21at 17:14; Start 06/21/21 at 16:30; Stop 06/21/21 at 16:31; Status DC Hydromorphone HCl (Dilaudid) 2 mg 1X ONCE IVP Last administered on 06/21/21at 19:14; Start 06/21/21 at 19:00; Stop 06/21/21 at 19:02; Status DC Diphenhydramine HCl (Benadryl) 25 mg 1X ONCE IVP Last administered on 06/21/21at 19:13; Start 06/21/21 at 19:00; Stop 06/21/21 at 19:02; Status DC Ondansetron HCl (Zofran) 4 mg 1X ONCE IVP Last administered on 06/21/21at 19:13; Start 06/21/21 at 19:00; Stop 06/21/21 at 19:02; Status DC Sodium Chloride 1,000 ml @ 1,000 mls/hr 1X ONCE IV Last administered on 06/21/21at 19:14; Start 06/21/21 at 19:15; Stop 06/21/21 at 20:14; Status DC Dicyclomine HCl (Bentyl) 10 mg Q6HRS PRN IM NAUSEA/VOMITING Last administered on 06/27/21at 13:22; Start 06/21/21 at 19:45 Sennosides (Senna) 17.2 mg PRN BID PRN PO CONSTIPATION; Start 06/21/21 at 19:45 Docusate Sodium (Colace) 100 mg PRN DAILY PRN PO HARD STOOLS; Start 06/21/21 at 19:45 Ondansetron HCl (Zofran) 4 mg PRN Q6HRS PRN IVP NAUSEA/VOMITING, 1st CHOICE Last administered on 06/22/21at 11:08; Start 06/21/21 at 19:45; Stop 06/22/21 at 14:02; Status DC Dextrose (Dextrose 50%-Water Syringe) 12.5 gm PRN Q15MIN PRN IV SEE COMMENTS; Start 06/21/21 at 19:45 Sodium Chloride 1,000 ml @ 100 mls/hr Q10H IV Last administered on 06/27/21at 04:38; Start 06/21/21 at 21:00 Acetaminophen (Tylenol) 650 mg PRN Q4HRS PRN PO TEMP OVER 100.4F OR MILD PAIN; Start 06/21/21 at 19:45 Lorazepam (Ativan) 0.5 mg PRN Q6HRS PRN PO ANXIETY / AGITATION; Start 06/21/21 at 19:45 Lorazepam (Ativan Inj) 0.25 mg PRN Q4HRS PRN IV ANXIETY / AGITATION Last administered on 06/27/21at 03:11; Start 06/21/21 at 19:45 Pantoprazole Sodium (PROTONIX VIAL for IV PUSH) 40 mg DAILYAC IVP Last administered on 06/27/21at 04:38; Start 06/21/21 at 20:00 Prochlorperazine Edisylate (Compazine) 10 mg PRN Q6HRS PRN IV NAUSEA/VOMITING, 2nd CHOICE; Start 06/21/21 at 19:45; Stop 06/21/21 at 23:02; Status DC Diphenhydramine HCl (Benadryl) 25 mg PRN Q6HRS PRN IVP ITCHING; Start 06/21/21 at 19:45; Status Cancel Diphenhydramine HCl (Benadryl) 25 mg PRN Q6HRS PRN PO ITCHING; Start 06/21/21 at 19:45; Stop 06/22/21 at 17:03; Status DC Diphenhydramine HCl (Benadryl) 25 mg PRN QHS PRN PO INSOMNIA, 1st CHOICE; Start 06/21/21 at 19:45; Stop 06/22/21 at 17:03; Status DC Zolpidem Tartrate (Ambien) 2.5 mg PRN QHS PRN PO INSOMNIA, 2nd CHOICE; Start 06/21/21 at 19:45 Ondansetron HCl (Zofran) 4 mg PRN Q8HRS PRN IVP NAUSEA/VOMITING; Start 06/21/21 at 20:15; Stop 06/21/21 at 21:46; Status DC Hydromorphone HCl (Dilaudid) 2 mg PRN Q2HRS PRN IVP PAIN; Start 06/21/21 at 20:15; Stop 06/21/21 at 21:41; Status DC Diphenhydramine HCl (Benadryl) 25 mg Q6HRS IVP ; Start 06/22/21 at 00:00; Status Cancel Dextrose/Sodium Chloride 1,000 ml @ 100 mls/hr 1X ONCE IV Last administered on 06/21/21at 22:37; Start 06/21/21 at 20:30; Stop 06/22/21 at 06:29; Status DC Divalproex Sodium (Depakote) 250 mg BID PO ; Start 06/21/21 at 21:00; Stop 06/25/21 at 21:29; Status DC Duloxetine HCl (Cymbalta) 90 mg DAILY PO ; Start 06/22/21 at 09:00 Fentanyl (Duragesic 100mcg/Hr Patch) 1 patch Q3DAYS TD Last administered on 06/24/21at 08:41; Start 06/24/21 at 09:00 Hydromorphone HCl (Dilaudid) 4 mg PRN Q4HRS PRN PO PAIN; Start 06/21/21 at 21:30 Levothyroxine Sodium (Synthroid) 25 mcg DAILY06 PO ; Start 06/22/21 at 06:00; Stop 06/23/21 at 12:06; Status DC Lorazepam (Ativan) 0.5 mg QIDPRN PRN PO ANXIETY / AGITATION; Start 06/21/21 at 21:30; Status Cancel Mirtazapine (Remeron) 30 mg QHS PO ; Start 06/21/21 at 21:00 Diphenhydramine HCl (Benadryl) 50 mg PRN Q4HRS PRN IV ITCHING Last administered on 06/22/21at 14:07; Start 06/21/21 at 21:45; Stop 06/22/21 at 17:03; Status DC Naloxone HCl (Narcan) 0.4 mg PRN Q2MIN PRN IV SEE INSTRUCTIONS; Start 06/21/21 at 21:30 Sodium Chloride 1,000 ml @ 25 mls/hr Q24H IV Last administered on 06/26/21at 21:29; Start 06/21/21 at 22:00 Hydromorphone HCl 30 ml @ 0 mls/hr CONT PRN PRN IV PER PROTOCOL Last administered on 06/26/21 18:22; Start 06/21/21 at 22:00; Stop 06/27/21 at 13:38; Status DC Ondansetron HCl (Zofran) 4 mg 1X ONCE IVP Last administered on 06/21/21at 23:06; Start 06/21/21 at 23:00; Stop 06/21/21 at 23:09; Status DC Acetaminophen (Tylenol Supp) 650 mg PRN Q6HRS PRN [place] MILD PAIN / TEMP > 100.3'F Last administered on 06/21/21at 23:20; Start 06/21/21 at 23:00 Hydromorphone HCl (Dilaudid) 2 mg PRN Q1HR PRN IVP PAIN Last administered on 3/6/22at 16:32; Start 06/21/21 at 23:00; Stop 06/26/21 at 06:42; Status DC Methylprednisolone Sodium Succinate (SOLU-Medrol 40MG VIAL) 40 mg 1X PRN IV SEE COMMENTS Last administered on 06/26/21at 09:46; Start 06/21/21 at 23:45 Diphenhydramine HCl (Benadryl) 50 mg 1X ONCE IVP Last administered on 06/22/21at 00:01; Start 06/21/21 at 23:45; Stop 06/21/21 at 23:46; Status DC Valproic Acid 250 mg/Dextrose 52.5 ml @ 55 mls/hr Q12HR IV Last administered on 06/27/21 09:57; Start 06/22/21 at 09:00 Levothyroxine Sodium 12.5 mcg/ Sodium Chloride 5 ml @ 100 mls/hr Q3D IVP Last administered on 06/25/21at 09:17; Start 06/25/21 at 09:00 Alteplase, Recombinant (Cathflo For Central Catheter Clearance) 1 mg 1X ONCE INT CAT Last administered on 06/22/21at 09:10; Start 06/22/21 at 09:00; Stop 06/22/21 at 09:01; Status DC Doxycycline Hyclate 100 mg/ Dextrose 100 ml @ 50 mls/hr Q12HR IV Last administered on 06/23/21at 10:41; Start 06/22/21 at 10:00; Stop 06/23/21 at 12:46; Status DC Info (Tpn Per Pharmacy) 1 each PRN DAILY PRN MC SEE COMMENTS Last administered on 06/24/21at 09:15; Start 06/22/21 at 10:45; Stop 06/25/21 at 11:54; Status DC Sodium Chloride 148 meq/Sodium Acetate 20 meq/ Potassium Chloride 29 meq/ Potassium Phosphate 21 mmol/ Magnesium Sulfate 16 meq/Calcium Gluconate 10 meq/ Multivitamins 10 ml/Zinc/Copper/ Manganese/ Selenium 1 ml/ Total Parenteral Nutrition/Amino Acids/Dextrose 1,800 ml @ 150 mls/hr Q24H IV Last administered on 06/22/21at 22:03; Start 06/22/21 at 22:00; Stop 06/23/21 at 09:59; Status DC Ondansetron HCl (Zofran) 4 mg PRN Q4HRS PRN IVP NAUSEA/VOMITING, 1st CHOICE Last administered on 06/22/21at 15:07; Start 06/22/21 at 14:00; Stop 06/22/21 at 17:03; Status DC Diphenhydramine HCl (Benadryl) 50 mg PRN Q6HRS PRN IV ITCHING Last administered on 06/27/21at 13:18; Start 06/22/21 at 17:00 Ondansetron HCl (Zofran) 8 mg PRN Q4HRS PRN IVP NAUSEA/VOMITING, 1st CHOICE Last administered on 06/26/21at 21:49; Start 06/22/21 at 17:00 Ondansetron HCl (Zofran Odt) 4 mg PRN Q4HRS PRN PO NAUSEA; Start 06/22/21 at 17:00 Sodium Chloride 148 meq/Sodium Acetate 20 meq/ Potassium Chloride 29 meq/ Potassium Phosphate 21 mmol/ Magnesium Sulfate 16 meq/ Multivitamins 10 ml/Zinc/Copper/ Manganese/ Selenium 1 ml/ Total Parenteral Nutrition/Amino Acids/Dextrose 1,800 ml @ 150 mls/hr Q24H IV ; Start 06/23/21 at 12:45; Stop 06/23/21 at 14:28; Status DC Daptomycin 330 mg/ Sodium Chloride 50 ml @ 100 mls/hr Q24H IV Last administered on 06/27/21at 15:38; Start 06/23/21 at 15:00 Cefepime HCl (Maxipime) 1 gm Q12HR IVP Last administered on 06/27/21at 09:56; Start 06/23/21 at 13:30 Sodium Chloride 148 meq/Sodium Acetate 20 meq/ Potassium Chloride 29 meq/ Potassium Phosphate 21 mmol/ Magnesium Sulfate 16 meq/ Multivitamins 10 ml/Zinc/Copper/ Manganese/ Selenium 1 ml/ Total Parenteral Nutrition/Amino Acids/Dextrose 1,800 ml @ 150 mls/hr Q24H IV Last administered on 06/23/21at 21:04; Start 06/23/21 at 22:00; Stop 06/24/21 at 09:59; Status DC Sodium Chloride 120 meq/Sodium Acetate 40 meq/ Potassium Chloride 29 meq/ Potassium Phosphate 18 mmol/ Magnesium Sulfate 16 meq/ Multivitamins 10 ml/Zin c/Copper/ Manganese/ Selenium 1 ml/ Total Parenteral Nutrition/Amino Acids/Dextrose 1,800 ml @ 150 mls/hr Q24H IV ; Start 06/24/21 at 09:30; Stop 06/24/21 at 21:29; Status DC Sodium Chloride 120 meq/Sodium Acetate 40 meq/ Potassium Chloride 29 meq/ Potassium Phosphate 18 mmol/ Magnesium Sulfate 16 meq/ Multivitamins 10 ml/Zinc/Copper/ Manganese/ Selenium 1 ml/ Total Parenteral Nutrition/Amino Acids/Dextrose 1,800 ml @ 150 mls/hr Q24H IV ; Start 06/24/21 at 15:45; Stop 06/24/21 at 21:38; Status DC Sodium Chloride 120 meq/Sodium Acetate 40 meq/ Potassium Chloride 29 meq/ Potassium Phosphate 18 mmol/ Magnesium Sulfate 16 meq/ Multivitamins 10 ml/Zinc/Copper/ Manganese/ Selenium 1 ml/ Total Parenteral Nutrition/Amino Acids/Dextrose 1,800 ml @ 150 mls/hr Q24H ONCE IV Last administered on 06/24/21at 21:46; Start 06/24/21 at 22:00; Stop 06/25/21 at 09:59; Status DC Diphenhydramine HCl (Benadryl) 50 mg 1X ONCE IVP Last administered on 06/25/21at 10:40; Start 06/25/21 at 06:30; Stop 06/25/21 at 06:31; Status DC Iohexol (Omnipaque 300 Mg/ml) 90 ml 1X ONCE IV Last administered on 06/25/21at 23:30; Start 06/25/21 at 23:30; Stop 06/25/21 at 23:31; Status DC Info (CONTRAST GIVEN -- Rx MONITORING) 1 each PRN DAILY PRN MC SEE COMMENTS; Start 06/25/21 at 23:30; Stop 06/27/21 at 23:29 Info (Tpn Per Pharmacy) 1 each PRN DAILY PRN MC SEE COMMENTS Last administered on 06/27/21at 12:04; Start 06/26/21 at 05:45 Diphenhydramine HCl (Benadryl) 50 mg 1X PRN IVP COMMENT Last administered on 06/26/21at 09:47; Start 06/26/21 at 06:45 Sodium Chloride 120 meq/Sodium Acetate 40 meq/ Potassium Acetate 29 meq/Potassium Phosphate 18 mmol/ Magnesium Sulfate 16 meq/ Multivitamins 10 ml/Zinc/Copper/ Manganese/ Selenium 1 ml/ Total Parenteral Nutrition/Amino Acids/Dextrose 1,800 ml @ 150 mls/hr Q24H ONCE IV ; Start 06/26/21 at 11:00; Stop 06/26/21 at 11:46; Status DC Sodium Chloride 120 meq/Sodium Acetate 40 meq/ Potassium Acetate 29 meq/Potassium Phosphate 18 mmol/ Magnesium Sulfate 16 meq/ Multivitamins 10 ml/Zinc/Copper/ Manganese/ Selenium 1 ml/ Total Parenteral Nutrition/Amino Acids/Dextrose 1,800 ml @ 150 mls/hr Q24H ONCE IV Last administered on 06/26/21at 21:29; Start 06/26/21 at 22:00; Stop 06/27/21 at 09:59; Status DC Senna/Docusate Sodium (Senna Plus) 1 tab BID PO ; Start 06/26/21 at 21:00 Haloperidol Lactate (Haldol Inj) 5 mg PRN Q4HRS PRN IVP AGITATION Last administered on 06/27/21at 00:20; Start 06/26/21 at 23:00 Sodium Chloride 120 meq/Sodium Acetate 40 meq/ Potassium Acetate 40 meq/Potassium Phosphate 10 mmol/ Magnesium Sulfate 16 meq/ Multivitamins 10 ml/Zinc/Copper/ Manganese/ Selenium 1 ml/ Total Parenteral Nutrition/Amino Acids/Dextrose 1,800 ml @ 150 mls/hr Q24H IV ; Start 06/27/21 at 22:00; Stop 06/28/21 at 09:59 Hydromorphone HCl (Dilaudid) 2 mg PRN Q2HR PRN IVP PAIN Last administered on 06/27/21at 14:00; Start 06/27/21 at 13:45 Hydromorphone HCl (Dilaudid) 2 mg 1X ONCE IVP Last administered on 06/27/21at 15:02; Start 06/27/21 at 14:30; Stop 06/27/21 at 14:34; Status DC Active Scripts Active Reported Proair Respiclick (Albuterol Sulfate) 90 Mcg Aer.pow.ba 2 Puff IH PRN Q6HRS PRN Acetaminophen 325 Mg Tablet 2 Tab PO PRN Q4HRS PRN 30 Days Senna Plus Tablet (Sennosides/Docusate Sodium) 1 Each Tablet 1 Tab PO PRN DAILY PRN 20 Days [botox] 200 Units SQ [id number] Mirtazapine 30 Mg Tablet 1 Tab PO QHS [diphenhydramine] 50 Mg IV Q4HRS Protonix Iv (Pantoprazole Sodium) 40 Mg Vial 40 Mg IV DAILY FENTANYL 100mcg/hr (Fentanyl) 1 Each Patch.td72 1 Patch TP Q3DAYS Cymbalta (Duloxetine Hcl) 30 Mg Capsule.dr 90 Mg PO DAILY Zofran (Ondansetron Hcl) 8 Mg Tablet 8 Mg SL PRN Q4HRS PRN Ativan (Lorazepam) 0.5 Mg Tablet 0.5 Mg PO QIDPRN PRN Synthroid (Levothyroxine Sodium) 25 Mcg Tablet 1 Tab PO DAILY08 Hydromorphone Hcl 4 Mg Tablet 4 Mg PO PRN Q4HRS PRN Depakote (Divalproex Sodium) 500 Mg Tablet.dr 250 Mg PO BID Zyrtec (Cetirizine Hcl) 10 Mg Tablet 10 Mg PO DAILY Allergies Allergies: Coded Allergies: Penicillins (Verified Allergy, Severe, rash, 06/12/21) amitriptyline (Verified Allergy, Severe, shock, 06/12/21) ceftriaxone (Verified Allergy, Severe, rash, 06/12/21) eletriptan (Verified Allergy, Severe, migraines, 06/12/21) fat emulsions (Verified Allergy, Severe, anaphylaxis, 06/12/21) fish oil (Verified Allergy, Severe, anaphylaxis, 06/12/21) medium chain triglycerides (Verified Allergy, Severe, anaphylaxis, 06/12/21) meropenem (Verified Allergy, Severe, face swelling, 06/12/21) morphine (Verified Allergy, Severe, unknown, 06/12/21) olive oil (Verified Allergy, Severe, anaphylaxis, 06/12/21) rizatriptan (Verified Allergy, Severe, migraines, 06/12/21) soybean oil (Verified Allergy, Severe, anaphylaxis, 06/12/21) sumatriptan (Verified Allergy, Severe, migraines, 06/12/21) topiramate (Verified Allergy, Severe, shock, 06/12/21) trimethobenzamide (Verified Allergy, Severe, face swelling, 06/12/21) Patient has tolerated diphenhydramine on previous admissions pineapple (Verified Allergy, Intermediate, 06/12/21) prochlorperazine (Verified Allergy, Intermediate, 06/12/21) sodium ferric gluconate complex (Verified Allergy, Intermediate, 06/12/21) sucrose (Verified Allergy, Intermediate, 06/12/21) cyproheptadine (Verified Adverse Reaction, Intermediate, n/v, 06/12/21) erythromycin base (Verified Adverse Reaction, Intermediate, n/v, 06/12/21) gabapentin (Verified Adverse Reaction, Intermediate, n/v, 06/12/21) metoclopramide (Verified Adverse Reaction, Intermediate, n/v, 06/12/21) promethazine (Verified Adverse Reaction, Intermediate, n/v, 06/12/21) ROS Gastrointestinal: Yes Nausea, Yes Vomiting, Yes Abdominal Pain, Yes Hematochezia Physical Exam General: Alert, Oriented X3, Cooperative, No acute distress HEENT: Atraumatic Lungs: Normal air movement Abdomen: Soft, No tenderness Extremities: No clubbing, No cyanosis Skin: No rashes, No breakdown Neuro: Normal speech, Sensation intact Psych/Mental Status: Mental status NL, Mood NL Vitals VITALS Vital Signs Date Time Temp Pulse Resp B/P (MAP) Pulse Ox O2 Delivery O2 Flow Rate FiO2 06/27/21 15:02 Room Air 06/27/21 15:02 98 06/27/21 15:00 98.5 118 18 107/60 (76) 98.5 Labs Labs Laboratory Tests Test 06/26/21 06:00 06/27/21 06:00 White Blood Count 3.0 x10^3/uL (4.0-11.0) Red Blood Count 2.06 x10^6/uL (3.50-5.40) Hemoglobin 5.5 g/dL (12.0-15.5) 7.7 g/dL (12.0-15.5) Hematocrit 17.1 % (36.0-47.0) 22.8 % (36.0-47.0) Mean Corpuscular Volume 83 fL (79-100) Mean Corpuscular Hemoglobin 27 pg (25-35) Mean Corpuscular Hemoglobin Concent 32 g/dL (31-37) 34 g/dL (31-37) Red Cell Distribution Width 16.4 % (11.5-14.5) Platelet Count 255 x10^3/uL (140-400) Neutrophils (%) (Auto) 34 % (31-73) Lymphocytes (%) (Auto) 55 % (24-48) Monocytes (%) (Auto) 8 % (0-9) Eosinophils (%) (Auto) 2 % (0-3) Basophils (%) (Auto) 0 % (0-3) Neutrophils # (Auto) 1.0 x10^3/uL (1.8-7.7) Lymphocytes # (Auto) 1.7 x10^3/uL (1.0-4.8) Monocytes # (Auto) 0.2 x10^3/uL (0.0-1.1) Eosinophils # (Auto) 0.1 x10^3/uL (0.0-0.7) Basophils # (Auto) 0.0 x10^3/uL (0.0-0.2) Sodium Level 143 mmol/L (136-145) 143 mmol/L (136-145) Potassium Level 3.9 mmol/L (3.5-5.1) 3.9 mmol/L (3.5-5.1) Chloride Level 111 mmol/L (98-107) 109 mmol/L (98-107) Carbon Dioxide Level 25 mmol/L (21-32) 28 mmol/L (21-32) Anion Gap 7 (6-14) 6 (6-14) Blood Urea Nitrogen 7 mg/dL (7-20) 9 mg/dL (7-20) Creatinine 0.7 mg/dL (0.6-1.0) 0.6 mg/dL (0.6-1.0) Estimated GFR (Cockcroft-Gault) 105.6 126.2 BUN/Creatinine Ratio 10 (6-20) Glucose Level 111 mg/dL (70-99) 71 mg/dL (70-99) Calcium Level 7.1 mg/dL (8.5-10.1) 7.7 mg/dL (8.5-10.1) Total Bilirubin 0.1 mg/dL (0.2-1.0) Aspartate Amino Transf (AST/SGOT) 19 U/L (15-37) Alanine Aminotransferase (ALT/SGPT) 15 U/L (14-59) Alkaline Phosphatase 109 U/L (46-116) Total Protein 4.2 g/dL (6.4-8.2) Albumin 1.7 g/dL (3.4-5.0) Albumin/Globulin Ratio 0.7 (1.0-1.7) Phosphorus Level 4.7 mg/dL (2.6-4.7) Magnesium Level 2.2 mg/dL (1.8-2.4) Laboratory Tests Test 06/27/21 06:00 Hemoglobin 7.7 g/dL (12.0-15.5) Hematocrit 22.8 % (36.0-47.0) Mean Corpuscular Hemoglobin Concent 34 g/dL (31-37) Sodium Level 143 mmol/L (136-145) Potassium Level 3.9 mmol/L (3.5-5.1) Chloride Level 109 mmol/L (98-107) Carbon Dioxide Level 28 mmol/L (21-32) Anion Gap 6 (6-14) Blood Urea Nitrogen 9 mg/dL (7-20) Creatinine 0.6 mg/dL (0.6-1.0) Estimated GFR (Cockcroft-Gault) 126.2 Glucose Level 71 mg/dL (70-99) Calcium Level 7.7 mg/dL (8.5-10.1) Phosphorus Level 4.7 mg/dL (2.6-4.7) Magnesium Level 2.2 mg/dL (1.8-2.4) Images Images no obvious bleeding source Assessment/Plan Assessment/Plan hemetemesis agree with w/u per GI and possible [facility] evaluation. No surgical plans. Thanks for consult! ELIAZAR EUGENE MD Jun 27, 2021 16:35
[2021-06-27 17:35] LABS: HEMATOCRIT 24.9 % (36.0-47.0); HEMOGLOBIN 8.3 g/dL (12.0-15.5); RED BLOOD COUNT 2.96 x10^6/uL (3.50-5.40); RED CELL DISTRIBUTION WIDTH 16.1 % (11.5-14.5)
[2021-06-27 19:00] VITALS: BP 121/70
[2021-06-27] MEDS: MIRTAZAPINE 15 MG TABLET PO SCH (21:14)
[2021-06-27] MEDS ORDERED: DEXTROSE 70% IV SCH (22:00)
[2021-06-27] MEDS ORDERED: AMINO ACID IV SCH (22:00)
[2021-06-27] MEDS ORDERED: [UNRECOGNIZED DRUG - OTHER] IV SCH (22:00)
[2021-06-27] MEDS ORDERED: TOTAL PARENTERAL NUTRITION IV SCH (22:00)
[2021-06-27 22:34] VITALS: BP 119/68
[2021-06-28 03:03] VITALS: BP 109/62
[2021-06-28] MEDS: IV NORMAL SALINE 1000ML BAG 1,000 ML IV SCH (05:09)
[2021-06-28] MEDS: PANTOPRAZOLE IV PUSH 40 MG VIAL. IVP SCH (05:09)
[2021-06-28] MEDS: HYDROmorphone 2 MG/ML INJ. IVP PRN ×2 (05:22→10:19)
[2021-06-28] MEDS: diphenhydrAMINE 50 MG/ML VIAL IV PRN (05:35)
[2021-06-28] MEDS: ONDANSETRON PF 4 MG/2 ML VIAL. IVP PRN ×2 (05:35→11:01)
[2021-06-28 05:49] LABS: ALBUMIN 1.8 g/dL (3.4-5.0); ALBUMIN/GLOBULIN RATIO 0.6 (1.0-1.7); CALCIUM 7.7 mg/dL (8.5-10.1); CREATININE 0.6 mg/dL (0.6-1.0); GFR 126.2; MAGNESIUM 2.1 mg/dL (1.8-2.4); PHOSPHORUS 4.5 mg/dL (2.6-4.7); POTASSIUM 4.1 mmol/L (3.5-5.1); TOTAL BILIRUBIN 0.2 mg/dL (0.2-1.0); TOTAL PROTEIN 4.6 g/dL (6.4-8.2)
[2021-06-28 06:41] LABS: BASO % 1 % (0-3); EOS % 1 % (0-3); HEMOGLOBIN 7.7 g/dL (12.0-15.5); LYMPH # 1.5 x10^3/uL (1.0-4.8); LYMPH % 37 % (24-48); MEAN CORPUSCULAR HEMOGLOBIN 28 pg (25-35); MEAN CORPUSCULAR HGB CONC 33 g/dL (31-37); MEAN CORPUSCULAR VOLUME 85 fL (79-100); MONO # 0.3 x10^3/uL (0.0-1.1); MONO % 9 % (0-9); NEUT # 2.1 x10^3/uL (1.8-7.7); NEUT % 52 % (31-73); PLATELET COUNT 203 x10^3/uL (140-400)
[2021-06-28 07:00] VITALS: BP 120/69
[2021-06-28] MEDS: SENNOSIDES/DOCUSATE 8.6/50MG TABLET. PO SCH (07:43)
[2021-06-28] MEDS: DULoxetine HCL 30 MG CAPSULE.DR PO SCH (07:43)
[2021-06-28] MEDS: LEVOTHYROXINE SODIUM IVP SCH (09:29)
[2021-06-28] MEDS: NORMAL SALINE IVP SCH (09:29)
[2021-06-28] MEDS: CEFEPIME HCL IV Push 1 GM VIAL. IVP SCH (09:31)
[2021-06-28] MEDS: VALPROIC ACID (AS SODIUM SALT) 250 MG in IV DEXTROSE 5% 50 ML IV SCH (09:34)
--- NOTE | 2021-06-28 09:37 | PDOC ---
Date of Service: DATE: 06/28/21 TIME: 09:33 Subjective: Subjective: No bleeding overnight. Wants to go home. Objective: Objective: No bleeding per nurse. Said yesterday she wants to go home. Vital Signs: Vital Signs Date Time Temp Pulse Resp B/P (MAP) Pulse Ox O2 Delivery O2 Flow Rate FiO2 06/28/21 07:00 98.6 115 15 120/69 (86) 98 Room Air 98.6 Labs: Laboratory Tests Test 06/27/21 17:15 06/28/21 05:15 White Blood Count 5.0 x10^3/uL 4.0 x10^3/uL Red Blood Count 2.96 x10^6/uL 2.70 x10^6/uL Hemoglobin 8.3 g/dL 7.7 g/dL Hematocrit 24.9 % 23.0 % Mean Corpuscular Volume 84 fL 85 fL Mean Corpuscular Hemoglobin 28 pg 28 pg Mean Corpuscular Hemoglobin Concent 33 g/dL 33 g/dL Red Cell Distribution Width 16.1 % 16.0 % Platelet Count 296 x10^3/uL 203 x10^3/uL Neutrophils (%) (Auto) 52 % Lymphocytes (%) (Auto) 37 % Monocytes (%) (Auto) 9 % Eosinophils (%) (Auto) 1 % Basophils (%) (Auto) 1 % Neutrophils # (Auto) 2.1 x10^3/uL Lymphocytes # (Auto) 1.5 x10^3/uL Monocytes # (Auto) 0.3 x10^3/uL Eosinophils # (Auto) 0.0 x10^3/uL Basophils # (Auto) 0.0 x10^3/uL Sodium Level 138 mmol/L Potassium Level 4.1 mmol/L Chloride Level 104 mmol/L Carbon Dioxide Level 28 mmol/L Anion Gap 6 Blood Urea Nitrogen 8 mg/dL Creatinine 0.6 mg/dL Estimated GFR (Cockcroft-Gault) 126.2 BUN/Creatinine Ratio 13 Glucose Level 104 mg/dL Calcium Level 7.7 mg/dL Phosphorus Level 4.5 mg/dL Magnesium Level 2.1 mg/dL Total Bilirubin 0.2 mg/dL Aspartate Amino Transf (AST/SGOT) 18 U/L Alanine Aminotransferase (ALT/SGPT) 17 U/L Alkaline Phosphatase 95 U/L Total Protein 4.6 g/dL Albumin 1.8 g/dL Albumin/Globulin Ratio 0.6 PE: GEN: NAD - was asleep LUNGS: CTAB HEART: mildly tachycardic ABD: soft, non-distended, mild non-specific tenderness NEURO/PSYCH: A & O 3 - quite drowsy, drifts in and out during our conversation A/P: Recurrent hematemesis, chronic anemia requiring transfusions E coli bacteremia w/ port-a-cath - ID recommends line removal, pt declines Chronic pain +cannabinoids -- No bleeding last night, Hgb stable. Okay to DC per GI. Follow-up for SB endoscopy as previously discussed - GI at has records. Monitor Hgb, transfuse as needed. Justicifation of Admission Dx: Justifications for Admission: Justification of Admission Dx: No BECK-LIZETH DUTTA Jun 28, 2021 09:37
[2021-06-28] MEDS: fentaNYL 100MCG/HR PATCH 1 PATCH PATCH TD SCH (10:19)
[2021-06-28] MEDS ORDERED: Tpn Per Pharmacy MC (10:49)
--- NOTE | 2021-06-28 10:51 | SNU/HH DC ---
DISCHARGE WITH HOME HEALTH DISCHARGE INFORMATION: Discharge Date: Jun 28, 2021 Final Diagnosis: Hematemesis Blood culture positive - will check fungal culture off PICC as well. 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 Recurrent GI bleeding Recent history of central line associated bloodstream infection Normocytic anemia History of SMA syndrome History of seizures Thyroid disorder H/o deep venous thrombosis Problems Medical Problems: (1) Chronic abdominal pain Status: Acute (2) Chronic anemia Status: Acute (3) Gastrointestinal bleeding Status: Acute (4) Hematemesis Status: Acute Condition on Discharge: Stable CODE STATUS: Code Status: Full HOME HEALTH: Face to Face: I certify this patient is under my care and that I, had a face to face encounter that meets the physician face to face encounter requirements with this patient on 06/28/21 Medical Complications: Other (bacteremia) Long Term For: Assess & Educate Safety, IV Infusion Therapy, Pain Management RN For Eval/Treatment: Yes Pt Meets Homebound Status: Limited distance walking, Psychological condition POST DISCHARGE ORDERS: Activity Instructions for Disc: No restrictions, Resume previous activity, Activity as tolerated Weight Bearing Status after Di: No restrictions, Full weight bearing, As tolerated DIET AFTER DISCHARGE: Regular Wound/Incision Care: No wound care needed CHECKS AFTER DISCHARGE: Checks after discharge: Check your Temp as needed FOLLOW-UP: DC TO SNF LABS: CBC, CMP TREATMENT/EQUIPMENT ORDERS: Adaptive Equipment Issued: None CERTIFICATION STATEMENT: Certification Statement: Certification Statement: Based on the above finding, I certify that this patient is confined to the home and needs intermittent long-term care, physical therapy and/or speech therapy, or continues to need occupational therapy.~ This patient is under my care, and I have initiated the establishment of the plan of care.~ This patient will be followed by myself or a community physician who will periodically review the plan of care. Home Meds Active Scripts [Tpn Per Pharmacy] 1 EACH EACH No Conflict Check, 1 EACH MC PRN DAILY PRN for SMA syndrome, #30 Prov:ANDRES HI MD 06/28/21 Reported Medications Albuterol Sulfate (Proair Respiclick) 90 Mcg Aer.pow.ba, 2 PUFF IH PRN Q6HRS PRN for shortness of breath, #1 INHALER 0 Refills 06/14/21 Acetaminophen (ACETAMINOPHEN) 325 Mg Tablet, 2 TAB PO PRN Q4HRS PRN for pain or fever for 30 Days, #30 TAB 0 Refills 06/14/21 Sennosides/Docusate Sodium (SENNA PLUS TABLET) 1 Each Tablet, 1 TAB PO PRN DAILY PRN for CONSTIPATION for 20 Days, TAB 0 Refills 06/14/21 [botox] No Conflict Check, 200 UNITS SQ [id number] for ian danlos syndrome 06/14/21 Mirtazapine (MIRTAZAPINE) 30 Mg Tablet, 1 TAB PO QHS for sleep, #30 TAB 1 Refill 06/14/21 [diphenhydramine] No Conflict Check, 50 MG IV Q4HRS 06/14/21 Pantoprazole Sodium (PROTONIX IV) 40 Mg Vial, 40 MG IV DAILY for gerd, EACH 06/13/21 Fentanyl (FENTANYL 100mcg/hr) 1 Each Patch.td72, 1 PATCH TP Q3DAYS for pain, #10 PATCH 06/13/21 Duloxetine Hcl (CYMBALTA) 30 Mg Capsule.dr, 90 MG PO DAILY for depression, #30 CAP 5 Refills 06/13/21 Ondansetron Hcl (ZOFRAN) 8 Mg Tablet, 8 MG SL PRN Q4HRS PRN for NAUSEA, TAB 01/27/20 Lorazepam (ATIVAN) 0.5 Mg Tablet, 0.5 MG PO QIDPRN PRN for ANXIETY / AGITATION, TAB 01/27/20 Levothyroxine Sodium (SYNTHROID) 25 Mcg Tablet, 1 TAB PO DAILY08 for replacement, #30 TAB 5 Refills 01/27/20 Hydromorphone Hcl (HYDROMORPHONE HCL) 4 Mg Tablet, 4 MG PO PRN Q4HRS PRN for PAIN, TAB 01/27/20 Divalproex Sodium (DEPAKOTE) 500 Mg Tablet.dr, 250 MG PO BID for anxiety, #60 TAB 2 Refills 01/27/20 Cetirizine Hcl (ZYRTEC) 10 Mg Tablet, 10 MG PO DAILY for allergies, TAB 01/27/20 ANDRES HI MD Jun 28, 2021 10:51
[2021-06-28 11:00] VITALS: BP 120/75
--- NOTE | 2021-06-28 12:09 | NUR ---
SW following. [facility] still with no beds and per [facility] pt can follow up as an out-pt. Pt ready for discharge and transfer back home with resumption of [facility] and [facility] for continued TPN. Resumption orders faxed to [facility] and [facility]. Pt aware and agreeable to plans. Pt to transfer back home later today.
--- NOTE | 2021-06-28 12:25 | NUR ---
Patient education given on nutrition, encouraged and educated on self care, IV fluids discontinued, lines flushed and capped by this RN. Wheeled to personal vehicle.
== END 2021-06-28 12:25 | disposition home health service (06) | DRG 377 ==
LOC: ER 15:32 → 5 NORTH 18:51 → 2 NORTH 21:44 → 5 NORTH 06-26 12:25
PROVIDERS: ADMIT Internal Medicine; ATTEND Internal Medicine
PROC: 30233N1 Transfusion of Nonautologous Red Blood Cells into Peripheral Vein, Percutaneous Approach (ICD-10-PCS; principal; 2021-06-22)
DX: K92.0 Hematemesis (principal); E43 Unspecified severe protein-calorie malnutrition; Q79.60 Ehlers-Danlos syndrome, unspecified; D62 Acute posthemorrhagic anemia; R78.81 Bacteremia; K92.2 Gastrointestinal hemorrhage, unspecified; E07.9 Disorder of thyroid, unspecified; E83.42 Hypomagnesemia; G89.29 Other chronic pain; G43.909 Migraine, unspecified, not intractable, without status migrainosus; K21.9 Gastro-esophageal reflux disease without esophagitis; D72.819 Decreased white blood cell count, unspecified; B96.20 Unspecified Escherichia coli [E. coli] as the cause of diseases classified elsewhere; J45.909 Unspecified asthma, uncomplicated; Z82.49 Family history of ischemic heart disease and other diseases of the circulatory system; Z86.718 Personal history of other venous thrombosis and embolism; Z88.9 Allergy status to unspecified drugs, medicaments and biological substances; Z88.1 Allergy status to other antibiotic agents; Z88.5 Allergy status to narcotic agent; Z88.0 Allergy status to penicillin; Z88.8 Allergy status to other drugs, medicaments and biological substances; Z68.20 Body mass index [BMI] 20.0-20.9, adult
CPT/HCPCS: 36415; 36430; 74174; 78278; 80048; 80053; 80307; 81001; 82271; 82310; 82550; 83605; 83690; 83735; 84100; 84703; 85007; 85014; 85018; 85025; 85027; 85610; 85730; 86850; 86900; 86901; 86920; 87040; 87077; 87103; 87186; 93005; 96361; 96374; 96375; 96376; A9560; C9113; J0500; J0610; J0692; J0878; J1170; J1200; J1630; J2060; J2405; J2920; J2997; J3475; J3480; J3490; J7030; J7042; J7060; P9016; Q9967; 99285-25; G0378

== ENCOUNTER 2021-08-04 10:39 | Observation (INO) | payer BC ==
[~2021-08-04] VITALS: Ht 170.2 cm; Wt 55.0 kg
[2021-08-04] MEDS ORDERED: methylPREDNISolone SOD SUCC PF 125 MG/2 ML VIAL. IV ONE (11:00)
[2021-08-04] MEDS ORDERED: ACETAMINOPHEN 500 MG TABLET PO ONE (11:00)
--- NOTE | 2021-08-04 11:02 | PHYS DOC ---
Past Medical History Past Medical History: Asthma, DVT, Migraines, Pneumonia Additional Past Medical Histor: VASCULAR BLEEDING DISORDER,SUPERIOR MESENTARIC ARTERY SYNDROME,POSTERIOR OR Past Surgical History: Other Additional Past Surgical Histo: SMALL BOWEL RESECTION,PICC LINE PLACEMENT,GJ FEEDING TUBE Smoking Status: Never Smoker Alcohol Use: None Drug Use: None General Adult HPI: HPI: Patient is a 21 year old female who presents with patient was here as outpatient to receive 2 units of blood. Patient has been coming in for blood transfusion and has had 15 transfusions since April. Patient has a lot of chronic abdominal pain and generalized pain of which she wears a fentanyl patch. She also takes p.o. pain medication. Patient is very pale, lethargic, hypotensive upon arrival for her transfusion today and so she was sent to the ER. Father states that the patient seemed a bit more shaky and weak today than usual. Patients father states that no one can figure out where her bleeding is coming from or why she vomits blood. Father states that she goes to see a surgeon next week. Patient has a history of vascular bleeding disorder, superior mesenteric artery disorder, posterior OR, migraine, pneumonia, pots syndrome, small bowel resection, PICC line in place, G-tube feeding tube in place. Review of Systems: Review of Systems: Constitutional: Denies fever or chills. [] Eyes: Denies change in visual acuity. [] HENT: Denies nasal congestion or sore throat. [] Respiratory: Denies cough or shortness of breath. [] Cardiovascular: Denies chest pain or edema. [] GI: Denies abdominal pain, nausea, vomiting, bloody stools or diarrhea. [] : Denies dysuria. [] Musculoskeletal: Denies back pain or joint pain. + Generalized weakness [] Integument: Denies rash. [] Neurologic: Denies headache, focal weakness or sensory changes. + Lethargic [] Endocrine: Denies polyuria or polydipsia. [] Lymphatic: Denies swollen glands. [] Psychiatric: Denies depression or anxiety. [] Heart Score: C/O Chest Pain: No HEART Score for Chest Pain: HEART Score for Chest Pain Response (Comments) Value History Slighlty/Non-Suspicious 0 Age < 45 0 Risk Factors No Risk Factors 0 Troponin < Normal Limit 0 Total 0 Risk Factors: Risk Factors: DM, Current or recent (<one month) smoker, HTN, HLP, family history of CAD, obesity. Risk Scores: Score 0 - 3: 2.5% MACE over next 6 weeks - Discharge Home Score 4 - 6: 20.3% MACE over next 6 weeks - Admit for Clinical Observation Score 7 - 10: 72.7% MACE over next 6 weeks - Early Invasive Strategies Current Medications: Current Medications Medications (Trade) Dose Ordered Sig/Aleida Start Time Stop Time Status Last Admin Dose Admin Acetaminophen (Tylenol) 1,000 mg 1X ONCE 08/04/21 11:00 08/04/21 11:01 Methylprednisolone Sodium Succinate (SOLU-Medrol 125MG VIAL) 125 mg 1X ONCE 08/04/21 11:00 08/04/21 11:01 Allergies: Allergies: Allergies Coded Allergies Type Severity Reaction Last Updated Verified Penicillins Allergy Severe rash 07/27/21 Yes amitriptyline Allergy Severe shock 07/27/21 Yes ceftriaxone Allergy Severe rash 07/27/21 Yes eletriptan Allergy Severe migraines 07/27/21 Yes fat emulsions Allergy Severe anaphylaxis 07/27/21 Yes fish oil Allergy Severe anaphylaxis 07/27/21 Yes medium chain triglycerides Allergy Severe anaphylaxis 07/27/21 Yes meropenem Allergy Severe face swelling 07/27/21 Yes morphine Allergy Severe unknown 07/27/21 Yes olive oil Allergy Severe anaphylaxis 07/27/21 Yes rizatriptan Allergy Severe migraines 07/27/21 Yes soybean oil Allergy Severe anaphylaxis 07/27/21 Yes sumatriptan Allergy Severe migraines 07/27/21 Yes topiramate Allergy Severe shock 07/27/21 Yes trimethobenzamide Allergy Severe face swelling 07/27/21 Yes pineapple Allergy Intermediate 07/27/21 Yes prochlorperazine Allergy Intermediate 07/27/21 Yes sodium ferric gluconate complex Allergy Intermediate 07/27/21 Yes sucrose Allergy Intermediate 07/27/21 Yes cyproheptadine Adverse Reaction Intermediate n/v 07/27/21 Yes erythromycin base Adverse Reaction Intermediate n/v 07/27/21 Yes gabapentin Adverse Reaction Intermediate n/v 07/27/21 Yes metoclopramide Adverse Reaction Intermediate n/v 07/27/21 Yes promethazine Adverse Reaction Intermediate n/v 07/27/21 Yes Physical Exam: PE: Constitutional: Well developed, well nourished, no acute distress, non-toxic appearance. [] HENT: Normocephalic, atraumatic, bilateral external ears normal, oropharynx moist, no oral exudates, nose normal. [] Eyes: PERRLA, EOMI, conjunctiva normal, no discharge. [] Neck: Normal range of motion, no tenderness, supple, no stridor. [] Cardiovascular:Heart rate regular rhythm, no murmur [] Lungs & Thorax: Bilateral breath sounds clear to auscultation [] Abdomen: Bowel sounds normal, soft, no tenderness, no masses, no pulsatile masses. [] Skin: Warm, dry, no erythema, no rash. Pale [] Back: No tenderness, no CVA tenderness. [] Extremities: No tenderness, no cyanosis, no clubbing, ROM intact, no edema. [] Neurologic: Alert and oriented X 3, normal motor function, normal sensory function, no focal deficits noted. [] Psychologic: Affect normal, judgement normal, mood normal. Tearful [] EKG: EK and read by Dr. Tinajero is a sinus rhythm but no STEMI Radiology/Procedures: Radiology/Procedures: [] Course & Med Decision Making: Course & Med Decision Making Pertinent Labs and Imaging studies reviewed. (See chart for details) See HPI. Alert and oriented x4. Speaks in full clear sentences. Answers questions appropriately. Very tearful. Skin is pale warm and dry. There is already an order in a type and screen that was sent to the lab today as an outpatient. There is already order for 2 units of blood to be given. Abdomen soft and nontender. She does have a fentanyl patch that was placed 2 days ago on her left chest at this time. Patient's hemoglobin is at a 5.9 today. Patient is due to see a GI surgeon at with of her other doctors next week. She was just recently at and had scopes done. Father and the patient both do not want to be admitted but un derstand that the patient needs blood which can take hours. 3 units have been ordered for her. Patient stable at this time but her blood pressures in the 90s. I have spoken to Dr. Marie hospitalist and states that he will bring her in for observation and then do a post blood H&H and will then discharge her. Patient and family are agreeable to this. They do understand that if anything else happens or patient's medical status declines that she will need to be admitted. [] Eriberto Disclaimer: Dragon Disclaimer: This electronic medical record was generated, in whole or in part, using a voice recognition dictation system. Departure Departure Impression: Primary Impression: Low hemoglobin Disposition: ADMITTED INPATIENT Admitting Physician: MARCI Condition: STABLE Referrals: ANGELES BARRIGA MD (PCP) NEELIMA HOUSE APRN Aug 04, 2021 11:02
[2021-08-04 11:06] LABS: BASO % 1 % (0-3); EOS % 0 % (0-3); HEMATOCRIT 17.8 % (36.0-47.0); LYMPH # 1.1 x10^3/uL (1.0-4.8); LYMPH % 22 % (24-48); MEAN CORPUSCULAR HEMOGLOBIN 26 pg (25-35); MEAN CORPUSCULAR HGB CONC 33 g/dL (31-37); MEAN CORPUSCULAR VOLUME 78 fL (79-100); MONO # 0.4 x10^3/uL (0.0-1.1); MONO % 7 % (0-9); NEUT # 3.6 x10^3/uL (1.8-7.7); NEUT % 71 % (31-73); PLATELET COUNT 298 x10^3/uL (140-400); RED BLOOD COUNT 2.28 x10^6/uL (3.50-5.40); WHITE BLOOD COUNT 5.1 x10^3/uL (4.0-11.0)
[2021-08-04 11:08] LABS: HEMOGLOBIN 5.9 g/dL (12.0-15.5)
[2021-08-04 11:30] LABS: CALCIUM 7.7 mg/dL (8.5-10.1); POTASSIUM 4.6 mmol/L (3.5-5.1)
[2021-08-04 11:33] LABS: ALBUMIN 1.9 g/dL (3.4-5.0); ALBUMIN/GLOBULIN RATIO 0.6 (1.0-1.7); MAGNESIUM 1.9 mg/dL (1.8-2.4); TOTAL BILIRUBIN 0.3 mg/dL (0.2-1.0); TOTAL PROTEIN 5.2 g/dL (6.4-8.2)
[2021-08-04 11:41] LABS: PROTHROMBIN TIME PATIENT 14.9 SEC (11.7-14.0)
[2021-08-04 12:45] VITALS: BP 107/68
[2021-08-04 14:30] VITALS: BP 109/71
[2021-08-04 15:00] VITALS: BP 109/62
--- NOTE | 2021-08-04 15:16 | PDOC1 ---
History and Physical Date of Service: DOS: DATE: 08/04/21 TIME: 15:12 Chief Complaint: Chief Complain: Vomiting blood History of Present Illness: HPI: 21 year old female who presents with patient was here as outpatient to receive 2 units of blood. Patient has been coming in for blood transfusion and has had 15 transfusions since April. Patient has a lot of chronic abdominal pain and generalized pain of which she wears a fentanyl patch. She also takes p.o. pain medication. Patient is very pale, lethargic, hypotensive upon arrival for her transfusion today and so she was sent to the ER. Father states that the patient seemed a bit more shaky and weak today than usual. Patients father states that no one can figure out where her bleeding is coming from or why she vomits blood. Father states that she goes to see a surgeon next week. Patient has a history of vascular bleeding disorder, superior mesenteric artery disorder, posterior OR, migraine, pneumonia, pots syndrome, small bowel resection, PICC line in place, G-tube feeding tube in place. Past Medical/Surgical History: PMH/PSH: Past Medical History: Asthma, DVT, Migraines, Pneumonia, VASCULAR BLEEDING DISORDER,SUPERIOR MESENTARIC ARTERY SYNDROME,POSTERIOR OR Past Surgical History: SMALL BOWEL RESECTION,PICC LINE PLACEMENT,GJ FEEDING TUBE Allergies: Allergies: Coded Allergies: Penicillins (Verified Allergy, Severe, rash, 07/27/21) amitriptyline (Verified Allergy, Severe, shock, 07/27/21) ceftriaxone (Verified Allergy, Severe, rash, 07/27/21) eletriptan (Verified Allergy, Severe, migraines, 07/27/21) fat emulsions (Verified Allergy, Severe, anaphylaxis, 07/27/21) fish oil (Verified Allergy, Severe, anaphylaxis, 07/27/21) medium chain triglycerides (Verified Allergy, Severe, anaphylaxis, 07/27/21) meropenem (Verified Allergy, Severe, face swelling, 07/27/21) morphine (Verified Allergy, Severe, unknown, 07/27/21) olive oil (Verified Allergy, Severe, anaphylaxis, 07/27/21) rizatriptan (Verified Allergy, Severe, migraines, 07/27/21) soybean oil (Verified Allergy, Severe, anaphylaxis, 07/27/21) sumatriptan (Verified Allergy, Severe, migraines, 07/27/21) topiramate (Verified Allergy, Severe, shock, 07/27/21) trimethobenzamide (Verified Allergy, Severe, face swelling, 07/27/21) Patient has tolerated diphenhydramine on previous admissions pineapple (Verified Allergy, Intermediate, 07/27/21) prochlorperazine (Verified Allergy, Intermediate, 07/27/21) sodium ferric gluconate complex (Verified Allergy, Intermediate, 07/27/21) sucrose (Verified Allergy, Intermediate, 07/27/21) cyproheptadine (Verified Adverse Reaction, Intermediate, n/v, 07/27/21) erythromycin base (Verified Adverse Reaction, Intermediate, n/v, 07/27/21) gabapentin (Verified Adverse Reaction, Intermediate, n/v, 07/27/21) metoclopramide (Verified Adverse Reaction, Intermediate, n/v, 07/27/21) promethazine (Verified Adverse Reaction, Intermediate, n/v, 07/27/21) Family History: Family History: Reviewed with no relative findings Social History: Social History: Smoking Status: Never Smoker Alcohol Use: None Drug Use: None Current Medications: Current Medications Current Medications Acetaminophen (Tylenol) 1,000 mg 1X ONCE PO Last administered on 08/04/21at 12:33; Start 08/04/21 at 11:00; Stop 08/04/21 at 11:01; Status DC Methylprednisolone Sodium Succinate (SOLU-Medrol 125MG VIAL) 125 mg 1X ONCE IV Last administered on 08/04/21at 11:00; Start 08/04/21 at 11:00; Stop 08/04/21 at 11:01; Status DC Active Scripts Active [Tpn Per Pharmacy] 1 EACH Each 1 Each MC PRN DAILY PRN Reported Proair Respiclick (Albuterol Sulfate) 90 Mcg Aer.pow.ba 2 Puff IH PRN Q6HRS PRN Acetaminophen 325 Mg Tablet 2 Tab PO PRN Q4HRS PRN 30 Days Senna Plus Tablet (Sennosides/Docusate Sodium) 1 Each Tablet 1 Tab PO PRN DAILY PRN 20 Days [botox] 200 Units SQ [id number] Mirtazapine 30 Mg Tablet 1 Tab PO QHS [diphenhydramine] 50 Mg IV Q4HRS Protonix Iv (Pantoprazole Sodium) 40 Mg Vial 40 Mg IV DAILY FENTANYL 100mcg/hr (Fentanyl) 1 Each Patch.td72 1 Patch TP Q3DAYS Cymbalta (Duloxetine Hcl) 30 Mg Capsule.dr 90 Mg PO DAILY Zofran (Ondansetron Hcl) 8 Mg Tablet 8 Mg SL PRN Q4HRS PRN Ativan (Lorazepam) 0.5 Mg Tablet 0.5 Mg PO QIDPRN PRN Synthroid (Levothyroxine Sodium) 25 Mcg Tablet 1 Tab PO DAILY08 Hydromorphone Hcl 4 Mg Tablet 4 Mg PO PRN Q4HRS PRN Depakote (Divalproex Sodium) 500 Mg Tablet.dr 250 Mg PO BID Zyrtec (Cetirizine Hcl) 10 Mg Tablet 10 Mg PO DAILY ROS: Review of Systems Review of System REVIEW OF SYSTEMS: GENERAL: Denies weakness SKIN: No bruising, hair changes or rashes. EYES: No blurred, double or loss of vision. NOSE AND THROAT: No history of nosebleeds, hoarseness or sore throat. HEART: No history of palpitations, chest pain or shortness of breath on exertion. LUNGS: Denies cough, hemoptysis, wheezing or shortness of breath. GASTROINTESTINAL: Vomiting blood GENITOURINARY: No history of frequency, urgency, hesitancy or nocturia. NEUROLOGIC: Denies history of numbness, tingling, or tremor. PSYCHIATRIC: No history of panic, anxiety or depression. ENDOCRINE: No history of heat or cold intolerance, polyuria or polydipsia. EXTREMITIES: Denies joint pain, pain on walking or stiffness. Physical Exam: Vital Signs: Vital Signs Date Time Temp Pulse Resp B/P (MAP) Pulse Ox O2 Delivery O2 Flow Rate FiO2 08/04/21 14:30 98.5 98 22 109/71 98.5 08/04/21 13:32 99 2.0 08/04/21 11:01 Room Air Physcial Exam: General: Well developed, well nourished, no acute distress, well appearing HEENT: Pupils equally round and reactive to light, EOMI, no discharge, normal conjunctiva Neck: Supple, no nuchal rigidity, no JVD, trachea midline, no tenderness Cardiac: RRR, no murmurs, no gallops, no rubs Chest/Lungs: CTAB, no wheeze, no rhonchi, no crackles Abdomen: soft, non-distended, no guarding, no peritoneal signs, non-tender Back: No tenderness Extremities: no edema, pulses intact, non-tender,capillary refill <3 sec bilateral upper and lower extremities, Neuro: Alert and oriented x 4, no focal deficits, normal speech Labs: Labs: Laboratory Tests Test 08/04/21 10:58 08/04/21 11:11 White Blood Count 5.1 x10^3/uL (4.0-11.0) Red Blood Count 2.28 x10^6/uL (3.50-5.40) Hemoglobin 5.9 g/dL (12.0-15.5) Hematocrit 17.8 % (36.0-47.0) Mean Corpuscular Volume 78 fL (79-100) Mean Corpuscular Hemoglobin 26 pg (25-35) Mean Corpuscular Hemoglobin Concent 33 g/dL (31-37) Red Cell Distribution Width 17.0 % (11.5-14.5) Platelet Count 298 x10^3/uL (140-400) Neutrophils (%) (Auto) 71 % (31-73) Lymphocytes (%) (Auto) 22 % (24-48) Monocytes (%) (Auto) 7 % (0-9) Eosinophils (%) (Auto) 0 % (0-3) Basophils (%) (Auto) 1 % (0-3) Neutrophils # (Auto) 3.6 x10^3/uL (1.8-7.7) Lymphocytes # (Auto) 1.1 x10^3/uL (1.0-4.8) Monocytes # (Auto) 0.4 x10^3/uL (0.0-1.1) Eosinophils # (Auto) 0.0 x10^3/uL (0.0-0.7) Basophils # (Auto) 0.0 x10^3/uL (0.0-0.2) Sodium Level 135 mmol/L (136-145) Potassium Level 4.6 mmol/L (3.5-5.1) Chloride Level 102 mmol/L (98-107) Carbon Dioxide Level 25 mmol/L (21-32) Anion Gap 8 (6-14) Blood Urea Nitrogen 18 mg/dL (7-20) Creatinine 1.0 mg/dL (0.6-1.0) Estimated GFR (Cockcroft-Gault) 70.0 BUN/Creatinine Ratio 18 (6-20) Glucose Level 101 mg/dL (70-99) Calcium Level 7.7 mg/dL (8.5-10.1) Magnesium Level 1.9 mg/dL (1.8-2.4) Total Bilirubin 0.3 mg/dL (0.2-1.0) Aspartate Amino Transf (AST/SGOT) 51 U/L (15-37) Alanine Aminotransferase (ALT/SGPT) 28 U/L (14-59) Alkaline Phosphatase 211 U/L (46-116) Troponin I High Sensitivity < 4 ng/L (4-50) Total Protein 5.2 g/dL (6.4-8.2) Albumin 1.9 g/dL (3.4-5.0) Albumin/Globulin Ratio 0.6 (1.0-1.7) Prothrombin Time 14.9 SEC (11.7-14.0) Prothromb Time International Ratio 1.2 (0.8-1.1) Activated Partial Thromboplast Time 36 SEC (24-38) Laboratory Tests Test 08/04/21 10:58 08/04/21 11:11 White Blood Count 5.1 x10^3/uL (4.0-11.0) Red Blood Count 2.28 x10^6/uL (3.50-5.40) Hemoglobin 5.9 g/dL (12.0-15.5) Hematocrit 17.8 % (36.0-47.0) Mean Corpuscular Volume 78 fL (79-100) Mean Corpuscular Hemoglobin 26 pg (25-35) Mean Corpuscular Hemoglobin Concent 33 g/dL (31-37) Red Cell Distribution Width 17.0 % (11.5-14.5) Platelet Count 298 x10^3/uL (140-400) Neutrophils (%) (Auto) 71 % (31-73) Lymphocytes (%) (Auto) 22 % (24-48) Monocytes (%) (Auto) 7 % (0-9) Eosinophils (%) (Auto) 0 % (0-3) Basophils (%) (Auto) 1 % (0-3) Neutrophils # (Auto) 3.6 x10^3/uL (1.8-7.7) Lymphocytes # (Auto) 1.1 x10^3/uL (1.0-4.8) Monocytes # (Auto) 0.4 x10^3/uL (0.0-1.1) Eosinophils # (Auto) 0.0 x10^3/uL (0.0-0.7) Basophils # (Auto) 0.0 x10^3/uL (0.0-0.2) Sodium Level 135 mmol/L (136-145) Potassium Level 4.6 mmol/L (3.5-5.1) Chloride Level 102 mmol/L (98-107) Carbon Dioxide Level 25 mmol/L (21-32) Anion Gap 8 (6-14) Blood Urea Nitrogen 18 mg/dL (7-20) Creatinine 1.0 mg/dL (0.6-1.0) Estimated GFR (Cockcroft-Gault) 70.0 BUN/Creatinine Ratio 18 (6-20) Glucose Level 101 mg/dL (70-99) Calcium Level 7.7 mg/dL (8.5-10.1) Magnesium Level 1.9 mg/dL (1.8-2.4) Total Bilirubin 0.3 mg/dL (0.2-1.0) Aspartate Amino Transf (AST/SGOT) 51 U/L (15-37) Alanine Aminotransferase (ALT/SGPT) 28 U/L (14-59) Alkaline Phosphatase 211 U/L (46-116) Troponin I High Sensitivity < 4 ng/L (4-50) Total Protein 5.2 g/dL (6.4-8.2) Albumin 1.9 g/dL (3.4-5.0) Albumin/Globulin Ratio 0.6 (1.0-1.7) Prothrombin Time 14.9 SEC (11.7-14.0) Prothromb Time International Ratio 1.2 (0.8-1.1) Activated Partial Thromboplast Time 36 SEC (24-38) Images: Images No recent images to review Assessment/Plan Assessment/Plan Acute anemia secondary to GI blood loss Admit to hospitalist service for blood transfusion Pending 1 unit PRBC transfusion Repeat posttransfusion CBC If patient's hemoglobin and vital signs are stable, then patient can be discharged home and follow-up closely with PCP Justifications for Admission Other Justification GI bleed MAYURI DUBON MD Aug 04, 2021 15:16
--- NOTE | 2021-08-04 15:17 | DISCH ---
DISCHARGE INSTRUCTIONS Condition on Discharge Condition on Discharge: Stable Activity After Discharge Activity Instructions for Disc: No restrictions, Resume previous activity, Activity as tolerated Weight Bearing Status after Di: No restrictions, Full weight bearing, As tolerated Diet after Discharge Diet after Discharge: Regular Diet Texture: Regular Liquid Texture: Thin Liquid Swallowing Supervision: None needed Wound Incision Care Wound/Incision Care: No wound care needed Checks after Discharge Checks after discharge: Check your Temp as needed Follow-Up Follow up with: Follow-up with your primary doctor in 2 weeks Treatment/Equipment after DC Adaptive Equipment Issued: None MAYURI DUBON MD Aug 04, 2021 15:17
[2021-08-04 15:20] VITALS: BP 102/62
--- NOTE | 2021-08-04 15:44 | NUR ---
Verified with lab if there was another order of blood ready for patient. Only one unit of blood was ordered. Paged Dr. Marie, informed him of only one unit of blood to be infused. Physician ordered H and H. If Hgb is under 7 to transfuse another unit.
--- NOTE | 2021-08-04 16:30 | NUR ---
Patient remove her bp and vital signs machine and turned off the vital sign machine. Patient stated "the aid turned it off." This RN spoke with only aid on this floor, whom ensured me she knew better than to turn it off, patient is on frequents. Therefore patient frequents were unable to be charted.
[2021-08-04 16:38] LABS: HEMATOCRIT 24.4 % (36.0-47.0); HEMOGLOBIN 8.1 g/dL (12.0-15.5)
[2021-08-04 17:02] VITALS: BP 109/77
--- NOTE | 2021-08-04 17:34 | NUR ---
Patient discharged to home. Hgb 8.1. Patient locked herself in the bathroom for 45 minutes. 20g IV was discontinued, telemonitor discontinued, new set of vitals taken just before discharging. 97.7 axillary temp, 106/73 left arm, HR 70, 94 %O2 sat on room air. Patient not receptive to learning. Verified with blood lab on how many orders were put in. One order of blood was ordered and administered, through the 20g IV. PICC line was not assessed or touched by this RN. Patient was tachycardia until completion of the unit of blood. Patient ate dinner with her father at bedside. Father was verbally aggressive because she didn't receive 3 units of blood. Informed and educated both patient and father hgb of 8.1 is no longer critical, no other blood was ordered by physician. Neither patient or father receptive to education. Patient escorted out with belongings to main entrance with parent by Vicki BATES.
--- NOTE | 2021-08-04 19:50 | NUR ---
This RN frequently checked this patient visually during blood infusion on this floor. Informed patient that her arm needed to stay straight for the blood to infuse, or else we would have to throw it out due to coagulation. Educated patient to keep her door open while her blood was infusing so this RN could monitor her closely. Patient showed no visual signs of reaction.
--- NOTE | 2021-08-05 06:59 | EKG ---
[facility] [address] [place] [address] Test Date: 2021-08-04 Test Time: 11:09:25 Pat Name: JIN ABBOTT Department: Room: 206 Gender: F Parole Supervisor: : [id number] Requested By: NEELIMA HOUSE Order Number: [id number] Reading MD: Dale Cruz Measurements Intervals Vaughn Rate: 76 P: 35 SD: 136 QRS: 30 QRSD: 76 T: 43 QT: 392 QTc: 445 Interpretive Statements SINUS RHYTHM T ABNORMALITY IN ANTERIOR LEADS Electronically Signed On 08-05-2021 8:55:39 CDT by Dale Cruz
== END 2021-08-04 17:34 | disposition home or self-care (01) ==
LOC: ER 10:39 → 2 NORTH 12:24
PROVIDERS: ADMIT Internal Medicine; ATTEND Internal Medicine
DX: D62 Acute posthemorrhagic anemia (principal); K92.0 Hematemesis; G89.29 Other chronic pain; R10.9 Unspecified abdominal pain; J45.909 Unspecified asthma, uncomplicated; J18.9 Pneumonia, unspecified organism; G43.909 Migraine, unspecified, not intractable, without status migrainosus; Z86.718 Personal history of other venous thrombosis and embolism; Z93.1 Gastrostomy status; Z79.899 Other long term (current) drug therapy; Z98.890 Other specified postprocedural states
CPT/HCPCS: 36415; 36430; 80053; 83735; 84484; 85014; 85018; 85025; 85610; 85730; 86850; 86900; 86901; 86920; 93005; 96374; 99285; G0378; J2930; P9016; G0379